=== PATIENT | male | born 1990 | race African-American/Black ===

== ENCOUNTER 2020-03-31 18:21 | Emergency (ER) | payer OTHER, SELFPAY ==
[2020-03-31 18:46] VITALS: BP 119/74; PULSE 120; RESP 16; TEMP 37.1; O2SAT 95; BMI 31.3
--- NOTE | 2020-03-31 18:59 | ED_ITS ---
HPI - Medical Clearance General Chief complaint: Medical Clearance Stated complaint: medical clearance Time Seen by Provider: 03/31/20 18:59 Source: patient Mode of arrival: ambulatory Limitations: no limitations History of Present Illness HPI Narrative: 29-year-old male with history of chronic alcoholism, patient now is in detox program, patient admitted that he had a doctor appointment today and he drank 4 nebs of heavy liquor today, patient required by his program to be evaluated and get medical clearance before going back to the program. Patient is awake, oriented, and alert, able to answer all questions a ppropriately, able to ambulate in the emergency department with steady gait. Related Information Home Medications Medication Instructions Recorded Confirmed benztropine 1 mg tablet 1 mg PO Q4H PRN 02/26/20 02/26/20 haloperidol 0.5 mg tablet 0.5 mg PO DAILY 02/26/20 haloperidol 5 mg tablet 5 mg PO BEDTIME 02/26/20 02/26/20 trazodone 300 mg tablet 300 mg PO BEDTIME 02/26/20 Allergies Allergy/AdvReac Type Severity Reaction Status Date / Time No Known Allergies Allergy Verified 02/26/20 12:17 [No Known Allergies*] Review of Systems Review of Systems: All other systems are reviewed and are negative Constitutional: Reports as per HPI and Reports no additional constitutional complaints Eyes: Reports as per HPI and Reports no additional eye complaints Reports system reviewed and no additional complaints, except as documented Cardiovascular: Reports as per HPI and Reports no additional cardiovascular complaints Respiratory: Reports as per HPI and Reports no additional respiratory complaints Gastrointestinal: Reports as per HPI and Reports no additional gastrointestinal complaints Genitourinary: Reports no additional female genitourinary complaints Musculoskeletal: Reports no additional musculoskeletal complaints Skin/Breast: Reports system reviewed and no additional complaints, except as docu Psychiatric: Reports no additional psychiatric complaints Endocrine: Reports no additional endocrine complaints Hematologic/Lymphatic: Reports no additional hematologic/lymphatic complaints Allergic/Immunologic: Reports no additional allergic/immunologic complaints Reports system reviewed and no additional complaints, except as documented and Reports Abnormal speech present [facility] Past Medical History Medical History Alcohol abuse Delusional disorder Generalized anxiety disorder Mixed dyslipidemia Surgical History History of removal of neck cyst History of root canal procedure Family History Family History Father Depression FH: mental illness Mother Depression FH: mental illness Maternal Grandfather No problems noted. Maternal Grandmother No problems noted. Brother No problems noted. Sister No problems noted. Social History Social History Alcohol intake: current Alcohol type: hard liquor Smoking Status: Current every day smoker Cigarettes Per Day: 9 Smoked in Last 30 Days: No Use of substances other than those prescribed or required for medical reasons: No Advance Directives: No Advance Directives Information Provided: Yes Physical Exam Vital Signs: Vital Signs: Last Vital Signs Temp 98.7 F 03/31/20 18:46 Pulse 120 H 03/31/20 18:46 Resp 16 03/31/20 18:46 BP 119/74 03/31/20 18:46 Pulse Ox 95 03/31/20 18:46 Body Mass Index 31.3 Vital signs have been reviewed as normal and appeared to be correct. Blood pressure normal. Tachycardia. Respiration rate normal. Temperature normal. Oxygen saturation normal. Appearance: Alert. Oriented X3. No acute distress. Head: Normal external exam. Normocephalic. Atraumatic. No Lr signs noted. No raccoon eyes noted Eyes: PERRLA. EOMI. Conjunctiva and sclera normal. Eyelids normal. ENT: EAC normal. TM's Normal. Pharynx normal. Uvula midline. Moist mucous membranes. No trismus noted. No drooling noted. No muffled voice noted. Neck: Normal inspection. Neck supple. FROM. No adenopathy. Thyroid Normal. No meningeal signs. No neck mass noted. CVS: Normal heart rate and rhythm. Heart sound normal. No murmurs noted. Pulses normal throughout. Respiratory: No respiratory distress. Painless inspiration. Breath sounds normal. No wheezes/rales/rhonchi noted. Chest nontender. No accessory muscle usage noted or decreased air movement noted. Abdomen: Soft and nontender. Bowel sounds normal in all 4 quadrants. No distention noted. No organomegaly noted. No visible injury noted. Back: No CVA tenderness. Full range of motion noted. Skin: Skin warm and dry. Normal skin color. Normal skin turgor. No rashes/lesions/lacerations noted. Extremities: No lower extremity edema. Extremities exhibit normal range of mot ion. Extremities nontender. Neuro: Oriented X 3. No motor deficit. No sensory deficit. Reflexes normal. MDM - Medical Clearance MDM Narrative Medical decision making narrative: Assessment and plan. 29-year-old history of chronic alcoholism, patient currently is in alcohol detoxication program, patient needed medical clearance before going back to the program, patient is medically cleared. Discharge Plan Discharge Clinical Impression: Alcohol intoxication, Encounter for medical screening examination Patient Disposition: Home, Self-Care Instructions: Alcohol Intoxication (ED) Prescriptions: No Action trazodone 300 mg tablet 300 mg PO BEDTIME RF: 0 haloperidol 0.5 mg tablet 0.5 mg PO DAILY RF: 0 benztropine 1 mg tablet 1 mg PO Q4H PRNRF: 0 haloperidol 5 mg tablet 5 mg PO BEDTIME RF: 0 Referrals: Tomeka Teresa MD [Primary Care Provider] - 2 days
[2020-03-31 19:46] LABS: Amphetamine Screen Urine Not Detected (Not Detect); Barbiturates, Urine Not Detected (Not Detect); Benzodiazepines Screen Urine Not Detected (Not Detect); Cannabinoid Screen Urine Not Detected (Not Detect); Cocaine Screen Urine Not Detected (Not Detect); Opiate Screen Urine Not Detected (Not Detect); Phencyclidine Screen Urine Not Detected (Not Detect)
--- NOTE | 2020-03-31 20:15 | PC.NURSE ---
SEEN LEAVING THE FACILITY
--- NOTE | 2020-03-31 20:21 | PC.NURSE ---
PT WAS NOT IN ROOM WHEN HIS RESULT WERE READY HE WAS SEEN BY STAFF LEAVING [employer]REW FRONT DOOR.
--- NOTE | 2020-03-31 20:26 | PC.NURSE ---
[facility] CALL[facility] AND THEY ARE AWARE THAT PT LEFT WITHOUT RESULTS.
== END 2020-03-31 20:38 | disposition left against medical advice (07) ==
PROVIDERS: Emergency Provider Emergency Medicine; PCP Internal Medicine
DX: Z02.2 Encounter for examination for admission to residential institution (principal); F10.120 Alcohol abuse with intoxication, uncomplicated; Y90.9 Presence of alcohol in blood, level not specified
CPT/HCPCS: 80307; 99283; 99284

== ENCOUNTER 2020-03-31 20:41 | Emergency (ER) | payer OTHER, SELFPAY ==
[2020-03-31 20:56] VITALS: BP 153/102; PULSE 114; RESP 18; TEMP 36.8; O2SAT 96; BMI 30.4
--- NOTE | 2020-03-31 21:15 | ED.PSYCH ---
HPI - Psych General Chief Complaint: ETOH/Substance Use Stated Complaint: SI/HI Time Seen by Provider: 03/31/20 21:13 Source: patient, EMS and police Mode of arrival: EMS Limitations: no limitations History of Present Illness HPI Narrative: This is a 29-year-old male who was in the emergency department earlier for medical clearance, patient is in alcohol detox program, patient drinks few drinks today and came in for evaluation, patient eloped during the 1st visit, patient came back by the police (the patient called the police himself) patient came from the park, patient is complaining of hearing voices telling him to cut his wrist. And feeling homicidal. Related Data Home Medications Medication Instructions Recorded Confirmed benztropine 1 mg tablet 1 mg PO Q4H PRN 02/26/20 02/26/20 haloperidol 0.5 mg tablet 0.5 mg PO DAILY 02/26/20 haloperidol 5 mg tablet 5 mg PO BEDTIME 02/26/20 02/26/20 trazodone 300 mg tablet 300 mg PO BEDTIME 02/26/20 Allergies Allergy/AdvReac Type Severity Reaction Status Date / Time No Known Allergies Allergy Verified 02/26/20 12:17 [No Known Allergies*] Review of Systems Review of Systems: All other systems are reviewed and are negative Constitutional: Reports as per HPI and Reports no additional constitutional complaints Eyes: Reports as per HPI and Reports no additional eye complaints Reports system reviewed and no additional complaints, except as documented Cardiovascular: Reports as per HPI and Reports no additional cardiovascular complaints Respiratory: Reports as per HPI and Reports no additional respiratory complaints Gastrointestinal: Reports as per HPI and Reports no additional gastrointestinal complaints Genitourinary: Reports no additional female genitourinary complaints Musculoskeletal: Reports no additional musculoskeletal complaints Skin/Breast: Reports system reviewed and no additional complaints, except as docu Psychiatric: Reports no additional psychiatric complaints Endocrine: Reports no additional endocrine complaints Hematologic/Lymphatic: Reports no additional hematologic/lymphatic complaints Allergic/Immunologic: Reports no additional allergic/immunologic complaints Reports system reviewed and no additional complaints, except as documented and Reports Abnormal speech present [facility] Past Medical History Medical History Alcohol abuse Delusional disorder Generalized anxiety disorder Mixed dyslipidemia Surgical History History of removal of neck cyst History of root canal procedure Family History Family History Father Depression FH: mental illness Mother Depression FH: mental illness Maternal Grandfather No problems noted. Maternal Grandmother No problems noted. Brother No problems noted. Sister No problems noted. Social History Social History Alcohol intake: current Alcohol type: hard liquor Smoking Status: Current every day smoker Cigarettes Per Day: 9 Advance Directives: No Advance Directives Information Provided: Yes Physical Exam Vital Signs: Vital Signs: Last Vital Signs Temp 98.2 F 03/31/20 20:56 Pulse 114 H 03/31/20 20:56 Resp 18 03/31/20 20:56 BP 153/102 H 03/31/20 20:56 Pulse Ox 96 03/31/20 20:56 Body Mass Index 30.4 Vital signs have been reviewed as normal and appeared to be correct. Blood pressure in the high range. Tachycardia. Respiration rate normal. Temperature normal. Oxygen saturation normal. Appearance: Alert. Oriented X3. No acute distress. Head: Normal external exam. Normocephalic. Atraumatic. No Lr signs noted. No raccoon eyes noted Eyes: PERRLA. EOMI. Conjunctiva and sclera normal. Eyelids normal. ENT: EAC normal. TM's Normal. Pharynx normal. Uvula midline. Moist mucous membranes. No trismus noted. No drooling noted. No muffled voice noted. Neck: Normal inspection. Neck supple. FROM. No adenopathy. Thyroid Normal. No meningeal signs. No neck mass noted. CVS: Normal heart rate and rhythm. Heart sound normal. No murmurs noted. Pulses normal throughout. Respiratory: No respiratory distress. Painless inspiration. Breath sounds normal. No wheezes/rales/rhonchi noted. Chest nontender. No accessory muscle usage noted or decreased air movement noted. Abdomen: Soft and nontender. Bowel sounds normal in all 4 quadrants. No distention noted. No organomegaly noted. No visible injury noted. Back: No CVA tenderness. Full range of motion noted. Skin: Skin warm and dry. Normal skin color. Normal skin turgor. No rashes/lesions/lacerations noted. Extremities: No lower extremity edema. Extremities exhibit normal range of motion. Extremities nontender. Neuro: Oriented X 3. No motor deficit. No sensory deficit. Reflexes normal. MDM - Psych Restraints Face to Face Assessment: Face to Face Assessment: Current Situation: After assessment of the patient, a review of the pertinent medical record and a discussion with nursing staff, I feel the patient requires a restrain intervention. Reaction To: [] Medical Condition: [] Behavioral State: [] Continued Need: [] Discharge Plan Discharge Prescriptions: No Action trazodone 300 mg tablet 300 mg PO BEDTIME RF: 0 haloperidol 0.5 mg tablet 0.5 mg PO DAILY RF: 0 benztropine 1 mg tablet 1 mg PO Q4H PRNRF: 0 haloperidol 5 mg tablet 5 mg PO BEDTIME RF: 0
[2020-03-31 21:57] LABS: Amphetamine Screen Urine Not Detected (Not Detect); Barbiturates, Urine Not Detected (Not Detect); Benzodiazepines Screen Urine Not Detected (Not Detect); Cannabinoid Screen Urine Not Detected (Not Detect); Cocaine Screen Urine Not Detected (Not Detect); Opiate Screen Urine Not Detected (Not Detect); Phencyclidine Screen Urine Not Detected (Not Detect)
[2020-04-01 00:27] VITALS: BP 115/70; PULSE 96; RESP 17; TEMP 36.4; O2SAT 98
[2020-04-01 01:25] LABS: Ethanol 193 mg/dL
[2020-04-01 02:10] LABS: COVID-19 Test Negative (Negative)
--- NOTE | 2020-04-01 02:15 | MHC.CARE ---
CARE Team planned on assessing pt, as N was not available overnight. CARE Team asks pt if he drank alcohol in the time between leaving from and returning to the ED, which he denies. CARE Team did not conduct a face to face evaluation, as pt's BAL came back at 193. Plan will be for [facility] to see pt in the morning. [facility]. She reports that pt has been a resident of [facility] for two months, and has a hx of psychosis and alcohol use. She reported that aside from this evening, he has been medication compliant. She reports that this morning, pt made complaints of cramps and needing to baig his check and left the program, upon return, he seemed to be under the influence and was given a urine drug test. According to Brynn, he provided a cup of water. When they attempted to screen for alcohol use, pt endorsed drinking alcohol today. per [facility] policy, pt was then brought to the ED for medical clearance. Pt was admitted to the ED, but left without correction coming to pick him up. Brynn reports that it is problematic that pt left ED and went into the community unsupervised, as he now poses a covid risk and would be required to quarantine for 14 days if he returned to the program. She also reports that she is unaware if they have the staff to enforce this quarantine, and therefore she is unsure if pt can return to [facility] and she will not know until tomorrow. CARE Team speaks with [facility] crisis in order to inform them that CARE Team could not assess pt due to high BAL and they agree to see pt tomorrow morning. CARE Team informs [facility] of collateral work, and communicates that this note will beleft in chart for [facility] clinician to review. Brynn Wilks can be reached directly at [phone].
[2020-04-01] MEDS: traZODone HCL 100 MG TABLET 200 MG PO (02:29)
[2020-04-01] MEDS: HaloperidoL 5 MG TABLET PO (02:55)
--- NOTE | 2020-04-01 02:56 | PC.NURSE ---
Patient received Haldol 5 mg tablet PO and Trazodone 200 mg tablet as requested by the patient. Patient swabbed for covid/pending result/will continue to monitor.
--- NOTE | 2020-04-01 04:41 | PC.NURSE ---
[facility] faxed/called/spoke with Radha/confirmed receipt of referral/patient will be evaluated in the morning.
--- NOTE | 2020-04-01 07:02 | PC.NURSE ---
Report received. PT currently sleeping, respirations even and unlabored, in no apparent distress. Pt waiting to be seen by N.
[2020-04-01 08:59] VITALS: BP 111/73; PULSE 99; TEMP 36.5; O2SAT 99
[2020-04-01] MEDS: HaloperidoL 0.5 MG TABLET PO (09:22)
--- NOTE | 2020-04-01 11:19 | PC.NURSE ---
[facility] at bedside for eval.
== END 2020-04-01 16:06 | disposition home or self-care (01) ==
PROVIDERS: Emergency Provider Emergency Medicine
DX: F32.9 Major depressive disorder, single episode, unspecified (principal); F10.20 Alcohol dependence, uncomplicated; Y90.6 Blood alcohol level of 120-199 mg/100 ml; Z20.828 Contact with and (suspected) exposure to other viral communicable diseases; F22 Delusional disorders; F17.200 Nicotine dependence, unspecified, uncomplicated; Z79.899 Other long term (current) drug therapy
CPT/HCPCS: 36415; 80307; 80320; 85025; 87635; 99284; 99285

== ENCOUNTER 2020-04-03 19:11 | Emergency (ER) | payer OTHER, SELFPAY ==
[2020-04-03 19:21] VITALS: BP 155/89; PULSE 75; RESP 16; TEMP 36.3; O2SAT 95; BMI 31.3
--- NOTE | 2020-04-03 19:26 | ED_ITS ---
HPI - Alcohol General Chief Complaint: ETOH/Substance Use Stated Complaint: etoh Source: EMS Mode of arrival: EMS Limitations: altered mental status History of Present Illness HPI narrative: 29-year-old male presents via EMS for ETOH intoxication. He was found on a park bench sleeping with several empty bottles of alcohol around him. He is not answering any questions or following directions, arousable to touch. MD complaint: alcohol intoxication and alcohol dependence Last drink: Just prior to admission Chronic alcohol use: Yes Previous visits for alcohol intoxication: Yes Treatments prior to arrival: none Related Data Home Medications Medication Instructions Recorded Confirmed benztropine 1 mg tablet 1 mg PO Q4H PRN 02/26/20 04/01/20 haloperidol 0.5 mg tablet 0.5 mg PO QAM 02/26/20 04/01/20 haloperidol 5 mg tablet 5 mg PO BEDTIME 02/26/20 04/01/20 trazodone 300 mg tablet 300 mg PO BEDTIME 02/26/20 04/01/20 hydroxyzine HCl 50 mg PO BEDTIME 04/01/20 04/01/20 lurasidone [Latuda] 160 mg PO QPM 04/01/20 04/01/20 Allergies Allergy/AdvReac Type Severity Reaction Status Date / Time No Known Allergies Allergy Verified 02/26/20 12:17 [No Known Allergies*] Review of Systems Review of Systems: ROS unable to be obtained due to altered mental status Yes Unobtainable due to mental status PMFSH Past Medical History Attestation statement: The following information was validated with the patient. Source: old records reviewed Medical History Alcohol abuse Delusional disorder Generalized anxiety disorder Mixed dyslipidemia Surgical History History of removal of neck cyst History of root canal procedure Family History Family History Father Depression FH: mental illness Mother Depression FH: mental illness Maternal Grandfather No problems noted. Maternal Grandmother No problems noted. Brother No problems noted. Sister No problems noted. Social History Social History Alcohol intake: current Alcohol type: hard liquor Smoking Status: Current every day smoker Cigarettes Per Day: 9 Advance Directives: No Advance Directives Information Provided: No Physical Exam Vital Signs: Vital Signs: Last Vital Signs Temp 97.4 F 04/03/20 19:21 Pulse 75 04/03/20 19:21 Resp 16 04/03/20 22:00 BP 155/89 H 04/03/20 19:21 Pulse Ox 95 04/03/20 19:21 Body Mass Index 31.3 Appearance: Arousable to physical stimulus, ETOH intoxication Eyes: Pupils equal, round and reactive to light. Neck: Normal inspection. Neck supple. CVS: Normal heart rate and rhythm. Pulses normal. Respiratory: No respiratory distress. Breath sounds normal. Abdomen: Soft and nontender. Skin: Skin warm and dry. Normal skin color. Normal skin turgor. Course Course Course Narrative: 29-year-old male with ETOH dependence, anxiety disorder, with significant psychiatric history presents via EMS for acute alcohol intoxication. He is not answering questions at this time, unable to follow commands. He is a rousable to physical stimulus and sternal rub. Patient requires multiple verbal redirections to return back to his bed. He does not have a sober ride home, and is not interested in detox at this time. Plan of care is to discharge once he has a sober ride home or when he is clinically sober. MDM - Alcohol Differential Diagnosis Differential diagnosis: Likely alcohol dependence and alcohol intoxication Medical Records Attestation: I reviewed the patient's medical records. Lab Data Attestation: I reviewed the patient's lab results. Result diagrams: 04/03/20 19:42 Labs: Lab Results 04/03/20 04/03/20 Range/Units 19:42 19:42 WBC 12.2 H (4.8-10.8) X10*3/uL RBC 5.89 H (4.60-5.80) X10*6/uL Hgb 17.2 (14.0-18.0) g/dl Hct 51.0 (42-52) % MCV 86.6 (80-98) fL MCH 29.2 (27.0-33.0) pg MCHC 33.7 (31.0-36.0) g/dl RDW 12.4 (11.0-16.0) % Plt Count 256 (160-400) X10*3/uL MPV 10.3 (9.4-12.4) fL Immature Gran % (Auto) 0.5 H (0.0-0.4) % Neut % (Auto) 54.8 (45-73) % Lymph % (Auto) 38.4 (20-40) % Woodson % (Auto) 4.7 (2-11) % Eos % (Auto) 1.2 (0-4) % Baso % (Auto) 0.4 (0-2) % Lymph # (Auto) 4.7 (1.2-4.9) X10*3/uL Woodson # (Auto) 0.6 (0.1-1.2) X10*3/uL Eos # (Auto) 0.1 (0.0-0.4) X10*3/uL Baso # (Auto) 0.1 (0.0-0.2) X10*3/uL Abs Immat Gran (auto) 0.06 H (0.00-0.03) X10*3/uL Absolute Neuts (auto) 6.7 (2.0-8.3) X10*3/uL Absolute Nucleated RBC 0.000 (0.0-0.012) X10*3/uL Nucleated RBC % (auto) 0.0 (0.0-0.2) /100WBC Ethyl Alcohol 372 H* mg/dL Discharge Plan Discharge Clinical Impression: Alcohol abuse Alcoholic intoxication Qualifiers: Complication of substance-induced condition: uncomplicated Qualified Code(s): F10.920 - Alcohol use, unspecified with intoxication, uncomplicated Patient Disposition: Home, Self-Care Instructions: Alcohol Intoxication (ED), Abuse of Alcohol (ED), Alcohol Dependence (ED) Additional Instructions: Please consider detox Thank you for choosing this emergency department for evaluation. Please follow-up with primary care physician as needed. Return to the emergency department for any new, concerning, or worsening symptoms. Prescriptions: No Action Latuda 80 mg Tablet 160 mg PO QPM RF: 0 hydroxyzine HCl 50 mg Tablet 50 mg PO BEDTIME RF: 0 trazodone 300 mg tablet 300 mg PO BEDTIME RF: 0 haloperidol 0.5 mg tablet 0.5 mg PO QAM RF: 0 benztropine 1 mg tablet 1 mg PO Q4H PRN (Reason: Extrapyramidal Effects/Symptoms) RF: 0 haloperidol 5 mg tablet 5 mg PO BEDTIME RF: 0
[2020-04-03 19:52] LABS: MANUAL DIFF FLAG NO
[2020-04-03 19:55] LABS: Basophils Absolute Auto 0.1 X10*3/uL (0.0-0.2); Basophils Percent Auto 0.4 % (0-2); Eosinophils Absolute Auto 0.1 X10*3/uL (0.0-0.4); Eosinophils Percent Auto 1.2 % (0-4); Hemoglobin 17.2 g/dl (14.0-18.0); Imm Gran Abs Auto 0.06 X10*3/uL (0.00-0.03); Imm Gran Pct Auto 0.5 % (0.0-0.4); Lymphocytes Absolute Auto 4.7 X10*3/uL (1.2-4.9); Lymphocytes Percent Auto 38.4 % (20-40); Mean Corpuscular HGB Conc 33.7 g/dl (31.0-36.0); Mean Corpuscular Hemoglobin 29.2 pg (27.0-33.0); Mean Corpuscular Volume 86.6 fL (80-98); Mean Platelet Volume 10.3 fL (9.4-12.4); Monocytes Absolute Auto 0.6 X10*3/uL (0.1-1.2); Monocytes Percent Auto 4.7 % (2-11); Neutrophils Absolute Auto 6.7 X10*3/uL (2.0-8.3); Neutrophils Percent Auto 54.8 % (45-73); Platelet Count 256 X10*3/uL (160-400); Red Blood Count 5.89 X10*6/uL (4.60-5.80); Red Cell Distribution Width 12.4 % (11.0-16.0); White Blood Count 12.2 X10*3/uL (4.8-10.8)
[2020-04-03 20:29] LABS: Ethanol 372 mg/dL
--- NOTE | 2020-04-03 21:24 | PC.NURSE ---
PT REPEATEDLY ATTEMPTING TO GET OUT OF BED, STATED TO THIS RN I GOTTA GO , PT STATED HE HAD NOWHERE TO GO, WOULD GO SLEEP ON A BENCH IN A LOCAL PARK. THIS RN REDIRECTED PT BACK TO BED, PT'S BED MOVED TO 22H FOR CLOSER OBSERVATION. COMPLIANCE REPRESENTATIVE DEALER TO BEDSIDE TO SPEAK WITH PATIENT.
[2020-04-03 22:00] VITALS: RESP 16
--- NOTE | 2020-04-03 22:15 | MHC.CARE ---
CARE team attempted to redirect patient who was trying to leave bed ED22H. Patient was reporting he had a ride and that he wanted to go. Upon further questioning, patient admits he does not have a ride or a place to go. Patient had been at [facility] ([phone]) who, per patient, will not allow him back until after a 14 day quarantine. Patient also tried to get his sister Jerri ([phone]) to pick him up but was unsuccessful. CARE team and assistant softball coach attempted to get in touch with [facility] and [facility] with multiple attempts but there was no answer. online health and fitness coach also attempted to contact [employer] regarding their covid-related housing. They have a 24-hour response time and were unable to offer any support tonight. Plan is for patient to remain in ED until sober enough to leave safely. CARE team coordinated with patient's nurse.
[2020-04-04] VITALS: PULSE 59; RESP 16; O2SAT 99
[2020-04-04 02:00] VITALS: RESP 16
== END 2020-04-04 03:32 | disposition home or self-care (01) ==
PROVIDERS: Nurse Practitioner Family; Emergency Provider Emergency Medicine
DX: F10.220 Alcohol dependence with intoxication, uncomplicated (principal); Y90.8 Blood alcohol level of 240 mg/100 ml or more; F41.1 Generalized anxiety disorder; F22 Delusional disorders; F17.210 Nicotine dependence, cigarettes, uncomplicated
CPT/HCPCS: 36415; 80320; 85025; 99284; 99285

== ENCOUNTER 2020-04-07 09:16 | Emergency (ER) | payer OTHER, SELFPAY ==
[2020-04-07 09:39] VITALS: BP 145/93; PULSE 97; RESP 22; TEMP 37.2; O2SAT 94; BMI 31.8
[2020-04-07] MEDS: LORazepam 1 MG TABLET PO (10:52)
[2020-04-07 11:14] LABS: Basophils Absolute Auto 0.1 X10*3/uL (0.0-0.2); Basophils Percent Auto 0.4 % (0-2); Eosinophils Percent Auto 0.3 % (0-4); Hematocrit 45.6 % (42-52); Hemoglobin 15.7 g/dl (14.0-18.0); Imm Gran Abs Auto 0.05 X10*3/uL (0.00-0.03); Imm Gran Pct Auto 0.3 % (0.0-0.4); Lymphocytes Absolute Auto 2.5 X10*3/uL (1.2-4.9); Mean Corpuscular HGB Conc 34.4 g/dl (31.0-36.0); Mean Corpuscular Hemoglobin 29.6 pg (27.0-33.0); Mean Corpuscular Volume 85.9 fL (80-98); Mean Platelet Volume 10.5 fL (9.4-12.4); Monocytes Percent Auto 6.2 % (2-11); Neutrophils Percent Auto 76.8 % (45-73); Platelet Count 251 X10*3/uL (160-400); Red Blood Count 5.31 X10*6/uL (4.60-5.80); Red Cell Distribution Width 12.5 % (11.0-16.0); White Blood Count 15.6 X10*3/uL (4.8-10.8)
[2020-04-07 11:15] LABS: MANUAL DIFF FLAG NO
--- NOTE | 2020-04-07 11:15 | ED_ITS ---
HPI - Psych General Chief Complaint: Psychiatric Symptoms Stated Complaint: crisis Time Seen by Provider: 04/07/20 09:33 Source: patient Mode of arrival: ambulatory Limitations: no limitations History of Present Illness HPI Narrative: 29yoM c PMHx of schizoaffective disorder, delusional disorder, anxiety disorder, alcohol dependent and hyperlipidemia who is currently homeless presenting to the ED c c/o increased anxiety, depression, hallucinations patient states he is hearing ?mother fucker my mother fucker mother fucker?. Having thoughts of cutting his arms. Otherwise denies visual hallucinations. Reports that he was at a program and due to being out in the community he was told by the program that he had to quarantine for 14 days and he had no where to go therefore has been on the street. Reports he last drank alcohol yesterday. Denies any drug usage. Denies homicidal ideations. Denies any other symptoms complaints or concerns such as fevers, chills, sore throat, cough, nausea/vomiting, abdominal pain, dysuria, diarrhea or constipation. Related Data Home Medications Medication Instructions Recorded Confirmed benztropine 1 mg tablet 1 mg PO Q4H PRN 02/26/20 04/01/20 haloperidol 0.5 mg tablet 0.5 mg PO QAM 02/26/20 04/01/20 haloperidol 5 mg tablet 5 mg PO BEDTIME 02/26/20 04/01/20 trazodone 300 mg tablet 300 mg PO BEDTIME 02/26/20 04/01/20 hydroxyzine HCl 50 mg PO BEDTIME 04/01/20 04/01/20 lurasidone [Latuda] 160 mg PO QPM 04/01/20 04/01/20 Allergies Allergy/AdvReac Type Severity Reaction Status Date / Time No Known Allergies Allergy Verified 02/26/20 12:17 [No Known Allergies*] Review of Systems Review of Systems: Constitutional : No Fever, No Chills ENT/Mouth : No Ear Pain, No Nasal Congestion, No sore throat Eyes: No Eye Pain, No Swelling, No Redness Cardiovascular : No Chest Pain, No SOB Respiratory : No Cough, No Sputum, No Dyspnea Gastrointestinal : No ingestions, No Nausea, No Vomiting, No Diarrhea, No Hematochezia, No Melena Genitourinary : No Dysuria, No Urinary Frequency, No Hematuria Musculoskeletal : No Myalgias Skin : No Skin Lesions, No rash Neuro : No Weakness, No Numbness, No Paresthesias, No Dizziness, No Headache Psych : + Anxiety, + Depression, + SI, + No thoughts of self injury, No HI, + AVH, Heme/Lymph: No Lymphadenopathy Endocrine : No Polyuria, No Polydipsia Yes all other systems are reviewed and are negative [facility] Past Medical History Attestation statement: The following information was validated with the patient. Medical History Alcohol abuse Delusional disorder Generalized anxiety disorder Mixed dyslipidemia Surgical History History of removal of neck cyst History of root canal procedure Family History Family History Father Depression FH: mental illness Mother Depression FH: mental illness Maternal Grandfather No problems noted. Maternal Grandmother No problems noted. Brother No problems noted. Sister No problems noted. Social History Social History Alcohol intake: current Alcohol intake frequency: 3 or more drinks per day Alcohol type: hard liquor Smoking Status: Current every day smoker Cigarettes Per Day: 9 Use of substances other than those prescribed or required for medical reasons: No Advance Directives: No Advance Directives Information Provided: Yes Physical Exam Vital Signs: Vital Signs: Last Vital Signs Temp 99 F 04/07/20 15:36 Pulse 97 04/07/20 15:36 Resp 15 04/07/20 15:36 BP 127/92 H 04/07/20 15:36 Pulse Ox 95 04/07/20 15:36 Body Mass Index 31.8 vital signs have been reviewed as normal and appeared to be correct. Blood pressure normal. Heart rate normal. Respiration rate normal. Temperature normal. Oxygen saturation normal. Appearance: Alert. Oriented X3. No acute distress. Head: Normal external exam. Normocephalic. Atraumatic. No Lr signs noted. No raccoon eyes noted Eyes: PERRLA. EOMI. Conjunctiva and sclera normal. Eyelids normal. ENT: EAC normal. TM's Normal. Pharynx normal. Uvula midline. Moist mucous membranes. No trismus noted. No drooling noted. No muffled voice noted. Neck: Normal inspection. Neck supple. FROM. No adenopathy. Thyroid Normal. No meningeal signs. No neck mass noted. CVS: Normal heart rate and rhythm. Heart sound normal. No murmurs noted. Pulses normal throughout. Respiratory: No respiratory distress. Painless inspiration. Breath sounds normal. No wheezes/rales/rhonchi noted. Chest nontender. No accessory muscle usage noted or decreased air movement noted. Abdomen: Soft and nontender. Bowel sounds normal in all 4 quadrants. No distention noted. No organomegaly noted. No visible injury noted. Back: No CVA tenderness. Full range of motion noted. Skin: Skin warm and dry. Normal skin color. Normal skin turgor. No rashes/lesions/lacerations noted. Old scars from self injuries no new self- injury mclean noted. Extremities: No lower extremity edema. Extremities exhibit normal range of motion. Extremities nontender. Neuro: Oriented X 3. No motor deficit. No sensory deficit. Reflexes normal. Psych: Appearance grossly normal, well-kept, mental status normal, speech and movement normal, speech clear, patient appears very sad and anxious along with the depressed. Is cooperative. Abnormal thought process. Abnormal thought content. Abnormal insight. Judgment good. Course Course Course Narrative: 11am - 29yoM c PMHx of schizoaffective disorder, delusional disorder, anxiety disorder, alcohol dependent and hyperlipidemia who is currently homeless presenting to the ED c c/o increased anxiety, depression, auditory hallucinations and thoughts of self-injury. Recent ETOH intake. Denies drug usage. - Plan: Labs, Drug urine screen. COVID/RSV/flu swab. Consult to [facility] once medically cleared. Provide 1 mg of Ativan then re-evaluate. Reevaluation(s) Reevaluation #1: - WBC at 15.6. Total bilirubin 1.2. AST 48. ALT 50. CPK 2544. Due to being tachycardic and elevated white blood cell count blood cultures and lactic acid obtained which revealed a Lactic acid 0.9. - therefore obtain a chest x-ray which is negative for any acute processes such as pneumonia. Patient negative for COVID/RSV/flu. Awaiting a UA otherwise no source of infection I do not believe this is sepsis this is most likely dehydration. Will give another L of IV fluid which would be a 2 L of IV fluids and re-evaluate the patient's CPK and medically clear at this time while patient awaits [facility] evaluation. Time: 12:37 Reevaluation #2: - Repeat CPK trended down to 2081. Patient is medically cleared awaiting [facility] evaluation. Time: 16:25 MDM - Psych Restraints Face to Face Assessment: Face to Face Assessment: Current Situation: After assessment of the patient, a review of the pertinent medical record and a discussion with nursing staff, I feel the patient requires a restrain intervention. Reaction To: [] Medical Condition: [] Behavioral State: [] Continued Need: [] Medical Records Attestation: I reviewed the patient's medical records. Lab Data Attestation: I reviewed the patient's lab results. Result diagrams: 04/07/20 11:03 04/07/20 11:03 Labs: Lab Results 04/07/20 04/07/20 04/07/20 Range/Units 11:03 11:03 11:03 WBC 15.6 H (4.8-10.8) X10*3/uL RBC 5.31 (4.60-5.80) X10*6/uL Hgb 15.7 (14.0-18.0) g/dl Hct 45.6 (42-52) % MCV 85.9 (80-98) fL MCH 29.6 (27.0-33.0) pg MCHC 34.4 (31.0-36.0) g/dl RDW 12.5 (11.0-16.0) % Plt Count 251 (160-400) X10*3/uL MPV 10.5 (9.4-12.4) fL Immature Gran % (Auto) 0.3 (0.0-0.4) % Neut % (Auto) 76.8 H (45-73) % Lymph % (Auto) 16.0 L (20-40) % [place] % (Auto) 6.2 (2-11) % Eos % (Auto) 0.3 (0-4) % Baso % (Auto) 0.4 (0-2) % Lymph # (Auto) 2.5 (1.2-4.9) X10*3/uL [place] # (Auto) 1.0 (0.1-1.2) X10*3/uL Eos # (Auto) 0.0 (0.0-0.4) X10*3/uL Baso # (Auto) 0.1 (0.0-0.2) X10*3/uL Abs Immat Gran (auto) 0.05 H (0.00-0.03) X10*3/uL Absolute Neuts (auto) 12.0 H (2.0-8.3) X10*3/uL Absolute Nucleated RBC 0.000 (0.0-0.012) X10*3/uL Nucleated RBC % (auto) 0.0 (0.0-0.2) /100WBC Hold Blue Top SEE NOTE Sodium 139 (135-145) mmol/L Potassium 3.7 (3.3-5.1) mmol/l Chloride 93 L (96-108) mmol/L Carbon Dioxide 30 H (22-29) mmol/L Anion Gap 20 (12-20) BUN 15 (9-16) mg/dL Creatinine 0.98 (0.5-1.4) mg/dL Estim Creat Clear Calc 124.4 Estimated GFR > 60 Random Glucose 110 (60-115) mg/dL Lactic Acid (0.5-2.0) mmol/L Calcium 9.3 (8.4-10.2) mg/dL Magnesium 1.7 (1.6-2.6) mg/dL Total Bilirubin 1.2 H (0.0-1.0) mg/dL Direct Bilirubin 0.5 (0.0-0.5) mg/dL AST 48 H (5-37) U/L ALT 50 H (0-40) U/L Alkaline Phosphatase 63 (39-117) U/L Total Creatine Kinase 2544 H (38-174) U/L Total Protein 8.1 H (6.5-8.0) g/dL Albumin 5.2 H (3.5-5.0) g/dL Lipase 26 (8-78) U/L Ethyl Alcohol mg/dL Coronavirus (PCR) (Negative) Influenza Type A (PCR) (Negative) Influenza Type B (PCR) (Negative) RSV RNA Qual (PCR) (Negative) 04/07/20 04/07/20 04/07/20 Range/Units 11:03 11:07 11:42 WBC (4.8-10.8) X10*3/uL RBC (4.60-5.80) X10*6/uL Hgb (14.0-18.0) g/dl Hct (42-52) % MCV (80-98) fL MCH (27.0-33.0) pg MCHC (31.0-36.0) g/dl RDW (11.0-16.0) % Plt Count (160-400) X10*3/uL MPV (9.4-12.4) fL Immature Gran % (Auto) (0.0-0.4) % Neut % (Auto) (45-73) % Lymph % (Auto) (20-40) % [place] % (Auto) (2-11) % Eos % (Auto) (0-4) % Baso % (Auto) (0-2) % Lymph # (Auto) (1.2-4.9) X10*3/uL [place] # (Auto) (0.1-1.2) X10*3/uL Eos # (Auto) (0.0-0.4) X10*3/uL Baso # (Auto) (0.0-0.2) X10*3/uL Abs Immat Gran (auto) (0.00-0.03) X10*3/uL Absolute Neuts (auto) (2.0-8.3) X10*3/uL Absolute Nucleated RBC (0.0-0.012) X10*3/uL Nucleated RBC % (auto) (0.0-0.2) /100WBC Hold Blue Top Sodium (135-145) mmol/L Potassium (3.3-5.1) mmol/l Chloride (96-108) mmol/L Carbon Dioxide (22-29) mmol/L Anion Gap (12-20) BUN (9-16) mg/dL Creatinine (0.5-1.4) mg/dL Estim Creat Clear Calc Estimated GFR Random Glucose (60-115) mg/dL Lactic Acid 0.9 (0.5-2.0) mmol/L Calcium (8.4-10.2) mg/dL Magnesium (1.6-2.6) mg/dL Total Bilirubin (0.0-1.0) mg/dL Direct Bilirubin (0.0-0.5) mg/dL AST (5-37) U/L ALT (0-40) U/L Alkaline Phosphatase (39-117) U/L Total Creatine Kinase (38-174) U/L Total Protein (6.5-8.0) g/dL Albumin (3.5-5.0) g/dL Lipase (8-78) U/L Ethyl Alcohol < 10 mg/dL Coronavirus (PCR) NEGATIVE (Negative) Influenza Type A (PCR) NEGATIVE (Negative) Influenza Type B (PCR) NEGATIVE (Negative) RSV RNA Qual (PCR) NEGATIVE (Negative) 04/07/20 Range/Units 15:33 WBC (4.8-10.8) X10*3/uL RBC (4.60-5.80) X10*6/uL Hgb (14.0-18.0) g/dl Hct (42-52) % MCV (80-98) fL MCH (27.0-33.0) pg MCHC (31.0-36.0) g/dl RDW (11.0-16.0) % Plt Count (160-400) X10*3/uL MPV (9.4-12.4) fL Immature Gran % (Auto) (0.0-0.4) % Neut % (Auto) (45-73) % Lymph % (Auto) (20-40) % [place] % (Auto) (2-11) % Eos % (Auto) (0-4) % Baso % (Auto) (0-2) % Lymph # (Auto) (1.2-4.9) X10*3/uL [place] # (Auto) (0.1-1.2) X10*3/uL Eos # (Auto) (0.0-0.4) X10*3/uL Baso # (Auto) (0.0-0.2) X10*3/uL Abs Immat Gran (auto) (0.00-0.03) X10*3/uL Absolute Neuts (auto) (2.0-8.3) X10*3/uL Absolute Nucleated RBC (0.0-0.012) X10*3/uL Nucleated RBC % (auto) (0.0-0.2) /100WBC Hold Blue Top Sodium (135-145) mmol/L Potassium (3.3-5.1) mmol/l Chloride (96-108) mmol/L Carbon Dioxide (22-29) mmol/L Anion Gap (12-20) BUN (9-16) mg/dL Creatinine (0.5-1.4) mg/dL Estim Creat Clear Calc Estimated GFR Random Glucose (60-115) mg/dL Lactic Acid (0.5-2.0) mmol/L Calcium (8.4-10.2) mg/dL Magnesium (1.6-2.6) mg/dL Total Bilirubin (0.0-1.0) mg/dL Direct Bilirubin (0.0-0.5) mg/dL AST (5-37) U/L ALT (0-40) U/L Alkaline Phosphatase (39-117) U/L Total Creatine Kinase 2082 H (38-174) U/L Total Protein (6.5-8.0) g/dL Albumin (3.5-5.0) g/dL Lipase (8-78) U/L Ethyl Alcohol mg/dL Coronavirus (PCR) (Negative) Influenza Type A (PCR) (Negative) Influenza Type B (PCR) (Negative) RSV RNA Qual (PCR) (Negative) Imaging Data Chest x-ray: Attestation: I personally reviewed and interpreted this imaging study as follows: Radiologist's impression: IMPRESSION: Unremarkable examination. Discharge Plan Discharge Clinical Impression: Depression, Acute anxiety, Rhabdomyolysis Prescriptions: No Action Latuda 80 mg Tablet 160 mg PO QPM RF: 0 hydroxyzine HCl 50 mg Tablet 50 mg PO BEDTIME RF: 0 trazodone 300 mg tablet 300 mg PO BEDTIME RF: 0 haloperidol 0.5 mg tablet 0.5 mg PO QAM RF: 0 benztropine 1 mg tablet 1 mg PO Q4H PRN (Reason: Extrapyramidal Effects/Symptoms) RF: 0 haloperidol 5 mg tablet 5 mg PO BEDTIME RF: 0
--- NOTE | 2020-04-07 11:26 | XR_ITS ---
EXAMINATION: XR CHEST CLINICAL INFORMATION: Medical clearance COMPARISON: Previous chest x-ray December 2019 TECHNIQUE: 2 views of the chest were obtained. FINDINGS: No significant abnormality is noted involving the heart, lungs, mediastinum, bony thorax or soft tissues. XR/XR chest 2V IMPRESSION: Unremarkable examination.
[2020-04-07 11:41] LABS: Ethanol < 10 mg/dL
[2020-04-07 11:43] LABS: Alanine Aminotransferase 50 U/L (0-40); Albumin Level 5.2 g/dL (3.5-5.0); Alkaline Phosphatase 63 U/L (39-117); Anion Gap 20 (12-20); Aspartate Amino Transferase 48 U/L (5-37); Bilirubin Direct 0.5 mg/dL (0.0-0.5); Bilirubin Total 1.2 mg/dL (0.0-1.0); Blood Urea Nitrogen 15 mg/dL (9-16); Calcium 9.3 mg/dL (8.4-10.2); Carbon Dioxide 30 mmol/L (22-29); Chloride 93 mmol/L (96-108); Creatinine Clr Calc Pharmacy 124.4; Estimated Glomerular Filt Rate > 60; Glucose Random 110 mg/dL (60-115); Lipase 26 U/L (8-78); Magnesium 1.7 mg/dL (1.6-2.6); Potassium 3.7 mmol/l (3.3-5.1); Sodium 139 mmol/L (135-145); Total Protein 8.1 g/dL (6.5-8.0)
[2020-04-07] MEDS: 0.9 % Sodium Chloride 1,000 ML 999 ML IVCONT ×2 (11:47→14:04)
[2020-04-07 11:49] VITALS: BP 117/85; PULSE 107; RESP 20; TEMP 37.1; O2SAT 97
--- NOTE | 2020-04-07 11:53 | PC.NURSE ---
Elevated WBC with lab work. Pt informed of plan to take more blood and give fluids. IV inserted and blood drawn. Pt at X-ray with patient observer
[2020-04-07 12:15] LABS: Influenza A PCR NEGATIVE (Negative); Influenza B PCR NEGATIVE (Negative); Resp Syncy Virus RNA Qual PCR NEGATIVE (Negative); SARS COV2 PCR INHOUSE NEGATIVE (Negative)
[2020-04-07 12:17] LABS: Lactic Acid 0.9 mmol/L (0.5-2.0)
[2020-04-07 13:16] VITALS: BP 127/92; PULSE 95; RESP 15; TEMP 37.2; O2SAT 96
--- NOTE | 2020-04-07 13:18 | PC.NURSE ---
Fax and call to [facility] complete
--- NOTE | 2020-04-07 13:26 | PC.NURSE ---
Pt reports drinking 10 nips of vodka per day but is vague on detail and only answers some questions that are answered. Unable to obtain detailed history at this time.
[2020-04-07 15:36] VITALS: BP 127/92; PULSE 97; RESP 15; TEMP 37.2; O2SAT 95
[2020-04-07] MEDS: LORazepam 1 MG TABLET 2 MG PO ×2 (16:23→22:27)
--- NOTE | 2020-04-07 16:24 | MHC.PIE ---
Pt with viable beads of sweat on head and tremulous. PO ativan given and PA aware. Pt remains calm, alert, and oriented but guarded.
[2020-04-07 18:00] VITALS: BP 134/90; PULSE 83; RESP 17; TEMP 36.9; O2SAT 97
--- NOTE | 2020-04-07 18:01 | PC.NURSE ---
[facility] at bedside for eval
--- NOTE | 2020-04-07 19:08 | PC.NURSE ---
Fax with records of medical information sent to [facility] EATS program at [phone]
[2020-04-08] MEDS: LORazepam 1 MG TABLET 2 MG PO (04:45)
--- NOTE | 2020-04-08 07:23 | PC.NURSE ---
report taken from flavia stratton pt here for detox, has been [facility]. per notes, pt to leave for [facility] today. pt has had over phone intake for placement, and n will call back with further information about transport this am. pt sitting up in bed, eating breakfast, nad. wctm.
--- NOTE | 2020-04-08 08:48 | PC.NURSE ---
per [facility], having difficulty getting in communication w [facility]. unknown when pt will be transported to facility. awaiting further update.
--- NOTE | 2020-04-08 11:38 | MHC.CARE ---
Per [facility] Pt is not able to be accepted till tomorrow. CARE Team spoke with [facility] who reported Pt is voluntary EATs placement and they will continue to work on placement. Journeyman Lineman assisting in coordination.
--- NOTE | 2020-04-08 11:41 | PC.NURSE ---
pt ambulated to pod w steady gait for shower. potential for bed available at [place] per care team. per care team pt allowed to have personal items d/t pt being voluntary. pt appears calm and cooperative. reading book in stretcher at this time. [place].
--- NOTE | 2020-04-08 14:06 | MHC.RECOVSUP ---
Recovery Support note: Patient is a 29 year old Divehi speaking male who presented to [facility] ED seeking help due to being off his medications. Patient was evaluated by [facility] with a plan for patient to await an EATS bed. Patient was declined from [facility] due to his acuity and declined from [place] due to his medical situation and lab values. Patient was informed that a bed may be available in [place] but that [facility] has not heard back and that he also may have a bed at [facility] tomorrow. Patient was not interested in remaining in the ED. Patient reports he feels safe to leave and that he can go to his sisters house. Patient reports he will follow up with [facility] on his own. This display card writer will fax additional information to [facility] in the event that he seeks admission there. Patient denies thoughts to harm himself or others, stating that he has been taking his medications and is feeling much better in that regard. Discussed case with patient's RN and informed JENNIFERN.
[2020-04-12 13:23] LABS: Haloperidol 3 ng/mL (5-15)
== END 2020-04-08 14:01 | disposition home or self-care (01) ==
PROVIDERS: Physician Assistant Medical; Emergency Provider Emergency Medicine Emergency Medical Services
DX: F32.9 Major depressive disorder, single episode, unspecified (principal); F41.9 Anxiety disorder, unspecified; M62.82 Rhabdomyolysis; Z20.828 Contact with and (suspected) exposure to other viral communicable diseases; F10.20 Alcohol dependence, uncomplicated; F17.200 Nicotine dependence, unspecified, uncomplicated
CPT/HCPCS: 0241U; 36415; 71046; 80048; 80076; 80173; 80320; 82550; 83605; 83690; 83735; 85025; 87040; 96360; 96361; 99285

== ENCOUNTER 2020-06-09 15:57 | Emergency (ER) | payer OTHER, SELFPAY ==
[2020-06-09 16:08] VITALS: BP 127/98; PULSE 118; RESP 16; TEMP 37; O2SAT 98; BMI 28.7
--- NOTE | 2020-06-09 16:19 | ED.PSYCH ---
HPI - Psych General Chief Complaint: Psychiatric Symptoms <James Parra NP - Last Filed: 06/09/20 20:50> Stated Complaint: AUDITORY HALLUCINATIONS <James Parra NP - Last Filed: 06/09/20 20:50> Time Seen by Provider: 06/09/20 16:16 <James Parra NP - Last Filed: 06/09/20 20:50> Source: EMS <James Parra NP - Last Filed: 06/09/20 20:50> Mode of arrival: EMS <James Parra NP - Last Filed: 06/09/20 20:50> Limitations: other (Intoxicated) <James Parra NP - Last Filed: 06/09/20 20:50> History of Present Illness HPI Narrative: 29-year-old male with history of schizoaffective disorder as well as alcohol abuse apparently was drinking today and stating that he is having auditory hallucinations. He denies any medical complaints. Denies any fall or injury. He is tearful. Admits to drinking just prior to arrival. He denies any SI or HI. <James Parra NP - Last Filed: 06/09/20 20:50> MD complaint: hallucinations and alcohol abuse <James Parra NP - Last Filed: 06/09/20 20:50> Onset (ago): hour(s) <James Parra NP - Last Filed: 06/09/20 20:50> Duration: constant <James Parra NP - Last Filed: 06/09/20 20:50> History of same: Yes <James Parra NP - Last Filed: 06/09/20 20:50> Relieving factors: none <James Parra NP - Last Filed: 06/09/20 20:50> Exacerbating factors: none <James Parra NP - Last Filed: 06/09/20 20:50> Context: recent alcohol abuse <James Parra NP - Last Filed: 06/09/20 20:50> Associated psychiatric symptoms: none <James Parra NP - Last Filed: 06/09/20 20:50> Treatments prior to arrival: none <James Parra NP - Last Filed: 06/09/20 20:50> Related Data Home Medications: Home Medications Medication Instructions Recorded Confirmed haloperidol 0.5 mg tablet 0.5 mg PO QAM 02/26/20 04/08/20 haloperidol 5 mg tablet 5 mg PO BEDTIME 02/26/20 04/08/20 trazodone 300 mg tablet 300 mg PO BEDTIME 02/26/20 04/08/20 hydroxyzine HCl 50 mg PO BEDTIME 04/01/20 04/08/20 lurasidone [Latuda] 160 mg PO QPM 04/01/20 04/08/20 <James Parra NP - Last Filed: 06/09/20 20:50> Allergies/Adverse Reactions: Allergies Allergy/AdvReac Type Severity Reaction Status Date / Time No Known Allergies Allergy Verified 02/26/20 12:17 [No Known Allergies*] <James Parra NP - Last Filed: 06/09/20 20:50> Review of Systems Review of Systems: Constitutional: No Weight loss, No Fever, No Chills, No Night Sweats, No Fatigue, No Malaise ENT/Mouth: No Hearing loss, No Ear Pain, No Nasal Congestion, No Sinus Pain, No Hoarseness, No sore throat, No Rhinorrhea, No Swallowing Difficulty Eyes: No Eye Pain, No Swelling, No Redness, No Foreign Body, No Discharge, No Vision Changes Cardiovascular: No Chest Pain, No SOB, No Dyspnea on Exertion, No Orthopnea, No Edema, No Palpitations Respiratory: No Cough, No Sputum, No Wheezing, No Smoke Exposure, No Dyspnea Gastrointestinal: No Nausea, No Vomiting, No Diarrhea, No Constipation, No abdominal Pain, No Hematochezia, No Melena Genitourinary: No Dysuria, No Urinary Frequency, No Hematuria, No Urinary Incontinence, No Urgency, No Flank Pain, No Urinary Flow Changes, No Hesitancy Musculoskeletal: No joint pain, No Myalgias, No Joint Swelling Skin: No Skin Lesions, No rash Neuro: No Weakness, No Numbness, No Paresthesias, No Loss of Consciousness, No Dizziness, No Headache Psych: No Social Issues Heme/Lymph: No Bruising, No Bleeding,No Lymphadenopathy Endocrine: No Polyuria, No Polydipsia, No Temperature Intolerance <SAPNA Lord Last Filed: 06/09/20 20:50> Yes all other systems are reviewed and are negative <James Parra NP - Last Filed: 06/09/20 20:50> [facility] Past Medical History Medical History: Medical History Alcohol abuse Delusional disorder Generalized anxiety disorder Mixed dyslipidemia <James Parra NP - Last Filed: 06/09/20 20:50> Surgical History: Surgical History History of removal of neck cyst History of root canal procedure <James Parra NP - Last Filed: 06/09/20 20:50> Family History Family History: Family History Father Depression FH: mental illness Mother Depression FH: mental illness Maternal Grandfather No problems noted. Maternal Grandmother No problems noted. Brother No problems noted. Sister No problems noted. <James Parra NP - Last Filed: 06/09/20 20:50> Social History Social History: Social History Alcohol intake: current Alcohol intake frequency: 3 or more drinks per day Alcohol type: hard liquor Smoking Status: Current every day smoker Cigarettes Per Day: 9 Advance Directives: No Advance Directives Information Provided: No <James Parra NP - Last Filed: 06/09/20 20:50> Physical Exam Vital Signs: Vital Signs: Last Vital Signs Temp 971 F H 06/09/20 22:35 Pulse 96 06/09/20 22:35 Resp 18 06/09/20 22:35 BP 108/66 06/09/20 22:35 Pulse Ox 96 06/09/20 22:35 Body Mass Index 28.7 Reviewed <James Parra NP - Last Filed: 06/09/20 20:50> Vital Signs: Last Vital Signs Temp 971 F H 06/09/20 22:35 Pulse 96 06/09/20 22:35 Resp 18 06/09/20 22:35 BP 108/66 06/09/20 22:35 Pulse Ox 96 06/09/20 22:35 Body Mass Index 28.7 <Pam Garcia NP - Last Filed: 06/10/20 02:59> Const: Other: His affect is labile, dressed appropriately, atraumatic, tearful during conversation. <James SAPNA Parra - Last Filed: 06/09/20 20:50> General: cooperative and intoxicated appearing (Odor of EtOH); No acute distress <[facility] SAPNA Parra Last Filed: 06/09/20 20:50> Nutritional Appearance: average body habitus <[facility] SAPNA Parra Last Filed: 06/09/20 20:50> Orientation/consciousness: patient oriented x3 <[facility] Aida [facility] Last Filed: 06/09/20 20:50> HENMT: Head: Yes normal to inspection <[facility] SAPNA Parra Last Filed: 06/09/20 20:50> Ears: hearing grossly normal bilaterally <[facility] Aida [employer] - Last Filed: 06/09/20 20:50> Eyes: General: appearance normal, both eyes and all related structures <[facility] SAPNA Parra Last Filed: 06/09/20 20:50> Visual Chavarria: normal visual chavarria by confrontation <[facility] Aida [employer] - Last Filed: 06/09/20 20:50> Neck: Neck: Yes normal visual inspection, No positive Brudzinski's sign, No positive Kernig's sign and No tender <[facility] SAPNA Parra - Last Filed: 06/09/20 20:50> Thyroid: Thyroid normal <[facility] SAPNA Parra - Last Filed: 06/09/20 20:50> Chest: Chest palpation & inspection: normal inspection of the chest and no tenderness <[facility] SAPNA Parra Last Filed: 06/09/20 20:50> Breast/axilla inspection: normal inspection of the breasts <[facility] SAPNA Parra - Last Filed: 06/09/20 20:50> Resp: Effort & Inspection: normal respiratory effort <[facility] SAPNA Parra - Last Filed: 06/09/20 20:50> Auscultation: clear to auscultation bilaterally <[facility] SAPNA Parra - Last Filed: 06/09/20 20:50> Cardio: Jugular venous distension: no JVD <[facility] SAPNA Parra - Last Filed: 06/09/20 20:50> Rhythm: regular rhythm <James Parra NP - Last Filed: 06/09/20 20:50> Heart sounds: S1 normal heart sound present and S2 normal heart sound present <James Parra NP - Last Filed: 06/09/20 20:50> GI: Inspection: Yes normal to inspection <James Parra NP - Last Filed: 06/09/20 20:50> Palpation (GI): Soft to palpation <James Parra NP - Last Filed: 06/09/20 20:50> Percussion: Yes normal to percussion <James Parra NP - Last Filed: 06/09/20 20:50> Auscultation: normal bowel sounds <James Parra NP - Last Filed: 06/09/20 20:50> : General: Yes no CVA tenderness <James Parra NP - Last Filed: 06/09/20 20:50> Back/Spine/Pelvis: Back: no CVA tenderness <James Parra NP - Last Filed: 06/09/20 20:50> Skin: General skin exam: no rashes or lesions noted <James Parra NP - Last Filed: 06/09/20 20:50> Neuro: General: patient oriented x3 <James Parra NP - Last Filed: 06/09/20 20:50> Extrem: General: Yes normal to inspection <James Parra NP - Last Filed: 06/09/20 20:50> Course Course Course Narrative: 29-year-old presenting with alcohol intoxication also having auditory hallucinations which apparently is typical for the him. Offers no medical complaints. He is in a skilled nursing will check basic labs and ETOH level and re-evaluate when sober. <James Parra NP - Last Filed: 06/09/20 20:50> 1:31 a.m. N consult complete, plan of care is to section 12 bed search. Patient is tremors, starting to withdraw from EtOH. Will start CIWA, 2 mg of p.o. Ativan given. <Pam Garcia NP - Last Filed: 06/10/20 02:59> Reevaluation(s) Reevaluation #1: 2100 Has remained calm cooperative is requesting to speak to crisis team about his auditory hallucinations. His labs are still pending. Has been eating drinking. Sign-out to 19 pending crisis team evaluation <James Parra NP - Last Filed: 06/09/20 20:50> MDM - Psych Lab Data Result diagrams: : 06/09/20 20:44 06/09/20 20:44 <James Parra NP - Last Filed: 06/09/20 20:50> Labs: Lab Results 06/09/20 06/09/20 06/09/20 Range/Units 20:44 20:44 20:44 WBC 9.9 (4.8-10.8) X10*3/uL RBC 5.86 H (4.60-5.80) X10*6/uL Hgb 17.2 (14.0-18.0) g/dl Hct 49.7 (42-52) % MCV 84.8 (80-98) fL MCH 29.4 (27.0-33.0) pg MCHC 34.6 (31.0-36.0) g/dl RDW 13.3 (11.0-16.0) % Plt Count 264 (160-400) X10*3/uL MPV 10.9 (9.4-12.4) fL Immature Gran % (Auto) 0.9 H (0.0-0.4) % Neut % (Auto) 48.6 (45-73) % Lymph % (Auto) 42.0 H (20-40) % Bryan % (Auto) 6.8 (2-11) % Eos % (Auto) 1.3 (0-4) % Baso % (Auto) 0.4 (0-2) % Lymph # (Auto) 4.2 (1.2-4.9) X10*3/uL Bryan # (Auto) 0.7 (0.1-1.2) X10*3/uL Eos # (Auto) 0.1 (0.0-0.4) X10*3/uL Baso # (Auto) 0.0 (0.0-0.2) X10*3/uL Abs Immat Gran (auto) 0.09 H (0.00-0.03) X10*3/uL Absolute Neuts (auto) 4.8 (2.0-8.3) X10*3/uL Absolute Nucleated RBC 0.000 (0.0-0.012) X10*3/uL Nucleated RBC % (auto) 0.0 (0.0-0.2) /100WBC Sodium 139 (135-145) mmol/L Potassium 4.1 (3.3-5.1) mmol/L Chloride 103 (96-108) mmol/L Carbon Dioxide 26 (22-29) mmol/L Anion Gap 14 (12-20) BUN 7 L D (9-16) mg/dL Creatinine 0.99 (0.5-1.4) mg/dL Estim Creat Clear Calc 124.7 Estimated GFR > 60 Random Glucose 98 (60-115) mg/dL Calcium 9.4 (8.4-10.2) mg/dL Total Bilirubin 0.6 (0.0-1.0) mg/dL AST 30 (5-37) U/L ALT 58 H (0-40) U/L Alkaline Phosphatase 57 (39-117) U/L Total Protein 7.8 (6.5-8.0) g/dL Albumin 4.9 (3.5-5.0) g/dL Ethyl Alcohol 206 mg/dL <James Parra NP - Last Filed: 06/09/20 20:50> Lab Results 06/09/20 06/09/20 06/09/20 Range/Units 20:44 20:44 20:44 WBC 9.9 (4.8-10.8) X10*3/uL RBC 5.86 H (4.60-5.80) X10*6/uL Hgb 17.2 (14.0-18.0) g/dl Hct 49.7 (42-52) % MCV 84.8 (80-98) fL MCH 29.4 (27.0-33.0) pg MCHC 34.6 (31.0-36.0) g/dl RDW 13.3 (11.0-16.0) % Plt Count 264 (160-400) X10*3/uL MPV 10.9 (9.4-12.4) fL Immature Gran % (Auto) 0.9 H (0.0-0.4) % Neut % (Auto) 48.6 (45-73) % Lymph % (Auto) 42.0 H (20-40) % Bryan % (Auto) 6.8 (2-11) % Eos % (Auto) 1.3 (0-4) % Baso % (Auto) 0.4 (0-2) % Lymph # (Auto) 4.2 (1.2-4.9) X10*3/uL Bryan # (Auto) 0.7 (0.1-1.2) X10*3/uL Eos # (Auto) 0.1 (0.0-0.4) X10*3/uL Baso # (Auto) 0.0 (0.0-0.2) X10*3/uL Abs Immat Gran (auto) 0.09 H (0.00-0.03) X10*3/uL Absolute Neuts (auto) 4.8 (2.0-8.3) X10*3/uL Absolute Nucleated RBC 0.000 (0.0-0.012) X10*3/uL Nucleated RBC % (auto) 0.0 (0.0-0.2) /100WBC Sodium 139 (135-145) mmol/L Potassium 4.1 (3.3-5.1) mmol/L Chloride 103 (96-108) mmol/L Carbon Dioxide 26 (22-29) mmol/L Anion Gap 14 (12-20) BUN 7 L D (9-16) mg/dL Creatinine 0.99 (0.5-1.4) mg/dL Estim Creat Clear Calc 124.7 Estimated GFR > 60 Random Glucose 98 (60-115) mg/dL Calcium 9.4 (8.4-10.2) mg/dL Total Bilirubin 0.6 (0.0-1.0) mg/dL AST 30 (5-37) U/L ALT 58 H (0-40) U/L Alkaline Phosphatase 57 (39-117) U/L Total Protein 7.8 (6.5-8.0) g/dL Albumin 4.9 (3.5-5.0) g/dL Ethyl Alcohol 206 mg/dL <Pam Garcia NP - Last Filed: 06/10/20 02:59> Discharge Plan Discharge Prescriptions: No Action Latuda 80 mg Tablet 160 mg PO QPM RF: 0 hydroxyzine HCl 50 mg Tablet 50 mg PO BEDTIME RF: 0 trazodone 300 mg tablet 300 mg PO BEDTIME RF: 0 haloperidol 0.5 mg tablet 0.5 mg PO QAM RF: 0 haloperidol 5 mg tablet 5 mg PO BEDTIME RF: 0 <James Parra NP - Last Filed: 06/09/20 20:50>
--- NOTE | 2020-06-09 19:43 | PC.NURSE ---
Pt is now awake, and tearful. Pt states I need crisis. I skipped my meds today . When asked to elaborate, patient is simply tearful but not explaining needs further. This RN spoke with James Parra NP regarding this, states that he is intoxicated, but [facility]N/Crisis consult to be ordered for further evaluation. Pt states that he uses [facility] on [address] in [facility] for prescription medications.
[2020-06-09 20:01] VITALS: BP 108/75; PULSE 104; RESP 18; TEMP 36.8; O2SAT 97
[2020-06-09 20:49] LABS: MANUAL DIFF FLAG NO
[2020-06-09 20:51] LABS: Basophils Percent Auto 0.4 % (0-2); Eosinophils Absolute Auto 0.1 X10*3/uL (0.0-0.4); Eosinophils Percent Auto 1.3 % (0-4); Hematocrit 49.7 % (42-52); Hemoglobin 17.2 g/dl (14.0-18.0); Imm Gran Abs Auto 0.09 X10*3/uL (0.00-0.03); Imm Gran Pct Auto 0.9 % (0.0-0.4); Lymphocytes Absolute Auto 4.2 X10*3/uL (1.2-4.9); Mean Corpuscular HGB Conc 34.6 g/dl (31.0-36.0); Mean Corpuscular Hemoglobin 29.4 pg (27.0-33.0); Mean Corpuscular Volume 84.8 fL (80-98); Mean Platelet Volume 10.9 fL (9.4-12.4); Monocytes Absolute Auto 0.7 X10*3/uL (0.1-1.2); Monocytes Percent Auto 6.8 % (2-11); Neutrophils Absolute Auto 4.8 X10*3/uL (2.0-8.3); Neutrophils Percent Auto 48.6 % (45-73); Platelet Count 264 X10*3/uL (160-400); Red Blood Count 5.86 X10*6/uL (4.60-5.80); Red Cell Distribution Width 13.3 % (11.0-16.0); White Blood Count 9.9 X10*3/uL (4.8-10.8)
[2020-06-09 21:11] LABS: Ethanol 206 mg/dL
[2020-06-09 21:12] LABS: Alanine Aminotransferase 58 U/L (0-40); Albumin Level 4.9 g/dL (3.5-5.0); Alkaline Phosphatase 57 U/L (39-117); Anion Gap 14 (12-20); Aspartate Amino Transferase 30 U/L (5-37); Bilirubin Total 0.6 mg/dL (0.0-1.0); Blood Urea Nitrogen 7 mg/dL (9-16); Calcium 9.4 mg/dL (8.4-10.2); Carbon Dioxide 26 mmol/L (22-29); Chloride 103 mmol/L (96-108); Creatinine Clr Calc Pharmacy 124.7; Estimated Glomerular Filt Rate > 60; Glucose Random 98 mg/dL (60-115); Potassium 4.1 mmol/L (3.3-5.1); Sodium 139 mmol/L (135-145); Total Protein 7.8 g/dL (6.5-8.0)
--- NOTE | 2020-06-09 22:12 | PC.NURSE ---
fax sent to [facility] by Dakotah Diaz RN on behalf of this RN. Pt reports auditory hallucinations telling him to cut himself. Recently left rehab facility and drank alcohol.
[2020-06-09 22:35] VITALS: BP 108/66; PULSE 96; RESP 18; TEMP 521.6; TEMP 971; O2SAT 96
[2020-06-10] VITALS (10 sets, daily range): BP systolic 100–123; BP diastolic 54–78; PULSE 93–99; RESP 16–20; TEMP 36.7–36.8; O2SAT 95–96
[2020-06-10] MEDS: LORazepam 1 MG TABLET 2 MG PO ×3 (07:33→20:29)
--- NOTE | 2020-06-10 07:40 | PC.NURSE ---
pt asking to speak to N again. Would like to go home
--- NOTE | 2020-06-10 10:01 | PC.NURSE ---
Pt is calm and cooperative resting with eyes closed.
[2020-06-10 10:07] LABS: COVID-19 Test Negative (Negative); IDNOW Serial# 9DD0AD1C
--- NOTE | 2020-06-10 10:37 | PC.NURSE ---
Pt sent to pod at this time. Plan is for inpatient at [facility] later this evening. Negative COVID swab results faxed to N
--- NOTE | 2020-06-10 10:45 | PC.NURSE ---
Pt in from main ED, affect even, pt states he is familiar w/ pod. Received call from [facility] initially stating that pt has been accepted to [facility], then now bed may not be available. [facility] will call to update.
--- NOTE | 2020-06-10 11:24 | PC.NURSE ---
[facility] called, stated that [facility] will accept pt. Pt aware, and in agreement. Denies SI or AH/VH at this time, asking re: medications.
--- NOTE | 2020-06-10 11:51 | PC.NURSE ---
Pharmacy called re: med rec/haldol- state they will review so that Haldol can be accessed.
[2020-06-10] MEDS: HaloperidoL 1 MG TABLET 2 MG PO ×3 (12:19→20:30)
[2020-06-10] MEDS: hydrOXYzine HCL 50 MG TABLET PO ×2 (12:19→20:28)
--- NOTE | 2020-06-10 14:34 | PC.NURSE ---
Pt pleasant, states he continues to be anxious, requesting Ativan. Provider aware, pt medicated as ordered.
--- NOTE | 2020-06-10 16:53 | PC.NURSE ---
Pt resting, resp unlabored
--- NOTE | 2020-06-10 17:08 | PC.NURSE ---
[facility] called, state that pt will not be accepted until overnight cashier. Pt aware. Pt resting in room, affect even, denies si at this time, denies any symptoms of withdrawal.
[2020-06-10] MEDS: traZODone HCL 100 MG TABLET 300 MG PO (20:28)
[2020-06-10] MEDS: Lurasidone HCl 80 MG TABLET 160 MG PO (20:52)
--- NOTE | 2020-06-11 00:14 | PC.NURSE ---
[facility] called/spoke with Ruddy RN, RN to RN completed, transfer paper work completed, submitted to ED press secretary, patient made aware, will continue tomonitor.
[2020-06-11 00:53] LABS: Amphetamine Screen Urine Not Detected (Not Detect); Barbiturates, Urine Not Detected (Not Detect); Benzodiazepines Screen Urine Not Detected (Not Detect); Cannabinoid Screen Urine Not Detected (Not Detect); Cocaine Screen Urine Not Detected (Not Detect); Opiate Screen Urine Not Detected (Not Detect); Phencyclidine Screen Urine Not Detected (Not Detect)
== END 2020-06-11 01:13 ==
PROVIDERS: Nurse Practitioner Primary Care; Emergency Provider Emergency Medicine Emergency Medical Services
DX: R44.0 Auditory hallucinations (principal); F10.10 Alcohol abuse, uncomplicated; Y90.7 Blood alcohol level of 200-239 mg/100 ml; F17.200 Nicotine dependence, unspecified, uncomplicated; Z71.6 Tobacco abuse counseling; Z20.822 Contact with and (suspected) exposure to COVID-19; Z79.899 Other long term (current) drug therapy; Z71.41 Alcohol abuse counseling and surveillance of alcoholic
CPT/HCPCS: 36415; 80053; 80307; 80320; 85025; 87635; 99285

== ENCOUNTER 2020-06-24 15:15 | Inpatient (IN) | payer OTHER, SELFPAY ==
[2020-06-24 16:02] VITALS: BP 103/63; PULSE 89; RESP 18; TEMP 36.8; O2SAT 97; BMI 27.2
--- NOTE | 2020-06-24 16:11 | PC.NURSE ---
[facility] ARRIVED AT BEDSIDE FOR 1:1
[2020-06-24 16:35] LABS: MANUAL DIFF FLAG NO
[2020-06-24 16:36] LABS: Basophils Percent Auto 0.5 % (0-2); Eosinophils Absolute Auto 0.1 X10*3/uL (0.0-0.4); Eosinophils Percent Auto 1.1 % (0-4); Hematocrit 48.6 % (42-52); Hemoglobin 16.3 g/dl (14.0-18.0); Imm Gran Abs Auto 0.13 X10*3/uL (0.00-0.03); Imm Gran Pct Auto 1.5 % (0.0-0.4); Lymphocytes Absolute Auto 2.4 X10*3/uL (1.2-4.9); Lymphocytes Percent Auto 28.2 % (20-40); Mean Corpuscular HGB Conc 33.5 g/dl (31.0-36.0); Mean Corpuscular Hemoglobin 29.1 pg (27.0-33.0); Mean Corpuscular Volume 86.6 fL (80-98); Mean Platelet Volume 10.4 fL (9.4-12.4); Monocytes Absolute Auto 0.4 X10*3/uL (0.1-1.2); Monocytes Percent Auto 5.2 % (2-11); Neutrophils Absolute Auto 5.4 X10*3/uL (2.0-8.3); Neutrophils Percent Auto 63.5 % (45-73); Platelet Count 272 X10*3/uL (160-400); Red Blood Count 5.61 X10*6/uL (4.60-5.80); Red Cell Distribution Width 13.2 % (11.0-16.0); White Blood Count 8.5 X10*3/uL (4.8-10.8)
--- NOTE | 2020-06-24 17:00 | PC.NURSE ---
called and faxed to n
[2020-06-24 17:01] LABS: Ethanol 260 mg/dL
[2020-06-24 17:04] LABS: Amphetamine Screen Urine Not Detected (Not Detect); Barbiturates, Urine Not Detected (Not Detect); Benzodiazepines Screen Urine Not Detected (Not Detect); Cannabinoid Screen Urine Not Detected (Not Detect); Cocaine Screen Urine Not Detected (Not Detect); Opiate Screen Urine Not Detected (Not Detect); Phencyclidine Screen Urine Not Detected (Not Detect)
[2020-06-24 17:04] LABS: Alanine Aminotransferase 49 U/L (0-40); Albumin Level 5.1 g/dL (3.5-5.0); Alkaline Phosphatase 59 U/L (39-117); Anion Gap 16 (12-20); Aspartate Amino Transferase 26 U/L (5-37); Bilirubin Direct < 0.2 mg/dL (0.0-0.5); Bilirubin Total 0.4 mg/dL (0.0-1.0); Blood Urea Nitrogen 11 mg/dL (9-16); Calcium 9.8 mg/dL (8.4-10.2); Carbon Dioxide 29 mmol/L (22-29); Chloride 105 mmol/L (96-108); Estimated Glomerular Filt Rate > 60; Glucose Random 108 mg/dL (60-115); Potassium 4.7 mmol/L (3.3-5.1); Sodium 145 mmol/L (135-145); Total Protein 8.1 g/dL (6.5-8.0)
--- NOTE | 2020-06-24 17:23 | PC.NURSE ---
Faxed to [facility] office.
--- NOTE | 2020-06-24 19:08 | PC.NURSE ---
SIGNIFICANT PSYCH HX. VOICES R/T SCHIZOAFFECTIVE DX
--- NOTE | 2020-06-24 20:28 | PC.NURSE ---
all possessions washed, dried and placed in [facility]. pt remains inebriate, offered food & drink
[2020-06-24 20:39] VITALS: BP 110/50; PULSE 103; RESP 17; TEMP 36.8; O2SAT 97
--- NOTE | 2020-06-24 21:31 | ED.PSYCH ---
HPI - Psych General Chief Complaint: ETOH/Substance Use Stated Complaint: ETOH INTOXICATION Time Seen by Provider: 06/24/20 17:27 Source: patient, EMS and RN notes reviewed Mode of arrival: ambulatory Limitations: no limitations History of Present Illness HPI Narrative: Patient brought to the ED for alcohol intoxication. Patient states having thoughts telling him to hurt himself. Patient admits to not being on any psych medications or follow-up with therapist. Related Data Home Medications Medication Instructions Recorded Confirmed trazodone 300 mg tablet 300 mg PO BEDTIME 02/26/20 06/10/20 hydroxyzine HCl 50 mg PO DAILY PRN 04/01/20 06/10/20 lurasidone [Latuda] 160 mg PO BEDTIME 04/01/20 06/10/20 haloperidol [Haldol] 2 mg PO BID 06/10/20 06/10/20 Allergies Allergy/AdvReac Type Severity Reaction Status Date / Time No Known Allergies Allergy Verified 06/24/20 16:07 [No Known Allergies*] Review of Systems Review of Systems: Yes all other systems are reviewed and are negative Constitutional: Constitutional: Reports as per HPI and Reports no additional constitutional complaints Eyes: Eyes: Reports as per HPI and Reports no additional eye complaints ENT: Reports system reviewed and no additional complaints, except as documented and Reports as per HPI Cardiovascular: Cardiovascular: Reports as per HPI and Reports no additional cardiovascular complaints Respiratory: Respiratory: Reports as per HPI and Reports no additional respiratory complaints Gastrointestinal: Gastrointestinal: Reports as per HPI and Reports no additional gastrointestinal complaints Genitourinary: Genitourinary: Reports no additional male genitourinary complaints and Reports as per HPI Musculoskeletal: Musculoskeletal: Reports no additional musculoskeletal complaints and Reports as per HPI Neurologic: Reports system reviewed and no additional complaints, except as documented and Reports as per HPI Psychiatric: Psychiatric: Reports no additional psychiatric complaints, Reports as per HPI and Reports depression Comments: Alcohol intoxication [facility] Past Medical History Medical History (Updated 06/24/20 @ 21:37 by KAVEH Riley) Alcohol abuse Delusional disorder Generalized anxiety disorder Mixed dyslipidemia Schizo-affective schizophrenia Surgical History History of removal of neck cyst History of root canal procedure Family History Family History Father Depression FH: mental illness Mother Depression FH: mental illness Maternal Grandfather No problems noted. Maternal Grandmother No problems noted. Brother No problems noted. Sister No problems noted. Social History Social History Alcohol intake: current Alcohol intake frequency: 3 or more drinks per day Alcohol type: hard liquor Smoking Status: Current every day smoker Cigarettes Per Day: 9 Advance Directives: No Advance Directives Information Provided: Yes Physical Exam Vital Signs: Vital Signs: Last Vital Signs Temp 98.3 F 06/24/20 20:39 Pulse 103 H 06/24/20 20:39 Resp 17 06/24/20 20:39 BP 110/50 L 06/24/20 20:39 Pulse Ox 97 06/24/20 20:39 Body Mass Index 27.2 Const: Other: Alcohol on breath General: cooperative, healthy appearing, comfortable, no acute distress, well developed, alert, awake and Physically active Orientation/consciousness: patient oriented x3 HENMT: Head: Yes normal to inspection, Yes No palpable skull fracture present, Yes normocephalic, Yes atraumatic, No Lr's sign, No contusion, No cranial bruits, No hematoma, No laceration, No occipital foramen tenderness, No palpable skull fracture, No raccoon eyes, No scalp lesion, No scalp tenderness, No Temporal artery tenderness present and No periorbital ecchymosis Eyes: General: appearance normal, both eyes and all related structures Neck: Neck: Yes normal visual inspection, Yes full ROM, Yes no lymphadenopathy, Yes no meningeal signs, Yes trachea midline, Yes supple and No tender Chest: Chest palpation & inspection: normal inspection of the chest and normal palpation of entire chest wall Resp: Effort & Inspection: normal respiratory effort and able to speak in complete sentences Auscultation: clear to auscultation bilaterally Cardio: Jugular venous distension: no JVD Heart sounds: S1 normal heart sound present and S2 normal heart sound present GI: Inspection: Yes normal to inspection and No abdominal wall ecchymosis Palpation (GI): Soft to palpation, not firm, nontender, no guarding and not rigid : General: No CVA tenderness and Yes no CVA tenderness Back/Spine/Pelvis: Back: no CVA tenderness, No CVA tenderness and No back tenderness Skin: General skin exam: no rashes or lesions noted and elasticity normal Neuro: General: patient oriented x3 and no meningeal signs Cranial nerves: Yes CN's II-XII intact bilaterally Extrem: General: Yes normal to inspection and Yes full ROM Psych: Other: Patient seems internally occupied. Patient constantly muttering to himself mother magdiel and stating he is hearing voices that is telling him to harm himself Appearance: disheveled Course Course Course Narrative: Patient will have labs drawn and be evaluated [facility] Reevaluation(s) Reevaluation #1: Patient labs are at baseline. Will be evaluated by [facility] Case signed out to SAPNA Orozco MDM - Psych MDM Narrative Medical decision making narrative: Alcohol and tox Lab Data Result diagrams: 06/24/20 16:31 06/24/20 16:31 Labs: Lab Results 06/24/20 06/24/20 06/24/20 Range/Units 16:20 16:31 16:31 WBC 8.5 (4.8-10.8) X10*3/uL RBC 5.61 (4.60-5.80) X10*6/uL Hgb 16.3 (14.0-18.0) g/dl Hct 48.6 (42-52) % MCV 86.6 (80-98) fL MCH 29.1 (27.0-33.0) pg MCHC 33.5 (31.0-36.0) g/dl RDW 13.2 (11.0-16.0) % Plt Count 272 (160-400) X10*3/uL MPV 10.4 (9.4-12.4) fL Immature Gran % (Auto) 1.5 H (0.0-0.4) % Neut % (Auto) 63.5 (45-73) % Lymph % (Auto) 28.2 (20-40) % Moody % (Auto) 5.2 (2-11) % Eos % (Auto) 1.1 (0-4) % Baso % (Auto) 0.5 (0-2) % Lymph # (Auto) 2.4 (1.2-4.9) X10*3/uL Moody # (Auto) 0.4 (0.1-1.2) X10*3/uL Eos # (Auto) 0.1 (0.0-0.4) X10*3/uL Baso # (Auto) 0.0 (0.0-0.2) X10*3/uL Abs Immat Gran (auto) 0.13 H (0.00-0.03) X10*3/uL Absolute Neuts (auto) 5.4 (2.0-8.3) X10*3/uL Absolute Nucleated RBC 0.000 (0.0-0.012) X10*3/uL Nucleated RBC % (auto) 0.0 (0.0-0.2) /100WBC Sodium 145 (135-145) mmol/L Potassium 4.7 (3.3-5.1) mmol/L Chloride 105 (96-108) mmol/L Carbon Dioxide 29 (22-29) mmol/L Anion Gap 16 (12-20) BUN 11 D (9-16) mg/dL Creatinine 0.97 (0.5-1.4) mg/dL Estim Creat Clear Calc 116.0 Estimated GFR > 60 Random Glucose 108 (60-115) mg/dL Calcium 9.8 (8.4-10.2) mg/dL Total Bilirubin 0.4 (0.0-1.0) mg/dL Direct Bilirubin < 0.2 (0.0-0.5) mg/dL AST 26 (5-37) U/L ALT 49 H (0-40) U/L Alkaline Phosphatase 59 (39-117) U/L Total Protein 8.1 H (6.5-8.0) g/dL Albumin 5.1 H (3.5-5.0) g/dL Urine Opiates Screen Not Detected (Not Detect) Ur Barbiturates Screen Not Detected (Not Detect) Ur Phencyclidine Scrn Not Detected (Not Detect) Ur Amphetamines Screen Not Detected (Not Detect) U Benzodiazepines Scrn Not Detected (Not Detect) Urine Cocaine Screen Not Detected (Not Detect) U Marijuana (THC) Screen Not Detected (Not Detect) Ethyl Alcohol mg/dL 06/24/20 Range/Units 16:31 WBC (4.8-10.8) X10*3/uL RBC (4.60-5.80) X10*6/uL Hgb (14.0-18.0) g/dl Hct (42-52) % MCV (80-98) fL MCH (27.0-33.0) pg MCHC (31.0-36.0) g/dl RDW (11.0-16.0) % Plt Count (160-400) X10*3/uL MPV (9.4-12.4) fL Immature Gran % (Auto) (0.0-0.4) % Neut % (Auto) (45-73) % Lymph % (Auto) (20-40) % Moody % (Auto) (2-11) % Eos % (Auto) (0-4) % Baso % (Auto) (0-2) % Lymph # (Auto) (1.2-4.9) X10*3/uL Moody # (Auto) (0.1-1.2) X10*3/uL Eos # (Auto) (0.0-0.4) X10*3/uL Baso # (Auto) (0.0-0.2) X10*3/uL Abs Immat Gran (auto) (0.00-0.03) X10*3/uL Absolute Neuts (auto) (2.0-8.3) X10*3/uL Absolute Nucleated RBC (0.0-0.012) X10*3/uL Nucleated RBC % (auto) (0.0-0.2) /100WBC Sodium (135-145) mmol/L Potassium (3.3-5.1) mmol/L Chloride (96-108) mmol/L Carbon Dioxide (22-29) mmol/L Anion Gap (12-20) BUN (9-16) mg/dL Creatinine (0.5-1.4) mg/dL Estim Creat Clear Calc Estimated GFR Random Glucose (60-115) mg/dL Calcium (8.4-10.2) mg/dL Total Bilirubin (0.0-1.0) mg/dL Direct Bilirubin (0.0-0.5) mg/dL AST (5-37) U/L ALT (0-40) U/L Alkaline Phosphatase (39-117) U/L Total Protein (6.5-8.0) g/dL Albumin (3.5-5.0) g/dL Urine Opiates Screen (Not Detect) Ur Barbiturates Screen (Not Detect) Ur Phencyclidine Scrn (Not Detect) Ur Amphetamines Screen (Not Detect) U Benzodiazepines Scrn (Not Detect) Urine Cocaine Screen (Not Detect) U Marijuana (THC) Screen (Not Detect) Ethyl Alcohol 260 mg/dL Discharge Plan Discharge Clinical Impression: Alcohol intoxication Prescriptions: No Action Latuda 80 mg Tablet 160 mg PO BEDTIME RF: 0 hydroxyzine HCl 50 mg Tablet 50 mg PO DAILY PRN (Reason: Anxiety) RF: 0 haloperidol [Haldol] 2 mg Tablet 2 mg PO BID RF: 0 trazodone 300 mg tablet 300 mg PO BEDTIME RF: 0
[2020-06-25] VITALS (9 sets, daily range): BP systolic 115–140; BP diastolic 62–84; PULSE 83–117; RESP 16–20; TEMP 36.3–36.9; O2SAT 94–98; BMI 29.2
--- NOTE | 2020-06-25 01:03 | PC.NURSE ---
BHN at bedside, patient engaged,
--- NOTE | 2020-06-25 01:08 | PC.NURSE ---
Patient just got transferred from main ED, steady gait, appears under influence, medication seeking behavior repeatedly asking for Ativan, No new orde from provider, will continue to monitor.
[2020-06-25 01:16] LABS: COVID-19 Test Negative (Negative); IDNOW Serial# 9DD0AD1C
[2020-06-25] MEDS: traZODone HCL 50 MG TABLET 300 MG PO ×2 (01:58→20:21)
--- NOTE | 2020-06-25 07:20 | PC.NURSE ---
Report received from JUAN Broderick. Pt resting, awake, no concerns reported at th8is time.
[2020-06-25] MEDS: HaloperidoL 5 MG TABLET PO ×2 (08:24→20:21)
--- NOTE | 2020-06-25 08:31 | PC.NURSE ---
Pt awake, denies any s/s withdrawal, ate breakfast. Pt affect anxious, pt reporting he did not sleep well due to AH. Pt medicated as ordered, provider aware of pt report.
--- NOTE | 2020-06-25 09:04 | PC.NURSE ---
Pt resting, resp unlabored.
--- NOTE | 2020-06-25 10:04 | PC.NURSE ---
Pt reports he is feeling 'a little better,' reduced AH per pt.
[2020-06-25] MEDS: LORazepam 1 MG TABLET 2 MG PO (12:19)
--- NOTE | 2020-06-25 12:34 | PC.NURSE ---
Pt reported increased anxiety, restlessness; CIWA increased to 5. Reported to Shai rajput. Pt medicated as ordered. Currently resting in room.
--- NOTE | 2020-06-25 14:49 | PC.NURSE ---
Report given to Amarilis MARTINEZ [facility].
--- NOTE | 2020-06-25 15:23 | PC.NURSE ---
Pt resting, resp unlabored.
--- NOTE | 2020-06-25 16:31 | PC.NURSE ---
CARE team in to transfer pt to [facility]. Pt is aware that he will be transferred, and states he is in agreement w/ plan.
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
[2020-06-25] MEDS: Lurasidone HCl 80 MG TABLET PO (20:21)
[2020-06-25] MEDS: LORazepam 1 MG TABLET PO (20:21)
[2020-06-26 06:30] VITALS: BP 105/54; PULSE 67; RESP 16; TEMP 36.4; O2SAT 95
[2020-06-26 08:00] VITALS: BP 127/82; PULSE 82; RESP 18; TEMP 36.6; O2SAT 96
[2020-06-26] MEDS: Lurasidone HCl 80 MG TABLET PO ×2 (08:31→21:04)
[2020-06-26] MEDS: HaloperidoL 5 MG TABLET PO ×2 (08:31→16:03)
[2020-06-26 08:38] LABS: Cholesterol 225 mg/dL; HDL Cholesterol 36 mg/dL; LDL Cholesterol Calculated 157 mg/dl; Magnesium 2.1 mg/dL (1.6-2.6); Triglycerides 160 mg/dL
[2020-06-26 08:59] LABS: Free T4 (Free Thyroxine) 0.83 ng/dL (0.71-1.85); Thyroid Stimulating Hormone 3.87 uIU/mL (0.32-4.0)
[2020-06-26 09:00] LABS: Estimated Average Glucose 105 mg/dL; Hemoglobin A1c % 5.3 %
[2020-06-26 12:00] VITALS: BP 137/84; PULSE 89; RESP 18; TEMP 36.6; O2SAT 99
[2020-06-26] MEDS: hydrOXYzine HCL 50 MG TABLET PO ×2 (13:27→21:08)
[2020-06-26] MEDS: LORazepam 1 MG TABLET PO (13:27)
--- NOTE | 2020-06-26 13:43 | P.HPPS_ITS ---
HPI Chief Complaint: Schizoaffective disorder Alcohol use disorder Sources of Information: patient interviewed, chart reviewed and crisis/core team assessment reviewed HPI Narrative: Mr. Anguiano is a 29 year-old male with hx of schizoaffective disorder and alcohol abuse. He was just recently discharged from [facility] inpatient unit with plan to step down to [facility] [employer]. He states that he went to the program but started hearing voices, left program and soon relapsed on alcohol. Pt then self presented to ED reporting increased AH, depressed mood. Pt reports hearing voices, poor sleep and feeling anxious during the day. He denies SI/HI. He is taking medications as prescribed and reports that usually combination of haldol and latuda is helpful. He reports sleep is poor as he is very anxious, hearing voices. Medical Evaluation Reviewed: Yes [facility] Medical History (Updated 06/25/20 @ 16:17 by KAVEH Vieira) Alcohol abuse Delusional disorder Generalized anxiety disorder Mixed dyslipidemia Schizo-affective schizophrenia Surgical History History of removal of neck cyst History of root canal procedure Diagnostics Vital Signs (24Hr): Vital Signs - 24 hr 06/25/20 14:00 06/25/20 16:35 06/25/20 17:04 Temperature 97.3 F 97.5 F Pulse Rate 83 117 H Respiratory Rate 20 20 18 Blood Pressure 115/76 140/71 H Pulse Oximetry 95 94 06/25/20 18:45 06/25/20 20:00 06/26/20 06:30 Temperature 97.6 F Pulse Rate 104 H 99 67 Respiratory Rate 18 16 16 Blood Pressure 131/84 131/79 105/54 L Pulse Oximetry 95 06/26/20 08:00 06/26/20 12:00 Temperature 97.8 F 97.9 F Pulse Rate 82 89 Respiratory Rate 18 18 Blood Pressure 127/82 137/84 Pulse Oximetry 96 99 Body Mass Index 29.2 Labs Results: 06/24/20 16:31 06/24/20 16:31 Labs: Laboratory Results - last 48 hr 06/24/20 06/24/20 06/24/20 16:20 16:31 16:31 WBC 8.5 RBC 5.61 Hgb 16.3 Hct 48.6 MCV 86.6 MCH 29.1 MCHC 33.5 RDW 13.2 Plt Count 272 MPV 10.4 Immature Gran % (Auto) 1.5 H Neut % (Auto) 63.5 Lymph % (Auto) 28.2 Grayson % (Auto) 5.2 Eos % (Auto) 1.1 Baso % (Auto) 0.5 Lymph # (Auto) 2.4 Grayson # (Auto) 0.4 Eos # (Auto) 0.1 Baso # (Auto) 0.0 Abs Immat Gran (auto) 0.13 H Absolute Neuts (auto) 5.4 Absolute Nucleated RBC 0.000 Nucleated RBC % (auto) 0.0 Sodium 145 Potassium 4.7 Chloride 105 Carbon Dioxide 29 Anion Gap 16 BUN 11 D Creatinine 0.97 Estim Creat Clear Calc 116.0 Estimated GFR > 60 Random Glucose 108 Estimat Average Glucose Hemoglobin A1c % Calcium 9.8 Magnesium Total Bilirubin 0.4 Direct Bilirubin < 0.2 AST 26 ALT 49 H Alkaline Phosphatase 59 Total Protein 8.1 H Albumin 5.1 H Triglycerides Cholesterol LDL Cholesterol, Calc HDL Cholesterol TSH Free T4 Urine Opiates Screen Not Detected Ur Barbiturates Screen Not Detected Ur Phencyclidine Scrn Not Detected Ur Amphetamines Screen Not Detected U Benzodiazepines Scrn Not Detected Urine Cocaine Screen Not Detected U Marijuana (THC) Screen Not Detected Ethyl Alcohol COVID-19 (KACIE) COVID-[employer] 06/24/20 06/25/20 06/26/20 16:31 00:45 07:55 WBC RBC Hgb Hct MCV MCH MCHC RDW Plt Count MPV Immature Gran % (Auto) Neut % (Auto) Lymph % (Auto) Grayson % (Auto) Eos % (Auto) Baso % (Auto) Lymph # (Auto) Grayson # (Auto) Eos # (Auto) Baso # (Auto) Abs Immat Gran (auto) Absolute Neuts (auto) Absolute Nucleated RBC Nucleated RBC % (auto) Sodium Potassium Chloride Carbon Dioxide Anion Gap BUN Creatinine Estim Creat Clear Calc Estimated GFR Random Glucose Estimat Average Glucose 105 Hemoglobin A1c % 5.3 Calcium Magnesium Total Bilirubin Direct Bilirubin AST ALT Alkaline Phosphatase Total Protein Albumin Triglycerides Cholesterol LDL Cholesterol, Calc HDL Cholesterol TSH Free T4 Urine Opiates Screen Ur Barbiturates Screen Ur Phencyclidine Scrn Ur Amphetamines Screen U Benzodiazepines Scrn Urine Cocaine Screen U Marijuana (THC) Screen Ethyl Alcohol 260 COVID-19 (KACIE) Negative COVID-19 Clin Com See Note 06/26/20 07:55 WBC RBC Hgb Hct MCV MCH MCHC RDW Plt Count MPV Immature Gran % (Auto) Neut % (Auto) Lymph % (Auto) Grayson % (Auto) Eos % (Auto) Baso % (Auto) Lymph # (Auto) Grayson # (Auto) Eos # (Auto) Baso # (Auto) Abs Immat Gran (auto) Absolute Neuts (auto) Absolute Nucleated RBC Nucleated RBC % (auto) Sodium Potassium Chloride Carbon Dioxide Anion Gap BUN Creatinine Estim Creat Clear Calc Estimated GFR Random Glucose Estimat Average Glucose Hemoglobin A1c % Calcium Magnesium 2.1 Total Bilirubin Direct Bilirubin AST ALT Alkaline Phosphatase Total Protein Albumin Triglycerides 160 Cholesterol 225 LDL Cholesterol, Calc 157 HDL Cholesterol 36 TSH 3.87 Free T4 0.83 Urine Opiates Screen Ur Barbiturates Screen Ur Phencyclidine Scrn Ur Amphetamines Screen U Benzodiazepines Scrn Urine Cocaine Screen U Marijuana (THC) Screen Ethyl Alcohol COVID-19 (KACIE) COVID-19 Clin Com Meds/Allergies Meds Home Medications Acetaminophen (Acetaminophen 325 Mg Tablet) 650 mg PO Q6H PRN PRN Reason: Headache/Pain Mild Scale (1-3) Al Hydroxide/Mg Hydroxide (Magnesium Hydrox/Alum Hydrox 30 Ml Oral.Susp) 30 ml PO Q6H PRN PRN Reason: Heartburn/Nausea Benztropine Mesylate (Benztropine Mesylate 1 Mg Tablet) 1 mg PO BID [facility] Last Admin: 06/28/20 08:41 Dose: 1 mg Documented by: Haloperidol (Haloperidol 5 Mg Tablet) 10 mg PO BEDTIME [facility] Last Admin: 06/27/20 21:19 Dose: 10 mg Documented by: Haloperidol (Haloperidol 5 Mg Tablet) 5 mg PO DAILY [facility] Last Admin: 06/28/20 08:41 Dose: 5 mg Documented by: Hydroxyzine HCl (Hydroxyzine Hcl 50 Mg Tablet) 50 mg PO BID PRN PRN Reason: anxiety Last Admin: 06/27/20 13:14 Dose: 50 mg Documented by: Lorazepam (Lorazepam 1 Mg Tablet) 1 mg PO Q2H PRN PRN Reason: withdrawl sx Last Admin: 06/27/20 13:14 Dose: 1 mg Documented by: Lurasidone HCl (Lurasidone Hcl 80 Mg Tablet) 80 mg PO BID [facility] Last Admin: 06/28/20 08:41 Dose: 80 mg Documented by: Magnesium Hydroxide (Milk Of Magnesia 30 Ml Oral.Susp) 30 ml PO DAILY PRN PRN Reason: Constipation Multivitamins/Minerals (Multivitamin With Minerals Tablet) 1 tab PO DAILY [facility] Last Admin: 06/28/20 08:41 Dose: 1 tab Documented by: Trazodone HCl (Trazodone Hcl 50 Mg Tablet) 300 mg PO BEDTIME [facility] Last Admin: 06/27/20 21:18 Dose: 300 mg Documented by: Allergies Allergies Allergy/AdvReac Type Severity Reaction Status Date / Time No Known Allergies Allergy Verified 06/24/20 16:07 [No Known Allergies*] Mental Status Exam Mental Status Exam Narrative: Appearance: casually groomed, fair hygiene, in NAD Behavior: calm, cooperative Psychomotor: no agitation or retardation noted Speech: clear, normal rate/rhythm/volume, spontaneous TP: linear TC: hearing voices, feeling depressed, hopeless Mood: anxious Affect:blunted AH/VH:+AH Delusions:some paranoid delusions Insight/judgment:poor x 2. Memory/cog: alert, oriented x 3. Assessment & Plan Assessment & Plan (1) Schizoaffective disorder: Status: Acute Code(s): F25.9 - Schizoaffective disorder, unspecified Assessment and Plan: 1. Increase haldol to 5mg po daily and 10mg po daily 2. Pt received Haldol Dec 100mg IM sometime last week- will obtain records from [facility]. He states he knows he had to continue oral medication but stopped. (2) Alcohol dependence: Status: Acute Code(s): F10.20 - Alcohol dependence, uncomplicated Assessment and Plan: pt reports he was on vivitrol for two months and then relapsed. Reason for continued inpatient stay Substantial Risk for: harm to self and inability to function
[2020-06-26 18:00] VITALS: BP 137/64; PULSE 91; TEMP 36.3
[2020-06-26] MEDS: HaloperidoL 5 MG TABLET 10 MG PO (21:05)
[2020-06-26] MEDS: traZODone HCL 50 MG TABLET 300 MG PO (21:05)
[2020-06-26] MEDS: Benztropine Mesylate 1 MG TABLET PO (21:06)
[2020-06-27] VITALS: RESP 16
[2020-06-27 04:00] VITALS: RESP 18
[2020-06-27 06:05] VITALS: BP 96/57; PULSE 75; RESP 16; TEMP 36.6; O2SAT 97
[2020-06-27] MEDS: Benztropine Mesylate 1 MG TABLET PO ×2 (08:50→21:20)
[2020-06-27] MEDS: HaloperidoL 5 MG TABLET PO (08:50)
[2020-06-27] MEDS: Lurasidone HCl 80 MG TABLET PO ×2 (08:50→21:19)
--- NOTE | 2020-06-27 11:04 | P.PNPSI_ITS ---
Subjective Subjective Date of Service: 06/27/20 Reason For Visit: Schizoaffective disorder Alcohol use disorder Subjective Notes: Conditional Voluntary Interim History: Pt reports AH, feeling anxious and reports that there's a lot of noise out in the chan, when in fact the unit was quite. He reports he ahd better sleep last night. He denies SI/HI. He is intermittent visible in the unit, minimally interactive with peers. He is taking medications as prescribed. No behavioral concerns. Medication Compliance: Yes Side effects from medications: No Review of Systems Review of Systems Yes all other systems are reviewed and are negative Constitutional: Reports as per HPI and Reports no additional constitutional complaints Eyes: Reports as per HPI and Reports no additional eye complaints Reports system reviewed and no additional complaints, except as documented and Reports as per HPI Cardiovascular: Reports as per HPI and Reports no additional cardiovascular com plaints Respiratory: Reports as per HPI and Reports no additional respiratory complaints Gastrointestinal: Reports as per HPI and Reports no additional gastrointestinal complaints Genitourinary: Reports no additional male genitourinary complaints and Reports as per HPI Musculoskeletal: Reports no additional musculoskeletal complaints and Reports as per HPI Reports system reviewed and no additional complaints, except as documented and Reports as per HPI Psychiatric: Reports no additional psychiatric complaints, Reports as per HPI and Reports depression Mental Status Exam Mental Status Exam Narrative: Appearance: casually groomed, fair hygiene, in NAD Behavior: calm, cooperative Psychomotor: no agitation or retardation noted Speech: clear, normal rate/rhythm/volume, spontaneous TP: linear TC: hearing voices, feeling depressed, hopeless Mood: anxious Affect:blunted AH/VH:+AH Delusions:some paranoid delusions Insight/judgment:poor x 2. Memory/cog: alert, oriented x 3. Diagnostics Vital Signs (24Hr): Vital Signs - 24 hr 06/26/20 12:00 06/26/20 18:00 06/27/20 00:00 Temperature 97.9 F 97.3 F Pulse Rate 89 91 Respiratory Rate 18 16 Blood Pressure 137/84 137/64 Pulse Oximetry 99 06/27/20 04:00 06/27/20 06:05 Temperature 97.9 F Pulse Rate 75 Respiratory Rate 18 16 Blood Pressure 96/57 L Pulse Oximetry 97 Body Mass Index 29.2 Labs Results: 06/24/20 16:31 06/24/20 16:31 Labs: Laboratory Results - last 48 hr 06/26/20 06/26/20 07:55 07:55 Estimat Average Glucose 105 Hemoglobin A1c % 5.3 Magnesium 2.1 Triglycerides 160 Cholesterol 225 LDL Cholesterol, Calc 157 HDL Cholesterol 36 TSH 3.87 Free T4 0.83 Medications Medications Current Medications Generic Name Dose Route Start Last Admin Trade Name Freq PRN Reason Stop Dose Admin Acetaminophen 650 mg 06/25/20 16:12 Acetaminophen 325 Mg Tablet PO Q6H PRN Headache/Pain Mild Scale (1-3) Al Hydroxide/Mg Hydroxide 30 ml 06/25/20 16:12 Magnesium Hydrox/Alum Hydrox 30 Ml Oral.Susp PO Q6H PRN Heartburn/Nausea Benztropine Mesylate 1 mg 06/26/20 21:00 06/27/20 08:50 Benztropine Mesylate 1 Mg Tablet PO 1 mg BID EST[facility]AN Administration Haloperidol 10 mg 06/26/20 21:00 06/26/20 21:05 Haloperidol 5 Mg Tablet PO 10 mg BEDTIME [facility] Administration Haloperidol 5 mg 06/27/20 09:00 06/27/20 08:50 Haloperidol 5 Mg Tablet PO 5 mg DAILY [facility] Administration Hydroxyzine HCl 50 mg 06/25/20 16:12 06/26/20 21:08 Hydroxyzine Hcl 50 Mg Tablet PO 50 mg BID PRN Administration anxiety Lorazepam 1 mg 06/25/20 17:34 06/26/20 13:27 Lorazepam 1 Mg Tablet PO 1 mg Q2H PRN Administration withdrawl sx Lurasidone HCl 80 mg 06/25/20 21:00 06/27/20 08:50 Lurasidone Hcl 80 Mg Tablet PO 80 mg BID ESTEVAN Administration Magnesium Hydroxide 30 ml 06/25/20 16:12 Milk Of Magnesia 30 Ml Oral.Susp PO DAILY PRN Constipation Multivitamins/Minerals 1 tab 06/25/20 09:00 06/27/20 08:50 Multivitamin With Minerals Tablet PO 1 tab DAILY [facility] Administration Trazodone HCl 300 mg 06/25/20 21:00 06/26/20 21:05 Trazodone Hcl 50 Mg Tablet PO 300 mg BEDTIME EST[facility]AN Administration Allergies Allergies Allergy/AdvReac Type Severity Reaction Status Date / Time No Known Allergies Allergy Verified 06/24/20 16:07 [No Known Allergies*] Assessment & Plan Assessment & Plan (1) Schizoaffective disorder: Status: Acute Code(s): F25.9 - Schizoaffective disorder, unspecified Assessment and Plan: continue haldol 5mg po daily and 10mg po qhs. continue cogentin 1mg po BID. Greater than 50% of the session was spent on counseling and/or coordination of care Reason for contiued inpatient stay Substantial Risk for: inability to function
[2020-06-27 12:00] VITALS: BP 125/66; PULSE 84; RESP 18; TEMP 36.6; O2SAT 99
[2020-06-27] MEDS: hydrOXYzine HCL 50 MG TABLET PO (13:14)
[2020-06-27] MEDS: LORazepam 1 MG TABLET PO (13:14)
[2020-06-27 19:00] VITALS: BP 137/70; PULSE 82; TEMP 36.3
[2020-06-27] MEDS: traZODone HCL 50 MG TABLET 300 MG PO (21:18)
[2020-06-27] MEDS: HaloperidoL 5 MG TABLET 10 MG PO (21:19)
[2020-06-27 21:35] VITALS: BP 117/69; PULSE 76
[2020-06-28 04:58] LABS: Folate > 20.0 ng/mL (> or = 4.0); Vitamin B12 411 pg/mL (200-900)
[2020-06-28 06:40] VITALS: BP 107/52; PULSE 56; RESP 16; TEMP 36.4; O2SAT 97
[2020-06-28] MEDS: Benztropine Mesylate 1 MG TABLET PO ×2 (08:41→21:40)
[2020-06-28] MEDS: HaloperidoL 5 MG TABLET PO (08:41)
[2020-06-28] MEDS: Lurasidone HCl 80 MG TABLET PO ×2 (08:41→21:40)
--- NOTE | 2020-06-28 17:20 | P.PNPSI_ITS ---
Subjective Subjective Date of Service: 06/28/20 Reason For Visit: Schizoaffective disorder Alcohol use disorder Interim History: Pt less AH. He reports slightly improved sleep. He reports fe eling less anxious. He has been more visible in the unit. He denies SI/HI. He reports he ahs been on medications for alcohol cravings- vivitrol but relapsed. He is interested in substance use treatment program. Review of Systems Review of Systems Yes all other systems are reviewed and are negative Constitutional: Reports as per HPI and Reports no additional constitutional complaints Eyes: Reports as per HPI and Reports no additional eye complaints Reports system reviewed and no additional complaints, except as documented and R eports as per HPI Cardiovascular: Reports as per HPI and Reports no additional cardiovascular complaints Respiratory: Reports as per HPI and Reports no additional respiratory complaints Gastrointestinal: Reports as per HPI and Reports no additional gastrointestinal complaints Genitourinary: Reports no additional male genitourinary complaints and Reports as per HPI Musculoskeletal: Reports no additional musculoskeletal complaints and Reports as per HPI Reports system reviewed and no additional complaints, except as documented and Reports as per HPI Psychiatric: Reports no additional psychiatric complaints, Reports as per HPI and Reports depression Mental Status Exam Mental Status Exam Narrative: Appearance: casually groomed, fair hygiene, in NAD Behavior: calm, cooperative Psychomotor: no agitation or retardation noted Speech: clear, normal rate/rhythm/volume, spontaneous TP: linear TC: hearing voices, feeling depressed, hopeless Mood: anxious Affect:blunted AH/VH:+AH Delusions:some paranoid delusions Insight/judgment:poor x 2. Memory/cog: alert, oriented x 3. Diagnostics Vital Signs (24Hr): Vital Signs - 24 hr 06/27/20 19:00 06/27/20 21:35 06/28/20 06:40 Temperature 97.4 F 97.5 F Pulse Rate 82 76 56 Respiratory Rate 16 Blood Pressure 137/70 117/69 107/52 L Pulse Oximetry 97 Body Mass Index 29.2 Labs Results: 06/24/20 16:31 06/24/20 16:31 Labs: Laboratory Results - last 48 hr 06/26/20 07:55 Vitamin B12 411 Folate > 20.0 Medications Medications Current Medications Generic Name Dose Route Start Last Admin Trade Name Freq PRN Reason Stop Dose Admin Acetaminophen 650 mg 06/25/20 16:12 Acetaminophen 325 Mg Tablet PO Q6H PRN Headache/Pain Mild Scale (1-3) Al Hydroxide/Mg Hydroxide 30 ml 06/25/20 16:12 Magnesium Hydrox/Alum Hydrox 30 Ml Oral.Susp PO Q6H PRN Heartburn/Nausea Benztropine Mesylate 1 mg 06/26/20 21:00 06/28/20 08:41 Benztropine Mesylate 1 Mg Tablet PO 1 mg BID [facility] Administration Haloperidol 10 mg 06/26/20 21:00 06/27/20 21:19 Haloperidol 5 Mg Tablet PO 10 mg BEDTIME [facility] Administration Haloperidol 5 mg 06/27/20 09:00 06/28/20 08:41 Haloperidol 5 Mg Tablet PO 5 mg DAILY [facility] Administration Hydroxyzine HCl 50 mg 06/25/20 16:12 06/27/20 13:14 Hydroxyzine Hcl 50 Mg Tablet PO 50 mg BID PRN Administration anxiety Lorazepam 1 mg 06/25/20 17:34 06/27/20 13:14 Lorazepam 1 Mg Tablet PO 1 mg Q2H PRN Administration withdrawl sx Lurasidone HCl 80 mg 06/25/20 21:00 06/28/20 08:41 Lurasidone Hcl 80 Mg Tablet PO 80 mg BID [facility] Administration Magnesium Hydroxide 30 ml 06/25/20 16:12 Milk Of Magnesia 30 Ml Oral.Susp PO DAILY PRN Constipation Multivitamins/Minerals 1 tab 06/25/20 09:00 06/28/20 08:41 Multivitamin With Minerals Tablet PO 1 tab DAILY [facility] Administration Trazodone HCl 300 mg 06/25/20 21:00 06/27/20 21:18 Trazodone Hcl 50 Mg Tablet PO 300 mg BEDTIME [facility] Administration Allergies Allergies Allergy/AdvReac Type Severity Reaction Status Date / Time No Known Allergies Allergy Verified 06/24/20 16:07 [No Known Allergies*] Assessment & Plan Assessment & Plan (1) Schizoaffective disorder: Status: Acute Code(s): F25.9 - Schizoaffective disorder, unspecified Assessment and Plan: 1. Increase haldol to 5mg po daily and 10mg po daily 2. Pt received Haldol Dec 100mg IM sometime last week- will obtain records from [facility]. He states he knows he had to continue oral medication but stopped. (2) Alcohol dependence: Status: Acute Code(s): F10.20 - Alcohol dependence, uncomplicated Assessment and Plan: pt reports he was on vivitrol for two months and then relapsed. Greater than 50% of the session was spent on counseling and/or coordination of care Reason for contiued inpatient stay Substantial Risk for: inability to function
[2020-06-28 19:35] VITALS: BP 131/61; PULSE 73; TEMP 36.3
[2020-06-28] MEDS: HaloperidoL 5 MG TABLET 10 MG PO (21:39)
[2020-06-28] MEDS: traZODone HCL 50 MG TABLET 300 MG PO (21:40)
[2020-06-29 06:35] VITALS: BP 119/57; PULSE 84; RESP 16; TEMP 37; O2SAT 97
[2020-06-29] MEDS: Lurasidone HCl 80 MG TABLET PO ×2 (08:37→20:33)
[2020-06-29] MEDS: Benztropine Mesylate 1 MG TABLET PO ×2 (08:37→20:30)
[2020-06-29] MEDS: HaloperidoL 5 MG TABLET PO (08:37)
--- NOTE | 2020-06-29 14:23 | P.PNPSI_ITS ---
Subjective Subjective Date of Service: 07/01/20 Reason For Visit: Schizoaffective disorder Alcohol use disorder Interim History: Pt continues to report hearing voices. He reports they have l essen in frequency and intensity but continue there. He reports he sometime people are taking pictures of him. He does have some insight in that he states it may not be the case but when voices are bad he states he doesn't know what to believe. He denies SI/HI. Review of Systems Review of Systems Yes all other systems are reviewed and are negative Constitutional: Reports as per HPI and Reports no additional constitutional complaints Eyes: Reports as per HPI and Reports no additional eye complaints Reports system reviewed and no additional complaints, except as documented and Reports as per HPI Cardiovascular: Reports as per HPI and Reports no additional cardiovascular complaints Respiratory: Reports as per HPI and Reports no additional respiratory complaints Gastrointestinal: Reports as per HPI and Reports no additional gastrointestinal complaints Genitourinary: Reports no additional male genitourinary complaints and Reports as per HPI Musculoskeletal: Reports no additional musculoskeletal complaints and Reports as per HPI Reports system reviewed and no additional complaints, except as documented and Reports as per HPI Psychiatric: Reports no additional psychiatric complaints, Reports as per HPI and Reports depression Mental Status Exam Mental Status Exam Narrative: Appearance: casually groomed, fair hygiene, in NAD Behavior: calm, cooperative Psychomotor: no agitation or retardation noted Speech: clear, normal rate/rhythm/volume, spontaneous TP: linear TC: hearing voices, feeling depressed, hopeless Mood: anxious Affect:blunted AH/VH:+AH Delusions:some paranoid delusions Insight/judgment:poor x 2. Memory/cog: alert, oriented x 3. Diagnostics Vital Signs (24Hr): Vital Signs - 24 hr 06/30/20 20:05 06/30/20 20:07 07/01/20 06:35 Temperature 97.6 F 97.6 F Pulse Rate 102 H 102 H 57 Respiratory Rate 16 Blood Pressure 122/59 L 122/59 L 97/54 L Pulse Oximetry 97 Body Mass Index 30.5 Labs Results: 06/24/20 16:31 06/24/20 16:31 Medications Medications Current Medications Generic Name Dose Route Start Last Admin Trade Name Freq PRN Reason Stop Dose Admin Acetaminophen 650 mg 06/25/20 16:12 Acetaminophen 325 Mg Tablet PO Q6H PRN Headache/Pain Mild Scale (1-3) Al Hydroxide/Mg Hydroxide 30 ml 03/19/21 16:12 Magnesium Hydrox/Alum Hydrox 30 Ml Oral.Susp PO Q6H PRN Heartburn/Nausea Benztropine Mesylate 1 mg 06/26/20 21:00 07/01/20 08:54 Benztropine Mesylate 1 Mg Tablet PO 1 mg BID [facility] Administration Clonidine HCl 0.1 mg 06/30/20 21:00 06/30/20 20:07 Clonidine Hcl 0.1 Mg Tablet PO 0.1 mg BEDTIME [facility] Administration Protocol Haloperidol 10 mg 06/26/20 21:00 06/30/20 20:07 Haloperidol 5 Mg Tablet PO 10 mg BEDTIME [facility] Administration Haloperidol 5 mg 06/27/20 09:00 07/01/20 08:54 Haloperidol 5 Mg Tablet PO 5 mg DAILY [facility] Administration Haloperidol Decanoate 100 mg 06/30/20 17:00 07/01/20 12:58 Haloperidol Decanoate 50 Mg/Ml Ampul IM 100 mg Q28D ESTEVAN Administration Hydroxyzine HCl 50 mg 06/25/20 16:12 06/30/20 14:34 Hydroxyzine Hcl 50 Mg Tablet PO 50 mg BID PRN Administration anxiety Lorazepam 1 mg 06/25/20 17:34 06/29/20 20:33 Lorazepam 1 Mg Tablet PO 1 mg Q2H PRN Administration withdrawl sx Lurasidone HCl 80 mg 06/30/20 17:01 Lurasidone Hcl 80 Mg Tablet PO DAILY@1700 ESTEVAN Magnesium Hydroxide 30 ml 06/25/20 16:12 Milk Of Magnesia 30 Ml Oral.Susp PO DAILY PRN Constipation Multivitamins/Minerals 1 tab 06/25/20 09:00 07/01/20 08:54 Multivitamin With Minerals Tablet PO 1 tab DAILY [facility] Administration Trazodone HCl 300 mg 06/25/20 21:00 06/30/20 20:05 Trazodone Hcl 50 Mg Tablet PO 300 mg BEDTIME [facility]AN Administration Allergies Allergies Allergy/AdvReac Type Severity Reaction Status Date / Time No Known Allergies Allergy Verified 06/24/20 16:07 [No Known Allergies*] Assessment & Plan Assessment & Plan (1) Schizoaffective disorder: Status: Acute Code(s): F25.9 - Schizoaffective disorder, unspecified Assessment and Plan: 1. Continue haldol to 5mg po daily and 10mg po daily 2. Pt received Haldol Dec 100mg IM on 06/19 for the first time- will give additional Haldol 100mg IM on 07/01 as loading dosing, then maintenance dose of 150mg IM q4 weeks on 07/19/2020. (2) Alcohol dependence: Status: Acute Code(s): F10.20 - Alcohol dependence, uncomplicated Assessment and Plan: pt reports he was on vivitrol for two months and then relapsed. Greater than 50% of the session was spent on counseling and/or coordination of care Reason for contiued inpatient stay Substantial Risk for: harm to self and inability to function
[2020-06-29 18:00] VITALS: BP 121/76; PULSE 81; TEMP 37.1
[2020-06-29] MEDS: traZODone HCL 50 MG TABLET 300 MG PO (20:32)
[2020-06-29] MEDS: LORazepam 1 MG TABLET PO (20:33)
[2020-06-29] MEDS: hydrOXYzine HCL 50 MG TABLET PO (20:33)
[2020-06-29] MEDS: HaloperidoL 5 MG TABLET 10 MG PO (20:33)
[2020-06-30 06:00] VITALS: BP 110/52; PULSE 64; TEMP 36.8
[2020-06-30] MEDS: HaloperidoL 5 MG TABLET PO (08:28)
[2020-06-30] MEDS: Benztropine Mesylate 1 MG TABLET PO ×2 (08:28→20:06)
[2020-06-30] MEDS: Lurasidone HCl 80 MG TABLET PO (08:28)
[2020-06-30] MEDS: hydrOXYzine HCL 50 MG TABLET PO (14:34)
--- NOTE | 2020-06-30 16:53 | HO.PSYCHPN ---
Subjective Subjective Date of Service: 06/30/20 Reason For Visit: Schizoaffective disorder Alcohol use disorder Interim History: Pt less AH, but reports thinking that cameras are monitoring him. He also hears voices coming out of intercomme. He does report not feeling as anxious nor hypervigilant. He reports slightly improved sleep. He reports feeling less anxious. He has been more visible in the unit. He denies SI/HI. He reports he ahs been on medications for alcohol cravings- vivitrol but relapsed. He is interested in substance use treatment program. Review of Systems Review of Systems Yes all other systems are reviewed and are negative Constitutional: Reports as per HPI and Reports no additional constitutional complaints Eyes: Reports as per HPI and Reports no additional eye complaints Reports system reviewed and no additional complaints, except as documented and Reports as per HPI Cardiovascular: Reports as per HPI and Reports no additional cardiovascular complaints Respiratory: Reports as per HPI and Reports no additional respiratory complaints Gastrointestinal: Reports as per HPI and Reports no additional gastrointestinal complaints Genitourinary: Reports no additional male genitourinary complaints and Reports as per HPI Musculoskeletal: Reports no additional musculoskeletal complaints and Reports as per HPI Reports system reviewed and no additional complaints, except as documented and Reports as per HPI Psychiatric: Reports no additional psychiatric complaints, Reports as per HPI and Reports depression Mental Status Exam Mental Status Exam Narrative: Appearance: casually groomed, fair hygiene, in NAD Behavior: calm, cooperative Psychomotor: no agitation or retardation noted Speech: clear, normal rate/rhythm/volume, spontaneous TP: linear TC: hearing voices, feeling depressed, hopeless Mood: anxious Affect:blunted AH/VH:+AH Delusions:some paranoid delusions Insight/judgment:poor x 2. Memory/cog: alert, oriented x 3. Diagnostics Vital Signs (24Hr): Vital Signs - 24 hr 06/29/20 18:00 06/30/20 06:00 Temperature 98.7 F 98.3 F Pulse Rate 81 64 Blood Pressure 121/76 110/52 L Body Mass Index 29.2 Labs Results: 06/24/20 16:31 06/24/20 16:31 Medications Medications Current Medications Generic Name Dose Route Start Last Admin Trade Name Freq PRN Reason Stop Dose Admin Acetaminophen 650 mg 06/25/20 16:12 Acetaminophen 325 Mg Tablet PO Q6H PRN Headache/Pain Mild Scale (1-3) Al Hydroxide/Mg Hydroxide 30 ml 06/25/20 16:12 Magnesium Hydrox/Alum Hydrox 30 Ml Oral.Susp PO Q6H PRN Heartburn/Nausea Benztropine Mesylate 1 mg 06/26/20 21:00 06/30/20 08:28 Benztropine Mesylate 1 Mg Tablet PO 1 mg BID ESTEVAN Administration Haloperidol 10 mg 06/26/20 21:00 06/29/20 20:33 Haloperidol 5 Mg Tablet PO 10 mg BEDTIME ESTEVAN Administration Haloperidol 5 mg 06/27/20 09:00 06/30/20 08:28 Haloperidol 5 Mg Tablet PO 5 mg DAILY ESTEVAN Administration Hydroxyzine HCl 50 mg 06/25/20 16:12 06/30/20 14:34 Hydroxyzine Hcl 50 Mg Tablet PO 50 mg BID PRN Administration anxiety Lorazepam 1 mg 06/25/20 17:34 06/29/20 20:33 Lorazepam 1 Mg Tablet PO 1 mg Q2H PRN Administration withdrawl sx Lurasidone HCl 80 mg 06/25/20 21:00 06/30/20 08:28 Lurasidone Hcl 80 Mg Tablet PO 80 mg BID ESTEVAN Administration Magnesium Hydroxide 30 ml 06/25/20 16:12 Milk Of Magnesia 30 Ml Oral.Susp PO DAILY PRN Constipation Multivitamins/Minerals 1 tab 06/25/20 09:00 06/30/20 08:28 Multivitamin With Minerals Tablet PO 1 tab DAILY ESTEVAN Administration Trazodone HCl 300 mg 06/25/20 21:00 06/29/20 20:32 Trazodone Hcl 50 Mg Tablet PO 300 mg BEDTIME ESTEVAN Administration Allergies Allergies Allergy/AdvReac Type Severity Reaction Status Date / Time No Known Allergies Allergy Verified 06/24/20 16:07 [No Known Allergies*] Assessment & Plan Assessment & Plan (1) Schizoaffective disorder: Status: Acute Code(s): F25.9 - Schizoaffective disorder, unspecified Assessment and Plan: 1. Continue haldol to 5mg po daily and 10mg po daily 2. Pt received Haldol Dec 100mg IM on 06/19 for the first time- will give additional Haldol 100mg IM on 06/30 as loading dosing, then maintenance dose of 150mg IM q4 weeks on 07/19/2020. (2) Alcohol dependence: Status: Acute Code(s): F10.20 - Alcohol dependence, uncomplicated Assessment and Plan: pt reports he was on vivitrol for two months and then relapsed. Greater than 50% of the session was spent on counseling and/or coordination of care Reason for contiued inpatient stay Substantial Risk for: harm to self
[2020-06-30 20:05] VITALS: BP 122/59; PULSE 102; TEMP 36.4
[2020-06-30] MEDS: traZODone HCL 50 MG TABLET 300 MG PO (20:05)
[2020-06-30 20:07] VITALS: BP 122/59; PULSE 102
[2020-06-30] MEDS: HaloperidoL 5 MG TABLET 10 MG PO (20:07)
[2020-06-30] MEDS: cloNIDine HCL 0.1 MG TABLET PO (20:07)
[2020-07-01 06:35] VITALS: BP 97/54; PULSE 57; RESP 16; TEMP 36.4; O2SAT 97
[2020-07-01] MEDS: Benztropine Mesylate 1 MG TABLET PO ×2 (08:54→21:58)
[2020-07-01] MEDS: HaloperidoL 5 MG TABLET PO (08:54)
[2020-07-01 14:14] VITALS: BMI 30.5
--- NOTE | 2020-07-01 14:25 | HO.PSYCHPN ---
Subjective Subjective Date of Service: 07/01/20 Reason For Visit: Schizoaffective disorder Alcohol use disorder Interim History: Pt started clonidine for anxiety last night. he reports he does not noticed any difference. He reports sleeping fairly okay in that he did not wake up several times. He denies SI/HI. He reports he continues to hear voices but less frequently. He has been visible in the unit, attends some groups, social with select peers. EPS- non on exam. Review of Systems Review of Systems Yes all other systems are reviewed and are negative Constitutional: Reports as per HPI and Reports no additional constitutional complaints Eyes: Reports as per HPI and Reports no additional eye complaints Reports system reviewed and no additional complaints, except as documented and Reports as per HPI Cardiovascular: Reports as per HPI and Reports no additional cardiovascular complaints Respiratory: Reports as per HPI and Reports no additional respiratory complaints Gastrointestinal: Reports as per HPI and Reports no additional gastrointestinal complaints Genitourinary: Reports no additional male genitourinary complaints and Reports as per HPI Musculoskeletal: Reports no additional musculoskeletal complaints and Reports as per HPI Reports system reviewed and no additional complaints, except as documented and Reports as per HPI Psychiatric: Reports no additional psychiatric complaints, Reports as per HPI and Reports depression Mental Status Exam Mental Status Exam Narrative: Appearance: casually groomed, fair hygiene, in NAD Behavior: calm, cooperative Psychomotor: no agitation or retardation noted Speech: clear, normal rate/rhythm/volume, spontaneous TP: linear TC: hearing voices, feeling depressed, hopeless Mood: anxious Affect:blunted AH/VH:+AH Delusions:some paranoid delusions Insight/judgment:poor x 2. Memory/cog: alert, oriented x 3. Diagnostics Vital Signs (24Hr): Vital Signs - 24 hr 06/30/20 20:05 06/30/20 20:07 07/01/20 06:35 Temperature 97.6 F 97.6 F Pulse Rate 102 H 102 H 57 Respiratory Rate 16 Blood Pressure 122/59 L 122/59 L 97/54 L Pulse Oximetry 97 Body Mass Index 30.5 Labs Results: 06/24/20 16:31 06/24/20 16:31 Medications Medications Current Medications Generic Name Dose Route Start Last Admin Trade Name Freq PRN Reason Stop Dose Admin Acetaminophen 650 mg 06/25/20 16:12 Acetaminophen 325 Mg Tablet PO Q6H PRN Headache/Pain Mild Scale (1-3) Al Hydroxide/Mg Hydroxide 30 ml 06/25/20 16:12 Magnesium Hydrox/Alum Hydrox 30 Ml Oral.Susp PO Q6H PRN Heartburn/Nausea Benztropine Mesylate 1 mg 06/26/20 21:00 07/01/20 08:54 Benztropine Mesylate 1 Mg Tablet PO 1 mg BID ESTEVAN Administration Clonidine HCl 0.1 mg 06/30/20 21:00 06/30/20 20:07 Clonidine Hcl 0.1 Mg Tablet PO 0.1 mg BEDTIME ESTEVAN Administration Protocol Haloperidol 10 mg 06/26/20 21:00 06/30/20 20:07 Haloperidol 5 Mg Tablet PO 10 mg BEDTIME ESTEVAN Administration Haloperidol 5 mg 06/27/20 09:00 07/01/20 08:54 Haloperidol 5 Mg Tablet PO 5 mg DAILY ESTEVAN Administration Haloperidol Decanoate 100 mg 06/30/20 17:00 07/01/20 12:58 Haloperidol Decanoate 50 Mg/Ml Ampul IM 100 mg Q28D ESTEVAN Administration Hydroxyzine HCl 50 mg 06/25/20 16:12 06/30/20 14:34 Hydroxyzine Hcl 50 Mg Tablet PO 50 mg BID PRN Administration anxiety Lorazepam 1 mg 06/25/20 17:34 06/29/20 20:33 Lorazepam 1 Mg Tablet PO 1 mg Q2H PRN Administration withdrawl sx Lurasidone HCl 80 mg 06/30/20 17:01 Lurasidone Hcl 80 Mg Tablet PO DAILY@1700 ESTEVAN Magnesium Hydroxide 30 ml 06/25/20 16:12 Milk Of Magnesia 30 Ml Oral.Susp PO DAILY PRN Constipation Multivitamins/Minerals 1 tab 06/25/20 09:00 07/01/20 08:54 Multivitamin With Minerals Tablet PO 1 tab DAILY ESTEVAN Administration Trazodone HCl 300 mg 06/25/20 21:00 06/30/20 20:05 Trazodone Hcl 50 Mg Tablet PO 300 mg BEDTIME ESTEVAN Administration Allergies Allergies Allergy/AdvReac Type Severity Reaction Status Date / Time No Known Allergies Allergy Verified 06/24/20 16:07 [No Known Allergies*] Assessment & Plan Assessment & Plan (1) Schizoaffective disorder: Status: Acute Code(s): F25.9 - Schizoaffective disorder, unspecified Assessment and Plan: 1. Continue haldol to 5mg po daily and 10mg po daily 2. Pt received Haldol Dec 100mg IM on 06/19 for the first time- will give additional Haldol 100mg IM on 07/01 as loading dosing, then maintenance dose of 150mg IM q4 weeks on 07/19/2020. (2) Alcohol dependence: Status: Acute Code(s): F10.20 - Alcohol dependence, uncomplicated Assessment and Plan: pt reports he was on vivitrol for two months and then relapsed. Greater than 50% of the session was spent on counseling and/or coordination of care Reason for contiued inpatient stay Substantial Risk for: harm to self and inability to function
[2020-07-01 16:50] VITALS: BP 92/51; PULSE 80; TEMP 36.3
[2020-07-01] MEDS: hydrOXYzine HCL 50 MG TABLET PO (17:08)
[2020-07-01] MEDS: Lurasidone HCl 80 MG TABLET PO (17:41)
[2020-07-01] MEDS: traZODone HCL 50 MG TABLET 300 MG PO (21:57)
[2020-07-01 21:58] VITALS: BP 120/65; PULSE 84
[2020-07-01] MEDS: HaloperidoL 5 MG TABLET 10 MG PO (21:58)
[2020-07-01] MEDS: cloNIDine HCL 0.1 MG TABLET PO (21:58)
[2020-07-02 06:15] VITALS: BP 100/58; PULSE 66; RESP 18; TEMP 36.2; O2SAT 96
[2020-07-02] MEDS: HaloperidoL 5 MG TABLET PO (08:52)
[2020-07-02] MEDS: Benztropine Mesylate 1 MG TABLET PO ×2 (08:52→20:05)
--- NOTE | 2020-07-02 12:25 | HO.PSYCHPN ---
Subjective Subjective Date of Service: 07/02/20 Reason For Visit: Schizoaffective disorder Alcohol use disorder Interim History: Pt reports that he continues to hear voices but much so than before. He states voices are more mumbles. He reports he continues to think that someone is hearing what he says through intercom- some insight in that he questions this. He states when not taking medications, discerning what is true and what not is much difficult. He denies SI/HI. he reports fair sleep due to nightmares. EPS- non on exam. Review of Systems Review of Systems Yes all other systems are reviewed and are negative Constitutional: Reports as per HPI and Reports no additional constitutional complaints Eyes: Reports as per HPI and Reports no additional eye complaints Reports system reviewed and no additional complaints, except as documented and Reports as per HPI Cardiovascular: Reports as per HPI and Reports no additional cardiovascular complaints Respiratory: Reports as per HPI and Reports no additional respiratory complaints Gastrointestinal: Reports as per HPI and Reports no additional gastrointestinal complaints Genitourinary: Reports no additional male genitourinary complaints and Reports as per HPI Musculoskeletal: Reports no additional musculoskeletal complaints and Reports as per HPI Reports system reviewed and no additional complaints, except as documented and Reports as per HPI Psychiatric: Reports no additional psychiatric complaints, Reports as per HPI and Reports depression Mental Status Exam Mental Status Exam Narrative: Appearance: casually groomed, fair hygiene, in NAD Behavior: calm, cooperative Psychomotor: no agitation or retardation noted Speech: clear, normal rate/rhythm/volume, spontaneous TP: linear TC: hearing voices, feeling depressed, hopeless Mood: anxious Affect:blunted AH/VH:+AH Delusions:some paranoid delusions Insight/judgment:poor x 2. Memory/cog: alert, oriented x 3. Diagnostics Vital Signs (24Hr): Vital Signs - 24 hr 07/01/20 16:50 07/01/20 21:58 07/02/20 06:15 Temperature 97.3 F 97.2 F Pulse Rate 80 84 66 Respiratory Rate 18 Blood Pressure 92/51 L 120/65 100/58 L Pulse Oximetry 96 Body Mass Index 30.5 Labs Results: 06/24/20 16:31 06/24/20 16:31 Medications Medications Current Medications Generic Name Dose Route Start Last Admin Trade Name Freq PRN Reason Stop Dose Admin Acetaminophen 650 mg 06/25/20 16:12 Acetaminophen 325 Mg Tablet PO Q6H PRN Headache/Pain Mild Scale (1-3) Al Hydroxide/Mg Hydroxide 30 ml 06/25/20 16:12 Magnesium Hydrox/Alum Hydrox 30 Ml Oral.Susp PO Q6H PRN Heartburn/Nausea Benztropine Mesylate 1 mg 06/26/20 21:00 07/02/20 08:52 Benztropine Mesylate 1 Mg Tablet PO 1 mg BID ESTEVAN Administration Clonidine HCl 0.1 mg 06/30/20 21:00 07/01/20 21:58 Clonidine Hcl 0.1 Mg Tablet PO 0.1 mg BEDTIME ESTEVAN Administration Protocol Haloperidol 10 mg 06/26/20 21:00 07/01/20 21:58 Haloperidol 5 Mg Tablet PO 10 mg BEDTIME ESTEVAN Administration Haloperidol 5 mg 06/27/20 09:00 07/02/20 08:52 Haloperidol 5 Mg Tablet PO 5 mg DAILY ESTEVAN Administration Haloperidol Decanoate 100 mg 06/30/20 17:00 07/01/20 12:58 Haloperidol Decanoate 50 Mg/Ml Ampul IM 100 mg Q28D ESTEVAN Administration Hydroxyzine HCl 50 mg 06/25/20 16:12 07/01/20 17:08 Hydroxyzine Hcl 50 Mg Tablet PO 50 mg BID PRN Administration anxiety Lorazepam 1 mg 06/25/20 17:34 06/29/20 20:33 Lorazepam 1 Mg Tablet PO 1 mg Q2H PRN Administration withdrawl sx Lurasidone HCl 80 mg 06/30/20 17:01 07/01/20 17:41 Lurasidone Hcl 80 Mg Tablet PO 80 mg DAILY@1700 ESTEVAN Administration Magnesium Hydroxide 30 ml 06/25/20 16:12 Milk Of Magnesia 30 Ml Oral.Susp PO DAILY PRN Constipation Multivitamins/Minerals 1 tab 06/25/20 09:00 07/02/20 08:52 Multivitamin With Minerals Tablet PO 1 tab DAILY ESTEVAN Administration Trazodone HCl 300 mg 06/25/20 21:00 07/01/20 21:57 Trazodone Hcl 50 Mg Tablet PO 300 mg BEDTIME ESTEVAN Administration Allergies Allergies Allergy/AdvReac Type Severity Reaction Status Date / Time No Known Allergies Allergy Verified 06/24/20 16:07 [No Known Allergies*] Assessment & Plan Assessment & Plan (1) Schizoaffective disorder: Status: Acute Code(s): F25.9 - Schizoaffective disorder, unspecified Assessment and Plan: 1. Continue haldol to 5mg po daily and 10mg po daily 2. Pt received Haldol Dec 100mg IM on 06/19 for the first time- will give additional Haldol 100mg IM on 07/01 as loading dosing, then maintenance dose of 150mg IM q4 weeks on 07/19/2020. 3. Start prazosin 1mg po qhs (2) Alcohol dependence: Status: Acute Code(s): F10.20 - Alcohol dependence, uncomplicated Assessment and Plan: pt reports he was on vivitrol for two months and then relapsed. Greater than 50% of the session was spent on counseling and/or coordination of care Reason for contiued inpatient stay Substantial Risk for: harm to self and inability to function
[2020-07-02 18:00] VITALS: BP 118/62; PULSE 101; TEMP 36.4
[2020-07-02] MEDS: Lurasidone HCl 80 MG TABLET PO (18:00)
[2020-07-02 19:55] VITALS: BP 103/55; PULSE 70
[2020-07-02] MEDS: HaloperidoL 5 MG TABLET 10 MG PO (20:04)
[2020-07-02] MEDS: traZODone HCL 50 MG TABLET 300 MG PO (20:04)
[2020-07-02 20:05] VITALS: BP 103/55; PULSE 70
[2020-07-03 06:00] VITALS: BP 130/56; PULSE 61; TEMP 37.1
[2020-07-03] MEDS: HaloperidoL 5 MG TABLET PO (08:19)
[2020-07-03] MEDS: Benztropine Mesylate 1 MG TABLET PO ×2 (08:19→21:28)
--- NOTE | 2020-07-03 15:39 | HO.PSYCHPN ---
Subjective Subjective Date of Service: 07/03/20 Reason For Visit: Schizoaffective disorder Alcohol use disorder Subjective Notes: Conditional Voluntary Interim History: Reports a decrease in perceptual alteratins, anxiety and depressive sx. He has not trialed medication for nightmares as he reports blood pressure reading was low. States he has had his injection and wants now to search for employment and housing. Medication Compliance: Yes Side effects from medications: No Review of Systems Review of Systems Yes all other systems are reviewed and are negative (denies) Reports behavioral changes Psychiatric: Reports behavioral changes Mental Status Exam Mental Status Exam Patient Appearance: Appropriate Patient Orientation: Person, Place, Time and Situation Level of Consciousness: Alert Patient Behavior: Talkative Mood Description: Calm Affect Description: Calm Patient Cognition Impaired: No Ability to Follow Directions: Good Speech Pattern: Spontaneous Speech Memory Description: Episodic Impaired Hallucinations: None (denies) Delusions: Not Present Thought Process: Linear Thought Content: positive for Linear Judgement: Fair Diagnostics Vital Signs (24Hr): Vital Signs - 24 hr 07/02/20 18:00 07/02/20 19:55 07/02/20 20:05 Temperature 97.5 F Pulse Rate 101 H 70 70 Blood Pressure 118/62 103/55 L 103/55 L 07/03/20 06:00 Temperature 98.7 F Pulse Rate 61 Blood Pressure 130/56 L Body Mass Index 30.5 Labs Results: 06/24/20 16:31 06/24/20 16:31 Medications Medications Current Medications Generic Name Dose Route Start Last Admin Trade Name Freq PRN Reason Stop Dose Admin Acetaminophen 650 mg 06/25/20 16:12 Acetaminophen 325 Mg Tablet PO Q6H PRN Headache/Pain Mild Scale (1-3) Al Hydroxide/Mg Hydroxide 30 ml 06/25/20 16:12 Magnesium Hydrox/Alum Hydrox 30 Ml Oral.Susp PO Q6H PRN Heartburn/Nausea Benztropine Mesylate 1 mg 06/26/20 21:00 07/03/20 08:19 Benztropine Mesylate 1 Mg Tablet PO 1 mg BID ESTEVAN Administration Haloperidol 10 mg 06/26/20 21:00 07/02/20 20:04 Haloperidol 5 Mg Tablet PO 10 mg BEDTIME ESTEVAN Administration Haloperidol 5 mg 06/27/20 09:00 07/03/20 08:19 Haloperidol 5 Mg Tablet PO 5 mg DAILY ESTEVAN Administration Haloperidol Decanoate 100 mg 06/30/20 17:00 07/01/20 12:58 Haloperidol Decanoate 50 Mg/Ml Ampul IM 100 mg Q28D ESTEVAN Administration Hydroxyzine HCl 50 mg 06/25/20 16:12 07/01/20 17:08 Hydroxyzine Hcl 50 Mg Tablet PO 50 mg BID PRN Administration anxiety Lorazepam 1 mg 06/25/20 17:34 06/29/20 20:33 Lorazepam 1 Mg Tablet PO 1 mg Q2H PRN Administration withdrawl sx Lurasidone HCl 80 mg 06/30/20 17:01 07/02/20 18:00 Lurasidone Hcl 80 Mg Tablet PO 80 mg DAILY@1700 ESTEVAN Administration Magnesium Hydroxide 30 ml 06/25/20 16:12 Milk Of Magnesia 30 Ml Oral.Susp PO DAILY PRN Constipation Multivitamins/Minerals 1 tab 06/25/20 09:00 07/03/20 08:19 Multivitamin With Minerals Tablet PO 1 tab DAILY ESTEVAN Administration Prazosin HCl 1 mg 07/02/20 21:00 07/02/20 20:05 Prazosin Hcl 1 Mg Capsule PO Not Given BEDTIME ESTEVAN Protocol Trazodone HCl 300 mg 06/25/20 21:00 07/02/20 20:04 Trazodone Hcl 50 Mg Tablet PO 300 mg BEDTIME ESTEVAN Administration Allergies Allergies Allergy/AdvReac Type Severity Reaction Status Date / Time No Known Allergies Allergy Verified 06/24/20 16:07 [No Known Allergies*] Assessment & Plan Assessment & Plan (1) Schizoaffective disorder: Status: Acute Code(s): F25.9 - Schizoaffective disorder, unspecified Greater than 50% of the session was spent on counseling and/or coordination of care Reason for contiued inpatient stay Substantial Risk for: rapid decompensation
[2020-07-03] MEDS: Lurasidone HCl 80 MG TABLET PO (17:06)
[2020-07-03 18:00] VITALS: BP 118/68; PULSE 74; RESP 18; TEMP 36.7; O2SAT 94
[2020-07-03] MEDS: hydrOXYzine HCL 50 MG TABLET PO (18:59)
[2020-07-03 20:02] VITALS: BP 120/60; PULSE 91
[2020-07-03] MEDS: Prazosin HCL 1 MG CAPSULE PO (20:02)
[2020-07-03] MEDS: traZODone HCL 50 MG TABLET 300 MG PO (20:07)
[2020-07-03] MEDS: HaloperidoL 5 MG TABLET 10 MG PO (20:07)
[2020-07-04 06:00] VITALS: BP 102/58; PULSE 58; RESP 14; TEMP 36.2; O2SAT 97
[2020-07-04] MEDS: HaloperidoL 5 MG TABLET PO (08:02)
[2020-07-04] MEDS: Benztropine Mesylate 1 MG TABLET PO ×2 (08:02→20:20)
--- NOTE | 2020-07-04 08:33 | P.PNPSI_ITS ---
Subjective Subjective Date of Service: 07/04/20 Reason For Visit: Schizoaffective disorder Alcohol use disorder Subjective Notes: Conditional Voluntary Interim History: Reports L Ear Pain with pressure and fullness. Requested hospitalist consult for otitis media. Pt reporting Prazosin not effective for nightmares-will increase dose slightly and re-eval. Pt reports no other sx- denies perceptual alterations, states he is feeling improved. Medication Compliance: Yes Side effects from medications: No Attending Groups: Yes Review of Systems Reports other (L ear pain) Mental Status Exam Mental Status Exam Patient Appearance: Appropriate Patient Orientation: Person, Place, Time and Situation Level of Consciousness: Alert Patient Behavior: Guarded, Talkative and Fatigued Mood Description: Anxious Affect Description: Anxious Patient Cognition Impaired: No Ability to Follow Directions: Good Speech Pattern: Clear, Appropriate and Spontaneous Speech Memory Description: Intact Hallucinations: None (denies today) Delusions: Not Present Thought Process: Intact Thought Content: positive for [place] and positive for Circumstantial Depressive Symptoms: Increased Anxiety Judgement: Good Diagnostics Vital Signs (24Hr): Vital Signs - 24 hr 07/03/20 18:00 07/03/20 20:02 07/04/20 06:00 Temperature 98.1 F 97.2 F Pulse Rate 74 91 58 Respiratory Rate 18 14 Blood Pressure 118/68 120/60 102/58 L Pulse Oximetry 94 97 Body Mass Index 30.5 Labs Results: 06/24/20 16:31 06/24/20 16:31 Medications Medications Current Medications Generic Name Dose Route Start Last Admin Trade Name Freq PRN Reason Stop Dose Admin Acetaminophen 650 mg 06/25/20 16:12 Acetaminophen 325 Mg Tablet PO Q6H PRN Headache/Pain Mild Scale (1-3) Al Hydroxide/Mg Hydroxide 30 ml 06/25/20 16:12 Magnesium Hydrox/Alum Hydrox 30 Ml Oral.Susp PO Q6H PRN Heartburn/Nausea Benztropine Mesylate 1 mg 06/26/20 21:00 07/04/20 08:02 Benztropine Mesylate 1 Mg Tablet PO 1 mg BID ESTEVAN Administration Haloperidol 10 mg 06/26/20 21:00 07/03/20 20:07 Haloperidol 5 Mg Tablet PO 10 mg BEDTIME ESTEVAN Administration Haloperidol 5 mg 06/27/20 09:00 07/04/20 08:02 Haloperidol 5 Mg Tablet PO 5 mg DAILY ESTEVAN Administration Haloperidol Decanoate 100 mg 06/30/20 17:00 07/01/20 12:58 Haloperidol Decanoate 50 Mg/Ml Ampul IM 100 mg Q28D ESTEVAN Administration Hydroxyzine HCl 50 mg 06/25/20 16:12 07/03/20 18:59 Hydroxyzine Hcl 50 Mg Tablet PO 50 mg BID PRN Administration anxiety Lorazepam 1 mg 06/25/20 17:34 06/29/20 20:33 Lorazepam 1 Mg Tablet PO 1 mg Q2H PRN Administration withdrawl sx Lurasidone HCl 80 mg 06/30/20 17:01 07/03/20 17:06 Lurasidone Hcl 80 Mg Tablet PO 80 mg DAILY@1700 ESTEVAN Administration Magnesium Hydroxide 30 ml 06/25/20 16:12 Milk Of Magnesia 30 Ml Oral.Susp PO DAILY PRN Constipation Multivitamins/Minerals 1 tab 06/25/20 09:00 07/04/20 08:02 Multivitamin With Minerals Tablet PO 1 tab DAILY ESTEVAN Administration Prazosin HCl 1 mg 07/02/20 21:00 07/03/20 20:02 Prazosin Hcl 1 Mg Capsule PO 1 mg BEDTIME ESTEVAN Administration Protocol Trazodone HCl 300 mg 06/25/20 21:00 07/03/20 20:07 Trazodone Hcl 50 Mg Tablet PO 300 mg BEDTIME ESTEVAN Administration Allergies Allergies Allergy/AdvReac Type Severity Reaction Status Date / Time No Known Allergies Allergy Verified 06/24/20 16:07 [No Known Allergies*] Assessment & Plan Assessment & Plan (1) Schizoaffective disorder: Status: Acute Code(s): F25.9 - Schizoaffective disorder, unspecified Assessment and Plan: -Increase Prazosin to 2mg HS for nightmare mgt. Greater than 50% of the session was spent on counseling and/or coordination of care Reason for contiued inpatient stay Substantial Risk for: rapid decompensation
--- NOTE | 2020-07-04 17:41 | PM.EVENT ---
Event Note Date of Service: 07/04/20 Event Note: called to see patient for left ear pain b/l ear with cerumen, unable to visualize TM denies fever, chills, URI symptoms, sore throat etc. pain likely r/t cerumen impaction -debrox BID for up to 4 days, if still having pain after completion can reassess
[2020-07-04 18:00] VITALS: BP 129/86; PULSE 84; TEMP 35.7
[2020-07-04] MEDS: Lurasidone HCl 80 MG TABLET PO (18:59)
[2020-07-04] MEDS: Carbamide Peroxide 6.5% Otic 15 ML DRPBTL 5 DROP EAR-BOTH (19:06)
[2020-07-04] MEDS: Acetaminophen 325 MG TABLET 650 MG PO (19:18)
[2020-07-04] MEDS: HaloperidoL 5 MG TABLET 10 MG PO (20:20)
[2020-07-04] MEDS: traZODone HCL 50 MG TABLET 300 MG PO (20:20)
[2020-07-04 20:21] VITALS: BP 129/86; PULSE 84
[2020-07-04] MEDS: Prazosin HCL 1 MG CAPSULE 2 MG PO (20:21)
[2020-07-05 05:45] VITALS: BP 106/52; PULSE 50; RESP 16; TEMP 36.3; O2SAT 95
[2020-07-05] MEDS: Benztropine Mesylate 1 MG TABLET PO (08:59)
[2020-07-05] MEDS: HaloperidoL 5 MG TABLET PO (09:00)
[2020-07-05] MEDS: Acetaminophen 325 MG TABLET 650 MG PO (09:30)
[2020-07-05] MEDS: Carbamide Peroxide 6.5% Otic 15 ML DRPBTL 5 DROP EAR-BOTH (09:31)
--- NOTE | 2020-07-05 23:17 | P.PNPSI_ITS ---
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 STATING HE FELT SAFE FOR DISCHARGE STATED HE WAS HOPING TO WORK TOWARD SOBRIETY Mental Status Exam Mental Status Exam Patient Appearance: Appropriate Patient Orientation: Person, Place, Time and Situation Level of Consciousness: Alert Patient Behavior: Guarded, Talkative and Fatigued Mood Description: Anxious Affect Description: Anxious Patient Cognition Impaired: No Ability to Follow Directions: Good Speech Pattern: Clear, Appropriate and Spontaneous Speech Memory Description: Intact Hallucinations: None (denies today) Delusions: Not Present Thought Process: Intact Thought Content: positive for [place] and positive for Circumstantial Depressive Symptoms: Increased Anxiety Judgement: Good Diagnostics Vital Signs (24Hr): Vital Signs - 24 hr 07/05/20 05:45 Temperature 97.4 F Pulse Rate 50 Respiratory Rate 16 Blood Pressure 106/52 L Pulse Oximetry 95 Body Mass Index 30.5 Labs Results: 06/24/20 16:31 06/24/20 16:31 Medications Allergies Allergies Allergy/AdvReac Type Severity Reaction Status Date / Time No Known Allergies Allergy Verified 06/24/20 16:07 [No Known Allergies*] Assessment & Plan Assessment & Plan (1) Schizoaffective disorder: Status: Acute Code(s): F25.9 - Schizoaffective disorder, unspecified Assessment and Plan: PATIENT ON HALDOL SEEMS STABLE FOR DISCHARGE FUTURE ORIENTED WOULD CONSIDER VIVITROL OUTPATIENT (2) Alcohol dependence: Status: Acute Code(s): F10.20 - Alcohol dependence, uncomplicated Greater than 50% of the session was spent on counseling and/or coordination of care Reason for contiued inpatient stay Substantial Risk for: stable for discharge
--- NOTE | 2020-07-06 15:04 | PM.PSYDC ---
DS: Providers Provider Date of Service: 07/07/20 Date of admission: 06/25/20 16:12 Primary care physician: LETTY Schmidt Consults: 07/04/20 08:52 Consult to Hospitalist Routine Consulting Provider: Hospitalist Reason For Exam: Left Ear Pain-?Otitis Media DS: Diagnosis Discharge Diagnosis (1) Schizoaffective disorder: Status: Acute (2) Alcohol dependence: Status: Acute DS: Medications Discharge Medications Home Medications: Previous Rx's Medication Instructions Recorded Thera-M 1 tab PO DAILY 30 Days #30 tab 07/05/20 acetaminophen 650 mg PO Q6H PRN 30 Days #30 tab 07/05/20 benztropine 1 mg PO BID 30 Days #60 tab 07/05/20 haloperidol 5 mg PO DIRECTED 30 Days #90 tab 07/05/20 haloperidol decanoate 100 mg IM Q28D 30 Days #2 ml 07/05/20 hydroxyzine HCl 50 mg PO BID PRN 30 Days #60 tab 07/05/20 lurasidone [Latuda] 80 mg PO DAILY@1700 30 Days #30 tab 07/05/20 prazosin 2 mg PO BEDTIME 30 Days #30 cap 07/05/20 trazodone 300 mg PO BEDTIME 30 Days #60 tab 07/05/20 Discharge Plan Discharge Patient Disposition: Senior Care Referrals: migdalia Morrissey, [facility] [Other] - 07/06/20 2:30 pm Madai Powell APRN, [facility] [Other] - 07/06/20 2:00 pm Tomeka Teresa MD [Physician] - ( OFFICE WILL CALL HIM WITH A FOLLOW-UP APPOINTMENT.) Discharge Medications: New prazosin 2 mg capsule 2 mg PO BEDTIME 30 Days Qty: 30 RF: 1 acetaminophen 325 mg Tablet 650 mg PO Q6H PRN (Reason: Headache/Pain Mild Scale (1-3)) 30 Days Qty: 30 RF: 1 haloperidol 5 mg Tablet 5 mg PO DIRECTED 30 Days Qty: 90 RF: 1 hydroxyzine HCl 50 mg Tablet 50 mg PO BID PRN (Reason: anxiety) 30 Days Qty: 60 RF: 1 benztropine 1 mg Tablet 1 mg PO BID 30 Days Qty: 60 RF: 1 haloperidol decanoate 50 mg/mL Solution 100 mg IM Q28D 30 Days Qty: 2 RF: 1 Latuda 80 mg Tablet 80 mg PO DAILY@1700 30 Days Qty: 30 RF: 1 trazodone 150 mg tablet 300 mg PO BEDTIME 30 Days Qty: 60 RF: 1 Continued Thera-M 9 mg iron-400 mcg tablet 1 tab PO DAILY 30 Days Qty: 30 RF: 1 Discontinued haloperidol 5 mg tablet 1 tab PO BID RF: 0 haloperidol decanoate 100 mg/mL solution 1 ml IM Q4W RF: 0 hydroxyzine HCl 50 mg tablet 1 tab PO BID PRN (Reason: anxiety) RF: 0 benztropine 1 mg tablet 1 tab PO BID PRN (Reason: Extrapyramidal Effects/Symptoms) RF: 0 trazodone 300 mg tablet 300 mg PO BEDTIME RF: 0 Discharge Orders: Discharge Order (Routine); Ordered 07/05/20 Ordered By: Yonny Ford Diet: advance to usual diet Activity on Discharge: As tolerated Care Plan Goals: SOBRIETY STABLE MOOD LIMIT HALLUCINATIONS Health Concerns: SCHIZOAFFECTIVE DX ALCOHOL USE DISORDER Plan of Treatment: HALDOL THERAPY MEETINGS MAINTAIN SOBRIETY Discharge Date/Time: 07/05/20 15:30 Mental Status Exam Mental Status Exam Narrative: Appearance: casually groomed, fair hygiene, in NAD Behavior: calm, cooperative Psychomotor: no agitation or retardation noted Speech: clear, normal rate/rhythm/volume, spontaneous TP: linear TC: hearing voices, feeling depressed, hopeless Mood: anxious Affect:blunted AH/VH:+AH Delusions:some paranoid delusions Insight/judgment:poor x 2. Memory/cog: alert, oriented x 3. DS: Summary Hospital Course Hospital Course: Mr. Anguiano is a 29 year-old male with hx of schizoaffective disorder and alcohol abuse. He was just recently discharged from [facility] inpatient unit with plan to step down to [facility] [place]. He states that he went to the program but started hearing voices, left program and soon relapsed on alcohol. Pt then self presented to ED reporting increased AH, depressed mood. Pt reports hearing voices, poor sleep and feeling anxious during the day. He denies SI/HI. He is taking medications as prescribed and reports that usually combination of haldol and latuda is helpful. He reports sleep is poor as he is very anxious, hearing voices. Medical Evaluation Reviewed: Yes HOSPITAL COURSE On the unit, Pt was placed on 15 minutes checks for safety. We discussed risks, benefits and alternative treatment options. He agreed to increase haldol given that he continues to report distressing voices telling him he was being followed. He also reported paranoid delusions thinking that he was being monitored. He also reported nightmares and increase anxiety at night for which he was started on praozosin. He received his first Haldol Decanoate 100mg IM while at [facility] on 06/14/2020. He was given a loading dose of Haldol decanoate 100mg IM here in unit on 06/30/2020. Plan is to continue Haldol dec 100mg IM next dose on 07/19/2020. He may need higher dose of Haldol dec as he is currently taking haldol po 5mg po daily and 15mg po qhs, which is roughly equivalent to Haldol Decanoate 150mg IM [id number]. Mr. Anguiano was on latuda as well a total of 160mg daily, this medication was decreased as haldol is maximized to target AH/VH that may not be adequately treated with latuda. I would suggest he is kept on only one antipsychotic, haldol, as added benefit of latuda may be minimal is any. Pt affect gradually brighten, he appears less guarded and paranoid. He reports decrease AH, less paranoid delusions but he continued to have them. He was eating and sleeping well. He denies SI/HI. He agrees to continue OP psychiatric treatment and residential substance use treatment. There were no incidences of disruptive behaviors nor use of restraints. Status at Discharge Cognitive/behavioral status at discharge: Pt appears less guarded, less fearful. He reports decrease AH. Less paranoid delusions and less anxiety. No SI/HI. Functional status at discharge: independent ambulation Overall status at discharge: patient is progressing back to baseline Time Spent with Patient Time attestation: Total time spent providing and/or coordinating discharge services: Time spent: Greater than 30 minutes
== END 2020-07-05 15:30 | disposition home or self-care (01) | DRG 750 ==
LOC: HO.ED 06-25 16:17 → HO.PM5 06-25 16:19
PROVIDERS: Clinical Nurse Specialist Psychiatric/Mental Health, Adult; Nurse Practitioner Family; Physician Assistant; Admitting Provider Psychiatry & Neurology Psychiatry; Emergency Provider Emergency Medicine Emergency Medical Services; PCP Nurse Practitioner Family; Visit Provider Social Worker
DX: F25.9 Schizoaffective disorder, unspecified (principal); F10.229 Alcohol dependence with intoxication, unspecified; F17.210 Nicotine dependence, cigarettes, uncomplicated; Z71.6 Tobacco abuse counseling; Z20.822 Contact with and (suspected) exposure to COVID-19; Z79.899 Other long term (current) drug therapy
CPT/HCPCS: 36415; 80053; 80061; 80076; 80307; 80320; 82607; 82746; 83036; 83735; 84439; 84443; 85025; 87635; 99285

== ENCOUNTER 2022-06-01 12:28 | Emergency (ER) | payer MEDICARE, OTHER, SELFPAY ==
--- NOTE | 2022-06-01 12:58 | ECG_ITS ---
Test Reason : psych meds Blood Pressure : / mmHG Vent. Rate : 089 BPM Atrial Rate : 089 BPM P-R Int : 130 ms QRS Dur : 074 ms QT Int : 364 ms P-R-T Axes : 063 044 029 degrees QTc Int : 442 ms Normal sinus rhythm Normal ECG When compared with ECG of 18-DEC-2019 23:54, No significant change was found Referred By: Generic ED Physician Electronically Signed By:LAUREN RICARDO
[2022-06-01 13:07] VITALS: BP 125/86; PULSE 108; RESP 17; TEMP 36.2; O2SAT 96; BMI 29.9
--- NOTE | 2022-06-01 13:26 | PC.NURSE ---
lunch is at bedside.
[2022-06-01 13:37] LABS: COVID-19 Test Negative (Negative); IDNOW Serial# BCCEAD1C
--- NOTE | 2022-06-01 13:40 | ED.GENADULT ---
HPI - General Adult General Chief complaint: Psychiatric Symptoms <KAVEH Lennon - Last Filed: 06/01/22 17:33> Stated complaint: hearing voices <KAVEH Lennon - Last Filed: 06/01/22 17:33> Time Seen by Provider: 06/01/22 13:35 <KAVEH Lennon - Last Filed: 06/01/22 17:33> Source: patient <KAVEH Lennon - Last Filed: 06/01/22 17:33> Mode of arrival: ambulatory <KAVEH Lennon - Last Filed: 06/01/22 17:33> Limitations: no limitations <KAVEH Lennon Last Filed: 06/01/22 17:33> History of Present Illness HPI narrative: Patient is a 31 year old assigned male at with a history of alcohol abuse, NORI, and schizoaffective disorder presenting to the emergency department today with increased auditory hallucinations. Patient states that over the last few days he has been hearing more voices and has not been taking his medications. Patient denies any dizziness, lightheadedness, abdominal pain, nausea, vomiting, fever, chills, blurry vision, double vision, loss of vision, chest pain, difficulty breathing, shortness of breath, back pain, night sweats, pain with urination, increased urinary frequency, increased urinary urgency, blood in his urine or stool, syncope or a near syncopal episode, recent trauma or falls, bowel incontinence, bladder incontinence, bowel retention, bladder retention, or any other complaints at this time. <KAVEH Lennon - Last Filed: 06/01/22 17:33> Onset (ago): day(s) <KAVEH Lennon - Last Filed: 06/01/22 17:33> Severity: mild <KAVEH Lennon Last Filed: 06/01/22 17:33> Severity scale (1-10): 2 <KAVEH Lennon Last Filed: 06/01/22 17:33> Relieving factors: none <KAVEH Lennon Last Filed: 06/01/22 17:33> Exacerbating factors: none <KAVEH Lennon Last Filed: 06/01/22 17:33> Associated symptoms: denies other symptoms <KAVEH Lennon Last Filed: 06/01/22 17:33> Treatments prior to arrival: none <KAVEH Lennon Last Filed: 06/01/22 17:33> Related Data Home medications: Home Medications Medication Instructions Recorded Confirmed haloperidol 5 mg tablet 5 mg PO BID 06/01/22 06/01/22 prazosin 1 mg capsule 1 cap PO BEDTIME 06/01/22 06/01/22 sertraline 50 mg tablet 2 tab PO DAILY 06/01/22 06/01/22 thiamine HCl (vitamin B1) 100 mg 1 tab PO DAILY 06/01/22 06/01/22 tablet Previous Rx's Medication Instructions Recorded benztropine 1 mg tablet 1 mg PO BID 30 days #60 tabs 07/05/20 hydroxyzine HCl 50 mg tablet 50 mg PO BID PRN anxiety 30 days 07/05/20 #60 tabs trazodone 150 mg tablet 300 mg PO BEDTIME 30 days #60 tabs 07/05/20 <KAVEH Lennon - Last Filed: 06/01/22 17:33> Allergies/adverse reactions: Allergies Allergy/AdvReac Type Severity Reaction Status Date / Time No Known Allergies Allergy Verified 01/27/21 08:24 [No Known Allergies*] <KAVEH Lennon Last Filed: 06/01/22 17:33> Review of Systems Constitutional: Constitutional: Reports no additional constitutional complaints, Denies chills, Denies fever(s) and Denies night sweats <KAVEH Lennon Last Filed: 06/01/22 17:33> Eyes: Eyes: Reports no additional eye complaints, Denies blurry vision, Denies change in vision, Denies diplopia, Denies eye discharge, Denies loss of vision and Denies eye pain <KAVEH Lennon Last Filed: 06/01/22 17:33> ENT: Denies dizziness <KAVEH Lennon Last Filed: 06/01/22 17:33> Cardiovascular: Cardiovascular: Reports no additional cardiovascular complaints, Denies chest pain, Denies lightheadedness, Denies Loss of Consciousness and Denies dyspnea <KAVEH Lennon Last Filed: 06/01/22 17:33> Respiratory: Respiratory: Reports no additional respiratory complaints and Denies dyspnea <KAVEH Lennon - Last Filed: 06/01/22 17:33> Gastrointestinal: Gastrointestinal: Reports no additional gastrointestinal complaints, Denies abdominal pain, Denies melena, Denies hematochezia, Denies change in bowel habits and Denies change in stool character <KAVEH Lennon - Last Filed: 06/01/22 17:33> Genitourinary: Genitourinary: Reports no additional male genitourinary complaints, Denies hematuria, Denies oliguria, Denies difficulty urinating, Denies dysuria, Denies urinary frequency, Denies urinary hesitancy, Denies urinary incontinence and Denies urinary urgency <KAVEH Lennon - Last Filed: 06/01/22 17:33> Musculoskeletal: Musculoskeletal: Reports no additional musculoskeletal complaints, Denies numbness and Denies tingling <KAVEH Lennon - Last Filed: 06/01/22 17:33> Neurologic: Denies dizziness, Denies loss of vision, Denies numbness and Denies tingling <KAVEH Lennon - Last Filed: 06/01/22 17:33> Psychiatric: Psychiatric: Reports no additional psychiatric complaints and Reports auditory hallucinations <KAVEH Lennon - Last Filed: 06/01/22 17:33> Endocrine: Endocrine: Reports no additional endocrine complaints <KAVEH Lennon - Last Filed: 06/01/22 17:33> Hematologic/Lymphatic: Hematologic/Lymphatic: Reports no additional hematologic/lymphatic complaints <KAVEH Lennon - Last Filed: 06/01/22 17:33> Allergic/Immunologic: Allergic/Immunologic: Reports no additional allergic/immunologic complaints <KAVEH Lennon - Last Filed: 06/01/22 17:33> PMF Past Medical History Attestation statement: The following information was validated with the patient. <KAVEH Lennno - Last Filed: 06/01/22 17:33> Source: old records reviewed and nursing notes reviewed <KAVEH Lennon - Last Filed: 06/01/22 17:33> Medical History: Medical History Alcohol abuse Alcohol dependence Alcohol intoxication Delusional disorder Generalized anxiety disorder History of alcohol abuse Mixed dyslipidemia Schizo-affective schizophrenia <KAVEH Lennon - Last Filed: 06/01/22 17:33> Surgical History: Surgical History History of removal of neck cyst History of root canal procedure <KAVEH Lennon - Last Filed: 06/01/22 17:33> Family History Family History: Family History Father Depression FH: mental illness Mother Depression FH: mental illness Maternal Grandfather No problems noted. Maternal Grandmother No problems noted. Brother No problems noted. Sister No problems noted. Other Mental health disorder Substance use disorder <KAVEH Lennon - Last Filed: 06/01/22 17:33> Social History Social History: Social History Household Members: None Housing: House Do you presently have visiting nurse or other home services: No Alcohol intake: current Patient Tobacco Use Status: Current everyday Tobacco user Cigarettes Per Day: 8 Smoked in Last 30 Days: No Second Hand Smoke Exposure: Yes Use of substances other than those prescribed or required for medical reasons: No Advance Directives: No Advance Directives Information Provided: No service: No Current occupational status: unemployed Sexual orientation: Straight/Heterosexual <KAVEH Lennon - Last Filed: 06/01/22 17:33> Physical Exam ED Vital Signs: Vital Signs - 24 hr 06/02/22 23:16 Temperature 97.8 F Pulse Rate 82 Respiratory Rate 16 Blood Pressure 101/58 L Pulse Oximetry 96 Oxygen Delivery Method Room Air BMI result Body Mass Index 29.9 <KAVEH Lennon - Last Filed: 06/01/22 17:33> Vital Signs - 24 hr 06/02/22 23:16 Temperature 97.8 F Pulse Rate 82 Respiratory Rate 16 Blood Pressure 101/58 L Pulse Oximetry 96 Oxygen Delivery Method Room Air BMI result Body Mass Index 29.9 <KAVEH Bradley - Last Filed: 06/02/22 01:27> Vital Signs - 24 hr 06/02/22 23:16 Temperature 97.8 F Pulse Rate 82 Respiratory Rate 16 Blood Pressure 101/58 L Pulse Oximetry 96 Oxygen Delivery Method Room Air BMI result Body Mass Index 29.9 <Gordo Wakefield DO - Last Filed: 06/02/22 15:12> Vital Signs - 24 hr 06/02/22 23:16 Temperature 97.8 F Pulse Rate 82 Respiratory Rate 16 Blood Pressure 101/58 L Pulse Oximetry 96 Oxygen Delivery Method Room Air BMI result Body Mass Index 29.9 <Anand Nesbitt MD - Last Filed: 06/03/22 08:15> Const General: cooperative, no acute distress, alert and awake <KAVEH Lennon - Last Filed: 06/01/22 17:33> Nutritional Appearance: well nourished <KAVEH Lennon - Last Filed: 06/01/22 17:33> Orientation/consciousness: patient oriented x3 <KAVEH Lennon - Last Filed: 06/01/22 17:33> Limitations: no limitations <KAVEH Lennon - Last Filed: 06/01/22 17:33> HENMT Head: Yes normal to inspection and Yes atraumatic <KAVEH Lennon - Last Filed: 06/01/22 17:33> Ears: hearing grossly normal bilaterally and external ears normal <KAVEH Lennon - Last Filed: 06/01/22 17:33> General nose exam: Normal external nose present, no nasal discharge noted and no epistaxis <KAVEH Lennon - Last Filed: 06/01/22 17:33> Face and sinus: Yes normal facial exam, No abrasion and No laceration <KAVEH Lennon - Last Filed: 06/01/22 17:33> Mouth: Normal oral and palatal mucosa present, no drooling and no muffled voice <KAVEH Lennon - Last Filed: 06/01/22 17:33> Eyes General: appearance normal, both eyes and all related structures <KAVEH Lennon - Last Filed: 06/01/22 17:33> Periorbital: periorbital findings normal <KAVEH Lennon - Last Filed: 06/01/22 17:33> Eyelids: Yes eyelids normal <KAVEH Lennon - Last Filed: 06/01/22 17:33> Conjunctivae: conjunctivae normal <KAVEH Lennon - Last Filed: 06/01/22 17:33> Pupils: Equal, round and reactive pupils present <Roxy Pacheco PA - Last Filed: 06/01/22 17:33> EOM: EOMs intact bilaterally <Roxy Pacheco PA - Last Filed: 06/01/22 17:33> Neck Neck: Yes normal visual inspection, Yes full ROM and Yes no lymphadenopathy <Roxy Pacheco PA - Last Filed: 06/01/22 17:33> Chest Chest palpation & inspection: normal inspection of the chest <Roxy Pacheco PA - Last Filed: 06/01/22 17:33> Resp Effort & Inspection: normal respiratory effort and able to speak in complete sentences <Roxy Pacheco PA - Last Filed: 06/01/22 17:33> Auscultation: clear to auscultation bilaterally <Roxy Pacheco PA - Last Filed: 06/01/22 17:33> Cardio Rate: regular rate <Roxy Pacheco PA - Last Filed: 06/01/22 17:33> Rhythm: regular rhythm <Roxy Pacheco PA - Last Filed: 06/01/22 17:33> GI Inspection: Yes normal to inspection <Roxy Pacheco PA - Last Filed: 06/01/22 17:33> Palpation (GI): Soft to palpation, not firm, nontender, no guarding and not rigid <Roxy Pacheco PA - Last Filed: 06/01/22 17:33> Neuro General: patient oriented x3 and moves all extremities <Roxy Pacheco PA - Last Filed: 06/01/22 17:33> Cranial nerves: Yes Equal, round and reactive pupils present <Roxy Pacheco PA - Last Filed: 06/01/22 17:33> Cognition (Neuro): normal cognition <Roxy Pacheco PA - Last Filed: 06/01/22 17:33> Motor exam (neuro): 5/5 motor strength present throughout <Roxy Pacheco PA - Last Filed: 06/01/22 17:33> Sensory Exam: Normal double simultaneous stimulation for sensation <Roxy Pacheco PA - Last Filed: 06/01/22 17:33> Coordination: [id number] test normal <Roxy Pacheco PA - Last Filed: 06/01/22 17:33> Extrem General: Yes normal to inspection, Yes full ROM and Yes capillary refill normal <KAVEH Lennon - Last Filed: 06/01/22 17:33> Psych Appearance: grossly normal <KAVEH Lennon - Last Filed: 06/01/22 17:33> Mental Status: mental status grossly normal <KAVEH Lennon - Last Filed: 06/01/22 17:33> Affect: normal affect <KAVEH Lennon - Last Filed: 06/01/22 17:33> Attitude: cooperative <KAVEH Lennon - Last Filed: 06/01/22 17:33> Thought process: Normal thought process present <KAVEH Lennon - Last Filed: 06/01/22 17:33> Thought content: suicidality, no homicidality and Hallucination(s) present auditory <KAVEH Lennon - Last Filed: 06/01/22 17:33> Course Reevaluation(s) Reevaluation #1: reeval tomorrow care team will reach out to psych for input <KAVEH Bradley - Last Filed: 06/02/22 01:27> Time: 01:27 <KAVEH Bradley - Last Filed: 06/02/22 01:27> Reevaluation #2: Physician observation continued patient does not meet inpatient criteria but they are searching for respite <Anand Nesbitt MD - Last Filed: 06/03/22 08:15> Time: 08:15 <Anand Nesbitt MD - Last Filed: 06/03/22 08:15> Medications Administered Generic Name Dose Route Start Last Admin Trade Name Freq PRN Reason Stop Dose Admin Benztropine Mesylate 1 mg 06/02/22 21:00 06/02/22 22:06 Benztropine Mesylate 1 Mg Tablet PO 1 mg BID ESTEVAN Administration Haloperidol 5 mg 06/02/22 21:00 06/02/22 22:06 Haloperidol 5 Mg Tablet PO 5 mg BID ESTEVAN Administration Thiamine HCl 100 mg 06/02/22 16:30 06/02/22 16:38 Thiamine Hcl 100 Mg Tablet PO 100 mg DAILY ESTEVAN Administration Discontinued Medications Generic Name Dose Route Start Last Admin Trade Name Freq PRN Reason Stop Dose Admin Lorazepam 2 mg 06/02/22 16:22 06/02/22 16:38 Lorazepam 1 Mg Tablet PO 06/02/22 16:23 2 mg ONCE ONE Administration Trazodone HCl 100 mg 06/03/22 00:52 06/03/22 01:09 Trazodone Hcl 100 Mg Tablet PO 06/03/22 00:53 100 mg ONCE ONE Administration <KAVEH Lennon - Last Filed: 06/01/22 17:33> Medications Administered Generic Name Dose Route Start Last Admin Trade Name Jillian PRN Reason Stop Dose Admin Benztropine Mesylate 1 mg 06/02/22 21:00 06/02/22 22:06 Benztropine Mesylate 1 Mg Tablet PO 1 mg BID ESTEVAN Administration Haloperidol 5 mg 06/02/22 21:00 06/02/22 22:06 Haloperidol 5 Mg Tablet PO 5 mg BID ESTEVAN Administration Thiamine HCl 100 mg 06/02/22 16:30 06/02/22 16:38 Thiamine Hcl 100 Mg Tablet PO 100 mg DAILY ESTEVAN Administration Discontinued Medications Generic Name Dose Route Start Last Admin Trade Name Jillian PRN Reason Stop Dose Admin Lorazepam 2 mg 06/02/22 16:22 06/02/22 16:38 Lorazepam 1 Mg Tablet PO 06/02/22 16:23 2 mg ONCE ONE Administration Trazodone HCl 100 mg 06/03/22 00:52 06/03/22 01:09 Trazodone Hcl 100 Mg Tablet PO 06/03/22 00:53 100 mg ONCE ONE Administration <KAVEH Bradley - Last Filed: 06/02/22 01:27> Medications Administered Generic Name Dose Route Start Last Admin Trade Name Jillian PRN Reason Stop Dose Admin Benztropine Mesylate 1 mg 06/02/22 21:00 06/02/22 22:06 Benztropine Mesylate 1 Mg Tablet PO 1 mg BID ESTEVAN Administration Haloperidol 5 mg 06/02/22 21:00 06/02/22 22:06 Haloperidol 5 Mg Tablet PO 5 mg BID ESTEVAN Administration Thiamine HCl 100 mg 06/02/22 16:30 06/02/22 16:38 Thiamine Hcl 100 Mg Tablet PO 100 mg DAILY ESTEVAN Administration Discontinued Medications Generic Name Dose Route Start Last Admin Trade Name Freq PRN Reason Stop Dose Admin Lorazepam 2 mg 06/02/22 16:22 06/02/22 16:38 Lorazepam 1 Mg Tablet PO 06/02/22 16:23 2 mg ONCE ONE Administration Trazodone HCl 100 mg 06/03/22 00:52 06/03/22 01:09 Trazodone Hcl 100 Mg Tablet PO 06/03/22 00:53 100 mg ONCE ONE Administration <Gordo Wakefield DO - Last Filed: 06/02/22 15:12> Medications Administered Generic Name Dose Route Start Last Admin Trade Name Freq PRN Reason Stop Dose Admin Benztropine Mesylate 1 mg 06/02/22 21:00 06/02/22 22:06 Benztropine Mesylate 1 Mg Tablet PO 1 mg BID ESTEVAN Administration Haloperidol 5 mg 06/02/22 21:00 06/02/22 22:06 Haloperidol 5 Mg Tablet PO 5 mg BID ESTEVAN Administration Thiamine HCl 100 mg 06/02/22 16:30 06/02/22 16:38 Thiamine Hcl 100 Mg Tablet PO 100 mg DAILY ESTEVAN Administration Discontinued Medications Generic Name Dose Route Start Last Admin Trade Name Freq PRN Reason Stop Dose Admin Lorazepam 2 mg 06/02/22 16:22 06/02/22 16:38 Lorazepam 1 Mg Tablet PO 06/02/22 16:23 2 mg ONCE ONE Administration Trazodone HCl 100 mg 06/03/22 00:52 06/03/22 01:09 Trazodone Hcl 100 Mg Tablet PO 06/03/22 00:53 100 mg ONCE ONE Administration <Anand Nesbitt MD - Last Filed: 06/03/22 08:15> Medical Decision Making Medical Decision Making MDM Narrative: Patient is a 31 year old assigned male at with a history of NORI, alcohol abuse, and schizoaffective disorder presenting to the emergency department today with increased auditory hallucinations. Patient's physical exam was unremarkable. Patient's blood work was unremarkable. I explained my physical exam findings as well as all test results to the patient. I answered all questions asked by the patient. 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 Patient's disposition pending eval. <KAVEH Lennon - Last Filed: 06/01/22 17:33> Differential Diagnosis Differential Diagnoses: The differential diagnosis associated with the presentation includes <KAVEH Lennon - Last Filed: 06/01/22 17:33> alcohol abuse, incresed auditory hallucinations <KAVEH Lennon - Last Filed: 06/01/22 17:33> Lab Data MDM Lab Attestation statement: I reviewed the patient's lab results. <KAVEH Lennon - Last Filed: 06/01/22 17:33> Result Diagrams: 06/01/22 13:51 06/01/22 13:51 <KAVEH Lennon - Last Filed: 06/01/22 17:33> Labs: Lab Results 06/01/22 06/01/22 06/01/22 Range/Units 13:14 13:51 13:51 WBC 7.9 (4.8-10.8) X10*3/uL RBC 5.47 (4.60-5.80) X10*6/uL Hgb 16.1 (14.0-18.0) g/dl Hct 47.9 (42.0-52.0) % MCV 87.6 (80.0-98.0) fL MCH 29.4 (27.0-33.0) pg MCHC 33.6 (31.0-36.0) g/dl RDW 13.2 (11.0-16.0) % Plt Count 283 (160-400) X10*3/uL MPV 10.4 (9.4-12.4) fL Absolute Nucleated RBC 0.000 (0.0-0.012) X10*3/uL Nucleated RBC % (auto) 0.0 (0.0-0.2) /100WBC Sodium 146 H (135-145) mmol/L Potassium 4.2 (3.3-5.1) mmol/L Chloride 105 (96-108) mmol/L Carbon Dioxide 31 H (22-29) mmol/L Anion Gap 14 (12-20) BUN 11 (9-16) mg/dL Creatinine 0.86 (0.5-1.4) mg/dL Estim Creat Clear Calc 122.4 Estimated GFR > 60 Random Glucose 114 (60-115) mg/dL Calcium 9.7 (8.4-10.2) mg/dL Total Bilirubin 0.3 (0.0-1.0) mg/dL AST 19 (5-37) U/L ALT 36 (0-40) U/L Alkaline Phosphatase 57 (39-117) U/L Total Protein 7.3 (6.5-8.0) g/dL Albumin 4.6 (3.5-5.0) g/dL Urine Opiates Screen (Not Detect) Urine Fentanyl Screen (Not Detect) Ur Barbiturates Screen (Not Detect) Ur Phencyclidine Scrn (Not Detect) Ur Amphetamines Screen (Not Detect) U Benzodiazepines Scrn (Not Detect) Urine Cocaine Screen (Not Detect) U Marijuana (THC) Screen (Not Detect) Ethyl Alcohol 48 mg/dL COVID-19 ([facility]) Negative (Negative) COVID-19 Clin Com See Note 06/01/22 Range/Units 18:18 WBC (4.8-10.8) X10*3/uL RBC (4.60-5.80) X10*6/uL Hgb (14.0-18.0) g/dl Hct (42.0-52.0) % MCV (80.0-98.0) fL MCH (27.0-33.0) pg MCHC (31.0-36.0) g/dl RDW (11.0-16.0) % Plt Count (160-400) X10*3/uL MPV (9.4-12.4) fL Absolute Nucleated RBC (0.0-0.012) X10*3/uL Nucleated RBC % (auto) (0.0-0.2) /100WBC Sodium (135-145) mmol/L Potassium (3.3-5.1) mmol/L Chloride (96-108) mmol/L Carbon Dioxide (22-29) mmol/L Anion Gap (12-20) BUN (9-16) mg/dL Creatinine (0.5-1.4) mg/dL Estim Creat Clear Calc Estimated GFR Random Glucose (60-115) mg/dL Calcium (8.4-10.2) mg/dL Total Bilirubin (0.0-1.0) mg/dL AST (5-37) U/L ALT (0-40) U/L Alkaline Phosphatase (39-117) U/L Total Protein (6.5-8.0) g/dL Albumin (3.5-5.0) g/dL Urine Opiates Screen Not Detected (Not Detect) Urine Fentanyl Screen Not Detected (Not Detect) Ur Barbiturates Screen Not Detected (Not Detect) Ur Phencyclidine Scrn Not Detected (Not Detect) Ur Amphetamines Screen Not Detected (Not Detect) U Benzodiazepines Scrn Not Detected (Not Detect) Urine Cocaine Screen POSITIVE H (Not Detect) U Marijuana (THC) Screen Not Detected (Not Detect) Ethyl Alcohol mg/dL COVID-19 ([facility]) (Negative) COVID-19 Clin Com <KAVEH Lennon - Last Filed: 06/01/22 17:33> Lab Results 06/01/22 06/01/22 06/01/22 Range/Units 13:14 13:51 13:51 WBC 7.9 (4.8-10.8) X10*3/uL RBC 5.47 (4.60-5.80) X10*6/uL Hgb 16.1 (14.0-18.0) g/dl Hct 47.9 (42.0-52.0) % MCV 87.6 (80.0-98.0) fL MCH 29.4 (27.0-33.0) pg MCHC 33.6 (31.0-36.0) g/dl RDW 13.2 (11.0-16.0) % Plt Count 283 (160-400) X10*3/uL MPV 10.4 (9.4-12.4) fL Absolute Nucleated RBC 0.000 (0.0-0.012) X10*3/uL Nucleated RBC % (auto) 0.0 (0.0-0.2) /100WBC Sodium 146 H (135-145) mmol/L Potassium 4.2 (3.3-5.1) mmol/L Chloride 105 (96-108) mmol/L Carbon Dioxide 31 H (22-29) mmol/L Anion Gap 14 (12-20) BUN 11 (9-16) mg/dL Creatinine 0.86 (0.5-1.4) mg/dL Estim Creat Clear Calc 122.4 Estimated GFR > 60 Random Glucose 114 (60-115) mg/dL Calcium 9.7 (8.4-10.2) mg/dL Total Bilirubin 0.3 (0.0-1.0) mg/dL AST 19 (5-37) U/L ALT 36 (0-40) U/L Alkaline Phosphatase 57 (39-117) U/L Total Protein 7.3 (6.5-8.0) g/dL Albumin 4.6 (3.5-5.0) g/dL Urine Opiates Screen (Not Detect) Urine Fentanyl Screen (Not Detect) Ur Barbiturates Screen (Not Detect) Ur Phencyclidine Scrn (Not Detect) Ur Amphetamines Screen (Not Detect) U Benzodiazepines Scrn (Not Detect) Urine Cocaine Screen (Not Detect) U Marijuana (THC) Screen (Not Detect) Ethyl Alcohol 48 mg/dL COVID-19 ([facility]) Negative (Negative) COVID-19 Clin Com See Note 06/01/22 Range/Units 18:18 WBC (4.8-10.8) X10*3/uL RBC (4.60-5.80) X10*6/uL Hgb (14.0-18.0) g/dl Hct (42.0-52.0) % MCV (80.0-98.0) fL MCH (27.0-33.0) pg MCHC (31.0-36.0) g/dl RDW (11.0-16.0) % Plt Count (160-400) X10*3/uL MPV (9.4-12.4) fL Absolute Nucleated RBC (0.0-0.012) X10*3/uL Nucleated RBC % (auto) (0.0-0.2) /100WBC Sodium (135-145) mmol/L Potassium (3.3-5.1) mmol/L Chloride (96-108) mmol/L Carbon Dioxide (22-29) mmol/L Anion Gap (12-20) BUN (9-16) mg/dL Creatinine (0.5-1.4) mg/dL Estim Creat Clear Calc Estimated GFR Random Glucose (60-115) mg/dL Calcium (8.4-10.2) mg/dL Total Bilirubin (0.0-1.0) mg/dL AST (5-37) U/L ALT (0-40) U/L Alkaline Phosphatase (39-117) U/L Total Protein (6.5-8.0) g/dL Albumin (3.5-5.0) g/dL Urine Opiates Screen Not Detected (Not Detect) Urine Fentanyl Screen Not Detected (Not Detect) Ur Barbiturates Screen Not Detected (Not Detect) Ur Phencyclidine Scrn Not Detected (Not Detect) Ur Amphetamines Screen Not Detected (Not Detect) U Benzodiazepines Scrn Not Detected (Not Detect) Urine Cocaine Screen POSITIVE H (Not Detect) U Marijuana (THC) Screen Not Detected (Not Detect) Ethyl Alcohol mg/dL COVID-19 ([facility]) (Negative) COVID-19 Clin Com <KAVEH Bradley - Last Filed: 06/02/22 01:27> Lab Results 06/01/22 06/01/22 06/01/22 Range/Units 13:14 13:51 13:51 WBC 7.9 (4.8-10.8) X10*3/uL RBC 5.47 (4.60-5.80) X10*6/uL Hgb 16.1 (14.0-18.0) g/dl Hct 47.9 (42.0-52.0) % MCV 87.6 (80.0-98.0) fL MCH 29.4 (27.0-33.0) pg MCHC 33.6 (31.0-36.0) g/dl RDW 13.2 (11.0-16.0) % Plt Count 283 (160-400) X10*3/uL MPV 10.4 (9.4-12.4) fL Absolute Nucleated RBC 0.000 (0.0-0.012) X10*3/uL Nucleated RBC % (auto) 0.0 (0.0-0.2) /100WBC Sodium 146 H (135-145) mmol/L Potassium 4.2 (3.3-5.1) mmol/L Chloride 105 (96-108) mmol/L Carbon Dioxide 31 H (22-29) mmol/L Anion Gap 14 (12-20) BUN 11 (9-16) mg/dL Creatinine 0.86 (0.5-1.4) mg/dL Estim Creat Clear Calc 122.4 Estimated GFR > 60 Random Glucose 114 (60-115) mg/dL Calcium 9.7 (8.4-10.2) mg/dL Total Bilirubin 0.3 (0.0-1.0) mg/dL AST 19 (5-37) U/L ALT 36 (0-40) U/L Alkaline Phosphatase 57 (39-117) U/L Total Protein 7.3 (6.5-8.0) g/dL Albumin 4.6 (3.5-5.0) g/dL Urine Opiates Screen (Not Detect) Urine Fentanyl Screen (Not Detect) Ur Barbiturates Screen (Not Detect) Ur Phencyclidine Scrn (Not Detect) Ur Amphetamines Screen (Not Detect) U Benzodiazepines Scrn (Not Detect) Urine Cocaine Screen (Not Detect) U Marijuana (THC) Screen (Not Detect) Ethyl Alcohol 48 mg/dL COVID-19 ([facility]) Negative (Negative) COVID-19 Clin Com See Note 06/01/22 Range/Units 18:18 WBC (4.8-10.8) X10*3/uL RBC (4.60-5.80) X10*6/uL Hgb (14.0-18.0) g/dl Hct (42.0-52.0) % MCV (80.0-98.0) fL MCH (27.0-33.0) pg MCHC (31.0-36.0) g/dl RDW (11.0-16.0) % Plt Count (160-400) X10*3/uL MPV (9.4-12.4) fL Absolute Nucleated RBC (0.0-0.012) X10*3/uL Nucleated RBC % (auto) (0.0-0.2) /100WBC Sodium (135-145) mmol/L Potassium (3.3-5.1) mmol/L Chloride (96-108) mmol/L Carbon Dioxide (22-29) mmol/L Anion Gap (12-20) BUN (9-16) mg/dL Creatinine (0.5-1.4) mg/dL Estim Creat Clear Calc Estimated GFR Random Glucose (60-115) mg/dL Calcium (8.4-10.2) mg/dL Total Bilirubin (0.0-1.0) mg/dL AST (5-37) U/L ALT (0-40) U/L Alkaline Phosphatase (39-117) U/L Total Protein (6.5-8.0) g/dL Albumin (3.5-5.0) g/dL Urine Opiates Screen Not Detected (Not Detect) Urine Fentanyl Screen Not Detected (Not Detect) Ur Barbiturates Screen Not Detected (Not Detect) Ur Phencyclidine Scrn Not Detected (Not Detect) Ur Amphetamines Screen Not Detected (Not Detect) U Benzodiazepines Scrn Not Detected (Not Detect) Urine Cocaine Screen POSITIVE H (Not Detect) U Marijuana (THC) Screen Not Detected (Not Detect) Ethyl Alcohol mg/dL COVID-19 ([facility]) (Negative) COVID-19 Clin Com <Gordo Wakefield, DO - Last Filed: 06/02/22 15:12> Lab Results 06/01/22 06/01/22 06/01/22 Range/Units 13:14 13:51 13:51 WBC 7.9 (4.8-10.8) X10*3/uL RBC 5.47 (4.60-5.80) X10*6/uL Hgb 16.1 (14.0-18.0) g/dl Hct 47.9 (42.0-52.0) % MCV 87.6 (80.0-98.0) fL MCH 29.4 (27.0-33.0) pg MCHC 33.6 (31.0-36.0) g/dl RDW 13.2 (11.0-16.0) % Plt Count 283 (160-400) X10*3/uL MPV 10.4 (9.4-12.4) fL Absolute Nucleated RBC 0.000 (0.0-0.012) X10*3/uL Nucleated RBC % (auto) 0.0 (0.0-0.2) /100WBC Sodium 146 H (135-145) mmol/L Potassium 4.2 (3.3-5.1) mmol/L Chloride 105 (96-108) mmol/L Carbon Dioxide 31 H (22-29) mmol/L Anion Gap 14 (12-20) BUN 11 (9-16) mg/dL Creatinine 0.86 (0.5-1.4) mg/dL Estim Creat Clear Calc 122.4 Estimated GFR > 60 Random Glucose 114 (60-115) mg/dL Calcium 9.7 (8.4-10.2) mg/dL Total Bilirubin 0.3 (0.0-1.0) mg/dL AST 19 (5-37) U/L ALT 36 (0-40) U/L Alkaline Phosphatase 57 (39-117) U/L Total Protein 7.3 (6.5-8.0) g/dL Albumin 4.6 (3.5-5.0) g/dL Urine Opiates Screen (Not Detect) Urine Fentanyl Screen (Not Detect) Ur Barbiturates Screen (Not Detect) Ur Phencyclidine Scrn (Not Detect) Ur Amphetamines Screen (Not Detect) U Benzodiazepines Scrn (Not Detect) Urine Cocaine Screen (Not Detect) U Marijuana (THC) Screen (Not Detect) Ethyl Alcohol 48 mg/dL COVID-19 (KACIE) Negative (Negative) COVID-19 Clin Com See Note 06/01/22 Range/Units 18:18 WBC (4.8-10.8) X10*3/uL RBC (4.60-5.80) X10*6/uL Hgb (14.0-18.0) g/dl Hct (42.0-52.0) % MCV (80.0-98.0) fL MCH (27.0-33.0) pg MCHC (31.0-36.0) g/dl RDW (11.0-16.0) % Plt Count (160-400) X10*3/uL MPV (9.4-12.4) fL Absolute Nucleated RBC (0.0-0.012) X10*3/uL Nucleated RBC % (auto) (0.0-0.2) /100WBC Sodium (135-145) mmol/L Potassium (3.3-5.1) mmol/L Chloride (96-108) mmol/L Carbon Dioxide (22-29) mmol/L Anion Gap (12-20) BUN (9-16) mg/dL Creatinine (0.5-1.4) mg/dL Estim Creat Clear Calc Estimated GFR Random Glucose (60-115) mg/dL Calcium (8.4-10.2) mg/dL Total Bilirubin (0.0-1.0) mg/dL AST (5-37) U/L ALT (0-40) U/L Alkaline Phosphatase (39-117) U/L Total Protein (6.5-8.0) g/dL Albumin (3.5-5.0) g/dL Urine Opiates Screen Not Detected (Not Detect) Urine Fentanyl Screen Not Detected (Not Detect) Ur Barbiturates Screen Not Detected (Not Detect) Ur Phencyclidine Scrn Not Detected (Not Detect) Ur Amphetamines Screen Not Detected (Not Detect) U Benzodiazepines Scrn Not Detected (Not Detect) Urine Cocaine Screen POSITIVE H (Not Detect) U Marijuana (THC) Screen Not Detected (Not Detect) Ethyl Alcohol mg/dL COVID-19 (KACIE) (Negative) COVID-19 Clin Com <Anand Nesbitt MD - Last Filed: 06/03/22 08:15> Discharge Plan Discharge Clinical Impression: Schizoaffective disorder, Auditory hallucinations <KAVEH Lennon - Last Filed: 06/01/22 17:33> Patient Disposition: Still a Patient <KAVEH Lennon - Last Filed: 06/01/22 17:33> Instructions: Schizoaffective Disorder (ED) <KAVEH Lennon - Last Filed: 06/01/22 17:33> Prescriptions: No Action hydroxyzine HCl 50 mg Tablet 50 mg PO BID PRN (Reason: anxiety) 30 Days Qty: 60 1RF benztropine 1 mg Tablet 1 mg PO BID 30 Days Qty: 60 1RF trazodone 150 mg tablet 300 mg PO BEDTIME 30 Days Qty: 60 1RF Rx Instructions: 2 BEDTIME prazosin 1 mg capsule 1 cap PO BEDTIME thiamine HCl (vitamin B1) 100 mg tablet 1 tab PO DAILY sertraline 50 mg tablet 2 tab PO DAILY haloperidol 5 mg tablet 5 mg PO BID <KAVEH Lennon - Last Filed: 06/01/22 17:33> Interventions: [place]-Suicide Risk Severity Scale Last Done: 06/03/22 06:11 <KAVEH Lennon - Last Filed: 06/01/22 17:33> ED Observation ED Observation Admit Comment: Patient held ED for over 24 hours patient has no new complaints patient is hopefully going to place for respite patient here for hallucinations alcohol abuse he denies SI or HI at this time. He is being followed by the crisis team. Vitals have remained stable. <Gordo Wakefield DO - Last Filed: 06/02/22 15:12>
[2022-06-01 13:56] LABS: Hematocrit 47.9 % (42.0-52.0); Hemoglobin 16.1 g/dl (14.0-18.0); Mean Corpuscular HGB Conc 33.6 g/dl (31.0-36.0); Mean Corpuscular Hemoglobin 29.4 pg (27.0-33.0); Mean Corpuscular Volume 87.6 fL (80.0-98.0); Mean Platelet Volume 10.4 fL (9.4-12.4); Platelet Count 283 X10*3/uL (160-400); Red Blood Count 5.47 X10*6/uL (4.60-5.80); Red Cell Distribution Width 13.2 % (11.0-16.0); White Blood Count 7.9 X10*3/uL (4.8-10.8)
[2022-06-01 14:10] LABS: Alanine Aminotransferase 36 U/L (0-40); Albumin Level 4.6 g/dL (3.5-5.0); Alkaline Phosphatase 57 U/L (39-117); Anion Gap 14 (12-20); Aspartate Amino Transferase 19 U/L (5-37); Bilirubin Total 0.3 mg/dL (0.0-1.0); Blood Urea Nitrogen 11 mg/dL (9-16); Calcium 9.7 mg/dL (8.4-10.2); Carbon Dioxide 31 mmol/L (22-29); Chloride 105 mmol/L (96-108); Creatinine Clr Calc Pharmacy 122.4; Estimated Glomerular Filt Rate > 60; Ethanol 48 mg/dL; Glucose Random 114 mg/dL (60-115); Potassium 4.2 mmol/L (3.3-5.1); Sodium 146 mmol/L (135-145); Total Protein 7.3 g/dL (6.5-8.0)
--- NOTE | 2022-06-01 15:12 | PHA.MEDREC ---
Pharmacy Consult ? Medication Reconciliation Pharmacy has completed the medication reconciliation. Patient states he has not taken any of his home medications in 1.5 to 2 weeks. Says he takes 2 sertraline daily and only 1 prazosin at bedtime.
[2022-06-01 18:52] LABS: Amphetamine Screen Urine Not Detected (Not Detect); Barbiturates, Urine Not Detected (Not Detect); Benzodiazepines Screen Urine Not Detected (Not Detect); Cannabinoid Screen Urine Not Detected (Not Detect); Cocaine Screen Urine POSITIVE (Not Detect); Fentanyl, urine Not Detected (Not Detect); Opiate Screen Urine Not Detected (Not Detect); Phencyclidine Screen Urine Not Detected (Not Detect)
[2022-06-02 02:40] VITALS: BP 132/79; PULSE 84; RESP 16; O2SAT 97
--- NOTE | 2022-06-02 11:21 | MHC.RECOVRN ---
This marketing writer met w/ patient, patient was laying in bed, alert and awake to verbal command. Patient reports is not interested in detox at this time, patient feels detox is not indicated. Patient states binge of ETOH and CRACK/BRANT use past 2 days. Patient states in total drank 4 tall beers, 10 nips, $50 worth of crack/brant. Patient reports ETOH is substance of choice, started using crack/brant in past 3 months. Patient denies cravings for crack/brant, states started using stimulant to not feel sick from ETOH use. Patient reports has been through detox treatment in the past. Patient reports in the past found AA meetings helpful. Patient agreeable to recovery resources such as list of meetings in [facility]. CM aware.
--- NOTE | 2022-06-02 12:00 | MHC.CARE ---
CARE Team Vegetable Loader called [facility] ([phone] & [phone]) for information regarding pt's outpatient providers. T/w was told there is no record with [facility] for medication prescribers or appointments and pt is not assigned to a provider at this time. It was indicated that pt has missed several appointments in January 2022, March 2022 and May 2022. Pt is assigned to a therapist, Tiff Partida ([phone]) however, he has missed his intake appointment on May 18, 2022. Consulted with JERRY Jones
--- NOTE | 2022-06-02 16:24 | P.CNPS_ITS ---
History of Present Illness Date of Service: 06/02/2022 Chief Complaint: hearing voices Discussed with referring provider: Yes Sources of Information: patient interviewed, chart reviewed and crisis/core team assessment reviewed HPI Narrative: Mr. Anguiano is 31 y/o male with hx schizophrenia and cocaine and alcohol use who self presented to [facility] ED reporting AH, paranoid but denied SI/HI. His utox was positive for cocaine. His BAL is 48. Pt agreed to be referred to respite when assessed by care team. Pt known to this process description writer through previous admission to back in 2020. Also, of note his dx of schizophrenia precedes substance use, less likely to be substance induced psychosis. Pt had services through prep program and [facility]. Pt reports he is starting to become more paranoid, hearing voices. He reports he is interested in susbtance use treatment program but worries that voices and paranoia will get worse if he is not restated on haldol. Pt denies SI/HI. He currently reporting hearing some noises not command nor he can make what they are saying. Some suspiciousness and paranoia but pt shows insight as to need for medication. No aggression towards self or others. Past Psychiatric History: Inpatient: 2020 Medical Evaluation Reviewed: Yes [facility] Medical History Alcohol abuse Alcohol dependence Alcohol intoxication Delusional disorder Generalized anxiety disorder History of alcohol abuse Mixed dyslipidemia Schizo-affective schizophrenia Surgical History History of removal of neck cyst History of root canal procedure Diagnostics Vital Signs (24Hr): Vital Signs - 24 hr 06/02/22 02:40 Pulse Rate 84 Respiratory Rate 16 Blood Pressure 132/79 Pulse Oximetry 97 Oxygen Delivery Method Room Air BMI result Body Mass Index 29.9 Labs 06/01/22 13:51 06/01/22 13:51 Labs: Laboratory Results - last 48 hr 06/01/22 06/01/22 06/01/22 13:14 13:51 13:51 WBC 7.9 RBC 5.47 Hgb 16.1 Hct 47.9 MCV 87.6 MCH 29.4 MCHC 33.6 RDW 13.2 Plt Count 283 MPV 10.4 Absolute Nucleated RBC 0.000 Nucleated RBC % (auto) 0.0 Sodium 146 H Potassium 4.2 Chloride 105 Carbon Dioxide 31 H Anion Gap 14 BUN 11 Creatinine 0.86 Estim Creat Clear Calc 122.4 Estimated GFR > 60 Random Glucose 114 Calcium 9.7 Total Bilirubin 0.3 AST 19 ALT 36 Alkaline Phosphatase 57 Total Protein 7.3 Albumin 4.6 Urine Opiates Screen Urine Fentanyl Screen Ur Barbiturates Screen Ur Phencyclidine Scrn Ur Amphetamines Screen U Benzodiazepines Scrn Urine Cocaine Screen U Marijuana (THC) Screen Ethyl Alcohol 48 COVID-19 (KACIE) Negative COVID-19 Clin Com See Note 06/01/22 18:18 WBC RBC Hgb Hct MCV MCH MCHC RDW Plt Count MPV Absolute Nucleated RBC Nucleated RBC % (auto) Sodium Potassium Chloride Carbon Dioxide Anion Gap BUN Creatinine Estim Creat Clear Calc Estimated GFR Random Glucose Calcium Total Bilirubin AST ALT Alkaline Phosphatase Total Protein Albumin Urine Opiates Screen Not Detected Urine Fentanyl Screen Not Detected Ur Barbiturates Screen Not Detected Ur Phencyclidine Scrn Not Detected Ur Amphetamines Screen Not Detected U Benzodiazepines Scrn Not Detected Urine Cocaine Screen POSITIVE H U Marijuana (THC) Screen Not Detected Ethyl Alcohol COVID-19 (KACIE) COVID-19 Clin Com Mental Status Exam Mental Status Exam Narrative: Appearance: wearing hospital gown, fair hygiene, in NAD Behavior: no agitation or retardation noted Speech: clear, normal rate/rhythm, volume, spontaneous TP: linear TC: some suspiciousness, no SI/HI Mood: anxious Affect: congruent SI: none HI: none AH:noises but not voices VH: none Delusions: some suspiciousness but no overt paranoid delusions Insight/judgment: fair x 2. memory/cog: alert, oriented x 3. grossly intact to conversational testing. Medications Medications Current Medications Benztropine Mesylate (Benztropine Mesylate 1 Mg Tablet) 1 mg PO BID [facility] Haloperidol (Haloperidol 5 Mg Tablet) 5 mg PO BID [facility] Pharmacy Consult (Consult Rx Perform Med Rec) 1 each MISCELLANE ONCE PRN PRN Reason: Consult order Thiamine HCl (Thiamine Hcl 100 Mg Tablet) 100 mg PO DAILY [facility] Allergies Allergies Allergy/AdvReac Type Severity Reaction Status Date / Time No Known Allergies Allergy Verified 01/27/21 08:24 [No Known Allergies*] Assessment & Plan Assessment & Plan (1) Schizoaffective disorder: Status: Acute Code(s): F25.9 - Schizoaffective disorder, unspecified Plan Mr. Anguiano is a 31 year-old male with hx of schizophrenia, cocaine/alcohol use. Self presented reporting increase paranoia, AH. Utox positive cocaine. BAL 48. Pt denies SI/HI. No signs of aggression or agitation. Pt with intact insight as to need for ongoing psychiatric treatment as well as substance use. We discussed risks, benefits and alternative treatment options. Restart haldol, cogentin 1mg po BID. DO NOT RESTART SERTRALINE as it may worsen psychosis. PLAN 1. No imminent safety concerns in terms suicidal or homicidal ideation. Pt is not presenting as gravely disable due to psychosis or paranoid to required inpatient level of care. He is open to restart medication and be referred to respite or lower level of care. Total time managing care of this patient today ____ minutes.
[2022-06-02] MEDS: LORazepam 1 MG TABLET 2 MG PO (16:38)
[2022-06-02] MEDS: Thiamine HCL 100 MG TABLET PO (16:38)
[2022-06-02] MEDS: HaloperidoL 5 MG TABLET PO (22:06)
[2022-06-02] MEDS: Benztropine Mesylate 1 MG TABLET PO (22:06)
[2022-06-02 23:16] VITALS: BP 101/58; PULSE 82; RESP 16; TEMP 36.6; O2SAT 96
[2022-06-03] MEDS: traZODone HCL 100 MG TABLET PO (01:09)
--- NOTE | 2022-06-03 06:41 | PC.NURSE ---
Patient slept through the night, no distress observed/reported, behavior non concerning, medication compliant, Trazodone 100 mg administered at 0109 with + effect, disposition per care team is Respite bed search, VSS, will continue to monitor.
[2022-06-03] MEDS: HaloperidoL 5 MG TABLET PO (09:31)
[2022-06-03] MEDS: Benztropine Mesylate 1 MG TABLET PO (09:31)
[2022-06-03] MEDS: Thiamine HCL 100 MG TABLET PO (09:31)
--- NOTE | 2022-06-03 10:11 | MHC.CARE ---
Pt accepted to [facility] respite, staff to pick him up from ED today @ 10:30 AM.
== END 2022-06-03 10:14 | disposition home or self-care (01) ==
PROVIDERS: Emergency Provider Emergency Medicine; PCP Internal Medicine
DX: F25.9 Schizoaffective disorder, unspecified (principal); R44.0 Auditory hallucinations; Z20.822 Contact with and (suspected) exposure to COVID-19; F41.1 Generalized anxiety disorder; E78.2 Mixed hyperlipidemia; F10.20 Alcohol dependence, uncomplicated; Y90.2 Blood alcohol level of 40-59 mg/100 ml; F17.210 Nicotine dependence, cigarettes, uncomplicated; Z79.899 Other long term (current) drug therapy
CPT/HCPCS: 36415; 80053; 80307; 82077; 85027; 87635; 93005; 99285; S9485

== ENCOUNTER 2022-06-09 16:40 | Emergency (ER) | payer MEDICARE, OTHER, SELFPAY ==
[2022-06-09 16:47] VITALS: BP 152/88; PULSE 76; O2SAT 100
[2022-06-09 16:55] VITALS: RESP 20; BMI 27.3
[2022-06-09 17:03] VITALS: BP 114/62; PULSE 83; RESP 16; TEMP 36.8; O2SAT 98
--- NOTE | 2022-06-09 17:03 | ED_ITS ---
HPI - Psych General Chief Complaint: Psychiatric Symptoms Stated Complaint: paranoia/ crisis Time Seen by Provider: 06/09/22 17:03 Source: patient and EMS Mode of arrival: EMS Limitations: no limitations History of Present Illness HPI Narrative: 31-year-old male presents via EMS for psychiatric evaluation. States he has not been taking his medications, he is hearing auditory hallucinations telling him to kill himself. Reports that he has been using cocaine. MD complaint: suicidal ideation, feels depressed, anxiety, substance abuse and hallucinations Onset (ago): year(s) Duration: constant History of same: Yes Relieving factors: none Exacerbating factors: drug use Context: recent drug abuse and not taking psychiatric medications Associated psychiatric symptoms: depression, suicidal ideation, auditory hallucinations and delusions Associated symptoms: denies other symptoms If self harm: admits thoughts of self harm and has plan Related Data Home Medications Medication Instructions Recorded Confirmed benztropine 1 mg tablet 0.5 tab PO BID 06/09/22 06/09/22 clonidine HCl 0.1 mg tablet 1 tab PO DAILY PRN anxiety 06/09/22 06/09/22 haloperidol 5 mg tablet 5 mg PO QAM 06/09/22 06/09/22 haloperidol 5 mg tablet 10 mg PO BEDTIME 06/09/22 06/09/22 hydroxyzine pamoate 25 mg capsule 2 cap PO BID PRN anxiety 06/09/22 06/09/22 prazosin 1 mg capsule 7 cap PO BEDTIME 06/09/22 06/09/22 sertraline 100 mg tablet 1 tab PO DAILY 06/09/22 06/09/22 trazodone 50 mg tablet 1 tab PO BEDTIME PRN insomnia 06/09/22 06/09/22 Previous Rx's Medication Instructions Recorded thiamine HCl (vitamin B1) 100 mg 100 mg PO DAILY #30 tabs 06/03/22 tablet Allergies Allergy/AdvReac Type Severity Reaction Status Date / Time No Known Allergies Allergy Verified 01/27/21 08:24 [No Known Allergies*] Review of Systems Review of Systems: Constitutional: No Fever, No Chills Cardiovascular: No Chest Pain, No SOB Respiratory: No Cough, No Sputum Gastrointestinal: No Nausea, No Vomiting, No Diarrhea, No abdominal Pain Musculoskeletal: No joint pain, No Myalgias, No Joint Swelling Psych: Positive substance abuse, Positive Anxiety, positive Depression, positive SI positive AH/VH Yes all other systems are reviewed and are negative [facility] Past Medical History Attestation statement: The following information was validated with the patient. Source: old records reviewed Medical History Alcohol abuse Alcohol dependence Alcohol intoxication Delusional disorder Generalized anxiety disorder History of alcohol abuse Mixed dyslipidemia Schizo-affective schizophrenia Surgical History History of removal of neck cyst History of root canal procedure Family History Family History Father Depression FH: mental illness Mother Depression FH: mental illness Maternal Grandfather No problems noted. Maternal Grandmother No problems noted. Brother No problems noted. Sister No problems noted. Other Mental health disorder Substance use disorder Social History Social History Household Members: None Housing: House Do you presently have visiting nurse or other home services: No Alcohol intake: current Patient Tobacco Use Status: Current everyday Tobacco user Cigarettes Per Day: 8 Second Hand Smoke Exposure: Yes Advance Directives: No Advance Directives Information Provided: Yes service: No Current occupational status: unemployed Sexual orientation: Straight/Heterosexual Physical Exam Vital Signs: Vital Signs: Last Vital Signs Temp 98.2 F 06/09/22 17:03 Pulse 83 06/09/22 17:03 Resp 16 06/09/22 17:03 BP 114/62 06/09/22 17:03 Pulse Ox 98 06/09/22 17:03 O2 Del Method 06/09/22 17:03 BMI result Body Mass Index 27.3 Appearance: Alert. Oriented X3. Moderate emotional distress. Eyes: Pupils equal, round and reactive to light. ENT: Pharynx normal. Neck: Normal inspection. Neck supple. CVS: Normal heart rate and rhythm. Pulses normal. Respiratory: No respiratory distress. Breath sounds normal. Skin: Skin warm and dry. Normal skin color. Extremities: Get well balanced well coordinated. Neuro: No motor deficit. No sensory deficit. Cranial nerves 2-12 intact. Course Course Course Narrative: 31-year-old male presents via EMS for psychiatric evaluation. Patient is well- known to this facility. Patient has not been taking medication, has been using alcohol and cocaine. Is experiencing command hallucinations telling him to jump into traffic. Patient is requesting assistance to get back on his medications. Patient has past medical history of schizoaffective disorder, delusional disorder, and has significant substance abuse issues. Will order crisis consult, labs, and COVID testing. Patient is afebrile, nontoxic, alert with pressured speech. Patient has no medical complaints at this time. 01:30 urinalysis is pending. Physician observation. Crisis consult and psychiatric consult pending. Section 12 for suicidal ideation and command hallucinations. Medications Administered Discontinued Medications Generic Name Dose Route Start Last Admin Trade Name Freq PRN Reason Stop Dose Admin Lorazepam 2 mg 06/09/22 17:05 06/09/22 17:35 Lorazepam 1 Mg Tablet PO 06/09/22 17:06 2 mg ONCE ONE Administration Olanzapine 10 mg 06/09/22 17:05 06/09/22 17:35 Olanzapine 10 Mg Tablet PO 06/09/22 17:06 10 mg ONCE ONE Administration Medical Decision Making Differential Diagnosis Differential Diagnoses: The differential diagnosis associated with the presen tation includes Psychosis, substance abuse, suicidal ideation Admission/Observation Consideration of admission/observation: Escalation of care including admission/observation considered May require M5 admission Consult Healthcare Provider Management of the patient was discussed with: Behavioral Health Provider Require psychiatry consult Lab Data MDM Lab Attestation statement: I reviewed the patient's lab results. 06/09/22 17:19 06/09/22 17:19 Labs: Lab Results 06/09/22 06/09/22 06/09/22 Range/Units 17:19 17:19 17:19 WBC 8.9 (4.8-10.8) X10*3/uL RBC 5.00 (4.60-5.80) X10*6/uL Hgb 14.6 (14.0-18.0) g/dl Hct 44.6 (42.0-52.0) % MCV 89.2 (80.0-98.0) fL MCH 29.2 (27.0-33.0) pg MCHC 32.7 (31.0-36.0) g/dl RDW 13.2 (11.0-16.0) % Plt Count 224 (160-400) X10*3/uL MPV 10.7 (9.4-12.4) fL Immature Gran % (Auto) 0.6 H (0.0-0.4) % Neut % (Auto) 60.3 (45-73) % Lymph % (Auto) 27.0 (20-40) % Craig % (Auto) 8.9 (2-11) % Eos % (Auto) 2.5 (0-4) % Baso % (Auto) 0.7 (0-2) % Lymph # (Auto) 2.4 (1.2-4.9) X10*3/uL Craig # (Auto) 0.8 (0.1-1.2) X10*3/uL Eos # (Auto) 0.2 (0.0-0.4) X10*3/uL Baso # (Auto) 0.1 (0.0-0.2) X10*3/uL Abs Immat Gran (auto) 0.05 H (0.00-0.03) X10*3/uL Absolute Neuts (auto) 5.4 (2.0-8.3) x10*3/uL Absolute Nucleated RBC 0.000 (0.0-0.012) X10*3/uL Nucleated RBC % (auto) 0.0 (0.0-0.2) /100WBC Sodium 139 (135-145) mmol/L Potassium 4.4 (3.3-5.1) mmol/L Chloride 105 (96-108) mmol/L Carbon Dioxide 24 (22-29) mmol/L Anion Gap 14 (12-20) BUN 15 (9-16) mg/dL Creatinine 0.86 (0.5-1.4) mg/dL Estim Creat Clear Calc 120.4 Estimated GFR > 60 Random Glucose 71 (60-115) mg/dL Calcium 9.3 (8.4-10.2) mg/dL Total Bilirubin 0.3 (0.0-1.0) mg/dL AST 17 (5-37) U/L ALT 29 (0-40) U/L Alkaline Phosphatase 58 (39-117) U/L Total Protein 6.5 (6.5-8.0) g/dL Albumin 4.2 (3.5-5.0) g/dL COVID-19 (KACIE) (Negative) COVID-19 Clin Com Influenza Type A (BRITTANY) Negative (Negative) Influenza Type B (BRITTANY) Negative (Negative) Influenza A & B Note See Note 06/09/22 Range/Units 17:19 WBC (4.8-10.8) X10*3/uL RBC (4.60-5.80) X10*6/uL Hgb (14.0-18.0) g/dl Hct (42.0-52.0) % MCV (80.0-98.0) fL MCH (27.0-33.0) pg MCHC (31.0-36.0) g/dl RDW (11.0-16.0) % Plt Count (160-400) X10*3/uL MPV (9.4-12.4) fL Immature Gran % (Auto) (0.0-0.4) % Neut % (Auto) (45-73) % Lymph % (Auto) (20-40) % Craig % (Auto) (2-11) % Eos % (Auto) (0-4) % Baso % (Auto) (0-2) % Lymph # (Auto) (1.2-4.9) X10*3/uL Craig # (Auto) (0.1-1.2) X10*3/uL Eos # (Auto) (0.0-0.4) X10*3/uL Baso # (Auto) (0.0-0.2) X10*3/uL Abs Immat Gran (auto) (0.00-0.03) X10*3/uL Absolute Neuts (auto) (2.0-8.3) x10*3/uL Absolute Nucleated RBC (0.0-0.012) X10*3/uL Nucleated RBC % (auto) (0.0-0.2) /100WBC Sodium (135-145) mmol/L Potassium (3.3-5.1) mmol/L Chloride (96-108) mmol/L Carbon Dioxide (22-29) mmol/L Anion Gap (12-20) BUN (9-16) mg/dL Creatinine (0.5-1.4) mg/dL Estim Creat Clear Calc Estimated GFR Random Glucose (60-115) mg/dL Calcium (8.4-10.2) mg/dL Total Bilirubin (0.0-1.0) mg/dL AST (5-37) U/L ALT (0-40) U/L Alkaline Phosphatase (39-117) U/L Total Protein (6.5-8.0) g/dL Albumin (3.5-5.0) g/dL COVID-19 (KACIE) Negative (Negative) COVID-19 Clin Com See Note Influenza Type A (BRITTANY) (Negative) Influenza Type B (BRITTANY) (Negative) Influenza A & B Note External Record Review External record reviewed: Inpatient record, Outpatient record and Prior outpatient labs Social Determinants Patient?s care significantly limited by Social Determinants of Health including: Other Social Determinant of Health Discharge Plan Discharge Clinical Impression: Schizoaffective disorder, Delusional disorder, Polysubstance abuse Patient Disposition: Still a Patient Instructions: Mood Disorders (ED), Polysubstance Abuse (ED), Schizoaffective Disorder (ED) Additional Instructions: Follow-up with outpatient psychiatry as scheduled. Consider detox. Thank you for choosing this emergency department for evaluation. Please follow-up with primary care physician as needed. Return to the emergency department for any new, concerning, or worsening symptoms. Prescriptions: No Action thiamine HCl (vitamin B1) 100 mg tablet 100 mg PO DAILY Qty: 30 0RF clonidine HCl 0.1 mg tablet 1 tab PO DAILY PRN (Reason: anxiety) haloperidol 5 mg tablet 5 mg PO QAM haloperidol 5 mg tablet 10 mg PO BEDTIME trazodone 50 mg tablet 1 tab PO BEDTIME PRN (Reason: insomnia) sertraline 100 mg tablet 1 tab PO DAILY benztropine 1 mg tablet 0.5 tab PO BID prazosin 1 mg capsule 7 cap PO BEDTIME hydroxyzine pamoate 25 mg capsule 2 cap PO BID PRN (Reason: anxiety) Interventions: [place]-Suicide Risk Severity Scale Last Done: 06/10/22 00:59
--- NOTE | 2022-06-09 17:04 | MHC.EDTECH ---
this pct change pt into crisis hospital attire ,pt belonging is locked up in pod .
[2022-06-09 17:25] LABS: MANUAL DIFF FLAG NO
[2022-06-09 17:26] LABS: Basophils Absolute Auto 0.1 X10*3/uL (0.0-0.2); Basophils Percent Auto 0.7 % (0-2); Eosinophils Absolute Auto 0.2 X10*3/uL (0.0-0.4); Eosinophils Percent Auto 2.5 % (0-4); Hematocrit 44.6 % (42.0-52.0); Hemoglobin 14.6 g/dl (14.0-18.0); Imm Gran Abs Auto 0.05 X10*3/uL (0.00-0.03); Imm Gran Pct Auto 0.6 % (0.0-0.4); Lymphocytes Absolute Auto 2.4 X10*3/uL (1.2-4.9); Mean Corpuscular HGB Conc 32.7 g/dl (31.0-36.0); Mean Corpuscular Hemoglobin 29.2 pg (27.0-33.0); Mean Corpuscular Volume 89.2 fL (80.0-98.0); Mean Platelet Volume 10.7 fL (9.4-12.4); Monocytes Absolute Auto 0.8 X10*3/uL (0.1-1.2); Monocytes Percent Auto 8.9 % (2-11); Neutrophils Absolute Auto 5.4 x10*3/uL (2.0-8.3); Neutrophils Percent Auto 60.3 % (45-73); Platelet Count 224 X10*3/uL (160-400); Red Cell Distribution Width 13.2 % (11.0-16.0); White Blood Count 8.9 X10*3/uL (4.8-10.8)
[2022-06-09] MEDS: LORazepam 1 MG TABLET 2 MG PO (17:35)
[2022-06-09] MEDS: OLANZapine 10 MG TABLET PO (17:35)
[2022-06-09 17:45] LABS: Alanine Aminotransferase 29 U/L (0-40); Albumin Level 4.2 g/dL (3.5-5.0); Alkaline Phosphatase 58 U/L (39-117); Anion Gap 14 (12-20); Aspartate Amino Transferase 17 U/L (5-37); Bilirubin Total 0.3 mg/dL (0.0-1.0); Blood Urea Nitrogen 15 mg/dL (9-16); Calcium 9.3 mg/dL (8.4-10.2); Carbon Dioxide 24 mmol/L (22-29); Chloride 105 mmol/L (96-108); Creatinine Clr Calc Pharmacy 120.4; Estimated Glomerular Filt Rate > 60; Glucose Random 71 mg/dL (60-115); Potassium 4.4 mmol/L (3.3-5.1); Sodium 139 mmol/L (135-145); Total Protein 6.5 g/dL (6.5-8.0)
[2022-06-09 17:50] LABS: COVID-19 Test Negative (Negative); IDNOW Serial# 9DB6401D; IDNOW Serial# BCCEAD1C; Influenza A Negative (Negative); Influenza B2 Negative (Negative)
[2022-06-10 02:30] VITALS: BP 98/53; PULSE 90; RESP 17; TEMP 36.1; O2SAT 97
[2022-06-10 02:51] LABS: Amphetamine Screen Urine Not Detected (Not Detect); Barbiturates, Urine Not Detected (Not Detect); Benzodiazepines Screen Urine Not Detected (Not Detect); Cannabinoid Screen Urine Not Detected (Not Detect); Cocaine Screen Urine POSITIVE (Not Detect); Fentanyl, urine POSITIVE (Not Detect); Opiate Screen Urine Not Detected (Not Detect); Phencyclidine Screen Urine Not Detected (Not Detect)
--- NOTE | 2022-06-10 07:24 | PC.NURSE ---
patient appears to remain asleep at present respirations are even and unlabored patient appears in no distress
[2022-06-10 09:36] VITALS: BP 103/65; PULSE 71; RESP 18; TEMP 37.3; O2SAT 95
[2022-06-10] MEDS: Sertraline HCL 100 MG TABLET PO (11:50)
[2022-06-10] MEDS: HaloperidoL 5 MG TABLET PO ×2 (11:51→14:31)
[2022-06-10] MEDS: Benztropine Mesylate 0.5 MG TABLET PO ×2 (11:51→21:52)
[2022-06-10] MEDS: Thiamine HCL 100 MG TABLET PO (11:51)
[2022-06-10] MEDS: Acetaminophen 325 MG TABLET 650 MG PO (12:26)
[2022-06-10] MEDS: hydrOXYzine HCL 50 MG TABLET PO (12:27)
--- NOTE | 2022-06-10 13:47 | PC.NURSE ---
Patient requested more haldol not ordered till 9pm. Clonidine offered he refused.
--- NOTE | 2022-06-10 15:07 | MHC.CARE ---
[facility] did not have beds. Patient to remain inpt bed search w/ possible planning for a lower LOC.
[2022-06-10 20:39] VITALS: BP 113/64; PULSE 70; RESP 18; TEMP 36.7; O2SAT 96
[2022-06-10] MEDS: Prazosin HCL 1 MG CAPSULE 7 MG PO (21:52)
[2022-06-10] MEDS: HaloperidoL 5 MG TABLET 10 MG PO (21:53)
[2022-06-11 03:46] VITALS: BP 107/72; PULSE 93; RESP 17; TEMP 36.2; O2SAT 98
[2022-06-11] MEDS: cloNIDine HCL 0.1 MG TABLET PO (03:59)
[2022-06-11] MEDS: hydrOXYzine HCL 50 MG TABLET PO (03:59)
--- NOTE | 2022-06-11 05:11 | PC.NURSE ---
Patient slept through the night, no distress observed/reported, medication compliant, behavior non concerning, disposition per care team is Respite bed search, VSS, patient reporting auditory hallucination non commanding in nature, will continue to monitor.
[2022-06-11] MEDS: HaloperidoL 5 MG TABLET PO (09:31)
[2022-06-11] MEDS: Sertraline HCL 100 MG TABLET PO (09:31)
[2022-06-11] MEDS: Benztropine Mesylate 0.5 MG TABLET PO (09:31)
[2022-06-11] MEDS: Thiamine HCL 100 MG TABLET PO (09:31)
--- NOTE | 2022-06-11 10:40 | PC.NURSE ---
pt seen by both ed provider and care team and is cleared for discharge. he denies si/hi. he reports feeling safe. belongings returned.
== END 2022-06-11 10:47 | disposition home or self-care (01) ==
PROVIDERS: Nurse Practitioner Family; Emergency Provider Emergency Medicine; PCP Internal Medicine
DX: F25.9 Schizoaffective disorder, unspecified (principal); F22 Delusional disorders; Z20.822 Contact with and (suspected) exposure to COVID-19; Z20.828 Contact with and (suspected) exposure to other viral communicable diseases; Z79.899 Other long term (current) drug therapy
CPT/HCPCS: 80053; 80307; 85025; 87502; 87635; 99284; 99285; S9485

== ENCOUNTER 2022-08-19 10:37 | Inpatient (IN) | payer MEDICARE, OTHER, SELFPAY ==
--- NOTE | 2022-08-19 | ECG_ITS ---
Test Reason : etoh Blood Pressure : / mmHG Vent. Rate : 068 BPM Atrial Rate : 068 BPM P-R Int : 158 ms QRS Dur : 080 ms QT Int : 428 ms P-R-T Axes : 067 043 035 degrees QTc Int : 455 ms Normal sinus rhythm Normal ECG When compared with ECG of 01-JUN-2022 13:13, No significant change was found Referred By: Carolyn Faustin Electronically Signed By:LAUREN RICARDO
[2022-08-19 10:44] VITALS: BP 111/69; PULSE 99; RESP 18; TEMP 37; O2SAT 98; BMI 27.4
--- NOTE | 2022-08-19 11:41 | ED_ITS ---
HPI - General Adult General Chief complaint: General Medical Stated complaint: medication Time Seen by Provider: 08/19/22 10:56 Source: patient and RN notes reviewed Mode of arrival: ambulatory Limitations: no limitations History of Present Illness HPI narrative: This is a 79-[id number]-male, with a past medical history of schizoaffective disorder, delusional disorder, generalized anxiety disorder, and alcohol abuse, who presents to the emergency department for ?withdrawal symptoms. Patient states that he is on multiple psychiatric medications including haldol, trazodone, seroquel and others and has not had them filled as his visiting nurse had stopped coming to him. He states that he has to take seroquel to sleep and admits that he has not slept in many days . He states that he is feeling very fatigued. He states that he has no SI/HI. He states that when he goes without his medications he will get visual hallucinations. He states that he has been seeing flashes of green and red . He states that he has been drinking 2 pints of hard liquor daily, last drank yesterday. Hx of alcohol withdrawal, no hx of alcohol withdrawal seizures. He also admits to illicit drug use - last used $20 worth of cocaine. He denies any fevers, chills, sore throat, rhinorrhea, nasal congestion, chest pain, shortness of breath, palpitations, abdominal pain, nausea, vomiting, diarrhea. MD complaint: Fatigue, out of psych meds Onset (ago): week(s) Radiation: non-radiation Treatments prior to arrival: none Related Data Home Medications Medication Instructions Recorded Confirmed benztropine 1 mg tablet 0.5 tab PO BID 06/09/22 06/09/22 clonidine HCl 0.1 mg tablet 1 tab PO DAILY PRN anxiety 06/09/22 06/09/22 haloperidol 5 mg tablet 5 mg PO QAM 06/09/22 06/09/22 haloperidol 5 mg tablet 10 mg PO BEDTIME 06/09/22 06/09/22 hydroxyzine pamoate 25 mg capsule 2 cap PO BID PRN anxiety 06/09/22 06/09/22 prazosin 1 mg capsule 7 cap PO BEDTIME 06/09/22 06/09/22 sertraline 100 mg tablet 1 tab PO DAILY 06/09/22 06/09/22 trazodone 50 mg tablet 1 tab PO BEDTIME PRN insomnia 06/09/22 06/09/22 Previous Rx's Medication Instructions Recorded thiamine HCl (vitamin B1) 100 mg 100 mg PO DAILY #30 tabs 06/03/22 tablet Allergies Allergy/AdvReac Type Severity Reaction Status Date / Time No Known Allergies Allergy Verified 01/27/21 08:24 [No Known Allergies*] Review of Systems Review of Systems: Constitutional: No Weight loss, No Fever, No Chills, No Night Sweats, No Fatigue, No Malaise ENT/Mouth: No Hearing loss, No Ear Pain, No Nasal Congestion, No Sinus Pain, No Hoarseness, No sore throat, No Rhinorrhea, No Swallowing Difficulty Eyes: No Eye Pain, No Swelling, No Redness, No Foreign Body, No Discharge, No Vision Changes Cardiovascular: No Chest Pain, No SOB, No Dyspnea on Exertion, No Orthopnea, No Edema, No Palpitations Respiratory: No Cough, No Sputum, No Wheezing, No Smoke Exposure, No Dyspnea Gastrointestinal: No Nausea, No Vomiting, No Diarrhea, No Constipation, No Abdominal pain, No Hematochezia, No Melena Genitourinary: No irregular bleeding, No Dysuria, No Urinary Frequency, No Hematuria, No Urinary Incontinence/retention, No Urgency, No Flank Pain, No Urin nic Flow Changes, No Hesitancy Musculoskeletal: No joint pain, No Myalgias, No Joint Swelling Skin: No Skin Lesions, No rash Neuro: No Weakness, No Numbness, No Paresthesias, No Loss of Consciousness, No Dizziness, No Headache Psych: No Anxiety/Panic, No Depression, No SI/HI/AHNo Social Issues, Heme/Lymph: No Bruising, No Bleeding,No Lymphadenopathy Endocrine: No Polyuria, No Polydipsia, No Temperature Intolerance Yes all other systems are reviewed and are negative Constitutional: Constitutional: Reports as per HPI [facility] Past Medical History Medical History Alcohol abuse Alcohol dependence Alcohol intoxication Delusional disorder Generalized anxiety disorder History of alcohol abuse Mixed dyslipidemia Schizo-affective schizophrenia Surgical History History of removal of neck cyst History of root canal procedure Family History Family History Father Depression FH: mental illness Mother Depression FH: mental illness Maternal Grandfather No problems noted. Maternal Grandmother No problems noted. Brother No problems noted. Sister No problems noted. Other Mental health disorder Substance use disorder Social History Social History Household Members: None Housing: House Do you presently have visiting nurse or other home services: No Alcohol intake: current Patient Tobacco Use Status: Current everyday Tobacco user Cigarettes Per Day: 8 Smoked in Last 30 Days: No Second Hand Smoke Exposure: Yes Use of substances other than those prescribed or required for medical reasons: No Advance Directives: No Advance Directives Information Provided: Yes service: No Current occupational status: unemployed Sexual orientation: Straight/Heterosexual Physical Exam ED Vital Signs: Vital Signs - 24 hr 08/19/22 10:44 08/19/22 13:46 08/19/22 13:47 Temperature 98.6 F 98.6 F Pulse Rate 99 90 Respiratory Rate 18 16 16 Blood Pressure 111/69 95/47 L Pulse Oximetry 98 97 Oxygen Delivery Method Room Air Room Air 08/19/22 16:05 Temperature Pulse Rate 82 Respiratory Rate 14 Blood Pressure 125/72 Pulse Oximetry 96 Oxygen Delivery Method Room Air BMI result Body Mass Index 27.4 Const General: cooperative, comfortable and no acute distress Orientation/consciousness: patient oriented x3 Limitations: no limitations HENMT Head: Yes normal to inspection, Yes normocephalic and Yes atraumatic Ears: hearing grossly normal bilaterally General nose exam: Normal external nose present Face and sinus: Yes normal facial exam Mouth: Normal oral and palatal mucosa present, oropharynx normal and moist mucous membranes Throat: Yes posterior oropharynx normal Eyes General: appearance normal, both eyes and all related structures Eyelids: Yes eyelids normal Conjunctivae: conjunctivae normal Sclerae: sclerae normal Pupils: Equal, round and reactive pupils present EOM: EOMs intact bilaterally Neck Neck: Yes normal visual inspection, Yes full ROM and Yes no lymphadenopathy Lymphatic: no lymphadenopathy noted Chest Chest palpation & inspection: normal inspection of the chest Resp Effort & Inspection: normal respiratory effort and able to speak in complete sentences Auscultation: clear to auscultation bilaterally, no crackles, no rales, no rhonchi and no wheezes Cardio Rate: regular rate Rhythm: regular rhythm Heart sounds: S1 normal heart sound present and S2 normal heart sound present GI Inspection: Yes normal to inspection Skin General skin exam: no rashes or lesions noted Trauma: no lacerations or abrasions Wounds: no wounds Neuro General: patient oriented x3 and moves all extremities Cranial nerves: Yes Equal, round and reactive pupils present Extrem General: Yes normal to inspection Right upper extremity: normal to inspection Left upper extremity: normal to inspection Right lower extremity: normal to inspection Left lower extremity: normal to inspection Psych Appearance: disheveled Mental Status: mental status grossly normal Affect: Blunted affect present Attitude: cooperative Thought process: Normal thought process present Course Reevaluation(s) Reevaluation #1: Resting comfortably. Patient reports that he is feeling very tired and would like to continue to sleep. Creatinine Mildly elevated at 1.67, increased from baseline around .8-.9. 1L IV fluids ordered. UA pending. Patient has no complaints and is just feeling tired. Care team consult still pending. Discussed case with Dr. Manuel from medicine, pt admitted for further management. Time: 16:59 Medications Administered Generic Name Dose Route Start Last Admin Trade Name Freq PRN Reason Stop Dose Admin Phenobarbital Sodium 194.4 mg 08/19/22 16:00 08/19/22 16:09 Phenobarbital Sodium 130 Mg/Ml Vial Im Q3hx2 IM 08/19/22 19:01 194.4 mg Q3H ESTEVAN Administration Protocol Discontinued Medications Generic Name Dose Route Start Last Admin Trade Name Freq PRN Reason Stop Dose Admin Phenobarbital Sodium 130 mg 08/19/22 12:17 08/19/22 12:35 Phenobarbital Sodium 130 Mg/Ml Vial IM 08/19/22 12:18 130 mg ONCE ONE Administration Phenobarbital Sodium 143 mg 08/19/22 13:00 08/19/22 13:42 Phenobarbital Sodium 130 Mg/Ml Im Once IM 08/19/22 13:01 143 mg ONCE ONE Administration Protocol Quetiapine Fumarate 100 mg 08/19/22 11:42 08/19/22 12:07 Quetiapine Fumarate 100 Mg Tablet PO 08/19/22 11:43 100 mg ONCE ONE Administration Medical Decision Making Medical Decision Making MDM Narrative: 32 y/o M, hx of etoh abuse, schizoaffective disorder, delusional disorder, NORI, presenting to the emergency department with complaints of fatigue and seeing green and red , insomnia for the last 4 weeks. Pt has no physical complaints. Vital signs stable. No HI/SI at this time. On exam, patient is calm and cooperative. Nontoxic appearing, but anxious and paranoid appearing. Plan: basic labs, seroquel 100mg PO, ciwa scale, care team consult. Differential Diagnosis Differential Diagnoses: The differential diagnosis associated with the presentation includes psychosis, substance abuse, depression, anxiety, etoh withdrawal Admission/Observation Consideration of admission/observation: Escalation of care including admission/observation considered Lab Data MDM Lab Attestation statement: I reviewed the patient's lab results. 08/19/22 12:17 08/19/22 12:17 Labs: Lab Results 08/19/22 08/19/22 Range/Units 12:17 12:17 WBC 8.2 (4.8-10.8) X10*3/uL RBC 4.86 (4.60-5.80) X10*6/uL Hgb 14.4 (14.0-18.0) g/dl Hct 42.4 (42.0-52.0) % MCV 87.2 (80.0-98.0) fL MCH 29.6 (27.0-33.0) pg MCHC 34.0 (31.0-36.0) g/dl RDW 15.2 (11.0-16.0) % Plt Count 282 D (160-400) X10*3/uL MPV 10.0 (9.4-12.4) fL Immature Gran % (Auto) 0.5 H (0.0-0.4) % Neut % (Auto) 56.5 (45-73) % Lymph % (Auto) 35.0 (20-40) % Norton % (Auto) 5.8 (2-11) % Eos % (Auto) 1.7 (0-4) % Baso % (Auto) 0.5 (0-2) % Lymph # (Auto) 2.9 (1.2-4.9) X10*3/uL Norton # (Auto) 0.5 (0.1-1.2) X10*3/uL Eos # (Auto) 0.1 (0.0-0.4) X10*3/uL Baso # (Auto) 0.0 (0.0-0.2) X10*3/uL Abs Immat Gran (auto) 0.04 H (0.00-0.03) X10*3/uL Absolute Neuts (auto) 4.6 (2.0-8.3) x10*3/uL Absolute Nucleated RBC 0.000 (0.0-0.012) X10*3/uL Nucleated RBC % (auto) 0.0 (0.0-0.2) /100WBC Sodium 140 (135-145) mmol/L Potassium 3.6 (3.3-5.1) mmol/L Chloride 108 (96-108) mmol/L Carbon Dioxide 17 L (22-29) mmol/L Anion Gap 19 (12-20) BUN 11 (9-16) mg/dL Creatinine 1.67 H (0.5-1.4) mg/dL Estim Creat Clear Calc 61.4 Estimated GFR 48 Random Glucose 115 (60-115) mg/dL Calcium 9.5 (8.4-10.2) mg/dL Magnesium 2.0 (1.6-2.6) mg/dL Total Bilirubin 0.5 (0.0-1.0) mg/dL Direct Bilirubin 0.1 (0.0-0.5) mg/dL AST 32 (5-37) U/L ALT 31 (0-40) U/L Alkaline Phosphatase 59 (39-117) U/L Total Protein 7.0 (6.5-8.0) g/dL Albumin 4.5 (3.5-5.0) g/dL Lipase 22 (8-78) U/L Ethyl Alcohol < 10 mg/dL Radiology Impression Discussion of test interpretation with radiology: I have reviewed the radiologist's reading. External Record Review External record reviewed: Inpatient record, Office record, Outpatient record, P rior outpatient labs, Prior outpatient radiology, Primary care record and Outside ED record Discharge Plan Discharge Clinical Impression: Acute kidney injury, Alcohol withdrawal Patient Disposition: Admitted As Inpatient
[2022-08-19] MEDS: QUEtiapine Fumarate 100 MG TABLET PO (12:07)
[2022-08-19 12:26] LABS: MANUAL DIFF FLAG NO
[2022-08-19 12:27] LABS: Basophils Percent Auto 0.5 % (0-2); Eosinophils Absolute Auto 0.1 X10*3/uL (0.0-0.4); Eosinophils Percent Auto 1.7 % (0-4); Hematocrit 42.4 % (42.0-52.0); Hemoglobin 14.4 g/dl (14.0-18.0); Imm Gran Abs Auto 0.04 X10*3/uL (0.00-0.03); Imm Gran Pct Auto 0.5 % (0.0-0.4); Lymphocytes Absolute Auto 2.9 X10*3/uL (1.2-4.9); Mean Corpuscular Hemoglobin 29.6 pg (27.0-33.0); Mean Corpuscular Volume 87.2 fL (80.0-98.0); Monocytes Absolute Auto 0.5 X10*3/uL (0.1-1.2); Monocytes Percent Auto 5.8 % (2-11); Neutrophils Absolute Auto 4.6 x10*3/uL (2.0-8.3); Neutrophils Percent Auto 56.5 % (45-73); Platelet Count 282 X10*3/uL (160-400); Red Blood Count 4.86 X10*6/uL (4.60-5.80); Red Cell Distribution Width 15.2 % (11.0-16.0); White Blood Count 8.2 X10*3/uL (4.8-10.8)
[2022-08-19] MEDS: PHENobarbitaL sodium 130 MG/ML VIAL IM (12:35)
[2022-08-19 13:04] LABS: Alanine Aminotransferase 31 U/L (0-40); Albumin Level 4.5 g/dL (3.5-5.0); Alkaline Phosphatase 59 U/L (39-117); Anion Gap 19 (12-20); Aspartate Amino Transferase 32 U/L (5-37); Bilirubin Direct 0.1 mg/dL (0.0-0.5); Bilirubin Total 0.5 mg/dL (0.0-1.0); Blood Urea Nitrogen 11 mg/dL (9-16); Calcium 9.5 mg/dL (8.4-10.2); Carbon Dioxide 17 mmol/L (22-29); Chloride 108 mmol/L (96-108); Creatinine Clr Calc Pharmacy 61.4; Estimated Glomerular Filt Rate 48; Ethanol < 10 mg/dL; Glucose Random 115 mg/dL (60-115); Lipase 22 U/L (8-78); Potassium 3.6 mmol/L (3.3-5.1); Sodium 140 mmol/L (135-145)
[2022-08-19] MEDS: PHENobarbitaL sodium 130 MG/ML IM ONCE 143 MG IM (13:42)
[2022-08-19 13:46] VITALS: BP 95/47; PULSE 90; RESP 16; TEMP 37; O2SAT 97
[2022-08-19 13:47] VITALS: RESP 16
--- NOTE | 2022-08-19 14:59 | MHC.CARE ---
CARE Team attempted to meet with the pt for a risk assessment. Pt was sleeping and when roused was extremely irritable. Pt requested that the CARE Team comes back later. CARE Team will wait and re-assess later this evening.
[2022-08-19 16:05] VITALS: BP 125/72; PULSE 82; RESP 14; O2SAT 96
[2022-08-19] MEDS: PHENobarbitaL sodium 130 MG/ML VIAL IM Q3Hx2 194.4 MG IM ×2 (16:09→19:19)
[2022-08-19] MEDS: 0.9 % Sodium Chloride 1,000 ML 999 ML IVCONT (18:13)
--- NOTE | 2022-08-19 18:42 | PHA.MEDREC ---
Pharmacy Consult ? Medication Reconciliation Pharmacy has completed the medication reconciliation. PATIENT NONCOMPLIANT WITH MEDICATIONS
--- NOTE | 2022-08-19 18:44 | P.HPHOSP_ITS ---
Pt seen and examined. Agree with H&P assessment and plan as below. Pt will be admitted for alcohol withdrawal. Will resume his psych meds. Continue Phenobarb protocol History of Present Illness Date of Service: 08/19/22 Attending physician on admission: Teto Nieves Chief Complaint: Alcohol withdrawal Pt is a 32-year-old male with a PMH significant for?schizoaffective disorder, delusional disorder, NORI, and alcohol use disorder who presents to the ED for alcohol withdrawal and insomina secondary to being off his psych meds for the past 2-4 weeks. Pt states he has not been able to sleep for many days after not taking his psych meds for the past few weeks. Patient notes he is on a number of psychiatric medications including clonidine, Haldol, quetiapine, sertraline, trazodone, prazosin. He is vague why he has stopped taking them, but claims he has had problems navigating the whole med system. Patient notes he takes Seroquel in particular to go to sleep. Patient also states he has been drinking four 25-ounce beers a night for the past month with last drink ye sterday. Patient says that he has been experiencing pins and needles, diaphoresis, shaking, fever and chills, and C flashes of green light. Says that he has been drinking lately because he has been off of his psych meds and has been feeling anxious and paranoid. Patient claims he has a history of alcohol withdrawal, many times in the past. No history of alcohol seizures or auditory hallucinations. Also notes a few days ago he used $20 worth of cocaine. Patient admits he has not been eating lately or drinking anything except alcohol. Denies nausea, vomiting, diarrhea, abdominal pain. No headache, changes to vision. In the ED labs were significant for creatinine of 1.67 (baseline 0.86). CBC unremarkable. Electrolytes normal. Hepatic function baseline. Ethyl alcohol level <10. EKG demonstrated normal sinus rhythm without evidence of ST elevations or depressions. Pt was treated with quetiapine, IVF, and started on phenobarb protocol. Pt will be admitted to the hospital for treatment further evaluation of alcohol withdrawal and J CARLOS. Review of Systems Review of Systems: Tremors Diaphoresis Fever, chills Insomnia Visual hallucinations of flashing green lights Pins and needles Denies nausea, vomiting, diarrhea, abdominal pain No chest pain/pressure, palpitations Denies shortness of breath No audio hallucinations Yes all other systems are reviewed and are negative [facility] Medical History Alcohol abuse Alcohol dependence Alcohol intoxication Delusional disorder Generalized anxiety disorder History of alcohol abuse Mixed dyslipidemia Schizo-affective schizophrenia Family History Father Depression FH: mental illness Mother Depression FH: mental illness Maternal Grandfather No problems noted. Maternal Grandmother No problems noted. Brother No problems noted. Sister No problems noted. Other Mental health disorder Substance use disorder Surgical History History of removal of neck cyst History of root canal procedure Social History Household Members: None Housing: House Do you presently have visiting nurse or other home services: No Alcohol intake: current Patient Tobacco Use Status: Current everyday Tobacco user Cigarettes Per Day: 8 Smoked in Last 30 Days: No Second Hand Smoke Exposure: Yes Use of substances other than those prescribed or required for medical reasons: No Advance Directives: No Advance Directives Information Provided: Yes service: No Current occupational status: unemployed Sexual orientation: Straight/Heterosexual Meds Allergies Allergy/AdvReac Type Severity Reaction Status Date / Time No Known Allergies Allergy Verified 01/27/21 08:24 [No Known Allergies*] Active Medications: Current Medications Pharmacy Consult (Consult Rx Etoh Phenob Im/Po) 1 each MISCELLANE ONCE PRN; Protocol PRN Reason: Consult order Pharmacy Consult (Consult Rx Perform Med Rec) 1 each MISCELLANE ONCE PRN PRN Reason: Consult order Phenobarbital (Phenobarbital 15 Mg Tablet) 45 mg PO BID ESTEVAN; Protocol Stop: 08/21/22 21:01 Phenobarbital (Phenobarbital 15 Mg Tablet) 15 mg PO BID ESTEVAN; Protocol Stop: 08/23/22 21:01 Phenobarbital (Phenobarbital 15 Mg Tablet) 15 mg PO DAILY ESTEVAN; Protocol Stop: 08/25/22 09:01 Phenobarbital Sodium (Phenobarbital Sodium 130 Mg/Ml Vial Im Q3hx2) 194.4 mg IM Q3H ESTEVAN; Protocol Stop: 08/19/22 19:01 Last Admin: 08/19/22 16:09 Dose: 194.4 mg Home Medications Medication Instructions Recorded Confirmed Last Taken Type benztropine 1 mg tablet 1 tab PO BID 06/09/22 08/19/22 Unknown History haloperidol 5 mg tablet 10 mg PO BID 06/09/22 08/19/22 Unknown History hydroxyzine pamoate 25 mg capsule 2 cap PO BID PRN anxiety 06/09/22 08/19/22 Unknown History sertraline 100 mg tablet 1 tab PO DAILY 06/09/22 08/19/22 Unknown History clonidine HCl 0.2 mg tablet 0.2 mg PO DAILY PRN Anxiety 08/19/22 08/19/22 Unknown History melatonin 3 mg tablet 3 mg PO BEDTIME 08/19/22 08/19/22 Unknown History prazosin 2 mg capsule 2 mg PO BEDTIME 08/19/22 08/19/22 Unknown History quetiapine 100 mg tablet 100 mg PO BID PRN anxiety 08/19/22 08/19/22 Unknown History trazodone 100 mg tablet 200 mg PO BEDTIME PRN Insomnia 08/19/22 08/19/22 Unknown History Physical Exam Vital Signs and Narrative: Vital Signs: Last Vital Signs Temp 98.6 F 08/19/22 13:46 Pulse 82 08/19/22 16:05 Resp 14 08/19/22 16:05 BP 125/72 08/19/22 16:05 Pulse Ox 96 08/19/22 16:05 O2 Del Method Room Air 08/19/22 16:05 BMI result Body Mass Index 27.4 Constitutional: Alert, somnolent but arousable, cooperative, in no acute distress. Mental Status: Oriented to person, place and time. Eyes: Pupils are equal, round, and reactive to light. Ear, Nose, and Throat: Oropharynx clear, mucous membranes dry. Ears and nose without deformities. Trachea midline. Respiratory: Clear to auscultation bilaterally. No wheezing, rales, or rhonchi. Cardiovascular: S1, S2 regular. No murmurs, rubs, or gallops. Gastrointestinal: Abdomen soft, non-tender, non-distended. Normal bowel sounds. Neurologic: Cranial nerves II-XII are grossly intact bilaterally. No focal neurological deficits. Moves all extremities spontaneously. No tremors noted. Skin: No rashes or lesions noted. Musculoskeletal: No cyanosis or clubbing. Extremities: No edema. Psychiatric: Normal mood and affect. Results Labs 08/19/22 12:17 08/19/22 12:17 Labs: Laboratory Results - last 24 hr 08/19/22 08/19/22 12:17 12:17 MCV 87.2 MCH 29.6 MCHC 34.0 RDW 15.2 Plt Count 282 D MPV 10.0 Immature Gran % (Auto) 0.5 H Neut % (Auto) 56.5 Lymph % (Auto) 35.0 Barron % (Auto) 5.8 Eos % (Auto) 1.7 Baso % (Auto) 0.5 Lymph # (Auto) 2.9 Barron # (Auto) 0.5 Eos # (Auto) 0.1 Baso # (Auto) 0.0 Abs Immat Gran (auto) 0.04 H Absolute Neuts (auto) 4.6 Absolute Nucleated RBC 0.000 Nucleated RBC % (auto) 0.0 Anion Gap 19 Estim Creat Clear Calc 61.4 Estimated GFR 48 Random Glucose 115 Calcium 9.5 Magnesium 2.0 Total Bilirubin 0.5 Direct Bilirubin 0.1 AST 32 ALT 31 Alkaline Phosphatase 59 Total Protein 7.0 Albumin 4.5 Lipase 22 Ethyl Alcohol < 10 Assessment and Plan (1) Acute kidney injury: Status: Acute (2) Alcohol withdrawal: Status: Acute Plan Pt is a 32-year-old male with a PMH significant for?schizoaffective disorder, delusional disorder, NORI, and alcohol use disorder who presents to the ED for alcohol withdrawal and insomina secondary to being off his psych meds for the past 2-4 weeks. Pt will be admitted to the hospital for treatment further evaluation of alcohol withdrawal and J CARLOS. Alcohol withdrawal Visual hallucinations, no tremors noted Received IVF, phenobarb protocol in the ED Continue Phenobarb protocol Daily multivitamin, folic acid 1mg, Thiamine 100 mg daily Omeprazole Follow lytes, Mag, BMP IVF: lactated ringers CIWA scale Addiction medicine consult J CARLOS Patient's creatinine 1.67, elevated from baseline of 0.86 Patient given IVF in ED Continue IVF Follow BMP Mood disorder Patient states that he has been off his medications for 2-4 weeks EKG shows NSR without evidence of ST elevations or depressions Continue home psych meds Full Code Attending:?Dr. Nieves DVT Prophylaxis: Lovenox Pt will require a hospitalization of at least two nights for treatment of?acute alcohol withdrawal and J CARLOS. Time Spent With Patient Time: Total time managing care of this patient today ____ minutes. Quality Stroke Does the patient have a stroke diagnosis?: No VTE Prior VTE?: No VTE Risk Level:: Medical - moderate - high VTE Device Contraindication: Treatment Not Indicated VTE Drug Contraindication: N/A - Med Ordered
[2022-08-19 19:23] LABS: Appearance Urine Clear; Color Urine Yellow; Glucose Urine UA Negative (Negative); Leukocyte Esterase Urine Negative (Negative); Nitrite Urine Negative (Negative); Specific Gravity - Urine >= 1.030 (1.005-1.025); Urine Blood Negative (Negative); Urine Ketones Trace mg/dL (Negative); Urine Protein Trace mg/dL (Neg-Trace)
[2022-08-19 19:29] VITALS: BP 114/69; PULSE 73; RESP 18; TEMP 36.6; O2SAT 97
[2022-08-19 19:33] LABS: Amphetamine Screen Urine Not Detected (Not Detect); Barbiturates, Urine POSITIVE (Not Detect); Benzodiazepines Screen Urine Not Detected (Not Detect); Cannabinoid Screen Urine Not Detected (Not Detect); Cocaine Screen Urine POSITIVE (Not Detect); Fentanyl, urine Not Detected (Not Detect); Opiate Screen Urine Not Detected (Not Detect); Phencyclidine Screen Urine Not Detected (Not Detect)
[2022-08-19] MEDS: Lactated Ringers 1,000 ML 100 ML IVCONT (19:57)
[2022-08-19] MEDS: Folic Acid 1 MG TABLET PO (19:58)
[2022-08-19] MEDS: HaloperidoL 5 MG TABLET 10 MG PO (19:58)
[2022-08-19] MEDS: Benztropine Mesylate 1 MG TABLET PO (19:58)
[2022-08-19] MEDS: Enoxaparin Sodium 40 MG/0.4 ML SYRINGE SUBCUT (20:02)
[2022-08-19] MEDS: Prazosin HCL 1 MG CAPSULE 2 MG PO (20:06)
[2022-08-19] MEDS: Thiamine HCL 100 MG TABLET PO (20:06)
[2022-08-19] MEDS: Sertraline HCL 100 MG TABLET PO (20:06)
[2022-08-19] MEDS: Multivitamin TABLET 1 TAB PO (20:07)
[2022-08-19 23:42] VITALS: BP 108/63; PULSE 71; RESP 16; TEMP 36.4; O2SAT 96
[2022-08-20 00:37] VITALS: BP 114/61; PULSE 72; RESP 18; TEMP 36.6; O2SAT 97
[2022-08-20 02:14] VITALS: BP 116/60; PULSE 71; RESP 18; TEMP 36.3; O2SAT 97
[2022-08-20 04:45] LABS: Anion Gap 12 (12-20); Blood Urea Nitrogen 12 mg/dL (9-16); Carbon Dioxide 24 mmol/L (22-29); Chloride 108 mmol/L (96-108); Creatinine Clr Calc Pharmacy 117.9; Estimated Glomerular Filt Rate > 60; Glucose Random 88 mg/dL (60-115); Magnesium 1.9 mg/dL (1.6-2.6); Potassium 3.7 mmol/L (3.3-5.1); Sodium 140 mmol/L (135-145)
[2022-08-20] MEDS: Lactated Ringers 1,000 ML 100 ML IVCONT ×2 (05:18→19:56)
[2022-08-20] MEDS: Omeprazole 20 MG CAPSULE.DR PO (06:49)
[2022-08-20] MEDS: Multivitamin TABLET 1 TAB PO (06:59)
[2022-08-20] MEDS: PHENobarbitaL 15 MG TABLET 45 MG PO ×2 (06:59→19:56)
[2022-08-20] MEDS: Thiamine HCL 100 MG TABLET PO (06:59)
[2022-08-20] MEDS: Sertraline HCL 100 MG TABLET PO (06:59)
[2022-08-20] MEDS: HaloperidoL 5 MG TABLET 10 MG PO ×2 (06:59→19:56)
[2022-08-20] MEDS: Benztropine Mesylate 1 MG TABLET PO ×2 (06:59→19:56)
[2022-08-20] MEDS: Folic Acid 1 MG TABLET PO (06:59)
[2022-08-20 07:03] VITALS: BP 118/69; PULSE 66; RESP 18
--- NOTE | 2022-08-20 07:05 | P.PNIM_ITS ---
Subjective Subjective Date of Service: 08/20/22 Interval History: f/u on alcohol withdrawal interval history: he seems comfortable, but claims he's seeing things Physical Exam Vital Signs: Vital Signs: Last Vital Signs Temp 97.3 F 08/20/22 02:14 Pulse 66 08/20/22 07:03 Resp 18 08/20/22 07:03 BP 118/69 08/20/22 07:03 Pulse Ox 97 08/20/22 02:14 O2 Del Method Room Air 08/20/22 02:14 BMI result Body Mass Index 27.4 Const: Other: General: AO X 3, no acute distress Resp: CTA bilateral CVS: S1,S2,RRR GI: +BS, NT, no distention Skin: No rash Neuro: motor grossly intact Psych: appropriate affect Objective Data Active Medications Acetaminophen (Acetaminophen 325 Mg Tablet) 650 mg PO Q6H PRN PRN Reason: Pain, Mild (Pain Scale 1-3) Benztropine Mesylate (Benztropine Mesylate 1 Mg Tablet) 1 mg PO BID [facility] Last Admin: 08/20/22 06:59 Dose: 1 mg Documented By: ATIF Clonidine HCl (Clonidine Hcl 0.2 Mg Tablet) 0.2 mg PO DAILY PRN; Protocol PRN Reason: Anxiety Docusate Sodium (Docusate Sodium 100 Mg Capsule) 100 mg PO DAILY PRN PRN Reason: Constipation Enoxaparin Sodium (Enoxaparin Sodium 40 Mg/0.4 Ml Syringe) 40 mg SUBCUT Q24H [facility] Last Admin: 08/19/22 20:02 Dose: 40 mg Documented By: NICHELLE Folic Acid (Folic Acid 1 Mg Tablet) 1 mg PO DAILY [facility] Stop: 08/22/22 19:44 Last Admin: 08/20/22 06:59 Dose: 1 mg Documented By: ATIF Haloperidol (Haloperidol 5 Mg Tablet) 10 mg PO BID [facility] Last Admin: 08/20/22 06:59 Dose: 10 mg Documented By: ATIF Hydroxyzine HCl (Hydroxyzine Hcl 50 Mg Tablet) 50 mg PO BID PRN PRN Reason: anxiety Lactated Ringer's (Lr) 1,000 mls @ 100 mls/hr IVCONT .Q10H [facility] Last Admin: 08/20/22 05:18 Dose: 100 mls/hr Documented By: SUMAYA Multivitamins/Vitamin C (Multivitamin Tablet) 1 tab PO DAILY [facility] Stop: 08/22/22 19:44 Last Admin: 08/20/22 06:59 Dose: 1 tab Documented By: ATIF Omeprazole (Omeprazole 20 Mg Capsule.Dr) 20 mg PO DAILY@0630 [facility] Last Admin: 08/20/22 06:49 Dose: 20 mg Documented By: SUMAYA Pharmacy Consult (Consult Rx Etoh Phenob Im/Po) 1 each MISCELLANE ONCE PRN; Protocol PRN Reason: Consult order Pharmacy Consult (Consult Rx Perform Med Rec) 1 each MISCELLANE ONCE PRN PRN Reason: Consult order Phenobarbital (Phenobarbital 15 Mg Tablet) 45 mg PO BID [facility]; Protocol Stop: 08/21/22 21:01 Last Admin: 08/20/22 06:59 Dose: 45 mg Documented By: ATIF Phenobarbital (Phenobarbital 15 Mg Tablet) 15 mg PO BID [facility]; Protocol Stop: 08/23/22 21:01 Phenobarbital (Phenobarbital 15 Mg Tablet) 15 mg PO DAILY [facility]; Protocol Stop: 08/25/22 09:01 Prazosin HCl (Prazosin Hcl 1 Mg Capsule) 2 mg PO BEDTIME [facility]; Protocol Last Admin: 08/19/22 20:06 Dose: 2 mg Documented By: NICHELLE Quetiapine Fumarate (Quetiapine Fumarate 100 Mg Tablet) 100 mg PO BID PRN PRN Reason: anxiety Sertraline HCl (Sertraline Hcl 100 Mg Tablet) 100 mg PO DAILY [facility] Last Admin: 08/20/22 06:59 Dose: 100 mg Documented By: ATIF Sodium Chloride (0.9 % Sodium Chloride Flush 3 Ml Syringe) 3 ml IVFLUSH QSHIFT [facility] Last Admin: 08/20/22 07:00 Dose: Not Given Documented By: ATIF Non-Admin Reason: IV Running Thiamine HCl (Thiamine Hcl 100 Mg Tablet) 100 mg PO DAILY [facility] Stop: 08/22/22 19:44 Last Admin: 08/20/22 06:59 Dose: 100 mg Documented By: ATIF Trazodone HCl (Trazodone Hcl 100 Mg Tablet) 200 mg PO BEDTIME PRN PRN Reason: Insomnia Labs 08/19/22 12:17 08/20/22 04:12 Labs: Laboratory Results - last 24 hr 08/19/22 08/19/22 08/19/22 12:17 12:17 19:14 MCV 87.2 MCH 29.6 MCHC 34.0 RDW 15.2 Plt Count 282 D MPV 10.0 Immature Gran % (Auto) 0.5 H Neut % (Auto) 56.5 Lymph % (Auto) 35.0 Swisher % (Auto) 5.8 Eos % (Auto) 1.7 Baso % (Auto) 0.5 Lymph # (Auto) 2.9 Swisher # (Auto) 0.5 Eos # (Auto) 0.1 Baso # (Auto) 0.0 Abs Immat Gran (auto) 0.04 H Absolute Neuts (auto) 4.6 Absolute Nucleated RBC 0.000 Nucleated RBC % (auto) 0.0 Anion Gap 19 Estim Creat Clear Calc 61.4 Estimated GFR 48 Random Glucose 115 Calcium 9.5 Magnesium 2.0 Total Bilirubin 0.5 Direct Bilirubin 0.1 AST 32 ALT 31 Alkaline Phosphatase 59 Total Protein 7.0 Albumin 4.5 Lipase 22 Urine Color Yellow Urine Appearance Clear Urine pH 5.0 Ur Specific Dana >= 1.030 H Urine Protein Trace Urine Glucose (UA) Negative Urine Ketones Trace Urine Blood Negative Urine Nitrite Negative Ur Leukocyte Esterase Negative Urine Opiates Screen Urine Fentanyl Screen Ur Barbiturates Screen Ur Phencyclidine Scrn Ur Amphetamines Screen U Benzodiazepines Scrn Urine Cocaine Screen U Marijuana (THC) Screen Ethyl Alcohol < 10 08/19/22 08/20/22 19:14 04:12 MCV MCH MCHC RDW Plt Count MPV Immature Gran % (Auto) Neut % (Auto) Lymph % (Auto) Swisher % (Auto) Eos % (Auto) Baso % (Auto) Lymph # (Auto) Swisher # (Auto) Eos # (Auto) Baso # (Auto) Abs Immat Gran (auto) Absolute Neuts (auto) Absolute Nucleated RBC Nucleated RBC % (auto) Anion Gap 12 Estim Creat Clear Calc 117.9 Estimated GFR > 60 Random Glucose 88 Calcium 9.0 Magnesium 1.9 Total Bilirubin Direct Bilirubin AST ALT Alkaline Phosphatase Total Protein Albumin Lipase Urine Color Urine Appearance Urine pH Ur Specific Dana Urine Protein Urine Glucose (UA) Urine Ketones Urine Blood Urine Nitrite Ur Leukocyte Esterase Urine Opiates Screen Not Detected Urine Fentanyl Screen Not Detected Ur Barbiturates Screen POSITIVE H Ur Phencyclidine Scrn Not Detected Ur Amphetamines Screen Not Detected U Benzodiazepines Scrn Not Detected Urine Cocaine Screen POSITIVE H U Marijuana (THC) Screen Not Detected Ethyl Alcohol Assessment and Plan (1) Acute kidney injury: Status: Acute (2) Alcohol withdrawal: Status: Acute Plan 2-year-old male with PMH significant for?schizoaffective disorder, delusional disorder, NORI, and alcohol use disorder who presents to the ED for alcohol withdrawal and insomina secondary to being off his psych meds for the past 2-4 weeks. Pt will be admitted to the hospital for treatment further evaluation of alcohol withdrawal and J CARLOS. Alcohol withdrawal with Visual hallucinations, no tremors noted Continue Phenobarb protocol multivitamin, folic acid 1mg, Thiamine 100 mg daily Omeprazole CIWA scale Addiction medicine consult J CARLOS--Pre renal , resolved Mood disorder--non-compliant with meds, at least for last for 2 to 4 weeks resume meds Full Code DVT Prophylaxis: Lovenox need for inpatient: alcohol withdrawal Time Spent With Patient Time: Total time managing care of this patient today ____ minutes. Quality Stroke Does the patient have a stroke diagnosis?: No VTE Prior VTE?: No VTE Risk Level:: Medical - moderate - high VTE Device Contraindication: Treatment Not Indicated VTE Drug Contraindication: N/A - Med Ordered
[2022-08-20 08:00] VITALS: BP 118/69; PULSE 59; RESP 18; TEMP 36; O2SAT 97
--- NOTE | 2022-08-20 11:13 | MHC.CM.PN ---
pt reports livivng w/roomates he is covid vax x 2 has own ride home dc plan samreen rodríguezic
--- NOTE | 2022-08-20 11:16 | MHC.RECOVRN ---
Received Addiction Medicine Consult, chart reviewed. Per provider note, pt reporting visual hallucinations. Consult deferred until pt appropriate.
--- NOTE | 2022-08-20 12:26 | MHC.CARE ---
Please re-consult CARE Team if clinically indicated when Pt is medically cleared
[2022-08-20 15:32] VITALS: BP 120/72; PULSE 58; RESP 14; TEMP 36; O2SAT 97
[2022-08-20 19:37] VITALS: BP 129/71; PULSE 74; RESP 14; TEMP 36.2; O2SAT 98
[2022-08-20] MEDS: Prazosin HCL 1 MG CAPSULE 2 MG PO (19:55)
[2022-08-20] MEDS: Enoxaparin Sodium 40 MG/0.4 ML SYRINGE SUBCUT (19:56)
[2022-08-20] MEDS: traZODone HCL 100 MG TABLET 200 MG PO (19:59)
[2022-08-21 03:59] VITALS: BP 132/63; PULSE 61; RESP 18; TEMP 36.4; O2SAT 97
[2022-08-21] MEDS: Omeprazole 20 MG CAPSULE.DR PO (05:04)
[2022-08-21] MEDS: Lactated Ringers 1,000 ML 100 ML IVCONT (05:05)
[2022-08-21 08:00] VITALS: BP 116/64; PULSE 63; RESP 18; TEMP 36.5; O2SAT 97
[2022-08-21] MEDS: Thiamine HCL 100 MG TABLET PO (08:15)
[2022-08-21] MEDS: Multivitamin TABLET 1 TAB PO (08:15)
[2022-08-21] MEDS: HaloperidoL 5 MG TABLET 10 MG PO (08:15)
[2022-08-21] MEDS: PHENobarbitaL 15 MG TABLET 45 MG PO (08:15)
[2022-08-21] MEDS: Benztropine Mesylate 1 MG TABLET PO (08:15)
[2022-08-21] MEDS: Folic Acid 1 MG TABLET PO (08:15)
[2022-08-21] MEDS: Sertraline HCL 100 MG TABLET PO (08:15)
--- NOTE | 2022-08-21 10:30 | PM.DS ---
DS: Providers Provider Date of Service: 08/21/22 Date of admission: 08/19/22 19:38 Primary care physician: Tomeka Teresa MD Consults: 08/19/22 11:49 Consult to Care Team Stat Comment: Reason for consultation: out of psych meds, nelida gonzáles si/hi 08/19/22 19:44 Addiction Medicine Routine Consulting Provider: Addiction Covering Reason for consultation: Alcohol withdrawal DS: Diagnosis Discharge Diagnosis (1) Acute kidney injury: Status: Resolved (2) Alcohol withdrawal: Status: Resolved DS: Summary Hospital Course Hospital Course: Attending physician on admission: Teto Nieves Chief Complaint: Alcohol withdrawal Pt is a 32-year-old male with a PMH significant for?schizoaffective disorder, delusional disorder, NORI, and alcohol use disorder who presents to the ED for alcohol withdrawal and insomina secondary to being off his psych meds for the past 2-4 weeks. Pt states he has not been able to sleep for many days after not taking his psych meds for the past few weeks.? Patient notes he is on a number of psychiatric medications including clonidine, Haldol, quetiapine, sertraline, trazodone, prazosin. He is vague why he has stopped taking them, but claims he has had problems navigating the whole med system. Patient notes he takes Seroquel in particular to go to sleep.? Patient also states he has been drinking four 25-ounce beers a night for the past month with last drink yesterday.? Patient says that he has been experiencing pins and needles, diaphoresis, shaking, fever and chills, and C flashes of green light.? Says that he has been drinking lately because he has been off of his psych meds and has been feeling anxious and paranoid.? Patient claims he has a history of alcohol withdrawal, many times in the past.? No history of alcohol seizures or auditory hallucinations.? Also notes a few days ago he used $20 worth of cocaine.? Patient admits he has not been eating lately or drinking anything except alcohol.? Denies nausea, vomiting, diarrhea, abdominal pain.? No headache, changes to vision. In the ED labs were significant for creatinine of 1.67 (baseline 0.86).? CBC unremarkable.? Electrolytes normal.? Hepatic function baseline. Ethyl alcohol level <10. EKG demonstrated normal sinus rhythm without evidence of ST elevations or depressions. Pt was treated with quetiapine, IVF, and started on phenobarb protocol. Pt will be admitted to the hospital for treatment further evaluation of alcohol withdrawal and J CARLOS. Hospital course: Patient was admitted for management of Alcohol withdrawal with Visual hallucinations, no tremors noted, so unclear if related to alcohol or underlying schizophrenia. He has continue not to show any overt alcohl withdrawal symptoms and presently without hallucination, cooperative, no other Psychotic symptom, no SI. He was treated with phenobarbital for presumed alcohol withdrawal. At his point, he feels fine, safe and would like to go home. We discussed the need to stop drinking and to follow through with help in the community. He was seen by Psych with the following recommendations: 1. No need for inpatient level of care. No imminent safety concern in terms of SI or HI or gravely disable due to psychosis. 2. continue haldol 5mg po BID, cogentin 1mg po BID. Trazodone 100mg po qhs.--prescription sent to pharmacy J CARLOS-- Likely from pre renal azotemia. He presented with creatine of 1.67 and now 0.87 after IV fluid. Mood disorder, history of Schizophrenia, no acute Psychotic symptoms at this time, --non-compliant with meds, at least for last for 2 to 4 weeks, we discussed taking meds and follow upwtih his therapist resume meds Time Spent with Patient Time attestation: Total time managing care of this patient today ____ minutes. Discharge coordination time: Greater than 30 minutes Quality: Safe Use of Opioids Does Pt have an Active Cancer Diagnosis on the Problem List?: No Quality: Stroke Does the patient have a stroke diagnosis?: No Physical Exam Vital Signs: Vital Signs: Last Vital Signs Temp 97.7 F 08/21/22 08:00 Pulse 63 08/21/22 08:00 Resp 18 08/21/22 08:00 BP 116/64 08/21/22 08:00 Pulse Ox 97 08/21/22 08:00 O2 Del Method Room Air 08/21/22 08:00 BMI result Body Mass Index 27.4 Discharge Plan Discharge Anticipated Discharge Date/Time: 08/21/22 10:27 Patient Disposition: Home, Self-Care Discharge Diagnosis: Alcohol withdrawal, acute kidney injury, Referrals: [facility]gent Out[facility] / Crisis [Other] - 1 Week Tomeka Teresa MD [Primary Care Provider] - 1 Week Discharge Medications: Continued sertraline 100 mg tablet 1 tab PO DAILY quetiapine 100 mg tablet 100 mg PO BID PRN (Reason: anxiety) No Action nicotine (polacrilex) 2 mg gum 2 mg PO Q2H PRN (Reason: Smoking Cessation) hydroxyzine HCl 50 mg Tablet 50 mg PO BID PRN (Reason: Anxiety) melatonin 3 mg Tablet 3 mg PO BEDTIME trazodone 100 mg tablet 200 mg PO BEDTIME PRN (Reason: Insomnia) haloperidol 10 mg tablet 10 mg PO BID benztropine 1 mg tablet 1 mg PO BID benztropine 1 mg tablet 1 mg PO BID Qty: 60 0RF haloperidol 10 mg tablet 10 mg PO BID Qty: 60 0RF hydroxyzine HCl 50 mg tablet 50 mg PO BID Qty: 60 0RF melatonin 3 mg capsule 3 mg PO BEDTIME PRN (Reason: sleep) Qty: 30 0RF nicotine (polacrilex) 2 mg gum 2 mg buccal Q2H Qty: 396 0RF quetiapine 100 mg tablet 100 mg PO BID Qty: 60 0RF sertraline 100 mg tablet 100 mg PO DAILY Qty: 30 0RF trazodone 100 mg tablet 200 mg PO BEDTIME Qty: 30 0RF Discharge Orders: Discharge Order (Routine); Ordered 08/21/22 Ordered By: Eliu Mir Diet: Advance to usual diet Activity on Discharge: As tolerated Stand Alone Forms: Patient Portal Discharge page Care Plan Goals: Abstinence from alcohol Health Concerns: Alcohol use disorder Schizophrenia Plan of Treatment: Advised to stop drinking, and foll through community resources giving to him Assessment: As above Discharge Date/Time: 08/21/22 15:33
--- NOTE | 2022-08-21 10:40 | MHC.CM.PN ---
Addendum entered by Lianne Fair 08/21/22 10:45: Careteam Notified via Phone Patient is medically cleared. Spoke with Nora. Noble Texted [facility] nurse too. Original Note: Patient is discharged home today, self care. He will arrange for transportation home.
--- NOTE | 2022-08-21 11:01 | MHC.RECOVRN ---
Met with pt in 379 after consult placed to Addiction Medicine. Pt laying in bed, awake, alert, easily engages in conversation. Pt reports alcohol use, 2 pints vodka daily x 1 month. Pt reports longest period in recovery was 9 months in 2018. During that time pt utilized AA and found it helpful. Pt has been to [facility] in the past as well as [facility]. Pt currently living with roommates who do not consume alcohol, however, pt does not identify roommates as supports. In regards to ULYSSES, pt reports he is allergic to Vivitrol. Educated regarding other medications, pt declines, states If I'm going to do it I am going to do it without MAT. Discussed other recovery supports and services, pt interested in resource recovery specialist, t/w will place referral. Pt provided with written resources as well as t/w contact information if needed. Denies other questions or concerns. Discussed with Roxanne Dick APRN.
--- NOTE | 2022-08-21 12:17 | MHC.CARE ---
Pt is a 32 year old male who presented to the emergency department? on 08/19/22 reporting withdrawal symptoms stating he was ? seeing green and red , insomnia for the last 4 weeks and has not taken his psychiatric medications. Pt is well known to [facility] ED from prior interventions and carries a dx of Schizoaffective disorder.? Pt was subsequently medically admitted for alcohol withdrawal. Today, 08/21/22? CARE Team was consulted for treatment recommendations alcohol use disorder, schizophrenia not compliant with meds .? Pt presents as alert, oriented? and engaged. Pt made appropriate eye contact. Pt speech volume and tone was WNL. Pt does not endorse current SI/HI/VH/AH. Pt stated he has not been on psychiatric medications for the past few months and reports his medications were re-started on the medical floor. Pt is not reporting any distress by psychiatric symptoms. Pt has been re-started on his medication since admission.? Pt stated that they did not follow up with aftercare [facility]. Pt? is advocating to be discharged with his home psychiatric? medications.? Plan for Pt to be discharged home with an urgent outpatient appointment at [facility]. CARE Team completed referral for urgent outpatient appt.? CARE Team reviewed case with Dr. Mir? CARE Team consulted with Tete Osborn NP regarding medication management???
--- NOTE | 2022-08-21 14:11 | P.CNPS_ITS ---
History of Present Illness Date of Service: 08/21/2022 Chief Complaint: Alcohol withdrawal, J CARLOS Reason for Consult: resume meds Requesting physician: Eliu Mir Discussed with referring provider: Yes Sources of Information: patient interviewed, chart reviewed and crisis/core team assessment reviewed HPI Narrative: Mr. Anguiano is a 32 year-old male with hx of alcohol and cocaine use disorder along with schizoaffective disorder. He is currently admitted on medical floor for J CARLOS. Pt had been off psych meds. He was restarted while admitted medically. Pt known to this com writer through arturo admission to and assessment in ED. Pt seen in room. he presents as calm. He denies SI/HI. he denies VH/AH. He reports he would like ot resume psychiatric treatment. He was seen by care team earlier and is scheduled to see psychiatrist outpatient in next 4 days. We discussed risks, benefits and alternative treatment options. Pt can resume haldol 5mg po BID. Cogentin 1mg po BID. Past Psychiatric History: Inpatient: [facility] Medical History (Updated 08/21/22 @ 14:15 by Tete Mcdonald) Alcohol abuse Alcohol dependence Alcohol intoxication Delusional disorder Generalized anxiety disorder History of alcohol abuse Mixed dyslipidemia Schizo-affective schizophrenia Surgical History History of removal of neck cyst History of root canal procedure Diagnostics Vital Signs (24Hr): Vital Signs - 24 hr 08/20/22 15:32 08/20/22 19:37 08/21/22 03:59 Temperature 96.8 F 97.2 F 97.6 F Pulse Rate 58 74 61 Respiratory Rate 14 14 18 Blood Pressure 120/72 129/71 132/63 Pulse Oximetry 97 98 97 Oxygen Delivery Method Room Air Room Air Room Air 08/21/22 08:00 Temperature 97.7 F Pulse Rate 63 Respiratory Rate 18 Blood Pressure 116/64 Pulse Oximetry 97 Oxygen Delivery Method Room Air BMI result Body Mass Index 27.4 Labs 08/19/22 12:17 08/20/22 04:12 Labs: Laboratory Results - last 48 hr 08/19/22 08/19/22 08/20/22 19:14 19:14 04:12 Sodium 140 Potassium 3.7 Chloride 108 Carbon Dioxide 24 Anion Gap 12 BUN 12 Creatinine 0.87 Estim Creat Clear Calc 117.9 Estimated GFR > 60 Random Glucose 88 Calcium 9.0 Magnesium 1.9 Urine Color Yellow Urine Appearance Clear Urine pH 5.0 Ur Specific Beulah >= 1.030 H Urine Protein Trace Urine Glucose (UA) Negative Urine Ketones Trace Urine Blood Negative Urine Nitrite Negative Ur Leukocyte Esterase Negative Urine Opiates Screen Not Detected Urine Fentanyl Screen Not Detected Ur Barbiturates Screen POSITIVE H Ur Phencyclidine Scrn Not Detected Ur Amphetamines Screen Not Detected U Benzodiazepines Scrn Not Detected Urine Cocaine Screen POSITIVE H U Marijuana (THC) Screen Not Detected Mental Status Exam Mental Status Exam Narrative: Appearance: wearing hospital gown, fair hygiene, in NAD Behavior: no agitation or retardation noted Speech: clear, normal rate/rhythm, volume, spontaneous TP: linear TC: no overt delusions, no SI/HI Mood: good Affect: congruent SI: none HI: none AH:denies VH: none Delusions: no overt delusions noted or reported. Insight/judgment: fair x 2. memory/cog: alert, oriented x 3. grossly intact to conversational testing. Medications Medications Current Medications Acetaminophen (Acetaminophen 325 Mg Tablet) 650 mg PO Q6H PRN PRN Reason: Pain, Mild (Pain Scale 1-3) Benztropine Mesylate (Benztropine Mesylate 1 Mg Tablet) 1 mg PO BID [facility] Last Admin: 08/21/22 08:15 Dose: 1 mg Clonidine HCl (Clonidine Hcl 0.2 Mg Tablet) 0.2 mg PO DAILY PRN; Protocol PRN Reason: Anxiety Docusate Sodium (Docusate Sodium 100 Mg Capsule) 100 mg PO DAILY PRN PRN Reason: Constipation Enoxaparin Sodium (Enoxaparin Sodium 40 Mg/0.4 Ml Syringe) 40 mg SUBCUT Q24H [facility] Last Admin: 08/20/22 19:56 Dose: 40 mg Folic Acid (Folic Acid 1 Mg Tablet) 1 mg PO DAILY [facility] Stop: 08/22/22 19:44 Last Admin: 08/21/22 08:15 Dose: 1 mg Haloperidol (Haloperidol 5 Mg Tablet) 10 mg PO BID [facility] Last Admin: 08/21/22 08:15 Dose: 10 mg Hydroxyzine HCl (Hydroxyzine Hcl 50 Mg Tablet) 50 mg PO BID PRN PRN Reason: anxiety Lactated Ringer's (Lr) 1,000 mls @ 100 mls/hr IVCONT .Q10H [facility] Last Admin: 08/21/22 05:05 Dose: 100 mls/hr Multivitamins/Vitamin C (Multivitamin Tablet) 1 tab PO DAILY [facility] Stop: 08/22/22 19:44 Last Admin: 08/21/22 08:15 Dose: 1 tab Omeprazole (Omeprazole 20 Mg Capsule.Dr) 20 mg PO DAILY@0630 [facility] Last Admin: 08/21/22 05:04 Dose: 20 mg Pharmacy Consult (Consult Rx Etoh Phenob Im/Po) 1 each MISCELLANE ONCE PRN; Protocol PRN Reason: Consult order Pharmacy Consult (Consult Rx Perform Med Rec) 1 each MISCELLANE ONCE PRN PRN Reason: Consult order Phenobarbital (Phenobarbital 15 Mg Tablet) 45 mg PO BID [facility]; Protocol Stop: 08/21/22 21:01 Last Admin: 08/21/22 08:15 Dose: 45 mg Phenobarbital (Phenobarbital 15 Mg Tablet) 15 mg PO BID [facility]; Protocol Stop: 08/23/22 21:01 Phenobarbital (Phenobarbital 15 Mg Tablet) 15 mg PO DAILY [facility]; Protocol Stop: 08/25/22 09:01 Prazosin HCl (Prazosin Hcl 1 Mg Capsule) 2 mg PO BEDTIME [facility]; Protocol Last Admin: 08/20/22 19:55 Dose: 2 mg Quetiapine Fumarate (Quetiapine Fumarate 100 Mg Tablet) 100 mg PO BID PRN PRN Reason: anxiety Sertraline HCl (Sertraline Hcl 100 Mg Tablet) 100 mg PO DAILY [facility] Last Admin: 08/21/22 08:15 Dose: 100 mg Sodium Chloride (0.9 % Sodium Chloride Flush 3 Ml Syringe) [facility] Last Admin: 08/21/22 08:14 Dose: Not Given Thiamine HCl (Thiamine Hcl 100 Mg Tablet) 100 mg PO DAILY [facility] Stop: 08/22/22 19:44 Last Admin: 08/21/22 08:15 Dose: 100 mg Trazodone HCl (Trazodone Hcl 100 Mg Tablet) 200 mg PO BEDTIME PRN PRN Reason: Insomnia Last Admin: 08/20/22 19:59 Dose: 200 mg Allergies Allergies Allergy/AdvReac Type Severity Reaction Status Date / Time No Known Allergies Allergy Verified 01/27/21 08:24 [No Known Allergies*] Assessment & Plan Assessment & Plan (1) Schizoaffective disorder: Status: Acute Code(s): F25.9 - Schizoaffective disorder, unspecified (2) Alcohol dependence: Status: Acute Code(s): F10.20 - Alcohol dependence, uncomplicated (3) Cocaine use disorder, moderate, dependence: Status: Acute Code(s): F14.20 - Cocaine dependence, uncomplicated Plan Mr. Anguiano is a 32 year-old male with hx of alcohol and cocaine use, schizoaffective disorder who is currently admitted for J CARLOS. Utox positive for cocaine. Pt is known by this com writer through previous admission to . Pt seen by care team. no SI/HI. No acute psychosis or delusions noted or reported. He was restarted on haldol 5mg po BID- wants to continue medications. Care team schedule psychiatric appointment in next 4 days. In the meant time, pt agrees to sheepskin pickler rx for haldol- which he has been on for a long time with no side effects. PLAN 1. No need for inpatient level of care. No imminent safety concern in terms of SI or HI or gravely disable due to psychosis. 2. continue haldol 5mg po BID, cogentin 1mg po BID. Trazodone 100mg po qhs. Total time managing care of this patient today ____ minutes.
== END 2022-08-21 15:33 | disposition home or self-care (01) | DRG 683 ==
LOC: HO.ED 17:37 → HO.EDOVER 19:49 → HO.S3 23:34
PROVIDERS: Physician Assistant Medical; Admitting Provider Student in an Organized Health Care Education/Training Program; Emergency Provider Emergency Medicine; PCP Internal Medicine; Visit Provider Internal Medicine
DX: N17.9 Acute kidney failure, unspecified (principal); F10.151 Alcohol abuse with alcohol-induced psychotic disorder with hallucinations; F14.20 Cocaine dependence, uncomplicated; F25.9 Schizoaffective disorder, unspecified; F41.1 Generalized anxiety disorder; F17.210 Nicotine dependence, cigarettes, uncomplicated; Z71.6 Tobacco abuse counseling; Z91.148 Patient's other noncompliance with medication regimen for other reason; Z79.899 Other long term (current) drug therapy
CPT/HCPCS: 36415; 80048; 80076; 80307; 81003; 83690; 83735; 85025; 93005; 99285; J1650; J2560

== ENCOUNTER 2022-09-06 00:38 | Emergency (ER) | payer MEDICARE, OTHER, SELFPAY ==
[2022-09-06 00:42] VITALS: BP 125/74; PULSE 96; RESP 18; TEMP 36.1; O2SAT 94; BMI 23.0
--- NOTE | 2022-09-06 00:56 | ED.PSYCH ---
HPI - Psych General Chief Complaint: Psychiatric Symptoms Stated Complaint: Crisis Time Seen by Provider: 09/06/22 00:56 Source: patient Mode of arrival: ambulatory Limitations: no limitations History of Present Illness HPI Narrative: Patient with history of cocaine use bipolar disorder just released from [facility] inpatient psych earlier today came to his apartment was very anxious and manic unable to control himself ran out of the apartment and reports using cocaine shortly after and now reports feeling unsafe in the community feels manic Related Data Home Medications Medication Instructions Recorded Confirmed benztropine 1 mg tablet 1 tab PO BID 06/09/22 09/06/22 haloperidol 5 mg tablet 10 mg PO BID 06/09/22 09/06/22 hydroxyzine pamoate 25 mg capsule 2 cap PO BID PRN anxiety 06/09/22 09/06/22 sertraline 100 mg tablet 1 tab PO DAILY 06/09/22 09/06/22 quetiapine 100 mg tablet 100 mg PO BID PRN anxiety 08/19/22 09/06/22 nicotine (polacrilex) 2 mg gum 2 mg PO Q2H 09/06/22 09/06/22 Previous Rx's Medication Instructions Recorded trazodone 100 mg tablet 100 mg PO BEDTIME PRN Insomnia #30 08/21/22 tabs Allergies Allergy/AdvReac Type Severity Reaction Status Date / Time No Known Allergies Allergy Verified 01/27/21 08:24 [No Known Allergies*] Review of Systems Review of Systems: Yes all other systems are reviewed and are negative PMFSH Past Medical History Medical History Alcohol abuse Alcohol dependence Alcohol intoxication Delusional disorder Generalized anxiety disorder History of alcohol abuse Mixed dyslipidemia Schizo-affective schizophrenia Schizoaffective disorder Surgical History History of removal of neck cyst History of root canal procedure Family History Family History Father Depression FH: mental illness Mother Depression FH: mental illness Maternal Grandfather No problems noted. Maternal Grandmother No problems noted. Brother No problems noted. Sister No problems noted. Other Mental health disorder Substance use disorder Social History Social History Household Members: Friend(s) Housing: Apartment Do you presently have visiting nurse or other home services: No Alcohol intake: current Alcohol intake frequency: 3 or more drinks per day Alcohol type: beer Patient Tobacco Use Status: Current everyday Tobacco user Tobacco use type: Cigarette Cigarettes Per Day: 8 Smoked in Last 30 Days: Yes e-Cigarette/Vaping Use: Never Used Second Hand Smoke Exposure: No Use of substances other than those prescribed or required for medical reasons: Yes Substance Use Type: Crack/Cocaine Substance Use Frequency: Occasionally Substance Use Frequency Other:: Sts one use only Last Used Substance: Hours (ago) Advance Directives: No Advance Directives Information Provided: No service: No Current occupational status: unemployed Sexual orientation: Straight/Heterosexual Physical Exam Vital Signs: Vital Signs: Last Vital Signs Temp 96.9 F 09/06/22 00:42 Pulse 96 09/06/22 00:42 Resp 18 09/06/22 06:10 BP 125/74 09/06/22 00:42 Pulse Ox 94 09/06/22 00:42 O2 Del Method Room Air 09/06/22 00:42 BMI result Body Mass Index 23.0 Appearance: Alert. Oriented X3. No acute distress. Anxious Eyes: PERRLA, No Nystagmus ENT: Pharynx normal. Oral Mucosa moist Neck: Normal inspection. Neck supple. CVS: Normal heart rate and rhythm. Pulses normal. Respiratory: No respiratory distress. Equal air entry bilateral, no wheezing/rales/rhonchi Abdomen: Soft and nontender. Bowel sounds are present, no mass palpable, no CVA tenderness Skin: Skin warm and dry. Normal skin color. Normal skin turgor. Extremities: No lower extremity edema. No calf tenderness psych: anxious, manic no hallucination /delusion Neuro: Oriented X 3. No motor deficit. No sensory deficit.No cerebellar signs , cranial nerves II-XII intact Medications Administered Discontinued Medications Generic Name Dose Route Start Last Admin Trade Name Freq PRN Reason Stop Dose Admin Haloperidol 10 mg 09/06/22 01:09 09/06/22 01:22 Haloperidol 5 Mg Tablet PO 09/06/22 01:10 10 mg ONCE ONE Administration Trazodone HCl 300 mg 09/06/22 01:09 09/06/22 01:21 Trazodone Hcl 100 Mg Tablet PO 09/06/22 01:10 300 mg ONCE ONE Administration Medical Decision Making Lab Data 09/06/22 01:34 09/06/22 01:34 Labs: Lab Results 09/06/22 09/06/22 09/06/22 Range/Units 01:34 01:34 01:34 WBC 15.0 H (4.8-10.8) X10*3/uL RBC 5.02 (4.60-5.80) X10*6/uL Hgb 15.0 (14.0-18.0) g/dl Hct 45.1 (42.0-52.0) % MCV 89.8 (80.0-98.0) fL MCH 29.9 (27.0-33.0) pg MCHC 33.3 (31.0-36.0) g/dl RDW 14.7 (11.0-16.0) % Plt Count 335 (160-400) X10*3/uL MPV 10.3 (9.4-12.4) fL Immature Gran % (Auto) 0.7 H (0.0-0.4) % Neut % (Auto) 72.6 (45-73) % Lymph % (Auto) 16.8 L (20-40) % [place] % (Auto) 8.9 (2-11) % Eos % (Auto) 0.5 (0-4) % Baso % (Auto) 0.5 (0-2) % Lymph # (Auto) 2.5 (1.2-4.9) X10*3/uL [place] # (Auto) 1.3 H (0.1-1.2) X10*3/uL Eos # (Auto) 0.1 (0.0-0.4) X10*3/uL Baso # (Auto) 0.1 (0.0-0.2) X10*3/uL Abs Immat Gran (auto) 0.10 H (0.00-0.03) X10*3/uL Absolute Neuts (auto) 10.9 H (2.0-8.3) x10*3/uL Absolute Nucleated RBC 0.000 (0.0-0.012) X10*3/uL Nucleated RBC % (auto) 0.0 (0.0-0.2) /100WBC Sodium 140 (135-145) mmol/L Potassium 4.7 D (3.3-5.1) mmol/L Chloride 104 (96-108) mmol/L Carbon Dioxide 23 (22-29) mmol/L Anion Gap 18 (12-20) BUN 13 (9-16) mg/dL Creatinine 0.83 (0.5-1.4) mg/dL Estim Creat Clear Calc 131.1 Estimated GFR > 60 Random Glucose 84 (60-115) mg/dL Calcium 10.1 D (8.4-10.2) mg/dL Total Bilirubin 0.5 (0.0-1.0) mg/dL AST 30 (5-37) U/L ALT 56 H (0-40) U/L Alkaline Phosphatase 63 (39-117) U/L Total Protein 7.7 (6.5-8.0) g/dL Albumin 4.8 (3.5-5.0) g/dL Urine Opiates Screen (Not Detect) Urine Fentanyl Screen (Not Detect) Ur Barbiturates Screen (Not Detect) Ur Phencyclidine Scrn (Not Detect) Ur Amphetamines Screen (Not Detect) U Benzodiazepines Scrn (Not Detect) Urine Cocaine Screen (Not Detect) U Marijuana (THC) Screen (Not Detect) Ethyl Alcohol < 10 mg/dL COVID-19 (KACIE) Negative (Negative) COVID-19 Clin Com See Note 09/06/22 Range/Units 02:19 WBC (4.8-10.8) X10*3/uL RBC (4.60-5.80) X10*6/uL Hgb (14.0-18.0) g/dl Hct (42.0-52.0) % MCV (80.0-98.0) fL MCH (27.0-33.0) pg MCHC (31.0-36.0) g/dl RDW (11.0-16.0) % Plt Count (160-400) X10*3/uL MPV (9.4-12.4) fL Immature Gran % (Auto) (0.0-0.4) % Neut % (Auto) (45-73) % Lymph % (Auto) (20-40) % [place] % (Auto) (2-11) % Eos % (Auto) (0-4) % Baso % (Auto) (0-2) % Lymph # (Auto) (1.2-4.9) X10*3/uL [place] # (Auto) (0.1-1.2) X10*3/uL Eos # (Auto) (0.0-0.4) X10*3/uL Baso # (Auto) (0.0-0.2) X10*3/uL Abs Immat Gran (auto) (0.00-0.03) X10*3/uL Absolute Neuts (auto) (2.0-8.3) x10*3/uL Absolute Nucleated RBC (0.0-0.012) X10*3/uL Nucleated RBC % (auto) (0.0-0.2) /100WBC Sodium (135-145) mmol/L Potassium (3.3-5.1) mmol/L Chloride (96-108) mmol/L Carbon Dioxide (22-29) mmol/L Anion Gap (12-20) BUN (9-16) mg/dL Creatinine (0.5-1.4) mg/dL Estim Creat Clear Calc Estimated GFR Random Glucose (60-115) mg/dL Calcium (8.4-10.2) mg/dL Total Bilirubin (0.0-1.0) mg/dL AST (5-37) U/L ALT (0-40) U/L Alkaline Phosphatase (39-117) U/L Total Protein (6.5-8.0) g/dL Albumin (3.5-5.0) g/dL Urine Opiates Screen Not Detected (Not Detect) Urine Fentanyl Screen POSITIVE H (Not Detect) Ur Barbiturates Screen POSITIVE H (Not Detect) Ur Phencyclidine Scrn Not Detected (Not Detect) Ur Amphetamines Screen Not Detected (Not Detect) U Benzodiazepines Scrn Not Detected (Not Detect) Urine Cocaine Screen POSITIVE H (Not Detect) U Marijuana (THC) Screen Not Detected (Not Detect) Ethyl Alcohol mg/dL COVID-19 (KACIE) (Negative) COVID-19 Clin Com Discharge Plan Discharge Clinical Impression: Cocaine use disorder, moderate, dependence, Acute psychosis, Bipolar disorder Patient Disposition: Still a Patient Prescriptions: No Action haloperidol 5 mg tablet 10 mg PO BID sertraline 100 mg tablet 1 tab PO DAILY benztropine 1 mg tablet 1 tab PO BID hydroxyzine pamoate 25 mg capsule 2 cap PO BID PRN (Reason: anxiety) nicotine (polacrilex) 2 mg gum 2 mg PO Q2H quetiapine 100 mg tablet 100 mg PO BID PRN (Reason: anxiety) trazodone 100 mg Tablet 100 mg PO BEDTIME PRN (Reason: Insomnia) Qty: 30 0RF Interventions: [place]-Suicide Risk Severity Scale Last Done: 09/06/22 01:14
[2022-09-06] MEDS: traZODone HCL 100 MG TABLET 300 MG PO (01:21)
[2022-09-06] MEDS: HaloperidoL 5 MG TABLET 10 MG PO ×2 (01:22→09:44)
[2022-09-06 01:38] LABS: MANUAL DIFF FLAG NO
[2022-09-06 01:39] LABS: Basophils Absolute Auto 0.1 X10*3/uL (0.0-0.2); Basophils Percent Auto 0.5 % (0-2); Eosinophils Absolute Auto 0.1 X10*3/uL (0.0-0.4); Eosinophils Percent Auto 0.5 % (0-4); Hematocrit 45.1 % (42.0-52.0); Imm Gran Pct Auto 0.7 % (0.0-0.4); Lymphocytes Absolute Auto 2.5 X10*3/uL (1.2-4.9); Lymphocytes Percent Auto 16.8 % (20-40); Mean Corpuscular HGB Conc 33.3 g/dl (31.0-36.0); Mean Corpuscular Hemoglobin 29.9 pg (27.0-33.0); Mean Corpuscular Volume 89.8 fL (80.0-98.0); Mean Platelet Volume 10.3 fL (9.4-12.4); Monocytes Absolute Auto 1.3 X10*3/uL (0.1-1.2); Monocytes Percent Auto 8.9 % (2-11); Neutrophils Absolute Auto 10.9 x10*3/uL (2.0-8.3); Neutrophils Percent Auto 72.6 % (45-73); Platelet Count 335 X10*3/uL (160-400); Red Blood Count 5.02 X10*6/uL (4.60-5.80); Red Cell Distribution Width 14.7 % (11.0-16.0)
[2022-09-06 02:07] LABS: COVID-19 Test Negative (Negative); IDNOW Serial# 08D9AD1C
[2022-09-06 02:08] LABS: Alanine Aminotransferase 56 U/L (0-40); Albumin Level 4.8 g/dL (3.5-5.0); Alkaline Phosphatase 63 U/L (39-117); Anion Gap 18 (12-20); Aspartate Amino Transferase 30 U/L (5-37); Bilirubin Total 0.5 mg/dL (0.0-1.0); Blood Urea Nitrogen 13 mg/dL (9-16); Calcium 10.1 mg/dL (8.4-10.2); Carbon Dioxide 23 mmol/L (22-29); Chloride 104 mmol/L (96-108); Creatinine Clr Calc Pharmacy 131.1; Estimated Glomerular Filt Rate > 60; Ethanol < 10 mg/dL; Glucose Random 84 mg/dL (60-115); Potassium 4.7 mmol/L (3.3-5.1); Sodium 140 mmol/L (135-145); Total Protein 7.7 g/dL (6.5-8.0)
--- NOTE | 2022-09-06 05:27 | PC.NURSE ---
Patient slept through the night, no distress observed/reported, alert and oriented x 4, coherent, no manic behavior observed, med rec completed/pending provider's approval, VSS, awaiting care team assessment, behavior non concerning, appetite good, elimination intact, labs completed/resulted, will continue to monitor.
[2022-09-06 05:36] LABS: Amphetamine Screen Urine Not Detected (Not Detect); Barbiturates, Urine POSITIVE (Not Detect); Benzodiazepines Screen Urine Not Detected (Not Detect); Cannabinoid Screen Urine Not Detected (Not Detect); Cocaine Screen Urine POSITIVE (Not Detect); Fentanyl, urine POSITIVE (Not Detect); Opiate Screen Urine Not Detected (Not Detect); Phencyclidine Screen Urine Not Detected (Not Detect)
[2022-09-06 06:10] VITALS: RESP 18
--- NOTE | 2022-09-06 07:06 | PC.NURSE ---
patient appears to remain asleep at present respirations are even and unlabored patient appears in no distress
[2022-09-06] MEDS: Sertraline HCL 100 MG TABLET PO (09:44)
[2022-09-06] MEDS: Benztropine Mesylate 1 MG TABLET PO (09:45)
== END 2022-09-06 10:56 | disposition home or self-care (01) ==
PROVIDERS: Emergency Provider Internal Medicine; PCP Internal Medicine
DX: F14.259 Cocaine dependence with cocaine-induced psychotic disorder, unspecified (principal); F31.9 Bipolar disorder, unspecified; Z79.899 Other long term (current) drug therapy; Z20.822 Contact with and (suspected) exposure to COVID-19
CPT/HCPCS: 36415; 80053; 80307; 85025; 87635; 99285; S9485

== ENCOUNTER 2022-09-09 06:18 | Inpatient (IN) | payer MEDICARE, OTHER, SELFPAY ==
[2022-09-09 06:24] VITALS: BP 122/80; PULSE 88; O2SAT 100; BMI 22.6
[2022-09-09 06:29] VITALS: BP 119/82; PULSE 106; RESP 18; TEMP 36.4; O2SAT 100
--- NOTE | 2022-09-09 06:34 | PC.NURSE ---
Pt arrives via EMS reporting SI with plan of overdosing on pills . Reports auditory hallucinations. Security at bedside assisting with [employer] exchange architect. Pt changed into hospital attire. Req and provide with sandwich and milk. 1:1 sitter at beside.
[2022-09-09] MEDS: Haloperidol Lactate 5 MG/ML VIAL IM (06:42)
--- NOTE | 2022-09-09 07:07 | ED.PSYCH ---
HPI - Psych General Chief Complaint: Psychiatric Symptoms Stated Complaint: crisis Time Seen by Provider: 09/09/22 06:30 Source: patient and RN notes reviewed Mode of arrival: ambulatory Limitations: no limitations History of Present Illness HPI Narrative: This is a [id number], with a history of schizoaffective disorder, delusional disorder, generalized anxiety disorder, and alcohol abuse, presenting to the emergency department via EMS [facility] stating is [facility] . Upon arrival to emergency department, patient reports that he has been off his psychiatric meds for the last week. He also believes that he is in alcohol withdrawal. He endorses suicidal ideations and auditory hallucinations. He typically drinks 2 pt hard liquor daily. Last drink was yesterday. No fevers, chills, chest pain, shortness of breath, abdominal pain, nausea, vomiting or diarrhea. No other complaints or concerns at this time. MD complaint: suicidal ideation History of same: Yes Context: recent alcohol abuse and not taking psychiatric medications Associated psychiatric symptoms: suicidal ideation, racing thoughts and auditory hallucinations Treatments prior to arrival: none Related Data Home Medications Medication Instructions Recorded Confirmed benztropine 1 mg tablet 1 tab PO BID 06/09/22 09/09/22 haloperidol 5 mg tablet 10 mg PO BID 06/09/22 09/09/22 sertraline 100 mg tablet 1 tab PO DAILY 06/09/22 09/09/22 quetiapine 100 mg tablet 100 mg PO BID PRN anxiety 08/19/22 09/09/22 nicotine (polacrilex) 2 mg gum 2 mg PO Q2H PRN Smoking Cessation 09/06/22 09/09/22 hydroxyzine HCl 50 mg tablet 50 mg PO BID PRN Anxiety 09/09/22 09/09/22 melatonin 3 mg tablet 3 mg PO BEDTIME 09/09/22 09/09/22 Previous Rx's Medication Instructions Recorded trazodone 100 mg tablet 100 mg PO BEDTIME PRN Insomnia #30 08/21/22 tabs Allergies Allergy/AdvReac Type Severity Reaction Status Date / Time No Known Allergies Allergy Verified 01/27/21 08:24 [No Known Allergies*] Review of Systems Review of Systems: Constitutional: No Weight loss, No Fever, No Chills, No Night Sweats, No Fatigue, No Malaise ENT/Mouth: No Hearing loss, No Ear Pain, No Nasal Congestion, No Sinus Pain, No Hoarseness, No sore throat, No Rhinorrhea, No Swallowing Difficulty Eyes: No Eye Pain, No Swelling, No Redness, No Foreign Body, No Discharge, No Vision Changes Cardiovascular: No Chest Pain, No SOB, No Dyspnea on Exertion, No Orthopnea, No Edema, No Palpitations Respiratory: No Cough, No Sputum, No Wheezing, No Smoke Exposure, No Dyspnea Gastrointestinal: No Nausea, No Vomiting, No Diarrhea, No Constipation, No Abdominal pain, No Hematochezia, No Melena Genitourinary: No irregular bleeding, No Dysuria, No Urinary Frequency, No Hematuria, No Urinary Incontinence/retention, No Urgency, No Flank Pain, No Urinary Flow Changes, No Hesitancy Musculoskeletal: No joint pain, No Myalgias, No Joint Swelling Skin: No Skin Lesions, No rash Neuro: No Weakness, No Numbness, No Paresthesias, No Loss of Consciousness, No Dizziness, No Headache Psych: +Anxiety/Panic, +SI, +AH, No Depression, No HI/VH, No Social Issues, Heme/Lymph: No Bruising, No Bleeding,No Lymphadenopathy Endocrine: No Polyuria, No Polydipsia, No Temperature Intolerance Yes all other systems are reviewed and are negative Constitutional: Constitutional: Reports as per [facility] Past Medical History Attestation statement: The following information was validated with the patient. Medical History Alcohol abuse Alcohol dependence Alcohol intoxication Delusional disorder Generalized anxiety disorder History of alcohol abuse Mixed dyslipidemia Schizo-affective schizophrenia Schizoaffective disorder Surgical History History of removal of neck cyst History of root canal procedure Family History Family History Father Depression FH: mental illness Mother Depression FH: mental illness Maternal Grandfather No problems noted. Maternal Grandmother No problems noted. Brother No problems noted. Sister No problems noted. Other Mental health disorder Substance use disorder Social History Social History Household Members: Friend(s) Housing: Apartment Do you presently have visiting nurse or other home services: No Alcohol intake: current Alcohol intake frequency: does not drink Alcohol type: beer Patient Tobacco Use Status: Current everyday Tobacco user Tobacco use type: Cigarette Cigarettes Per Day: 8 Smoked in Last 30 Days: Yes e-Cigarette/Vaping Use: Never Used Second Hand Smoke Exposure: No Use of substances other than those prescribed or required for medical reasons: No Substance Use Type: Crack/Cocaine Advance Directives: No Advance Directives Information Provided: Yes Healthcare Proxy: No Guardian: No service: No Current occupational status: unemployed Sexual orientation: Straight/Heterosexual Physical Exam Vital Signs: Vital Signs: Last Vital Signs Temp 97.6 F 09/10/22 07:36 Pulse 60 09/10/22 07:36 Resp 15 09/10/22 07:36 BP 104/65 09/10/22 07:36 Pulse Ox 97 09/10/22 07:36 O2 Del Method Room Air 09/10/22 07:36 BMI result Body Mass Index 22.6 Const: General: cooperative, comfortable and no acute distress Orientation/consciousness: patient oriented x3 Limitations: no limitations HEENT: Head: Yes normal to inspection, Yes normocephalic and Yes atraumatic Ears: hearing grossly normal bilaterally General nose exam: Normal external nose present Face and sinus: Yes normal facial exam Mouth: Normal oral and palatal mucosa present, oropharynx normal and moist mucous membranes Throat: Yes posterior oropharynx normal Eyes: General: appearance normal, both eyes and all related structures Eyelids: Yes eyelids normal Conjunctivae: conjunctivae normal Sclerae: sclerae normal Pupils: Equal, round and reactive pupils present EOM: EOMs intact bilaterally Neck: Neck: Yes normal visual inspection, Yes full ROM and Yes no lymphadenopathy Lymphatic: no lymphadenopathy noted Chest: Chest palpation & inspection: normal inspection of the chest Resp: Effort & Inspection: normal respiratory effort and able to speak in complete sentences Auscultation: clear to auscultation bilaterally, no crackles, no rales, no rhonchi and no wheezes Cardio: Rate: regular rate Rhythm: regular rhythm Heart sounds: S1 normal heart sound present and S2 normal heart sound present GI: Inspection: Yes normal to inspection Skin: General skin exam: no rashes or lesions noted Trauma: no lacerations or abrasions Wounds: no wounds Neuro: General: patient oriented x3 and moves all extremities Cranial nerves: Yes Equal, round and reactive pupils present Extrem: General: Yes normal to inspection Right upper extremity: normal to inspection Left upper extremity: normal to inspection Right lower extremity: normal to inspection Left lower extremity: normal to inspection Psych: Appearance: disheveled Speech and movement: Pressured speech present and Psychomotor agitation in speech present Affect: Anxious affect present Attitude: Guarded attititude/behavior present Thought process: Perseverating thought process present Thought content: Paranoid delusions present Insight: Limited insight present (Psych) Judgement: Limited judgement present (Psych) Course Reevaluation(s) Reevaluation #1: Patient medicated with Haldol 5 mg IM, Ativan 2 mg IV now resting comfortably in emergency stretcher. Will continue to monitor. Time: 07:21 Reevaluation #2: Labs was no leukocytosis, creatinine 0.85, glucose mildly elevated at 131 alcohol level 65. Patient's CIWA scale decreasing from 17 to 13 after receiving Haldol and Ativan. Re-evaluated patient who appears much more comfortable, resting comfortably in stretcher. Will continue CIWA scale monitoring as well as Ativan alcohol withdrawal protocol. Patient moved to psych pod to be further evaluated by the care team and recovery team. Physician observation initiated. Time: 10:00 Reevaluation #3: Care team came and evaluated patient and will be made an inpatient psych patient. Current CIWA scale is 0. Time: 14:14 Medications Administered Generic Name Dose Route Start Last Admin Trade Name Freq PRN Reason Stop Dose Admin Lorazepam 1 mg 09/09/22 12:15 09/10/22 08:03 Lorazepam 1 Mg Tablet PO 09/13/22 12:14 1 mg Q4H ESTEVAN Administration Taper Discontinued Medications Generic Name Dose Route Start Last Admin Trade Name Freq PRN Reason Stop Dose Admin Haloperidol Lactate 5 mg 09/09/22 06:35 09/09/22 06:42 Haloperidol Lactate 5 Mg/Ml Vial IM 09/09/22 06:36 5 mg ONCE ONE Administration Sodium Chloride 1,000 mls @ 999 mls/hr 09/09/22 06:57 09/09/22 08:30 Ns IVCONT 09/09/22 07:57 Infused .Q1H1M ONE Infusion Lorazepam 2 mg 09/09/22 06:56 09/09/22 07:17 Lorazepam 2 Mg/Ml Vial IVPUSH 09/09/22 06:57 2 mg ONCE ONE Administration Lorazepam 2 mg 09/09/22 10:02 09/09/22 11:34 Lorazepam 1 Mg Tablet PO 09/09/22 10:03 2 mg ONCE ONE Administration Medical Decision Making Medical Decision Making [facility] Narrative: 32-year-old male, with a past medical history of schizoaffective disorder, delusional disorder, generalized anxiety disorder, and alcohol abuse, who presents to the emergency department via [place] Patient reports that he has been without his psychiatric medications for the last week and believes he is in alcohol withdrawal. Upon examination, patient mildly tachycardic at 106 beats per minute, normotensive, afebrile, normal oxygen saturation. Patient is anxious appearing, often avoiding eye contact and rapidly moving throughout stretcher. Patient endorses suicidal ideation and auditory hallucinations. Plan: CIWA scale, Haldol 5 mg IM, Ativan 2 mg IV, labs, EKG, urine toxicology, ethanol level. 09/10/2022 09:00 patient with stable vitals awaiting for placement no active complaints at this time Differential Diagnosis Differential Diagnoses: The differential diagnosis associated with the presentation includes Alcohol withdrawal, schizoaffective disorder, suicidal ideation, depression, polysubstance abuse Admission/Observation Consideration of admission/observation: Escalation of care including admission/observation considered Lab Data [facility] Lab Attestation statement: I reviewed the patient's lab results. 09/09/22 07:12 09/09/22 07:12 Labs: Lab Results 09/09/22 09/09/22 09/09/22 Range/Units 07:12 07:12 16:46 WBC 7.0 (4.8-10.8) X10*3/uL RBC 5.11 (4.60-5.80) X10*6/uL Hgb 15.2 (14.0-18.0) g/dl Hct 46.0 (42.0-52.0) % MCV 90.0 (80.0-98.0) fL MCH 29.7 (27.0-33.0) pg MCHC 33.0 (31.0-36.0) g/dl RDW 14.8 (11.0-16.0) % Plt Count 274 (160-400) X10*3/uL MPV 10.0 (9.4-12.4) fL Immature Gran % (Auto) 0.9 H (0.0-0.4) % Neut % (Auto) 47.1 (45-73) % Lymph % (Auto) 40.6 H (20-40) % [place] % (Auto) 8.1 (2-11) % Eos % (Auto) 2.4 (0-4) % Baso % (Auto) 0.9 (0-2) % Lymph # (Auto) 2.9 (1.2-4.9) X10*3/uL [place] # (Auto) 0.6 (0.1-1.2) X10*3/uL Eos # (Auto) 0.2 (0.0-0.4) X10*3/uL Baso # (Auto) 0.1 (0.0-0.2) X10*3/uL Abs Immat Gran (auto) 0.06 H (0.00-0.03) X10*3/uL Absolute Neuts (auto) 3.3 (2.0-8.3) x10*3/uL Absolute Nucleated RBC 0.000 (0.0-0.012) X10*3/uL Nucleated RBC % (auto) 0.0 (0.0-0.2) /100WBC Sodium 145 (135-145) mmol/L Potassium 3.6 D (3.3-5.1) mmol/L Chloride 110 H (96-108) mmol/L Carbon Dioxide 22 (22-29) mmol/L Anion Gap 17 (12-20) BUN 9 (9-16) mg/dL Creatinine 0.85 (0.5-1.4) mg/dL Estim Creat Clear Calc 112.0 Estimated GFR > 60 Random Glucose 131 H (60-115) mg/dL Calcium 9.3 D (8.4-10.2) mg/dL Magnesium 2.0 (1.6-2.6) mg/dL Total Bilirubin 0.3 (0.0-1.0) mg/dL Direct Bilirubin 0.1 (0.0-0.5) mg/dL AST 18 (5-37) U/L ALT 28 (0-40) U/L Alkaline Phosphatase 60 (39-117) U/L Total Protein 7.2 (6.5-8.0) g/dL Albumin 4.5 (3.5-5.0) g/dL Urine Opiates Screen (Not Detect) Urine Fentanyl Screen (Not Detect) Ur Barbiturates Screen (Not Detect) Ur Phencyclidine Scrn (Not Detect) Ur Amphetamines Screen (Not Detect) U Benzodiazepines Scrn (Not Detect) Urine Cocaine Screen (Not Detect) U Marijuana (THC) Screen (Not Detect) Ethyl Alcohol 65 mg/dL COVID-19 (KACIE) Negative (Negative) COVID-19 Clin Com See Note 09/09/22 Range/Units 18:23 WBC (4.8-10.8) X10*3/uL RBC (4.60-5.80) X10*6/uL Hgb (14.0-18.0) g/dl Hct (42.0-52.0) % MCV (80.0-98.0) fL MCH (27.0-33.0) pg MCHC (31.0-36.0) g/dl RDW (11.0-16.0) % Plt Count (160-400) X10*3/uL MPV (9.4-12.4) fL Immature Gran % (Auto) (0.0-0.4) % Neut % (Auto) (45-73) % Lymph % (Auto) (20-40) % [place] % (Auto) (2-11) % Eos % (Auto) (0-4) % Baso % (Auto) (0-2) % Lymph # (Auto) (1.2-4.9) X10*3/uL [place] # (Auto) (0.1-1.2) X10*3/uL Eos # (Auto) (0.0-0.4) X10*3/uL Baso # (Auto) (0.0-0.2) X10*3/uL Abs Immat Gran (auto) (0.00-0.03) X10*3/uL Absolute Neuts (auto) (2.0-8.3) x10*3/uL Absolute Nucleated RBC (0.0-0.012) X10*3/uL Nucleated RBC % (auto) (0.0-0.2) /100WBC Sodium (135-145) mmol/L Potassium (3.3-5.1) mmol/L Chloride (96-108) mmol/L Carbon Dioxide (22-29) mmol/L Anion Gap (12-20) BUN (9-16) mg/dL Creatinine (0.5-1.4) mg/dL Estim Creat Clear Calc Estimated GFR Random Glucose (60-115) mg/dL Calcium (8.4-10.2) mg/dL Magnesium (1.6-2.6) mg/dL Total Bilirubin (0.0-1.0) mg/dL Direct Bilirubin (0.0-0.5) mg/dL AST (5-37) U/L ALT (0-40) U/L Alkaline Phosphatase (39-117) U/L Total Protein (6.5-8.0) g/dL Albumin (3.5-5.0) g/dL Urine Opiates Screen Not Detected (Not Detect) Urine Fentanyl Screen POSITIVE H (Not Detect) Ur Barbiturates Screen POSITIVE H (Not Detect) Ur Phencyclidine Scrn Not Detected (Not Detect) Ur Amphetamines Screen Not Detected (Not Detect) U Benzodiazepines Scrn Not Detected (Not Detect) Urine Cocaine Screen POSITIVE H (Not Detect) U Marijuana (THC) Screen Not Detected (Not Detect) Ethyl Alcohol mg/dL COVID-19 (KACIE) (Negative) COVID-19 Clin Com Independent Interpretation I performed an independent interpretation of an: EKG Discharge Plan Discharge Clinical Impression: Cocaine use disorder, moderate, dependence, Acute psychosis, Alcohol abuse Patient Disposition: Still a Patient Prescriptions: No Action haloperidol 5 mg tablet 10 mg PO BID sertraline 100 mg tablet 1 tab PO DAILY benztropine 1 mg tablet 1 tab PO BID nicotine (polacrilex) 2 mg gum 2 mg PO Q2H PRN (Reason: Smoking Cessation) hydroxyzine HCl 50 mg Tablet 50 mg PO BID PRN (Reason: Anxiety) melatonin 3 mg Tablet 3 mg PO BEDTIME quetiapine 100 mg tablet 100 mg PO BID PRN (Reason: anxiety) trazodone 100 mg Tablet 100 mg PO BEDTIME PRN (Reason: Insomnia) Qty: 30 0RF Interventions: [place]-Suicide Risk Severity Scale Last Done: 09/10/22 03:58
[2022-09-09 07:15] LABS: MANUAL DIFF FLAG NO
[2022-09-09] MEDS: 0.9 % Sodium Chloride 1,000 ML 999 ML IVCONT (07:15)
[2022-09-09 07:17] LABS: Basophils Absolute Auto 0.1 X10*3/uL (0.0-0.2); Basophils Percent Auto 0.9 % (0-2); Eosinophils Absolute Auto 0.2 X10*3/uL (0.0-0.4); Eosinophils Percent Auto 2.4 % (0-4); Hemoglobin 15.2 g/dl (14.0-18.0); Imm Gran Abs Auto 0.06 X10*3/uL (0.00-0.03); Imm Gran Pct Auto 0.9 % (0.0-0.4); Lymphocytes Absolute Auto 2.9 X10*3/uL (1.2-4.9); Lymphocytes Percent Auto 40.6 % (20-40); Mean Corpuscular Hemoglobin 29.7 pg (27.0-33.0); Monocytes Absolute Auto 0.6 X10*3/uL (0.1-1.2); Monocytes Percent Auto 8.1 % (2-11); Neutrophils Absolute Auto 3.3 x10*3/uL (2.0-8.3); Neutrophils Percent Auto 47.1 % (45-73); Platelet Count 274 X10*3/uL (160-400); Red Blood Count 5.11 X10*6/uL (4.60-5.80); Red Cell Distribution Width 14.8 % (11.0-16.0)
[2022-09-09] MEDS: LORazepam 2 MG/ML VIAL IVPUSH (07:17)
--- NOTE | 2022-09-09 07:24 | PC.NURSE ---
assumed care of this pt at 0700. pt a&o x4, calm, and cooperative. pt is visably fidgety and reports withdrawing from alcohol, saying he normally drinks 2 pints a day and last drink was yesterday. KAVEH Granados aware. IV line places, labs drawn and CIWA recorded. pt medicated per jun. currently resting quietly on stretcher in no apparent distress. vss. wctm
[2022-09-09 07:31] LABS: Alanine Aminotransferase 28 U/L (0-40); Albumin Level 4.5 g/dL (3.5-5.0); Alkaline Phosphatase 60 U/L (39-117); Anion Gap 17 (12-20); Aspartate Amino Transferase 18 U/L (5-37); Bilirubin Direct 0.1 mg/dL (0.0-0.5); Bilirubin Total 0.3 mg/dL (0.0-1.0); Blood Urea Nitrogen 9 mg/dL (9-16); Calcium 9.3 mg/dL (8.4-10.2); Carbon Dioxide 22 mmol/L (22-29); Chloride 110 mmol/L (96-108); Estimated Glomerular Filt Rate > 60; Ethanol 65 mg/dL; Glucose Random 131 mg/dL (60-115); Potassium 3.6 mmol/L (3.3-5.1); Sodium 145 mmol/L (135-145); Total Protein 7.2 g/dL (6.5-8.0)
[2022-09-09 09:34] VITALS: BP 102/58; PULSE 85; RESP 18; TEMP 36.8; O2SAT 95
--- NOTE | 2022-09-09 10:56 | PHA.MEDREC ---
MED REC COMPLETED OFF OF PHARMACY CLAIM HISTORY Pharmacy Consult ? Medication Reconciliation Pharmacy has completed the medication reconciliation.
[2022-09-09] MEDS: LORazepam 1 MG TABLET 2 MG PO (11:34)
[2022-09-09] MEDS: LORazepam 1 MG TABLET PO ×2 (13:09→16:41)
--- NOTE | 2022-09-09 16:51 | PC.NURSE ---
Pt continue on Ativan taper. Sleeping this shift. No signs of distress. C/O hearing AH whispers.
[2022-09-09 17:16] LABS: COVID-19 Test Negative (Negative); IDNOW Serial# 08D9AD1C
--- NOTE | 2022-09-09 18:08 | PC.NURSE ---
Pt woke for BR. Got some juice. Back to bed.
[2022-09-09 18:15] VITALS: BP 112/53; PULSE 59; RESP 16; TEMP 36.9; O2SAT 98
[2022-09-09 18:39] LABS: Amphetamine Screen Urine Not Detected (Not Detect); Barbiturates, Urine POSITIVE (Not Detect); Benzodiazepines Screen Urine Not Detected (Not Detect); Cannabinoid Screen Urine Not Detected (Not Detect); Cocaine Screen Urine POSITIVE (Not Detect); Fentanyl, urine POSITIVE (Not Detect); Opiate Screen Urine Not Detected (Not Detect); Phencyclidine Screen Urine Not Detected (Not Detect)
--- NOTE | 2022-09-10 04:01 | PC.NURSE ---
Patient slept through the night, no distress observed/reported, no behavior concerns, med rec completed/pending provider's approval, asymptomatic of withdrawal, disposition per care team is voluntary inpatient bed search, VSS, will continue to monitor.
[2022-09-10 07:36] VITALS: BP 104/65; PULSE 60; RESP 15; TEMP 36.4; O2SAT 97
[2022-09-10] MEDS: LORazepam 1 MG TABLET PO ×3 (08:03→18:53)
--- NOTE | 2022-09-10 08:09 | ECG_ITS ---
Test Reason : cocaine use Blood Pressure : / mmHG Vent. Rate : 071 BPM Atrial Rate : 071 BPM P-R Int : 134 ms QRS Dur : 088 ms QT Int : 388 ms P-R-T Axes : 069 046 030 degrees QTc Int : 421 ms Normal sinus rhythm Normal ECG When compared with ECG of 19-AUG-2022 19:23, No significant change was found Referred By: Generic ED Physician Electronically Signed By:Rei Campos
--- NOTE | 2022-09-10 10:53 | MHC.EDTECH ---
T/w approached pt while awake to obtain EKG that was ordered for admission to inpatient unit. Pt declined at this time stated, I don't think I need it.
--- NOTE | 2022-09-10 11:09 | MHC.EDTECH ---
Care team t/w told pt that EKG is needed for admission and pt allow this tech to complete EKG order.
[2022-09-10 16:06] VITALS: BP 123/69; PULSE 73; RESP 20; TEMP 36.1; O2SAT 98
[2022-09-10 17:51] VITALS: BP 121/85; PULSE 85; RESP 18; TEMP 36.4; O2SAT 98
--- NOTE | 2022-09-10 18:01 | PC.NURSE ---
Nursing admission note: 32 year old male DX: Schizoaffective disorder, unspecified. Alcohol dependence, uncomplicated. Cocaine dependence, uncomplicated. Referred for admission by CARE team. Patient signed conditional voluntary for admission, followed by three day note. Patient presented to [facility] ED via EMS [place] , upon arrival to ED patient endorsed +SI, and AH. Patient cooperative with admission process. A+O x4. Reports he does not feel like he needs to be here, at the time of his arrival to ED, he reported he was having withdrawal sx that mimicked psychiatric symptoms. Denies depression or sadness at this time. Denies SI/HI plan or intent. Denies perceptual disturbances, denies A/V hallucinations, no overt psychosis or expressed delusions. States he feels like I am taking a bed away from someone who really needs it . Thoughts clear, linear and organized. Patient restless during admission assessment, difficulty standing still. Observed to frequently scratch self stating it may be the hospital attire or the soap. Denies current withdrawal symptoms. Reports daily use of alcohol, 4 beers . Denies use of hard liquor (incongruent with crisis report). Reports recent use of cocaine, denies opiate use. TOX screen positive for Fentanyl, Barbituate and Cocaine. COVID negative. No acute medical problems. NKA. Skin check completed by RN SOSA and ancillary staff SH. Patient oriented to unit. Placed on CIWA q 4 hour. Placed on unit safety checks. See nursing assessment, crisis evaluation for further details.
[2022-09-10 20:10] VITALS: BP 130/79; PULSE 79; RESP 18; TEMP 36.2; O2SAT 97
[2022-09-10] MEDS: traZODone HCL 100 MG TABLET PO (20:57)
[2022-09-10] MEDS: Melatonin 3 MG TABLET PO (20:58)
[2022-09-11] MEDS: LORazepam 1 MG TABLET PO ×2 (00:01→05:57)
--- NOTE | 2022-09-11 09:29 | P.HPPS_ITS ---
HPI Date of Service: 09/11/22 Chief Complaint: Psychosis Sources of Information: patient interviewed, chart reviewed and crisis/core team assessment reviewed HPI Subjective Notes: [place] Warning (given and shows understanding) and Conditional Voluntary Narrative: Mr. Anguiano is a 32 year-old male with hx of cocaine, alcohol use disorder and psychotic disorder independent of substance use. He was brought via EMS after he called 911 reporting was near. Pt presented as paranoid, reported hearing voices and having suicidal ideation. In the ED, his utox was positive for cocaine, barbiturates, fentanyl. BAL 65. On the unit, pt presents as calm and cooperative. He reports he was hearing voices and did not know what was real or not. He does not present as internally preoccupied and denies visual and auditory hallucinations. He denies suicidal or homicidal ideation. He reports he has his own apartment for the past 3 months. He reports using cocaine and alcohol almost daily. He reports using about 4 tall beers daily. He minimizes extend of substance use Past Psychiatric History: Inpatient: 2020 OP: [facility] Medical Evaluation Reviewed: Yes [facility] Medical History (Updated 09/11/22 @ 14:33 by Tete Mcdonald) Alcohol abuse Alcohol dependence Alcohol intoxication Delusional disorder Generalized anxiety disorder History of alcohol abuse Mixed dyslipidemia Schizo-affective schizophrenia Schizoaffective disorder Surgical History History of removal of neck cyst History of root canal procedure Diagnostics Vital Signs (24Hr): Vital Signs - 24 hr 09/10/22 16:06 09/10/22 17:51 09/10/22 20:10 Temperature 97 F 97.6 F 97.2 F Pulse Rate 73 85 79 Respiratory Rate 20 18 18 Blood Pressure 123/69 121/85 130/79 Pulse Oximetry 98 98 97 Oxygen Delivery Method Room Air Room Air Room Air BMI result Body Mass Index 22.6 Labs 09/09/22 07:12 09/09/22 07:12 Labs: Laboratory Results - last 48 hr 09/09/22 09/09/22 16:46 18:23 Urine Opiates Screen Not Detected Urine Fentanyl Screen POSITIVE H Ur Barbiturates Screen POSITIVE H Ur Phencyclidine Scrn Not Detected Ur Amphetamines Screen Not Detected U Benzodiazepines Scrn Not Detected Urine Cocaine Screen POSITIVE H U Marijuana (THC) Screen Not Detected COVID-19 (KACIE) Negative COVID-19 Clin Com See Note Meds/Allergies Meds Home Medications Medication Instructions Recorded Confirmed Type benztropine 1 mg tablet 1 tab PO BID 06/09/22 09/09/22 History haloperidol 5 mg tablet 10 mg PO BID 06/09/22 09/09/22 History sertraline 100 mg tablet 1 tab PO DAILY 06/09/22 09/09/22 History quetiapine 100 mg tablet 100 mg PO BID PRN anxiety 08/19/22 09/09/22 History nicotine (polacrilex) 2 mg gum 2 mg PO Q2H PRN Smoking Cessation 09/06/22 09/09/22 History hydroxyzine HCl 50 mg tablet 50 mg PO BID PRN Anxiety 09/09/22 09/09/22 History melatonin 3 mg tablet 3 mg PO BEDTIME 09/09/22 09/09/22 History Allergies Allergies Allergy/AdvReac Type Severity Reaction Status Date / Time No Known Allergies Allergy Verified 01/27/21 08:24 [No Known Allergies*] Mental Status Exam Mental Status Exam Narrative: Appearance: wearing hospital gown, fair hygiene, in NAD Behavior: no agitation or retardation noted Speech: clear, normal rate/rhythm, volume, spontaneous TP: linear TC: no overt delusions, no SI/HI Mood: good Affect: congruent SI: none HI: none AH:denies VH: none Delusions: no overt delusions noted or reported. Insight/judgment: fair x 2. memory/cog: alert, oriented x 3. grossly intact to conversational testing. Assessment & Plan Assessment & Plan (1) Schizoaffective disorder: Status: Acute Code(s): F25.9 - Schizoaffective disorder, unspecified (2) Cocaine use disorder, moderate, dependence: Status: Acute Code(s): F14.20 - Cocaine dependence, uncomplicated (3) Alcohol use disorder, moderate, dependence: Status: Acute Code(s): F10.20 - Alcohol dependence, uncomplicated Plan Mr. Anguiano is a 32 year-old male with hx of alcohol and cocaine use disorder. Pt has hx of psychosis independent of substance use, although combination of both has probably blurry his overall presentation and diagnosis. He called 911 reporting was near, reporting AH/VH and suicidal ideation. Utox positive for cocaine, fentanyl, barbiturates. Pt currently does not present as internally preoccupied and no overt delusional content noted or reported. We discussed risks, benefits and alternative treatment options. PLAN 1. Admit to M3, CV 15 minutes checks for safety 2. restart haldol 10mg po BID, which he has been on for several years. 3. aftercare planning. Patient educated on: diagnosis, medication risk/benefits and substance abuse Reason for continued inpatient stay Substantial Risk for: inability to function Statement Statement: I have reviewed the history and physical and performed a pertinent examination on my patient. No changes have occurred unless specified. If the History and Physical was not performed prior to admission, the Hospitalist's service will be consulted for completing the admission physical. Time Spent With Patient Time: Total time managing care of this patient today ____ minutes.
[2022-09-11 09:33] VITALS: BP 124/75; PULSE 88; RESP 18; TEMP 36.2; O2SAT 98
[2022-09-11] MEDS: Sertraline HCL 100 MG TABLET PO (09:42)
[2022-09-11] MEDS: HaloperidoL 5 MG TABLET 10 MG PO ×2 (10:50→20:16)
[2022-09-11] MEDS: hydrOXYzine HCL 50 MG TABLET PO (13:42)
[2022-09-11 18:00] VITALS: BP 114/68; PULSE 92; RESP 18; TEMP 36.3; O2SAT 98
[2022-09-11] MEDS: Melatonin 3 MG TABLET PO (20:15)
[2022-09-11] MEDS: traZODone HCL 100 MG TABLET 300 MG PO (20:16)
[2022-09-12 08:29] VITALS: BP 103/56; PULSE 60; RESP 18; TEMP 36.7; O2SAT 97
[2022-09-12] MEDS: Sertraline HCL 100 MG TABLET PO (08:31)
[2022-09-12] MEDS: HaloperidoL 5 MG TABLET 10 MG PO ×2 (08:31→20:12)
--- NOTE | 2022-09-12 11:17 | PM.PSYDC ---
DS: Providers Provider Date of Service: 09/12/22 Date of admission: 09/10/22 16:19 Primary care physician: Hakan Rainey MD DS: Diagnosis Discharge Diagnosis (1) Schizoaffective disorder: Status: Acute (2) Cocaine use disorder, moderate, dependence: Status: Acute (3) Alcohol use disorder, moderate, dependence: Status: Acute DS: Medications Discharge Medications Home Medications: Home Medications Medication Instructions Recorded Confirmed benztropine 1 mg tablet 1 tab PO BID 06/09/22 09/09/22 haloperidol 5 mg tablet 10 mg PO BID 06/09/22 09/09/22 sertraline 100 mg tablet 1 tab PO DAILY 06/09/22 09/09/22 quetiapine 100 mg tablet 100 mg PO BID PRN anxiety 08/19/22 09/09/22 nicotine (polacrilex) 2 mg gum 2 mg PO Q2H PRN Smoking Cessation 09/06/22 09/09/22 hydroxyzine HCl 50 mg tablet 50 mg PO BID PRN Anxiety 09/09/22 09/09/22 melatonin 3 mg tablet 3 mg PO BEDTIME 09/09/22 09/09/22 Previous Rx's Medication Instructions Recorded trazodone 100 mg tablet 300 mg PO BEDTIME PRN Insomnia #30 09/12/22 tabs Mental Status Exam Mental Status Exam Narrative: Appearance: wearing hospital gown, fair hygiene, in NAD Behavior: no agitation or retardation noted Speech: clear, normal rate/rhythm, volume, spontaneous TP: linear TC: no overt delusions, no SI/HI Mood: a little sleepy Affect: full range, normo-intense, non-labile SI: none HI: none AH:denies VH: none Delusions: no overt delusions noted or reported. Insight/judgment: fair x 2. memory/cog: alert, oriented x 3. grossly intact to conversational testing. Data Data Completed and Pending Completed studies during hospitalization [Text1]: 09/09/22 09/09/22 09/09/22 07:12 07:12 16:46 WBC 7.0 RBC 5.11 Hgb 15.2 Hct 46.0 MCV 90.0 MCH 29.7 MCHC 33.0 RDW 14.8 Plt Count 274 MPV 10.0 Immature Gran % (Auto) 0.9 H Neut % (Auto) 47.1 Lymph % (Auto) 40.6 H Amador % (Auto) 8.1 Eos % (Auto) 2.4 Baso % (Auto) 0.9 Lymph # (Auto) 2.9 Amador # (Auto) 0.6 Eos # (Auto) 0.2 Baso # (Auto) 0.1 Abs Immat Gran (auto) 0.06 H Absolute Neuts (auto) 3.3 Absolute Nucleated RBC 0.000 Nucleated RBC % (auto) 0.0 Sodium 145 Potassium 3.6 D Chloride 110 H Carbon Dioxide 22 Anion Gap 17 BUN 9 Creatinine 0.85 Estim Creat Clear Calc 112.0 Estimated GFR > 60 Random Glucose 131 H Calcium 9.3 D Magnesium 2.0 Total Bilirubin 0.3 Direct Bilirubin 0.1 AST 18 ALT 28 Alkaline Phosphatase 60 Total Protein 7.2 Albumin 4.5 Urine Opiates Screen Urine Fentanyl Screen Ur Barbiturates Screen Ur Phencyclidine Scrn Ur Amphetamines Screen U Benzodiazepines Scrn Urine Cocaine Screen U Marijuana (THC) Screen Ethyl Alcohol 65 COVID-19 ([facility]) Negative COVID-19 Clin Com See Note 09/09/22 18:23 WBC RBC Hgb Hct MCV MCH MCHC RDW Plt Count MPV Immature Gran % (Auto) Neut % (Auto) Lymph % (Auto) Amador % (Auto) Eos % (Auto) Baso % (Auto) Lymph # (Auto) Amador # (Auto) Eos # (Auto) Baso # (Auto) Abs Immat Gran (auto) Absolute Neuts (auto) Absolute Nucleated RBC Nucleated RBC % (auto) Sodium Potassium Chloride Carbon Dioxide Anion Gap BUN Creatinine Estim Creat Clear Calc Estimated GFR Random Glucose Calcium Magnesium Total Bilirubin Direct Bilirubin AST ALT Alkaline Phosphatase Total Protein Albumin Urine Opiates Screen Not Detected Urine Fentanyl Screen POSITIVE H Ur Barbiturates Screen POSITIVE H Ur Phencyclidine Scrn Not Detected Ur Amphetamines Screen Not Detected U Benzodiazepines Scrn Not Detected Urine Cocaine Screen POSITIVE H U Marijuana (THC) Screen Not Detected Ethyl Alcohol COVID-19 ([facility]) COVID-19 Clin Com DS: Summary Hospital Course Hospital Course: per 09/11 admission note: Mr. Anguiano is a 32 year-old male with hx of cocaine, alcohol use disorder and psychotic disorder independent of substance use. He was brought via EMS after he called 911 reporting was near. Pt presented as paranoid, reported hearing voices and having suicidal ideation. In the ED, his utox was positive for cocaine, barbiturates, fentanyl. BAL 65. On the unit, pt presents as calm and cooperative. He reports he was hearing voices and did not know what was real or not. He does not present as internally preoccupied and denies visual and auditory hallucinations. He denies suicidal or homicidal ideation. He reports he has his own apartment for the past 3 months. He reports using cocaine and alcohol almost daily. He reports using about 4 tall beers daily. He minimizes extend of substance use Past Psychiatric History: Inpatient: M5 2020 ? OP: [facility] Medical Evaluation Reviewed: Yes [facility] Medical History?(Updated 09/11/22 @ 14:33 by Tete Mcdonald) Alcohol abuse Alcohol dependence Alcohol intoxication Delusional disorder Generalized anxiety disorder History of alcohol abuse Mixed dyslipidemia Schizo-affective schizophrenia Schizoaffective disorder Surgical History? History of removal of neck cyst History of root canal procedure On September 12, his second day on the inpatient unit, pt presented as much improved from admission with consistent medications administration. he was discharged the following day, September 13, per his 3-day notice maturation and not presenting as committable. Time Spent with Patient Time attestation: Total time managing care of this patient today ____ minutes. Time spent: Less than 30 minutes Discharge Plan Discharge Anticipated Discharge Date/Time: 09/13/22 10:00 Patient Disposition: Home, Self-Care Discharge Diagnosis: Schizoaffective Disorder Alcohol Use Disorder Cocaine Use Disorder Referrals: Hakan Rainey MD [Primary Care Provider] - 1 Week (Primary care office to call with follow up appointment. No current availability. ) Discharge Medications: Discontinued trazodone 100 mg Tablet 100 mg PO BEDTIME PRN (Reason: Insomnia) Qty: 30 0RF No Action melatonin 3 tab PO BEDTIME Rx Instructions: last filled 09/16/22 quetiapine 100 mg tablet 100 mg PO BID Qty: 60 0RF Rx Instructions: last filled last filled 09/16/22 waiting to be picked up 11/03/22 trazodone 100 mg tablet 200 mg PO BEDTIME Qty: 30 0RF Rx Instructions: last filled 11/04/22 haloperidol 10 mg tablet 10 mg PO BID benztropine 1 mg tablet 1 mg PO BID Rx Instructions: last filled 10/29/22 per [facility] Jalil ROSAS sertraline 50 mg tablet 50 mg PO QD-TID Rx Instructions: last filled 11/04/22 prazosin 2 mg capsule 2 mg PO BEDTIME Rx Instructions: this script was not filled at [facility] Discharge Orders: Discharge Order (Routine); Ordered 09/13/22 Ordered By: Mike Moreno Diet: Advance to usual diet Activity on Discharge: As tolerated Stand Alone Forms: Patient Portal Discharge page, Community Support Care Plan Goals: remain safe and sober in the outpatient treatment setting Health Concerns: none Plan of Treatment: take medications as prescribed, attend appointments as scheduled Assessment: not at imminent risk of harm to self or others Discharge Date/Time: 09/13/22 11:20
[2022-09-12 20:10] VITALS: BP 127/73; PULSE 88; RESP 16; TEMP 36.2; O2SAT 97
[2022-09-12] MEDS: Melatonin 3 MG TABLET PO (20:12)
[2022-09-12] MEDS: traZODone HCL 100 MG TABLET 300 MG PO (20:13)
[2022-09-13 09:01] VITALS: BP 106/61; PULSE 61; RESP 18; TEMP 36.4; O2SAT 57
[2022-09-13] MEDS: HaloperidoL 5 MG TABLET 10 MG PO (09:03)
[2022-09-13] MEDS: Sertraline HCL 100 MG TABLET PO (09:03)
--- NOTE | 2022-09-13 12:09 | PC.NURSE ---
Patient easily engaged. Reports mood is stable. Denies depression or sadness, denies feeling anxious, denies SI/HI plan or intent. Denies perceptual disturbances, no overt psychosis or expressed delusions. Denies A/V hallucinations. Planning to return home. 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 Denies cravings or urges to use at this time. Discharge paperwork reviewed with patient, reports understanding. Medications reviewed, reports understanding. States he has medications at home. [facility] to assist patient with follow up appointments. PCP to call patient with follow up appointment, no current openings. Crisis numbers provided to patient.
== END 2022-09-13 11:20 | disposition home or self-care (01) | DRG 885 ==
LOC: HO.ED 09-10 09:09 → HO.PADLT16 09-10 16:28
PROVIDERS: Physician Assistant Medical; Admitting Provider Clinical Nurse Specialist Psychiatric/Mental Health; Emergency Provider Emergency Medicine; PCP Internal Medicine; Visit Provider Psychiatry & Neurology Psychiatry
DX: F25.9 Schizoaffective disorder, unspecified (principal); R45.851 Suicidal ideations; F14.20 Cocaine dependence, uncomplicated; E78.2 Mixed hyperlipidemia; F10.20 Alcohol dependence, uncomplicated; F41.1 Generalized anxiety disorder; F17.210 Nicotine dependence, cigarettes, uncomplicated; Z71.6 Tobacco abuse counseling; Z20.822 Contact with and (suspected) exposure to COVID-19; Y90.3 Blood alcohol level of 60-79 mg/100 ml; Z79.899 Other long term (current) drug therapy
CPT/HCPCS: 36415; 80048; 80076; 80307; 83735; 85025; 87635; 93005; 99285; J2060; S9485

== ENCOUNTER → 2022-09-10 16:19 | Outpatient (BNV) | payer OTHER, SELFPAY | PROVIDERS: Admitting Provider Clinical Nurse Specialist Psychiatric/Mental Health; Emergency Provider Emergency Medicine; PCP Internal Medicine; Visit Provider Social Worker | DX: F25.8 Other schizoaffective disorders (principal); F14.20 Cocaine dependence, uncomplicated; F10.20 Alcohol dependence, uncomplicated | CPT/HCPCS: 90792; 99231; 99238 ==

== ENCOUNTER 2022-09-15 02:28 | Emergency (ER) | payer MEDICARE, OTHER, SELFPAY ==
[2022-09-15 02:34] VITALS: BP 124/77; PULSE 97; RESP 18; TEMP 36.7; O2SAT 100; BMI 27.4
--- NOTE | 2022-09-15 02:50 | MHC.EDTECH ---
vitals done upon arrival, change management consultant complete and labs obtained. belongings placed in locker #2. awaiting urine sample.
--- NOTE | 2022-09-15 02:59 | ED_ITS ---
HPI - Psych General Chief Complaint: Psychiatric Symptoms Stated Complaint: si Time Seen by Provider: 09/15/22 02:46 Source: patient Mode of arrival: EMS Limitations: no limitations History of Present Illness HPI Narrative: Patient comes to the emergency room complaining of suicidal ideation. Patient is homeless. Patient states that he ?can not leave like this anymore? denies HI. Related Data Home Medications Medication Instructions Recorded Confirmed sertraline 100 mg tablet 1 tab PO DAILY 06/09/22 09/15/22 quetiapine 100 mg tablet 100 mg PO BID PRN anxiety 08/19/22 09/15/22 nicotine (polacrilex) 2 mg gum 2 mg PO Q2H PRN Smoking Cessation 09/06/22 09/15/22 hydroxyzine HCl 50 mg tablet 50 mg PO BID PRN Anxiety 09/09/22 09/15/22 melatonin 3 mg tablet 3 mg PO BEDTIME 09/09/22 09/15/22 benztropine 1 mg tablet 1 mg PO BID 09/15/22 09/15/22 haloperidol 10 mg tablet 10 mg PO BID 09/15/22 09/15/22 trazodone 100 mg tablet 200 mg PO BEDTIME PRN Insomnia 09/15/22 09/15/22 Allergies Allergy/AdvReac Type Severity Reaction Status Date / Time No Known Allergies Allergy Verified 01/27/21 08:24 [No Known Allergies*] Review of Systems Review of Systems: Constitutional : No Weight loss, No Fever, No Chills, No Night Sweats, No Fatigue, No Malaise ENT/Mouth : No Hearing loss, No Ear Pain, No Nasal Congestion, No Sinus Pain, No Hoarseness, No sore throat, No Rhinorrhea, No Swallowing Difficulty Eyes: No Eye Pain, No Swelling, No Redness, No Foreign Body, No Discharge, No Vision Changes Cardiovascular : No Chest Pain, No SOB, No Dyspnea on Exertion, No Orthopnea, No Edema, No Palpitations Respiratory : No Cough, No Sputum, No Wheezing, No Smoke Exposure, No Dyspnea Gastrointestinal : No Nausea, No Vomiting, No Diarrhea, No Constipation, No abdominal Pain, No Hematochezia, No Melena Genitourinary : no irregular bleeding, No Dysuria, No Urinary Frequency, No Hematuria, No Urinary Incontinence, No Urgency, No Flank Pain, No Urinary Flow Changes, No Hesitancy Musculoskeletal : No joint pain, No Myalgias, No Joint Swelling Skin : No Skin Lesions, No rash Neuro : No Weakness, No Numbness, No Paresthesias, No Loss of Consciousness, No Dizziness, No Headache Psych : No Anxiety/Panic, complaining of depression, vague SI, no HI Heme/Lymph: No Bruising, No Bleeding,No Lymphadenopathy Endocrine : No Polyuria, No Polydipsia, No Temperature Intolerance [facility] Past Medical History Medical History Alcohol abuse Alcohol dependence Alcohol intoxication Delusional disorder Generalized anxiety disorder History of alcohol abuse Mixed dyslipidemia Schizo-affective schizophrenia Schizoaffective disorder Surgical History History of removal of neck cyst History of root canal procedure Family History Family History Father Depression FH: mental illness Mother Depression FH: mental illness Maternal Grandfather No problems noted. Maternal Grandmother No problems noted. Brother No problems noted. Sister No problems noted. 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 Housing: House Do you presently have visiting nurse or other home services: No Alcohol intake: current Alcohol intake frequency: does not drink Alcohol type: beer Patient Tobacco Use Status: Current someday Tobacco user Tobacco use type: Cigarette Cigarettes Per Day: 5 Years Smoked: 3 e-Cigarette/Vaping Use: Former Use Second Hand Smoke Exposure: No Substance Use Type: Crack/Cocaine and Caffiene service: No Current occupational status: unemployed Sexual orientation: Straight/Heterosexual Physical Exam Vital Signs: Vital Signs: Last Vital Signs Temp 98.1 F 09/15/22 02:34 Pulse 97 09/15/22 02:34 Resp 18 09/15/22 02:34 BP 124/77 09/15/22 02:34 Pulse Ox 100 09/15/22 02:34 O2 Del Method Room Air 09/15/22 02:34 BMI result Body Mass Index 27.4 Const: Other: Appearance: Alert. Oriented X3. No acute distress. Eyes: Pupils equal, round and reactive to light. ENT: Pharynx normal. Neck: Normal inspection. Neck supple. No lymph nodes noted. No crepitus CVS: Normal heart rate and rhythm. Pulses normal. Normal S1 and S2 Respiratory: No respiratory distress. Breath sounds normal. No Wheezing. No rales Abdomen: Soft and nontender. No rigidity. No distention. Skin: Skin warm and dry. Normal skin color. Normal skin turgor. Extremities: No lower extremity edema. No Lacerations. No Rash Neuro: Oriented X 3. No motor deficit. No sensory deficit. Moving all extremities. No slurred speech. CN 2 through 12 grossly intact Psych: calm, cooperative, normal affect Course Course Course Narrative: -patient's labs pending -care team consult pending -physician observation started at 03:00 Discharge Plan Discharge Clinical Impression: Suicidal ideation Patient Disposition: Still a Patient Prescriptions: No Action sertraline 100 mg tablet 1 tab PO DAILY nicotine (polacrilex) 2 mg gum 2 mg PO Q2H PRN (Reason: Smoking Cessation) hydroxyzine HCl 50 mg Tablet 50 mg PO BID PRN (Reason: Anxiety) melatonin 3 mg Tablet 3 mg PO BEDTIME quetiapine 100 mg tablet 100 mg PO BID PRN (Reason: anxiety) trazodone 100 mg tablet 200 mg PO BEDTIME PRN (Reason: Insomnia) haloperidol 10 mg tablet 10 mg PO BID benztropine 1 mg tablet 1 mg PO BID
[2022-09-15 03:09] LABS: COVID-19 Test Negative (Negative); IDNOW Serial# 6674DD1D
[2022-09-15 03:14] LABS: Ethanol < 10 mg/dL
--- NOTE | 2022-09-15 06:08 | PC.NURSE ---
Patient slept through the night, no distress observed/reported, med rec completed/pending provider's approval, behavior non concerning, pending VALENZUELA, no safety concerns at this time, care team consult ordered for SI, pending evaluation in the morning, VSS, will continue to monitor.
[2022-09-15 10:24] LABS: MANUAL DIFF FLAG NO
[2022-09-15 10:31] LABS: Basophils Absolute Auto 0.1 X10*3/uL (0.0-0.2); Basophils Percent Auto 0.6 % (0-2); Eosinophils Absolute Auto 0.2 X10*3/uL (0.0-0.4); Eosinophils Percent Auto 1.9 % (0-4); Hematocrit 44.4 % (42.0-52.0); Hemoglobin 14.8 g/dl (14.0-18.0); Imm Gran Abs Auto 0.06 X10*3/uL (0.00-0.03); Imm Gran Pct Auto 0.5 % (0.0-0.4); Lymphocytes Absolute Auto 2.3 X10*3/uL (1.2-4.9); Mean Corpuscular HGB Conc 33.3 g/dl (31.0-36.0); Mean Corpuscular Hemoglobin 30.5 pg (27.0-33.0); Mean Corpuscular Volume 91.5 fL (80.0-98.0); Mean Platelet Volume 10.9 fL (9.4-12.4); Monocytes Absolute Auto 1.1 X10*3/uL (0.1-1.2); Monocytes Percent Auto 9.4 % (2-11); Neutrophils Absolute Auto 7.7 x10*3/uL (2.0-8.3); Neutrophils Percent Auto 67.6 % (45-73); Platelet Count 286 X10*3/uL (160-400); Red Blood Count 4.85 X10*6/uL (4.60-5.80); Red Cell Distribution Width 14.4 % (11.0-16.0); White Blood Count 11.4 X10*3/uL (4.8-10.8)
[2022-09-15 10:44] LABS: Alanine Aminotransferase 26 U/L (0-40); Albumin Level 4.5 g/dL (3.5-5.0); Alkaline Phosphatase 58 U/L (39-117); Anion Gap 13 (12-20); Aspartate Amino Transferase 23 U/L (5-37); Bilirubin Total 0.6 mg/dL (0.0-1.0); Blood Urea Nitrogen 14 mg/dL (9-16); Calcium 9.9 mg/dL (8.4-10.2); Carbon Dioxide 25 mmol/L (22-29); Chloride 105 mmol/L (96-108); Creatinine Clr Calc Pharmacy 131.5; Estimated Glomerular Filt Rate > 60; Glucose Random 92 mg/dL (60-115); Potassium 4.6 mmol/L (3.3-5.1); Sodium 138 mmol/L (135-145); Total Protein 6.9 g/dL (6.5-8.0)
[2022-09-15 10:52] LABS: Amphetamine Screen Urine Not Detected (Not Detect); Barbiturates, Urine POSITIVE (Not Detect); Benzodiazepines Screen Urine Not Detected (Not Detect); Cannabinoid Screen Urine Not Detected (Not Detect); Cocaine Screen Urine POSITIVE (Not Detect); Fentanyl, urine POSITIVE (Not Detect); Opiate Screen Urine Not Detected (Not Detect); Phencyclidine Screen Urine Not Detected (Not Detect)
[2022-09-15 20:22] VITALS: BP 114/73; PULSE 83; RESP 18; TEMP 36.3; O2SAT 98
[2022-09-15] MEDS: Sertraline HCL 100 MG TABLET PO (20:40)
[2022-09-15] MEDS: traZODone HCL 100 MG TABLET 200 MG PO (20:40)
[2022-09-15] MEDS: hydrOXYzine HCL 50 MG TABLET PO (20:41)
[2022-09-15] MEDS: Melatonin 3 MG TABLET PO (20:41)
[2022-09-15] MEDS: HaloperidoL 5 MG TABLET 10 MG PO (20:41)
[2022-09-15] MEDS: QUEtiapine Fumarate 100 MG TABLET PO (20:41)
[2022-09-15] MEDS: Benztropine Mesylate 1 MG TABLET PO (20:41)
--- NOTE | 2022-09-16 05:55 | PC.NURSE ---
Patient slept through the night, no distress observed/reported, non concerning behavior, medication complaint, disposition per care team is respite bed search, patient has been accepted to [facility] respite in [place] per care team, VSS, will continue to monitor.
[2022-09-16 06:14] VITALS: RESP 20
--- NOTE | 2022-09-16 06:15 | MHC.EDTECH ---
pt refused all VS. RN MADE AWARE.
[2022-09-16] MEDS: HaloperidoL 5 MG TABLET 10 MG PO (08:19)
[2022-09-16] MEDS: Benztropine Mesylate 1 MG TABLET PO (08:19)
[2022-09-16] MEDS: Sertraline HCL 100 MG TABLET PO (08:19)
--- NOTE | 2022-09-16 09:01 | MHC.CARE ---
CARE Team conducted [facility]S Bed Search and found placement at [facility] for today 09/16/22. ETA is [facility]. Pt is voluntary and willing to go. [address] [place] [address]. CARE Team is setting up transport via [employer]. Pod RN made aware.
[2022-09-16 09:20] VITALS: BP 102/64; PULSE 80; RESP 16; O2SAT 98
== END 2022-09-16 09:23 ==
PROVIDERS: Internal Medicine; Emergency Provider Emergency Medicine
DX: F33.1 Major depressive disorder, recurrent, moderate (principal); R45.851 Suicidal ideations; F17.210 Nicotine dependence, cigarettes, uncomplicated; Z20.822 Contact with and (suspected) exposure to COVID-19; Z20.828 Contact with and (suspected) exposure to other viral communicable diseases; Z59.00 Homelessness unspecified; Z79.899 Other long term (current) drug therapy; Z71.6 Tobacco abuse counseling
CPT/HCPCS: 36415; 80053; 80307; 85025; 87635; 99284; 99285; S9485

== ENCOUNTER 2022-10-14 09:30 | Emergency (ER) | payer MEDICARE, OTHER, SELFPAY ==
[2022-10-14 09:34] VITALS: BP 121/76; PULSE 84; RESP 16; TEMP 35.6; O2SAT 97; BMI 27.0
--- NOTE | 2022-10-14 13:17 | ED_ITS ---
HPI - Psych General Chief Complaint: Psychiatric Symptoms Stated Complaint: medication Time Seen by Provider: 10/14/22 09:58 Source: patient and RN notes reviewed Mode of arrival: ambulatory Limitations: no limitations History of Present Illness HPI Narrative: This is a 32-year-old male, with a past medical history of schizoaffective disorder, alcohol use, cocaine use, presenting to the emergency department with complaints of auditory hallucinations. Patient states that he has not been taking his medications for 2-3 weeks. He endorses suicidal ideations, without any plan. Patient complaining of generalized body aches. Last drink alcohol 1 week ago, typically drinks 1.5 pints of hard liquor a day. No fevers, chills, sore throat, chest pain, shortness breath, cough, abdominal pain, nausea, vomiting, or diarrhea. No other complaints or concerns at this time. MD complaint: suicidal ideation and feels depressed Onset (ago): day(s) Duration: constant History of same: Yes Relieving factors: medication Exacerbating factors: none Context: recent alcohol abuse Associated psychiatric symptoms: none Associated symptoms: denies other symptoms Treatments prior to arrival: none If self harm: admits thoughts of self harm Related Data Home Medications Medication Instructions Recorded Confirmed melatonin 3 mg tablet 3 mg PO BEDTIME 09/09/22 10/14/22 fluticasone propionate 50 1 spray intranasal DAILY 10/14/22 10/14/22 mcg/actuation nasal spray,suspension prazosin 2 mg capsule 2 mg PO BEDTIME 10/14/22 10/14/22 sertraline 50 mg tablet 150 mg PO DAILY 10/14/22 10/14/22 Previous Rx's Medication Instructions Recorded benztropine 1 mg tablet 1 mg PO BID #60 tabs 09/16/22 haloperidol 10 mg tablet 10 mg PO BID #60 tabs 09/16/22 hydroxyzine HCl 50 mg tablet 50 mg PO BID #60 tabs 09/16/22 quetiapine 100 mg tablet 100 mg PO BID #60 tabs 09/16/22 trazodone 100 mg tablet 200 mg PO BEDTIME #30 tabs 09/16/22 Allergies Allergy/AdvReac Type Severity Reaction Status Date / Time No Known Allergies Allergy Verified 01/27/21 08:24 [No Known Allergies*] Review of Systems Review of Systems: Constitutional: No Weight loss, No Fever, No Chills ENT/Mouth: No Ear Pain, No Nasal Congestion, No Sinus Pain, No Hoarseness, No sore throat, No Rhinorrhea, No Swallowing Difficulty Cardiovascular: No Chest Pain, No SOB Respiratory: No Cough, No Sputum, No Wheezing Gastrointestinal: No Nausea, No Vomiting, No Diarrhea, No Constipation, No Abdominal pain Genitourinary: No Dysuria, No Urinary Frequency, No Hematuria, No Urinary Incontinence/retention, No Urgency, No Flank Pain Musculoskeletal: No joint pain, No Myalgias, No Joint Swelling Skin: No Skin Lesions, No rash Neuro: No Weakness, No Numbness, No Paresthesias PMF Past Medical History Medical History Alcohol abuse Alcohol dependence Alcohol intoxication Delusional disorder Generalized anxiety disorder History of alcohol abuse Mixed dyslipidemia Schizo-affective schizophrenia Schizoaffective disorder Surgical History History of removal of neck cyst History of root canal procedure Family History Family History Father Depression FH: mental illness Mother Depression FH: mental illness Maternal Grandfather No problems noted. Maternal Grandmother No problems noted. Brother No problems noted. Sister No problems noted. 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 Housing: House Do you presently have visiting nurse or other home services: No Alcohol intake: never Patient Tobacco Use Status: Current someday Tobacco user Tobacco use type: Cigarette Cigarettes Per Day: 5 Years Smoked: 3 Smoked in Last 30 Days: Yes e-Cigarette/Vaping Use: Former Use Second Hand Smoke Exposure: No Use of substances other than those prescribed or required for medical reasons: Yes Substance Use Type: Crack/Cocaine Substance Use Frequency: Daily Last Used Substance: Days (ago) Advance Directives: No Advance Directives Information Provided: Yes Healthcare Proxy: No Guardian: No service: No Current occupational status: unemployed Sexual orientation: Straight/Heterosexual Physical Exam Vital Signs: Vital Signs: Last Vital Signs Temp 97.6 F 10/15/22 04:08 Pulse 83 10/15/22 04:08 Resp 17 10/15/22 04:08 BP 118/56 L 10/15/22 04:08 Pulse Ox 97 10/15/22 04:08 O2 Del Method Room Air 10/15/22 04:08 BMI result Body Mass Index 27.0 Const: Other: General: Awake, alert, and oriented X3. No acute distress. HEENT: Normal inspection CVS: Normal heart rate and rhythm. Pulses normal. S1-S2 regular Respiratory: No respiratory distress, lungs clear to auscultation bilaterally Abdomen: Soft, nontender, nondistended Skin: Warm, dry, no rashes noted to exposed skin. Normal skin color. Normal skin turgor. Extremities: Normal to inspection, no edema noted to bilateral lower extremities. Neuro: Oriented X 3. No motor deficit. No sensory deficit. Course Reevaluation(s) Reevaluation #1: Patient has refused blood work and urine, however every time I see patient he agrees to blood work. Advised mining technician to draw blood. Time: 15:08 Reevaluation #2: Patient's workup unremarkable, pending care team consult. Patient placed in physician observation. Time: 16:41 Reevaluation #3: Physician observation continue, VSS, no acute events overnight reported by the nurse, has been evaluated by N in patient is scheduled to go to respite voluntary. Time: 07:53 Additional Reevaluation(s): 17:16. Physician observation discontinued. Patient is going to respite now. Care team has arrange this. He is in agreement. Stable for discharge home. Medications Administered Generic Name Dose Route Start Last Admin Trade Name Kareemq PRN Reason Stop Dose Admin Benztropine Mesylate 1 mg 10/15/22 09:00 10/15/22 08:16 Benztropine Mesylate 1 Mg Tablet PO 1 mg BID ESTEVAN Administration Fluticasone Propionate 1 spray 10/15/22 09:00 10/15/22 08:17 Fluticasone Propionate Nasal 16 Gm [place] NOSTRIL-B Not Given DAILY ESTEVAN Haloperidol 10 mg 10/15/22 09:00 10/15/22 08:16 Haloperidol 5 Mg Tablet PO 10 mg BID ESTEVAN Administration Quetiapine Fumarate 100 mg 10/15/22 09:00 10/15/22 08:16 Quetiapine Fumarate 100 Mg Tablet PO 100 mg BID ESTEVAN Administration Sertraline HCl 150 mg 10/15/22 09:00 10/15/22 08:17 Sertraline Hcl 50 Mg Tablet PO 150 mg DAILY ESTEVAN Administration Trazodone HCl 200 mg 10/15/22 05:15 10/15/22 05:30 Trazodone Hcl 100 Mg Tablet PO 200 mg BEDTIME ESTEVAN Administration Medical Decision Making Medical Decision Making [facility] Narrative: 32-year-old male presenting to the emergency department for evaluation of auditory hallucinations. He has a history of schizoaffective disorder and has been admitted psychiatrically multiple times for these symptoms. He has not been taking his medications for the last 2-3 weeks. Patient endorses suicidal ideations, no plan. Patient reporting generalized body aches, otherwise is feeling well. Vital signs stable, patient is afebrile, and alert and oriented x3. Plan: Labs, viral swab, UA, and urine drug screen, alcohol level, consult the care team Differential Diagnosis Differential Diagnoses: The differential diagnosis associated with the presentation includes Schizoaffective disorder, suicidal ideation, homicidal ideation, depression, substance abuse, ETOH abuse, alcohol withdrawal Admission/Observation Consideration of admission/observation: Escalation of care including admission/observation considered Lab Data 10/14/22 15:21 10/14/22 15:21 Labs: Lab Results 10/14/22 10/14/22 10/14/22 Range/Units 15:21 15:21 17:59 WBC 8.8 (4.8-10.8) X10*3/uL RBC 4.98 (4.60-5.80) X10*6/uL Hgb 14.9 (14.0-18.0) g/dl Hct 44.6 (42.0-52.0) % MCV 89.6 (80.0-98.0) fL MCH 29.9 (27.0-33.0) pg MCHC 33.4 (31.0-36.0) g/dl RDW 13.2 (11.0-16.0) % Plt Count 265 (160-400) X10*3/uL MPV 10.7 (9.4-12.4) fL Immature Gran % (Auto) 0.5 H (0.0-0.4) % Neut % (Auto) 54.1 (45-73) % Lymph % (Auto) 30.7 (20-40) % [place] % (Auto) 9.6 (2-11) % Eos % (Auto) 4.6 H (0-4) % Baso % (Auto) 0.5 (0-2) % Lymph # (Auto) 2.7 (1.2-4.9) X10*3/uL [place] # (Auto) 0.8 (0.1-1.2) X10*3/uL Eos # (Auto) 0.4 (0.0-0.4) X10*3/uL Baso # (Auto) 0.0 (0.0-0.2) X10*3/uL Abs Immat Gran (auto) 0.04 H (0.00-0.03) X10*3/uL Absolute Neuts (auto) 4.7 (2.0-8.3) x10*3/uL Absolute Nucleated RBC 0.000 (0.0-0.012) X10*3/uL Nucleated RBC % (auto) 0.0 (0.0-0.2) /100WBC Sodium 139 (135-145) mmol/L Potassium 3.7 (3.3-5.1) mmol/L Chloride 103 (96-108) mmol/L Carbon Dioxide 26 (22-29) mmol/L Anion Gap 14 (12-20) BUN 16 (9-16) mg/dL Creatinine 1.02 (0.5-1.4) mg/dL Estim Creat Clear Calc 100.5 Estimated GFR > 60 Random Glucose 92 (60-115) mg/dL Calcium 9.9 (8.4-10.2) mg/dL Total Bilirubin 0.7 (0.0-1.0) mg/dL AST 23 (5-37) U/L ALT 20 (0-40) U/L Alkaline Phosphatase 56 (39-117) U/L Total Protein 7.1 (6.5-8.0) g/dL Albumin 4.4 (3.5-5.0) g/dL Urine Color Urine Appearance Urine pH (5.0-9.0) Ur Specific [place] (1.005-1.025) Urine Protein (Neg-Trace) mg/dL Urine Glucose (UA) (Negative) mg/dL Urine Ketones (Negative) mg/dL Urine Blood (Negative) Urine Nitrite (Negative) Ur Leukocyte Esterase (Negative) Urine RBC (0-2) /HPF Urine WBC (0-5) /HPF Ur Squamous Epith Cells (0-2) /HPF Urine Bacteria (None Seen) Hyaline Casts (0-2) /LPF Urine Opiates Screen (Not Detect) Urine Fentanyl Screen (Not Detect) Ur Barbiturates Screen (Not Detect) Ur Phencyclidine Scrn (Not Detect) Ur Amphetamines Screen (Not Detect) U Benzodiazepines Scrn (Not Detect) Urine Cocaine Screen (Not Detect) U Marijuana (THC) Screen (Not Detect) Ethyl Alcohol < 10 mg/dL COVID-19 ([facility]) Negative (Negative) COVID-19 Clin Com See Note 10/14/22 10/14/22 Range/Units 18:30 18:30 WBC (4.8-10.8) X10*3/uL RBC (4.60-5.80) X10*6/uL Hgb (14.0-18.0) g/dl Hct (42.0-52.0) % MCV (80.0-98.0) fL MCH (27.0-33.0) pg MCHC (31.0-36.0) g/dl RDW (11.0-16.0) % Plt Count (160-400) X10*3/uL MPV (9.4-12.4) fL Immature Gran % (Auto) (0.0-0.4) % Neut % (Auto) (45-73) % Lymph % (Auto) (20-40) % [place] % (Auto) (2-11) % Eos % (Auto) (0-4) % Baso % (Auto) (0-2) % Lymph # (Auto) (1.2-4.9) X10*3/uL [place] # (Auto) (0.1-1.2) X10*3/uL Eos # (Auto) (0.0-0.4) X10*3/uL Baso # (Auto) (0.0-0.2) X10*3/uL Abs Immat Gran (auto) (0.00-0.03) X10*3/uL Absolute Neuts (auto) (2.0-8.3) x10*3/uL Absolute Nucleated RBC (0.0-0.012) X10*3/uL Nucleated RBC % (auto) (0.0-0.2) /100WBC Sodium (135-145) mmol/L Potassium (3.3-5.1) mmol/L Chloride (96-108) mmol/L Carbon Dioxide (22-29) mmol/L Anion Gap (12-20) BUN (9-16) mg/dL Creatinine (0.5-1.4) mg/dL Estim Creat Clear Calc Estimated GFR Random Glucose (60-115) mg/dL Calcium (8.4-10.2) mg/dL Total Bilirubin (0.0-1.0) mg/dL AST (5-37) U/L ALT (0-40) U/L Alkaline Phosphatase (39-117) U/L Total Protein (6.5-8.0) g/dL Albumin (3.5-5.0) g/dL Urine Color Dark Yellow Urine Appearance Clear Urine pH 6.0 (5.0-9.0) Ur Specific [place] >= 1.030 H (1.005-1.025) Urine Protein Trace (Neg-Trace) mg/dL Urine Glucose (UA) Negative (Negative) mg/dL Urine Ketones Negative (Negative) mg/dL Urine Blood Negative (Negative) Urine Nitrite Negative (Negative) Ur Leukocyte Esterase Negative (Negative) Urine RBC 0-2 (0-2) /HPF Urine WBC 0-5 (0-5) /HPF Ur Squamous Epith Cells 0-2 (0-2) /HPF Urine Bacteria None Seen (None Seen) Hyaline Casts 0-2 (0-2) /LPF Urine Opiates Screen Not Detected (Not Detect) Urine Fentanyl Screen Not Detected (Not Detect) Ur Barbiturates Screen Not Detected (Not Detect) Ur Phencyclidine Scrn Not Detected (Not Detect) Ur Amphetamines Screen Not Detected (Not Detect) U Benzodiazepines Scrn Not Detected (Not Detect) Urine Cocaine Screen POSITIVE H (Not Detect) U Marijuana (THC) Screen Not Detected (Not Detect) Ethyl Alcohol mg/dL COVID-19 ([facility]) (Negative) COVID-19 Clin Com Discharge Plan Discharge Clinical Impression: Schizoaffective disorder Patient Disposition: Xfer to Respite Facility Instructions: Schizoaffective Disorder (ED) Additional Instructions: present to respite now take all of your medications as directed If you develop new or worsening symptoms call 911 or come back to the ER for further evaluation. Prescriptions: No Action melatonin 3 mg Tablet 3 mg PO BEDTIME fluticasone propionate 50 mcg/actuation spray,suspension 1 spray intranasal DAILY sertraline 50 mg tablet 150 mg PO DAILY prazosin 2 mg capsule 2 mg PO BEDTIME benztropine 1 mg tablet 1 mg PO BID Qty: 60 0RF haloperidol 10 mg tablet 10 mg PO BID Qty: 60 0RF hydroxyzine HCl 50 mg tablet 50 mg PO BID Qty: 60 0RF quetiapine 100 mg tablet 100 mg PO BID Qty: 60 0RF trazodone 100 mg tablet 200 mg PO BEDTIME Qty: 30 0RF Interventions: [place]-Suicide Risk Severity Scale Last Done: 10/15/22 16:33
[2022-10-14 17:52] VITALS: BP 112/55; PULSE 65; RESP 19; TEMP 36.6; O2SAT 97
--- NOTE | 2022-10-14 18:13 | PHA.MEDREC ---
Pharmacy Consult ? Medication Reconciliation Pharmacy has completed the medication reconciliation. spoke with patient.
--- NOTE | 2022-10-15 04:00 | PC.NURSE ---
Pt woke up asking for a drink and snacks, pt is now sitting in common area eating and watching tv.
[2022-10-15 04:08] VITALS: BP 118/56; PULSE 83; RESP 17; TEMP 36.4; O2SAT 97
--- NOTE | 2022-10-15 13:16 | MHC.CARE ---
Pt was referred to [facility]
--- NOTE | 2022-10-15 15:55 | MHC.CARE ---
Patient accepted to [facility], waiting for call back to coordinate intake time, transportation.
--- NOTE | 2022-10-15 17:25 | PC.NURSE ---
PT transferring to respite. Paperwork signed, instructions repeated back. Discharged to waiting room for Lyft ride.
== END 2022-10-15 17:26 ==
PROVIDERS: Emergency Provider Emergency Medicine; PCP Internal Medicine
DX: F25.9 Schizoaffective disorder, unspecified (principal); R45.851 Suicidal ideations; Z20.822 Contact with and (suspected) exposure to COVID-19; E78.2 Mixed hyperlipidemia; F41.1 Generalized anxiety disorder; F22 Delusional disorders; F14.20 Cocaine dependence, uncomplicated; Z91.148 Patient's other noncompliance with medication regimen for other reason; F17.210 Nicotine dependence, cigarettes, uncomplicated; Z79.899 Other long term (current) drug therapy
CPT/HCPCS: 36415; 80053; 80307; 81001; 85025; 87635; 99284; 99285; S9485

== ENCOUNTER 2022-10-18 04:23 | Emergency (ER) | payer MEDICARE, OTHER, SELFPAY ==
[2022-10-18 04:56] VITALS: BP 125/77; PULSE 79; RESP 18; TEMP 36.8; O2SAT 97; BMI 26.6
[2022-10-18 07:10] LABS: MANUAL DIFF FLAG NO
[2022-10-18 07:11] LABS: Basophils Percent Auto 0.4 % (0-2); Eosinophils Absolute Auto 0.4 X10*3/uL (0.0-0.4); Eosinophils Percent Auto 4.5 % (0-4); Hematocrit 42.5 % (42.0-52.0); Hemoglobin 14.1 g/dl (14.0-18.0); Imm Gran Abs Auto 0.05 X10*3/uL (0.00-0.03); Imm Gran Pct Auto 0.6 % (0.0-0.4); Lymphocytes Absolute Auto 2.6 X10*3/uL (1.2-4.9); Lymphocytes Percent Auto 31.1 % (20-40); Mean Corpuscular HGB Conc 33.2 g/dl (31.0-36.0); Mean Corpuscular Hemoglobin 29.6 pg (27.0-33.0); Mean Corpuscular Volume 89.3 fL (80.0-98.0); Mean Platelet Volume 10.3 fL (9.4-12.4); Monocytes Absolute Auto 0.8 X10*3/uL (0.1-1.2); Neutrophils Absolute Auto 4.5 x10*3/uL (2.0-8.3); Neutrophils Percent Auto 53.4 % (45-73); Platelet Count 254 X10*3/uL (160-400); Red Blood Count 4.76 X10*6/uL (4.60-5.80); Red Cell Distribution Width 13.2 % (11.0-16.0); White Blood Count 8.4 X10*3/uL (4.8-10.8)
[2022-10-18 07:33] VITALS: BP 109/69; PULSE 84; RESP 16; O2SAT 94
[2022-10-18 07:33] LABS: Alanine Aminotransferase 20 U/L (0-40); Albumin Level 4.2 g/dL (3.5-5.0); Alkaline Phosphatase 65 U/L (39-117); Anion Gap 15 (12-20); Aspartate Amino Transferase 24 U/L (5-37); Bilirubin Total 0.4 mg/dL (0.0-1.0); Blood Urea Nitrogen 14 mg/dL (9-16); Calcium 10.2 mg/dL (8.4-10.2); Carbon Dioxide 23 mmol/L (22-29); Chloride 107 mmol/L (96-108); Creatinine Clr Calc Pharmacy 120.7; Estimated Glomerular Filt Rate > 60; Glucose Random 120 mg/dL (60-115); Potassium 3.8 mmol/L (3.3-5.1); Sodium 141 mmol/L (135-145); Total Protein 6.9 g/dL (6.5-8.0)
--- NOTE | 2022-10-18 08:00 | ED.GENADULT ---
HPI - General Adult General Chief complaint: Extremity Problem Stated complaint: Medical Clearance, alcohol withdrawal Time Seen by Provider: 10/18/22 08:00 Source: patient Mode of arrival: ambulatory Limitations: no limitations History of Present Illness HPI narrative: 32-year-old male with a history of schizoaffective disorder, alcohol use and dependence, cocaine use, HLD, anxiety who presents to the ER for evaluation of back pain, feet pain, leg pain after walking for [address] streets. He states he has been in a manic state, not consistently taking his medications. He states he has also been on an alcohol binge and drinking 1/2 gallon of vodka per day. He is worried about withdrawal and wants rehab. He said he last drank vodka just before coming to the ER. He states he has been hospitalized for withdrawal but has never had a seizure. MD complaint: etoh withdrawal, desires detox, muscle aches Onset (ago): day(s) Location: back, left, right and lower extremity Radiation: proximal Severity: moderate Quality: aching Pain Consistency: constant Relieving factors: rest Exacerbating factors: movement Associated symptoms: other (anxiety, restless) Treatments prior to arrival: none Related Data Home Medications Medication Instructions Recorded Confirmed melatonin 3 mg tablet 3 mg PO BEDTIME 09/09/22 10/14/22 fluticasone propionate 50 1 spray intranasal DAILY 10/14/22 10/14/22 mcg/actuation nasal spray,suspension prazosin 2 mg capsule 2 mg PO BEDTIME 10/14/22 10/14/22 sertraline 50 mg tablet 150 mg PO DAILY 10/14/22 10/14/22 Previous Rx's Medication Instructions Recorded benztropine 1 mg tablet 1 mg PO BID #60 tabs 09/16/22 haloperidol 10 mg tablet 10 mg PO BID #60 tabs 09/16/22 hydroxyzine HCl 50 mg tablet 50 mg PO BID #60 tabs 09/16/22 quetiapine 100 mg tablet 100 mg PO BID #60 tabs 09/16/22 trazodone 100 mg tablet 200 mg PO BEDTIME #30 tabs 09/16/22 Allergies Allergy/AdvReac Type Severity Reaction Status Date / Time No Known Allergies Allergy Verified 01/27/21 08:24 [No Known Allergies*] Review of Systems Review of Systems: Yes all other systems are reviewed and are negative PMFSH Past Medical History Medical History Alcohol abuse Alcohol dependence Alcohol intoxication Delusional disorder Generalized anxiety disorder History of alcohol abuse Mixed dyslipidemia Schizo-affective schizophrenia Schizoaffective disorder Surgical History History of removal of neck cyst History of root canal procedure Family History Family History Father Depression FH: mental illness Mother Depression FH: mental illness Maternal Grandfather No problems noted. Maternal Grandmother No problems noted. Brother No problems noted. Sister No problems noted. 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 Housing: House Do you presently have visiting nurse or other home services: No Alcohol intake: current Alcohol intake frequency: 3 or more drinks per day Alcohol type: hard liquor Patient Tobacco Use Status: Current someday Tobacco user Tobacco use type: Cigarette Cigarettes Per Day: 5 Years Smoked: 3 Smoked in Last 30 Days: Yes e-Cigarette/Vaping Use: Former Use Second Hand Smoke Exposure: No Use of substances other than those prescribed or required for medical reasons: Yes Substance Use Type: Crack/Cocaine Advance Directives: No Advance Directives Information Provided: No service: No Current occupational status: unemployed Sexual orientation: Straight/Heterosexual Physical Exam ED Vital Signs: Vital Signs - 24 hr 10/18/22 04:56 10/18/22 07:33 10/18/22 12:10 Temperature 98.2 F 97.5 F Pulse Rate 79 84 73 Respiratory Rate 18 16 16 Blood Pressure 125/77 109/69 100/64 Pulse Oximetry 97 94 96 Oxygen Delivery Method Room Air Room Air Room Air 10/18/22 15:52 Temperature 97.8 F Pulse Rate 70 Respiratory Rate 15 Blood Pressure 95/50 L Pulse Oximetry 97 Oxygen Delivery Method Room Air BMI result Body Mass Index 26.6 Appearance: Alert. Oriented X3. No acute distress. Head: normocephalic, atraumatic. Eyes: Pupils equal, round and reactive to light. ENT: Pharynx normal. No tonsillar swelling or exudate. Neck: Normal inspection. Neck supple. CVS: Normal heart rate and rhythm. Pulses normal. Respiratory: No respiratory distress. Breath sounds normal. Abdomen: Soft and nontender. +BS x4 Skin: Skin warm and dry. Normal skin color. Normal skin turgor. No rashes. Extremities: No lower extremity edema. No joint swelling. Mild soft tissue tenderness of the lower extremities, compartments soft and compressible. NV Intact distally. Neuro/psych: Oriented X 3. No motor deficit. No sensory deficit. CN II-XII intact. Normal speech and cognition. Course Reevaluation(s) Reevaluation #1: Physician observation started at 10:10. Patient placed in physician observation because patient is awaiting repeat labs to ensure improvement in rhabdomyolysis and for Addiction medicine team evaluation for possible detox placement. At the time observation was started patient's vital signs were stable. Patient is alert and oriented. Neuro exam is non-focal. CV: RRR and lungs are clear. Will continue to monitor. Time: 10:10 Reevaluation #2: CPK trended down. given 3rd liter of IVF and PO fluids. no need to repeat seen by addiction medicine and referrals made to detox centers out to [place] with no beds available at this time. patient provided with list of facilities to make ongoing calls. stable for discharge. physician observation discontinued at this time. VSS. no evidence of active ETOH withdrawal at this time. Time: 15:41 Medications Administered Discontinued Medications Generic Name Dose Route Start Last Admin Trade Name Freq PRN Reason Stop Dose Admin Chlordiazepoxide HCl 50 mg 10/18/22 08:37 10/18/22 08:58 Chlordiazepoxide Hcl 25 Mg Capsule PO 10/18/22 08:38 50 mg ONCE ONE Administration Sodium Chloride 1,000 mls @ 999 mls/hr 10/18/22 08:15 10/18/22 10:14 Ns IVCONT 10/18/22 09:15 Infused .Q1H1M ESTEVAN Infusion Sodium Chloride 1,000 mls @ 999 mls/hr 10/18/22 12:15 10/18/22 14:44 Ns IVCONT 10/18/22 13:15 Infused .Q1H1M ESTEVAN Infusion Sodium Chloride 1,000 mls @ 999 mls/hr 10/18/22 14:45 10/18/22 15:22 Ns IVCONT 10/18/22 15:45 999 mls/hr .Q1H1M ESTEVAN Administration Ondansetron HCl 4 mg 10/18/22 12:18 10/18/22 12:29 Ondansetron Hcl 4 Mg/2 Ml Vial IVPUSH 10/18/22 12:19 4 mg ONCE ONE Administration Medical Decision Making Medical Decision Making [facility] Narrative: 32-year-old male with history of schizoaffective disorder, alcohol use disorder, cocaine use disorder, HLD who presents to the ER for evaluation of lower extremity pain and possible alcohol withdrawal. Patient with walking for over 24 hours, not sleeping. He states he is in a manic state and has been noncompliant with his medications. He is awake, alert, neurologically intact, acting appropriately. His CIWA is 8. He is hemodynamically stable. Lab work done this morning shows a CPK of 1263. Normal renal function. He was given 2 pressure is a fluids to drink and IV was established for IV fluids. Will plan to repeat his CPK to ensure trending down. Once medically cleared will have the recovery team see him for evaluation of detox. Differential Diagnosis Differential Diagnoses: The differential diagnosis associated with the presentation includes Alcohol intoxication, alcohol withdrawal, alcohol use disorder, polysubstance abuse, alcoholic neuropathy, rhabdomyolysis, unstable schizoaffective disorder Admission/Observation Consideration of admission/observation: Escalation of care including admission/observation considered CPK requiring IV fluids and trending of lab work Lab Data [facility] Lab Attestation statement: I reviewed the patient's lab results. Rhabdomyolysis, normal renal function 10/18/22 07:07 10/18/22 07:07 Labs: Lab Results 10/18/22 10/18/22 10/18/22 Range/Units 07:07 07:07 14:13 WBC 8.4 (4.8-10.8) X10*3/uL RBC 4.76 (4.60-5.80) X10*6/uL Hgb 14.1 (14.0-18.0) g/dl Hct 42.5 (42.0-52.0) % MCV 89.3 (80.0-98.0) fL MCH 29.6 (27.0-33.0) pg MCHC 33.2 (31.0-36.0) g/dl RDW 13.2 (11.0-16.0) % Plt Count 254 (160-400) X10*3/uL MPV 10.3 (9.4-12.4) fL Immature Gran % (Auto) 0.6 H (0.0-0.4) % Neut % (Auto) 53.4 (45-73) % Lymph % (Auto) 31.1 (20-40) % [place] % (Auto) 10.0 (2-11) % Eos % (Auto) 4.5 H (0-4) % Baso % (Auto) 0.4 (0-2) % Lymph # (Auto) 2.6 (1.2-4.9) X10*3/uL [place] # (Auto) 0.8 (0.1-1.2) X10*3/uL Eos # (Auto) 0.4 (0.0-0.4) X10*3/uL Baso # (Auto) 0.0 (0.0-0.2) X10*3/uL Abs Immat Gran (auto) 0.05 H (0.00-0.03) X10*3/uL Absolute Neuts (auto) 4.5 (2.0-8.3) x10*3/uL Absolute Nucleated RBC 0.000 (0.0-0.012) X10*3/uL Nucleated RBC % (auto) 0.0 (0.0-0.2) /100WBC Sodium 141 (135-145) mmol/L Potassium 3.8 (3.3-5.1) mmol/L Chloride 107 (96-108) mmol/L Carbon Dioxide 23 (22-29) mmol/L Anion Gap 15 (12-20) BUN 14 (9-16) mg/dL Creatinine 0.85 (0.5-1.4) mg/dL Estim Creat Clear Calc 120.7 Estimated GFR > 60 Random Glucose 120 H (60-115) mg/dL Calcium 10.2 (8.4-10.2) mg/dL Total Bilirubin 0.4 (0.0-1.0) mg/dL AST 24 (5-37) U/L ALT 20 (0-40) U/L Alkaline Phosphatase 65 (39-117) U/L Total Creatine Kinase 1263 H 870 H (38-174) U/L Total Protein 6.9 (6.5-8.0) g/dL Albumin 4.2 (3.5-5.0) g/dL External Record Review External record reviewed: Office record, Outpatient record, Prior outpatient labs and Prior outpatient radiology Prescription Management I considered prescription management with: Pain Medication and Other (Benzodiazepines) Chronic Conditions Patient?s care impacted by: Other (Schizoaffective disorder) Social Determinants Patient?s care significantly limited by Social Determinants of Health including: Inadequate housing, Alcoholism and drug addiction in family and Other Social Determinant of Health Critical Care Time Critical Care Time Critical Care Time: No Discharge Plan Discharge Clinical Impression: Schizoaffective disorder, Rhabdomyolysis Patient Disposition: Home, Self-Care Instructions: Rhabdomyolysis (ED), Schizoaffective Disorder (ED) Additional Instructions: Drink plenty of water to stay hydrated. Do not drink alcohol. Recommend detox. Call the facilities provided to get a bed. If you develop new or worsening symptoms call 911 or come back to the ER for further evaluation. Prescriptions: No Action melatonin 3 mg Tablet 3 mg PO BEDTIME fluticasone propionate 50 mcg/actuation spray,suspension 1 spray intranasal DAILY sertraline 50 mg tablet 150 mg PO DAILY prazosin 2 mg capsule 2 mg PO BEDTIME benztropine 1 mg tablet 1 mg PO BID Qty: 60 0RF haloperidol 10 mg tablet 10 mg PO BID Qty: 60 0RF hydroxyzine HCl 50 mg tablet 50 mg PO BID Qty: 60 0RF quetiapine 100 mg tablet 100 mg PO BID Qty: 60 0RF trazodone 100 mg tablet 200 mg PO BEDTIME Qty: 30 0RF Referrals: Tomeka Teresa MD [Primary Care Provider] - Interventions: ED Discharge Assessment Last Done: 10/18/22 16:06 Discharge Date/Time: 10/18/22 16:07
[2022-10-18] MEDS: 0.9 % Sodium Chloride 1,000 ML 999 ML IVCONT ×3 (08:33→15:22)
[2022-10-18] MEDS: chlordiazePOXIDE HCl 25 MG CAPSULE 50 MG PO (08:58)
--- NOTE | 2022-10-18 09:12 | PC.NURSE ---
Patient resting on stretcher, covering head with blanket. Patient not complaining of pain at this time, is experiencing some s/s of withdrawal.
[2022-10-18 12:10] VITALS: BP 100/64; PULSE 73; RESP 16; TEMP 36.4; O2SAT 96
[2022-10-18] MEDS: ondansetron HCL 4 MG/2 ML VIAL IVPUSH (12:29)
--- NOTE | 2022-10-18 13:56 | MHC.RECOVSUP ---
Addendum entered by Shashi Woodard 10/18/22 14:59: Pt informed there are no beds available at this time and was provided recovery resources and encouraged to follow up from the community. Pt had no other questions or concerns at this time, provider aware. Original Note: Met with pt in ED20 who is here for BRADEN. Pt reports drinking about 1/2 gallon of alcohol a day and smokes about $100 worth of crack. Pt has no history or interest in MAT and was last in ATS a few years ago but is not sure where. Pt informs he would like ATS at this time but does not want to go past [facility]. Bed search is in process, Pt has no other questions or concerns at this time.
[2022-10-18 15:52] VITALS: BP 95/50; PULSE 70; RESP 15; TEMP 36.6; O2SAT 97
== END 2022-10-18 16:07 | disposition home or self-care (01) ==
PROVIDERS: Physician Assistant; Emergency Provider Emergency Medicine; PCP Internal Medicine
DX: F25.9 Schizoaffective disorder, unspecified (principal); M62.82 Rhabdomyolysis; E78.2 Mixed hyperlipidemia; Z87.891 Personal history of nicotine dependence; Z79.899 Other long term (current) drug therapy
CPT/HCPCS: 36415; 80053; 82550; 85025; 96361; 96374; 99284; J2405

== ENCOUNTER 2022-10-20 03:05 | Inpatient (IN) | payer MEDICARE, SELFPAY ==
[2022-10-20 03:09] VITALS: BP 124/81; PULSE 75; RESP 19; TEMP 36.1; O2SAT 97; BMI 26.6
[2022-10-20] MEDS: LORazepam 1 MG TABLET 2 MG PO (03:35)
[2022-10-20 03:52] LABS: MANUAL DIFF FLAG NO
[2022-10-20 03:53] LABS: Basophils Absolute Auto 0.1 X10*3/uL (0.0-0.2); Basophils Percent Auto 0.4 % (0-2); Eosinophils Absolute Auto 0.3 X10*3/uL (0.0-0.4); Eosinophils Percent Auto 2.8 % (0-4); Hematocrit 44.4 % (42.0-52.0); Imm Gran Abs Auto 0.05 X10*3/uL (0.00-0.03); Imm Gran Pct Auto 0.4 % (0.0-0.4); Lymphocytes Absolute Auto 3.2 X10*3/uL (1.2-4.9); Lymphocytes Percent Auto 28.7 % (20-40); Mean Corpuscular HGB Conc 33.8 g/dl (31.0-36.0); Mean Corpuscular Hemoglobin 29.8 pg (27.0-33.0); Mean Corpuscular Volume 88.3 fL (80.0-98.0); Mean Platelet Volume 10.7 fL (9.4-12.4); Monocytes Absolute Auto 0.7 X10*3/uL (0.1-1.2); Neutrophils Absolute Auto 6.9 x10*3/uL (2.0-8.3); Neutrophils Percent Auto 61.7 % (45-73); Platelet Count 278 X10*3/uL (160-400); Red Blood Count 5.03 X10*6/uL (4.60-5.80); Red Cell Distribution Width 13.2 % (11.0-16.0); White Blood Count 11.2 X10*3/uL (4.8-10.8)
[2022-10-20 04:20] LABS: Alanine Aminotransferase 18 U/L (0-40); Albumin Level 4.5 g/dL (3.5-5.0); Alkaline Phosphatase 67 U/L (39-117); Aspartate Amino Transferase 22 U/L (5-37); Blood Urea Nitrogen 6 mg/dL (9-16); Calcium 9.5 mg/dL (8.4-10.2); Chloride 109 mmol/L (96-108); Creatinine Clr Calc Pharmacy 131.5; Estimated Glomerular Filt Rate > 60; Ethanol 74 mg/dL; Glucose Random 87 mg/dL (60-115); Sodium 143 mmol/L (135-145); Total Protein 7.3 g/dL (6.5-8.0)
[2022-10-20 05:03] LABS: Bilirubin Total 0.3 mg/dL (0.0-1.0)
--- NOTE | 2022-10-20 05:38 | PC.NURSE ---
Patient currently in bed appears sleeping, Ativan 2 mg PO administered at 0335 with + effect, VSS, care consult ordered/pending evaluation in the morning, med rec completed/pending provider's approval, blood draw completed/resulted, pending urine sample, will continue to monitor.
--- NOTE | 2022-10-20 05:42 | MHC.EDTECH ---
t/w attempted to to obtain urine sample when pt woke up, pt stated no i'm not doing that. and turned back over in bed. RN MADE AWARE.
--- NOTE | 2022-10-20 06:33 | ED.PSYCH ---
HPI - Psych General Chief Complaint: Psychiatric Symptoms Stated Complaint: SI/Crisis Time Seen by Provider: 10/20/22 06:27 Source: patient and EMS Mode of arrival: EMS Limitations: no limitations History of Present Illness HPI Narrative: 32-year-old male with a history of schizoaffective disorder, alcohol use and dependence, cocaine use, HLD, anxiety who presents to the ER for evaluation?of homicidal ideation and agitation. Patient states he is here for ?help. ? He states he needs psychiatric and substance abuse help. He is frustrated helpless. He admits that after he was discharged from here the other day he went back to walking the streets. He admits to using cocaine and alcohol to cope with his stress. He denies any suicidal thoughts but feels very depressed. complaint: feels depressed, substance abuse and alcohol abuse Duration: getting worse History of same: Yes Relieving factors: none Exacerbating factors: alcohol and drug use Context: recent alcohol abuse and recent drug abuse Associated psychiatric symptoms: depression and homicidal ideation Associated symptoms: insomnia Related Data Home Medications Medication Instructions Recorded Confirmed fluticasone propionate 50 1 spray intranasal DAILY 10/14/22 10/20/22 mcg/actuation nasal spray,suspension prazosin 2 mg capsule 2 mg PO BEDTIME 10/14/22 10/20/22 sertraline 50 mg tablet 150 mg PO DAILY 10/14/22 10/20/22 Previous Rx's Medication Instructions Recorded benztropine 1 mg tablet 1 mg PO BID #60 tabs 09/16/22 haloperidol 10 mg tablet 10 mg PO BID #60 tabs 09/16/22 hydroxyzine HCl 50 mg tablet 50 mg PO BID #60 tabs 09/16/22 quetiapine 100 mg tablet 100 mg PO BID #60 tabs 09/16/22 trazodone 100 mg tablet 200 mg PO BEDTIME #30 tabs 09/16/22 Allergies Allergy/AdvReac Type Severity Reaction Status Date / Time No Known Allergies Allergy Verified 01/27/21 08:24 [No Known Allergies*] Review of Systems Review of Systems: Yes all other systems are reviewed and are negative [facility] Past Medical History Medical History Alcohol abuse Alcohol dependence Alcohol intoxication Delusional disorder Generalized anxiety disorder History of alcohol abuse Mixed dyslipidemia Schizo-affective schizophrenia Schizoaffective disorder Surgical History History of removal of neck cyst History of root canal procedure Family History Family History Father Depression FH: mental illness Mother Depression FH: mental illness Maternal Grandfather No problems noted. Maternal Grandmother No problems noted. Brother No problems noted. Sister No problems noted. 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 Housing: House Do you presently have visiting nurse or other home services: No Alcohol intake: current Alcohol intake frequency: 3 or more drinks per day Alcohol type: hard liquor Patient Tobacco Use Status: Current someday Tobacco user Tobacco use type: Cigarette Cigarettes Per Day: 5 Years Smoked: 3 e-Cigarette/Vaping Use: Former Use Second Hand Smoke Exposure: No Substance Use Type: Crack/Cocaine Advance Directives: No Advance Directives Information Provided: No Healthcare Proxy: No Guardian: No service: No Current occupational status: unemployed Sexual orientation: Straight/Heterosexual Physical Exam Vital Signs: Vital Signs: Last Vital Signs Temp 97.6 F 10/20/22 16:13 Pulse 69 10/20/22 16:13 Resp 20 10/20/22 16:13 BP 102/60 10/20/22 16:13 Pulse Ox 97 10/20/22 16:13 O2 Del Method Room Air 10/20/22 16:13 BMI result Body Mass Index 26.6 Appearance: Alert. Oriented X3. No acute distress. Head: normocephalic, atraumatic. Eyes: Pupils equal, round and reactive to light. ENT: Pharynx normal. No tonsillar swelling or exudate. Neck: Normal inspection. Neck supple. CVS: Normal heart rate and rhythm. Pulses normal. Respiratory: No respiratory distress. Breath sounds normal. Abdomen: Soft and nontender. +BS x4 Skin: Skin warm and dry. Normal skin color. Normal skin turgor. No rashes. Extremities: No lower extremity edema. No joint swelling. Neuro/psych: Oriented X 3. No motor deficit. No sensory deficit. CN II-XII intact. Normal speech and cognition. Mood is depressed, not good. flat affect Medications Administered Discontinued Medications Generic Name Dose Route Start Last Admin Trade Name Jillian PRN Reason Stop Dose Admin Lorazepam 2 mg 10/20/22 03:27 10/20/22 03:35 Lorazepam 1 Mg Tablet PO 10/20/22 03:28 2 mg ONCE ONE Administration Potassium Chloride 40 meq 10/20/22 06:33 10/20/22 06:52 Potassium Chloride Er 20 Meq Tab.Er.Prt PO 10/20/22 06:34 40 meq ONCE ONE Administration Medical Decision Making Medical Decision Making [facility] Narrative: 32 yo male with history of schizoaffective disorder and polysubstance abuse presents to the ER for evaluation of HI, agitation and hopelessness. recurrent visits seen by CARE team - getting admitted to the psych unit Differential Diagnosis Differential Diagnoses: The differential diagnosis associated with the presentation includes substance induced mood disorder, acute psychosis, schizophrenia, schizoaffective disorder, PTSD, bipolar disorder, major depression with psychotic features Admission/Observation Consideration of admission/observation: Escalation of care including admission/observation considered recurrent visits for drug and psych complaints, considered both psychiatric and medical admission (rhabdo) Lab Data [facility] Lab Attestation statement: I reviewed the patient's lab results. Mild leukocytosis, hypokalemia, rhabdomyolysis with CPK 1000 10/20/22 03:43 10/20/22 03:43 Labs: Lab Results 10/20/22 10/20/22 10/20/22 Range/Units 03:43 03:43 09:26 WBC 11.2 H (4.8-10.8) X10*3/uL RBC 5.03 (4.60-5.80) X10*6/uL Hgb 15.0 (14.0-18.0) g/dl Hct 44.4 (42.0-52.0) % MCV 88.3 (80.0-98.0) fL MCH 29.8 (27.0-33.0) pg MCHC 33.8 (31.0-36.0) g/dl RDW 13.2 (11.0-16.0) % Plt Count 278 (160-400) X10*3/uL MPV 10.7 (9.4-12.4) fL Immature Gran % (Auto) 0.4 (0.0-0.4) % Neut % (Auto) 61.7 (45-73) % Lymph % (Auto) 28.7 (20-40) % [place] % (Auto) 6.0 (2-11) % Eos % (Auto) 2.8 (0-4) % Baso % (Auto) 0.4 (0-2) % Lymph # (Auto) 3.2 (1.2-4.9) X10*3/uL [place] # (Auto) 0.7 (0.1-1.2) X10*3/uL Eos # (Auto) 0.3 (0.0-0.4) X10*3/uL Baso # (Auto) 0.1 (0.0-0.2) X10*3/uL Abs Immat Gran (auto) 0.05 H (0.00-0.03) X10*3/uL Absolute Neuts (auto) 6.9 (2.0-8.3) x10*3/uL Absolute Nucleated RBC 0.000 (0.0-0.012) X10*3/uL Nucleated RBC % (auto) 0.0 (0.0-0.2) /100WBC Sodium 143 (135-145) mmol/L Potassium 3.0 L D (3.3-5.1) mmol/L Chloride 109 H (96-108) mmol/L Carbon Dioxide 19 L (22-29) mmol/L Anion Gap 17 (12-20) BUN 6 L (9-16) mg/dL Creatinine 0.78 (0.5-1.4) mg/dL Estim Creat Clear Calc 131.5 Estimated GFR > 60 Random Glucose 87 (60-115) mg/dL Calcium 9.5 D (8.4-10.2) mg/dL Total Bilirubin 0.3 (0.0-1.0) mg/dL AST 22 (5-37) U/L ALT 18 (0-40) U/L Alkaline Phosphatase 67 (39-117) U/L Total Creatine Kinase 1081 H (38-174) U/L Total Protein 7.3 (6.5-8.0) g/dL Albumin 4.5 (3.5-5.0) g/dL Urine Color Urine Appearance Urine pH (5.0-9.0) Ur Specific [place] (1.005-1.025) Urine Protein (Neg-Trace) mg/dL Urine Glucose (UA) (Negative) mg/dL Urine Ketones (Negative) mg/dL Urine Blood (Negative) Urine Nitrite (Negative) Ur Leukocyte Esterase (Negative) Urine RBC (0-2) /HPF Urine WBC (0-5) /HPF Ur Squamous Epith Cells (0-2) /HPF Urine Bacteria (None Seen) Hyaline Casts (0-2) /LPF Urine Opiates Screen Not Detected (Not Detect) Urine Fentanyl Screen Not Detected (Not Detect) Ur Barbiturates Screen Not Detected (Not Detect) Ur Phencyclidine Scrn Not Detected (Not Detect) Ur Amphetamines Screen Not Detected (Not Detect) U Benzodiazepines Scrn POSITIVE H (Not Detect) Urine Cocaine Screen POSITIVE H (Not Detect) U Marijuana (THC) Screen Not Detected (Not Detect) Ethyl Alcohol 74 mg/dL COVID-19 (KACIE) (Negative) COVID-19 Clin Com 10/20/22 10/20/22 Range/Units 09:26 13:30 WBC (4.8-10.8) X10*3/uL RBC (4.60-5.80) X10*6/uL Hgb (14.0-18.0) g/dl Hct (42.0-52.0) % MCV (80.0-98.0) fL MCH (27.0-33.0) pg MCHC (31.0-36.0) g/dl RDW (11.0-16.0) % Plt Count (160-400) X10*3/uL MPV (9.4-12.4) fL Immature Gran % (Auto) (0.0-0.4) % Neut % (Auto) (45-73) % Lymph % (Auto) (20-40) % [place] % (Auto) (2-11) % Eos % (Auto) (0-4) % Baso % (Auto) (0-2) % Lymph # (Auto) (1.2-4.9) X10*3/uL [place] # (Auto) (0.1-1.2) X10*3/uL Eos # (Auto) (0.0-0.4) X10*3/uL Baso # (Auto) (0.0-0.2) X10*3/uL Abs Immat Gran (auto) (0.00-0.03) X10*3/uL Absolute Neuts (auto) (2.0-8.3) x10*3/uL Absolute Nucleated RBC (0.0-0.012) X10*3/uL Nucleated RBC % (auto) (0.0-0.2) /100WBC Sodium (135-145) mmol/L Potassium (3.3-5.1) mmol/L Chloride (96-108) mmol/L Carbon Dioxide (22-29) mmol/L Anion Gap (12-20) BUN (9-16) mg/dL Creatinine (0.5-1.4) mg/dL Estim Creat Clear Calc Estimated GFR Random Glucose (60-115) mg/dL Calcium (8.4-10.2) mg/dL Total Bilirubin (0.0-1.0) mg/dL AST (5-37) U/L ALT (0-40) U/L Alkaline Phosphatase (39-117) U/L Total Creatine Kinase (38-174) U/L Total Protein (6.5-8.0) g/dL Albumin (3.5-5.0) g/dL Urine Color Dark Yellow Urine Appearance Clear Urine pH 5.5 (5.0-9.0) Ur Specific [place] >= 1.030 H (1.005-1.025) Urine Protein Negative (Neg-Trace) mg/dL Urine Glucose (UA) Negative (Negative) mg/dL Urine Ketones Trace (Negative) mg/dL Urine Blood Negative (Negative) Urine Nitrite Negative (Negative) Ur Leukocyte Esterase Trace H (Negative) Urine RBC 0-2 (0-2) /HPF Urine WBC 11-20 H (0-5) /HPF Ur Squamous Epith Cells 0-2 (0-2) /HPF Urine Bacteria None Seen (None Seen) Hyaline Casts 0-2 (0-2) /LPF Urine Opiates Screen (Not Detect) Urine Fentanyl Screen (Not Detect) Ur Barbiturates Screen (Not Detect) Ur Phencyclidine Scrn (Not Detect) Ur Amphetamines Screen (Not Detect) U Benzodiazepines Scrn (Not Detect) Urine Cocaine Screen (Not Detect) U Marijuana (THC) Screen (Not Detect) Ethyl Alcohol mg/dL COVID-19 (KACIE) Negative (Negative) COVID-19 Clin Com See Note Independent Interpretation I performed an independent interpretation of an: EKG Interpretation: CT EKG with normal sinus rhythm, ventricular rate 62 beats per minute, normal CT interval, normal QTC, ST-elevation consistent with early repolarization, reviewed by Dr. Del Real Independent Historian Clinical information obtained from an independent historian. History obtained from or confirmed by: EMS External Record Review External record reviewed: Office record, Outpatient record, Prior outpatient labs and Prior outpatient radiology Prescription Management I considered prescription management with: Other (Antipsychotic) Chronic Conditions Patient?s care impacted by: Other (Schizoaffective disorder, polysubstance abuse) Social Determinants Patient?s care significantly limited by Social Determinants of Health including: Inadequate housing, Alcoholism and drug addiction in family, Problems related to primary support group, Unemployment and Other Social Determinant of Health Critical Care Time Critical Care Time Critical Care Time: No Discharge Plan Discharge Clinical Impression: Schizoaffective disorder, Cocaine use disorder, moderate, dependence, Rhabdomyolysis Patient Disposition: Admitted As Inpatient Interventions: [place]-Suicide Risk Severity Scale Last Done: 10/20/22 03:14
[2022-10-20] MEDS: Potassium Chloride ER 20 MEQ TAB.ER.PRT 40 MEQ PO (06:52)
--- NOTE | 2022-10-20 06:54 | PC.NURSE ---
report taken from josafat pt here for hi r/t inability to get help with substance and mental health issues . denies si. sleeping on first contact in no apparent distress, easily awoken to voice and tactile stimuli. taking po medications w good swallow. denies physical complaints at this time. wctm for dc needs.
[2022-10-20 07:43] LABS: Anion Gap 17 (12-20); Carbon Dioxide 19 mmol/L (22-29)
[2022-10-20 09:57] LABS: Amphetamine Screen Urine Not Detected (Not Detect); Barbiturates, Urine Not Detected (Not Detect); Benzodiazepines Screen Urine POSITIVE (Not Detect); Cannabinoid Screen Urine Not Detected (Not Detect); Cocaine Screen Urine POSITIVE (Not Detect); Fentanyl, urine Not Detected (Not Detect); Opiate Screen Urine Not Detected (Not Detect); Phencyclidine Screen Urine Not Detected (Not Detect)
--- NOTE | 2022-10-20 12:54 | ECG_ITS ---
Test Reason : cocaine use Blood Pressure : / mmHG Vent. Rate : 062 BPM Atrial Rate : 062 BPM P-R Int : 140 ms QRS Dur : 082 ms QT Int : 416 ms P-R-T Axes : 027 046 035 degrees QTc Int : 422 ms Normal sinus rhythm ST elevation, consider early repolarization Borderline ECG When compared with ECG of 10-SEP-2022 11:00, No significant change was found Referred By: Richard Del Real Electronically Signed By:ZEINA ASHTON MD
[2022-10-20 13:52] LABS: COVID-19 Test Negative (Negative); IDNOW Serial# BCCEAD1C
[2022-10-20 14:26] LABS: Appearance Urine Clear; Color Urine Dark Yellow; Glucose Urine UA Negative (Negative); Leukocyte Esterase Urine Trace (Negative); Nitrite Urine Negative (Negative); PH 5.5 (5.0-9.0); Specific Gravity - Urine >= 1.030 (1.005-1.025); UMIC TRIGGER UACC YES; Urine Blood Negative (Negative); Urine Ketones Trace mg/dL (Negative); Urine Protein Negative (Neg-Trace)
[2022-10-20 14:29] LABS: Bacteria Urine None Seen (None Seen); Hyaline Casts Urine 0-2 /LPF (0-2); RBC Urine 0-2 /HPF (0-2); Squamous Epithelial Cell Urine 0-2 /HPF (0-2); UACC Culture Trigger YES
[2022-10-20 16:13] VITALS: BP 102/60; PULSE 69; RESP 20; TEMP 36.4; O2SAT 97
[2022-10-20 17:24] VITALS: BP 130/60; PULSE 61; RESP 18; TEMP 36.7; O2SAT 99
[2022-10-20] MEDS: Acetaminophen 325 MG TABLET 650 MG PO (17:26)
--- NOTE | 2022-10-20 18:04 | PC.NURSE ---
Addendum entered by Dexter Jolly 10/20/22 18:22: Patient positive for cocaine and benzo's. Reports drinking 1.5 liters of vodka per day, with last drink 16 hours prior to admission. Patient did not participate in admission process. Original Note: Tito has been admitted to on a CV with 15 min checks. Tito has no known allergies. He was admitted with MDD disorder, with a recent exacerbation due to stressful living conditions (homeless) and being off of his medication. He denies hallucinations but has vague SI with no plan, and vague HI that he states has resolved since he arrived on the floor. Tito is alert and oriented x3, linear thinking, pleasant on approach. Wants to get back on medications and find stable housing.
[2022-10-20 21:04] VITALS: BP 113/56; PULSE 70; TEMP 36.6; O2SAT 95
[2022-10-20] MEDS: traZODone HCL 100 MG TABLET 200 MG PO (21:17)
[2022-10-20] MEDS: hydrOXYzine HCL 50 MG TABLET PO (21:18)
[2022-10-20] MEDS: Prazosin HCL 1 MG CAPSULE 2 MG PO (21:18)
[2022-10-20] MEDS: HaloperidoL 5 MG TABLET 10 MG PO (21:18)
[2022-10-20] MEDS: QUEtiapine Fumarate 100 MG TABLET PO (21:18)
[2022-10-20] MEDS: Benztropine Mesylate 1 MG TABLET PO (21:18)
--- NOTE | 2022-10-21 02:09 | PC.NURSE ---
CIWA-refusing CIWA assessment on the 11-7 shift. patient was informed that the psychiatrist would like him to be assessed 2 x during the night. patient refused. ''I will let you know if I need anything, why would you wake me up, I need to sleep'' CIWA assessment at 1999 was 1. VS wnl. offeres to c/o detox process. has been asleep since HS medications administered. when observed sleeping is in no distress, respirations even no restlessness or diaphoresis.
--- NOTE | 2022-10-21 03:31 | PC.NURSE ---
refused labs-CK when asked earlier in day
--- NOTE | 2022-10-21 07:03 | PC.NURSE ---
refused AM labs
[2022-10-21 08:30] VITALS: BP 87/54; PULSE 67; RESP 18; TEMP 36.4; O2SAT 97
[2022-10-21] MEDS: Sertraline HCL 50 MG TABLET 150 MG PO (08:54)
[2022-10-21] MEDS: HaloperidoL 5 MG TABLET 10 MG PO ×2 (08:54→20:45)
[2022-10-21] MEDS: hydrOXYzine HCL 50 MG TABLET PO ×2 (08:54→20:48)
[2022-10-21] MEDS: QUEtiapine Fumarate 100 MG TABLET PO ×2 (08:54→20:46)
[2022-10-21] MEDS: Benztropine Mesylate 1 MG TABLET PO ×2 (08:54→20:47)
[2022-10-21] MEDS: Acetaminophen 325 MG TABLET 650 MG PO (09:10)
--- NOTE | 2022-10-21 12:24 | HO.PSYADMNOT ---
HPI Date of Service: 10/21/22 Chief Complaint: SI Sources of Information: patient interviewed, chart reviewed and crisis/core team assessment reviewed HPI Subjective Notes: Conditional Voluntary Medical Problems Affecting Mental Status: No Narrative: Admitted with SI in context of daily alcohol use as well as recent cocaine use. Patient has chronic psychosis and is experiencing homelessness. He has had multiple recent hospital stays. His sleep is disturbed and his appetite is decreased. Past Psychiatric History: Inpatient: M5 2020 OP: [facility] Medical Evaluation Reviewed: Hospitalist Eval Pending CPK elevated on admission, [facility] Medical History Alcohol abuse Alcohol dependence Alcohol intoxication Delusional disorder Generalized anxiety disorder History of alcohol abuse Mixed dyslipidemia Schizo-affective schizophrenia Schizoaffective disorder Surgical History History of removal of neck cyst History of root canal procedure Diagnostics Vital Signs (24Hr): Vital Signs - 24 hr 10/20/22 16:13 10/20/22 17:24 10/20/22 21:04 Temperature 97.6 F 98.1 F 97.8 F Pulse Rate 69 61 70 Respiratory Rate 20 18 Blood Pressure 102/60 130/60 113/56 L Pulse Oximetry 97 99 95 Oxygen Delivery Method Room Air Room Air Room Air 10/21/22 08:30 Temperature 97.6 F Pulse Rate 67 Respiratory Rate 18 Blood Pressure 87/54 L Pulse Oximetry 97 Oxygen Delivery Method Room Air BMI result Body Mass Index 26.6 Labs 10/20/22 03:43 10/20/22 03:43 Labs: Laboratory Results - last 48 hr 10/20/22 10/20/22 10/20/22 03:43 03:43 09:26 WBC 11.2 H RBC 5.03 Hgb 15.0 Hct 44.4 MCV 88.3 MCH 29.8 MCHC 33.8 RDW 13.2 Plt Count 278 MPV 10.7 Immature Gran % (Auto) 0.4 Neut % (Auto) 61.7 Lymph % (Auto) 28.7 [place] % (Auto) 6.0 Eos % (Auto) 2.8 Baso % (Auto) 0.4 Lymph # (Auto) 3.2 [place] # (Auto) 0.7 Eos # (Auto) 0.3 Baso # (Auto) 0.1 Abs Immat Gran (auto) 0.05 H Absolute Neuts (auto) 6.9 Absolute Nucleated RBC 0.000 Nucleated RBC % (auto) 0.0 Sodium 143 Potassium 3.0 L D Chloride 109 H Carbon Dioxide 19 L Anion Gap 17 BUN 6 L Creatinine 0.78 Estim Creat Clear Calc 131.5 Estimated GFR > 60 Random Glucose 87 Calcium 9.5 D Total Bilirubin 0.3 AST 22 ALT 18 Alkaline Phosphatase 67 Total Creatine Kinase 1081 H Total Protein 7.3 Albumin 4.5 Urine Color Urine Appearance Urine pH Ur Specific [place] Urine Protein Urine Glucose (UA) Urine Ketones Urine Blood Urine Nitrite Ur Leukocyte Esterase Urine RBC Urine WBC Ur Squamous Epith Cells Urine Bacteria Hyaline Casts Urine Opiates Screen Not Detected Urine Fentanyl Screen Not Detected Ur Barbiturates Screen Not Detected Ur Phencyclidine Scrn Not Detected Ur Amphetamines Screen Not Detected U Benzodiazepines Scrn POSITIVE H Urine Cocaine Screen POSITIVE H U Marijuana (THC) Screen Not Detected Ethyl Alcohol 74 COVID-19 (KACIE) COVID-19 [employer] 10/20/22 10/20/22 09:26 13:30 WBC RBC Hgb Hct MCV MCH MCHC RDW Plt Count MPV Immature Gran % (Auto) Neut % (Auto) Lymph % (Auto) [place] % (Auto) Eos % (Auto) Baso % (Auto) Lymph # (Auto) [place] # (Auto) Eos # (Auto) Baso # (Auto) Abs Immat Gran (auto) Absolute Neuts (auto) Absolute Nucleated RBC Nucleated RBC % (auto) Sodium Potassium Chloride Carbon Dioxide Anion Gap BUN Creatinine Estim Creat Clear Calc Estimated GFR Random Glucose Calcium Total Bilirubin AST ALT Alkaline Phosphatase Total Creatine Kinase Total Protein Albumin Urine Color Dark Yellow Urine Appearance Clear Urine pH 5.5 Ur Specific [place] >= 1.030 H Urine Protein Negative Urine Glucose (UA) Negative Urine Ketones Trace Urine Blood Negative Urine Nitrite Negative Ur Leukocyte Esterase Trace H Urine RBC 0-2 Urine WBC 11-20 H Ur Squamous Epith Cells 0-2 Urine Bacteria None Seen Hyaline Casts 0-2 Urine Opiates Screen Urine Fentanyl Screen Ur Barbiturates Screen Ur Phencyclidine Scrn Ur Amphetamines Screen U Benzodiazepines Scrn Urine Cocaine Screen U Marijuana (THC) Screen Ethyl Alcohol COVID-19 (KACIE) Negative COVID-19 [employer] See Note Meds/Allergies Meds Home Medications Medication Instructions Recorded Confirmed Type fluticasone propionate 50 1 spray intranasal DAILY 10/14/22 10/20/22 History mcg/actuation nasal spray,suspension prazosin 2 mg capsule 2 mg PO BEDTIME 10/14/22 10/20/22 History sertraline 50 mg tablet 150 mg PO DAILY 10/14/22 10/20/22 History Allergies Allergies Allergy/AdvReac Type Severity Reaction Status Date / Time No Known Allergies Allergy Verified 01/27/21 08:24 [No Known Allergies*] Mental Status Exam Mental Status Exam Patient Appearance: Fatigued Patient Orientation: Person, Place, Time and Situation Level of Consciousness: Awake and Alert Patient Behavior: Appropriate and Isolative Mood Description: Withdrawn Affect Description: Depressed Patient Cognition Impaired: No Ability to Follow Directions: Excellent Speech Pattern: Clear Memory Description: Intact Hallucinations: Auditory (whispering) Delusions: Not Present Thought Process: Linear Thought Content: positive for Suicidal Ideation (passive, no plan or intent) Depressive Symptoms: Difficulty Sleeping, Changes in Appetite, Increased Fatigue and Thoughts of /Suicide Judgement: Fair Assessment & Plan Assessment & Plan (1) Schizoaffective disorder: Status: Acute Code(s): F25.9 - Schizoaffective disorder, unspecified (2) Alcohol use disorder, moderate, dependence: Status: Acute Code(s): F10.20 - Alcohol dependence, uncomplicated (3) Cocaine use disorder, moderate, dependence: Status: Acute Code(s): F14.20 - Cocaine dependence, uncomplicated Plan depression related to substances and life circumstances. Underlying schizoaffective disorder. Patient on CIWA Continue current doses of seroquel, zoloft and prazosin. repeat CPK ordered. Patient educated on: diagnosis, medication risk/benefits, substance abuse and medical condition Reason for continued inpatient stay Substantial Risk for: harm to self Statement Statement: I have reviewed the history and physical and performed a pertinent examination on my patient. No changes have occurred unless specified. If the History and Physical was not performed prior to admission, the Hospitalist's service will be consulted for completing the admission physical. Time Spent With Patient Time: Total time managing care of this patient today _60 ___ minutes.
--- NOTE | 2022-10-21 15:41 | PC.NURSE ---
Patient declined lab work, agreed to maybe later. Galina Colby notified.
[2022-10-21 18:48] LABS: Estimated Average Glucose 97 mg/dL
[2022-10-21 19:00] LABS: Alanine Aminotransferase 17 U/L (0-40); Albumin Level 3.7 g/dL (3.5-5.0); Alkaline Phosphatase 69 U/L (39-117); Anion Gap 11 (12-20); Aspartate Amino Transferase 12 U/L (5-37); Bilirubin Total 0.2 mg/dL (0.0-1.0); Blood Urea Nitrogen 11 mg/dL (9-16); Calcium 9.5 mg/dL (8.4-10.2); Carbon Dioxide 22 mmol/L (22-29); Chloride 110 mmol/L (96-108); Cholesterol 140 mg/dL; Creatinine Clr Calc Pharmacy 128.2; Estimated Glomerular Filt Rate > 60; Glucose Fasting 121 mg/dL (60-99); HDL Cholesterol 40 mg/dL; LDL Cholesterol Calculated 60 mg/dl; Potassium 4.1 mmol/L (3.3-5.1); Sodium 139 mmol/L (135-145); Total Protein 6.1 g/dL (6.5-8.0); Triglycerides 204 mg/dL
[2022-10-21 19:11] LABS: Free T4 (Free Thyroxine) 0.79 ng/dL (0.71-1.85); Thyroid Stimulating Hormone 2.45 uIU/mL (0.32-4.0)
[2022-10-21 19:25] LABS: Vitamin B12 370 pg/mL (200-900)
[2022-10-21 20:05] VITALS: BP 98/60; PULSE 59; RESP 16; TEMP 36.4; O2SAT 100
[2022-10-21] MEDS: Prazosin HCL 1 MG CAPSULE 2 MG PO (20:45)
[2022-10-21] MEDS: traZODone HCL 100 MG TABLET 200 MG PO (20:47)
[2022-10-22] MEDS: Acetaminophen 325 MG TABLET 650 MG PO (05:48)
[2022-10-22 09:22] VITALS: BP 100/55; PULSE 62; RESP 18; TEMP 36.4; O2SAT 98
[2022-10-22] MEDS: hydrOXYzine HCL 50 MG TABLET PO ×2 (09:23→21:04)
[2022-10-22] MEDS: Benztropine Mesylate 1 MG TABLET PO ×2 (09:23→21:04)
[2022-10-22] MEDS: HaloperidoL 5 MG TABLET 10 MG PO ×2 (09:23→21:03)
[2022-10-22] MEDS: Sertraline HCL 50 MG TABLET 150 MG PO (09:23)
[2022-10-22] MEDS: QUEtiapine Fumarate 100 MG TABLET PO ×2 (09:23→21:03)
--- NOTE | 2022-10-22 09:41 | HO.PSYCHPN ---
Subjective Subjective Date of Service: 10/22/22 Reason For Visit: SI Subjective Notes: Conditional Voluntary Medical Problems Affecting Mental Status: Yes (muscle pain) Interim History: Slept better. Appetite fair. Continues to complain of generalized msucle pain which he attributes to walking 20 miles per day prior to admission. Did allow repeat CPK to be drawn and it is significantly lower at 378. Is scoring zero on CIWA. Medication Compliance: Yes Side effects from medications: No Attending Groups: No Review of Systems Acute medical concerns: Yes CPK improving Medical Review of Systems: unchanged Mental Status Exam Mental Status Exam Patient Appearance: Well Grooomed Patient Orientation: Place, Time and Situation Level of Consciousness: Alert Patient Behavior: Passive Mood Description: Depressed Affect Description: Withdrawn Patient Cognition Impaired: No Ability to Follow Directions: Good Speech Pattern: Clear Memory Description: Intact Hallucinations: None Delusions: Not Present Thought Process: Goal Oriented Thought Content: positive for Intact Depressive Symptoms: Muscle Pain, Increased Fatigue and Thoughts of /Suicide (passive, no intent or plan) Judgement: Fair Diagnostics Vital Signs (24Hr): Vital Signs - 24 hr 10/21/22 20:05 10/22/22 09:22 Temperature 97.6 F 97.6 F Pulse Rate 59 62 Respiratory Rate 16 18 Blood Pressure 98/60 100/55 L Pulse Oximetry 100 98 Oxygen Delivery Method Room Air Room Air BMI result Body Mass Index 26.6 Labs 10/20/22 03:43 10/21/22 18:19 Labs: Laboratory Results - last 48 hr 10/20/22 10/20/22 10/20/22 09:26 09:26 13:30 Sodium Potassium Chloride Carbon Dioxide Anion Gap BUN Creatinine Estim Creat Clear Calc Estimated GFR Fasting Glucose Estimat Average Glucose Hemoglobin A1c % Calcium Total Bilirubin AST ALT Alkaline Phosphatase Total Creatine Kinase Total Protein Albumin Triglycerides Cholesterol LDL Cholesterol, Calc HDL Cholesterol Vitamin B12 Folate TSH Free T4 Urine Color Dark Yellow Urine Appearance Clear Urine pH 5.5 Ur Specific [place] >= 1.030 H Urine Protein Negative Urine Glucose (UA) Negative Urine Ketones Trace Urine Blood Negative Urine Nitrite Negative Ur Leukocyte Esterase Trace H Urine RBC 0-2 Urine WBC 11-20 H Ur Squamous Epith Cells 0-2 Urine Bacteria None Seen Hyaline Casts 0-2 Urine Opiates Screen Not Detected Urine Fentanyl Screen Not Detected Ur Barbiturates Screen Not Detected Ur Phencyclidine Scrn Not Detected Ur Amphetamines Screen Not Detected U Benzodiazepines Scrn POSITIVE H Urine Cocaine Screen POSITIVE H U Marijuana (THC) Screen Not Detected COVID-19 (KACIE) Negative COVID-19 [employer] See Note 10/21/22 10/21/22 10/21/22 18:19 18:19 18:19 Sodium 139 Potassium 4.1 D Chloride 110 H Carbon Dioxide 22 Anion Gap 11 L BUN 11 Creatinine 0.80 Estim Creat Clear Calc 128.2 Estimated GFR > 60 Fasting Glucose 121 H Estimat Average Glucose 97 Hemoglobin A1c % 5.0 Calcium 9.5 Total Bilirubin 0.2 AST 12 ALT 17 Alkaline Phosphatase 69 Total Creatine Kinase Total Protein 6.1 L Albumin 3.7 Triglycerides 204 Cholesterol 140 LDL Cholesterol, Calc 60 HDL Cholesterol 40 Vitamin B12 370 Folate 8.0 TSH 2.45 Free T4 0.79 Urine Color Urine Appearance Urine pH Ur Specific [place] Urine Protein Urine Glucose (UA) Urine Ketones Urine Blood Urine Nitrite Ur Leukocyte Esterase Urine RBC Urine WBC Ur Squamous Epith Cells Urine Bacteria Hyaline Casts Urine Opiates Screen Urine Fentanyl Screen Ur Barbiturates Screen Ur Phencyclidine Scrn Ur Amphetamines Screen U Benzodiazepines Scrn Urine Cocaine Screen U Marijuana (THC) Screen COVID-19 (KACIE) [employer] 10/21/22 18:19 Sodium Potassium Chloride Carbon Dioxide Anion Gap BUN Creatinine Estim Creat Clear Calc Estimated GFR Fasting Glucose Estimat Average Glucose Hemoglobin A1c % Calcium Total Bilirubin AST ALT Alkaline Phosphatase Total Creatine Kinase 378 H Total Protein Albumin Triglycerides Cholesterol LDL Cholesterol, Calc HDL Cholesterol Vitamin B12 Folate TSH Free T4 Urine Color Urine Appearance Urine pH Ur Specific [place] Urine Protein Urine Glucose (UA) Urine Ketones Urine Blood Urine Nitrite Ur Leukocyte Esterase Urine RBC Urine WBC Ur Squamous Epith Cells Urine Bacteria Hyaline Casts Urine Opiates Screen Urine Fentanyl Screen Ur Barbiturates Screen Ur Phencyclidine Scrn Ur Amphetamines Screen U Benzodiazepines Scrn Urine Cocaine Screen U Marijuana (THC) Screen COVID-19 (KACIE) COVID-19 [employer] Medications Medications Current Medications Acetaminophen (Acetaminophen 325 Mg Tablet) 650 mg PO Q6H PRN PRN Reason: Headache/Pain Mild Scale (1-3) Last Admin: 10/22/22 05:48 Dose: 650 mg Al Hydroxide/Mg Hydroxide (Magnesium Hydrox/Alum Hydrox 30 Ml Oral.Susp) 30 ml PO Q6H PRN PRN Reason: Heartburn/Nausea Benztropine Mesylate (Benztropine Mesylate 1 Mg Tablet) 1 mg PO BID ESTEVAN Last Admin: 10/22/22 09:23 Dose: 1 mg Fluticasone Propionate (Fluticasone Propionate Nasal 16 Gm [place]) 1 spray NOSTRIL-B DAILY [facility] Last Admin: 10/22/22 09:32 Dose: Not Given Haloperidol (Haloperidol 5 Mg Tablet) 10 mg PO BID [facility] Last Admin: 10/22/22 09:23 Dose: 10 mg Hydroxyzine HCl (Hydroxyzine Hcl 50 Mg Tablet) 50 mg PO BID [facility] Last Admin: 10/22/22 09:23 Dose: 50 mg Hydroxyzine HCl (Hydroxyzine Hcl 25 Mg Tablet) 25 mg PO Q6H PRN PRN Reason: Anxiety Lorazepam (Lorazepam 1 Mg Tablet) 1 mg PO Q2H PRN PRN Reason: CIWA 8-11 Lorazepam (Lorazepam 1 Mg Tablet) 2 mg PO Q2H PRN PRN Reason: CIWA 12-15 Lorazepam (Lorazepam 1 Mg Tablet) 3 mg PO Q2H PRN PRN Reason: CIWA > 15; and call MD Magnesium Hydroxide (Milk Of Magnesia 30 Ml Oral.Susp) 30 ml PO DAILY PRN PRN Reason: Constipation Nicotine Polacrilex (Nicotine Polacrilex 2 Mg Gum) 4 mg BUCCAL Q2H PRN PRN Reason: Nicotine Cravings Prazosin HCl (Prazosin Hcl 1 Mg Capsule) 2 mg PO BEDTIME [facility]; Protocol Last Admin: 10/21/22 20:45 Dose: 2 mg Quetiapine Fumarate (Quetiapine Fumarate 100 Mg Tablet) 100 mg PO BID [facility] Last Admin: 10/22/22 09:23 Dose: 100 mg Sertraline HCl (Sertraline Hcl 50 Mg Tablet) 150 mg PO DAILY [facility] Last Admin: 10/22/22 09:23 Dose: 150 mg Trazodone HCl (Trazodone Hcl 100 Mg Tablet) 200 mg PO BEDTIME [facility] Last Admin: 10/21/22 20:47 Dose: 200 mg Trazodone HCl (Trazodone Hcl 50 Mg Tablet) 50 mg PO BEDTIME MRX1 PRN PRN Reason: Insomnia Allergies Allergies Allergy/AdvReac Type Severity Reaction Status Date / Time No Known Allergies Allergy Verified 01/27/21 08:24 [No Known Allergies*] Assessment & Plan Assessment & Plan (1) Schizoaffective disorder: Status: Acute Code(s): F25.9 - Schizoaffective disorder, unspecified (2) Alcohol use disorder, moderate, dependence: Status: Acute Code(s): F10.20 - Alcohol dependence, uncomplicated (3) Cocaine use disorder, moderate, dependence: Status: Acute Code(s): F14.20 - Cocaine dependence, uncomplicated Plan depression related to substances and life circumstances. Underlying schizoaffective disorder. Discontinue CIWA Continue current doses of haldol,seroquel, zoloft and prazosin. Reason for continued inpatient stay Substantial Risk for: harm to self Time Spent With Patient Time: Total time managing care of this patient today ___20_ minutes.
--- NOTE | 2022-10-22 14:15 | PC.NURSE ---
Patient with ancillary staff washing clothing. Turned variety saw operator in to staff stating it was in his pant pocket. This staff asked patient if he had any additional contraband, he stated no, it was security's fault for not checking clothing. Informed room search would be completed, declined to observe. No further contraband found.
[2022-10-22] MEDS: Prazosin HCL 1 MG CAPSULE 2 MG PO (21:03)
[2022-10-22] MEDS: traZODone HCL 100 MG TABLET 200 MG PO (21:04)
[2022-10-22 21:07] VITALS: BP 112/74; PULSE 65; TEMP 36.5; O2SAT 96
[2022-10-23 08:15] VITALS: BP 105/67; PULSE 84; RESP 18; TEMP 36.2; O2SAT 98
[2022-10-23] MEDS: hydrOXYzine HCL 50 MG TABLET PO ×2 (08:16→20:16)
[2022-10-23] MEDS: HaloperidoL 5 MG TABLET 10 MG PO ×2 (08:16→20:16)
[2022-10-23] MEDS: Benztropine Mesylate 1 MG TABLET PO ×2 (08:16→20:16)
[2022-10-23] MEDS: QUEtiapine Fumarate 100 MG TABLET PO ×2 (08:16→20:16)
[2022-10-23] MEDS: Sertraline HCL 50 MG TABLET 150 MG PO (08:16)
--- NOTE | 2022-10-23 12:48 | PC.NURSE ---
Patient submitted 3 day notice.
[2022-10-23] MEDS: hydrOXYzine HCL 25 MG TABLET PO (14:11)
[2022-10-23] MEDS: Nicotine Polacrilex 2 MG GUM 4 MG BUCCAL (14:11)
[2022-10-23] MEDS: Nicotine 21 MG PATCH.TD24 TRANSDERMA (14:56)
--- NOTE | 2022-10-23 17:23 | P.PNPSI_ITS ---
Subjective Subjective Date of Service: 10/23/22 Reason For Visit: SI Subjective Notes: Conditional Voluntary and 3 Day Interim History: Pt reports sleeping and eating well. He denies s/s of alcohol withdrawal. ciwa continues to be zero. Pt denies SI/HI. he denies VH/AH. Pt signed 3 day notice, he declined referrals for alcohol use disorder. Pt taking medications. No behavioral concerns. Medication Compliance: Yes Review of Systems Review of Systems Yes all other systems are reviewed and are negative Mental Status Exam Mental Status Exam Patient Appearance: Well Grooomed Patient Orientation: Place, Time and Situation Level of Consciousness: Alert Patient Behavior: Passive Mood Description: Depressed Affect Description: Withdrawn Patient Cognition Impaired: No Ability to Follow Directions: Good Speech Pattern: Clear Memory Description: Intact Diagnostics Vital Signs (24Hr): Vital Signs - 24 hr 10/22/22 21:07 10/23/22 08:15 Temperature 97.7 F 97.2 F Pulse Rate 65 84 Respiratory Rate 18 Blood Pressure 112/74 105/67 Pulse Oximetry 96 98 Oxygen Delivery Method Room Air Room Air BMI result Body Mass Index 26.6 Labs 10/20/22 03:43 10/21/22 18:19 Labs: Laboratory Results - last 48 hr 10/21/22 10/21/22 10/21/22 18:19 18:19 18:19 Sodium 139 Potassium 4.1 D Chloride 110 H Carbon Dioxide 22 Anion Gap 11 L BUN 11 Creatinine 0.80 Estim Creat Clear Calc 128.2 Estimated GFR > 60 Fasting Glucose 121 H Estimat Average Glucose 97 Hemoglobin A1c % 5.0 Calcium 9.5 Total Bilirubin 0.2 AST 12 ALT 17 Alkaline Phosphatase 69 Total Creatine Kinase Total Protein 6.1 L Albumin 3.7 Triglycerides 204 Cholesterol 140 LDL Cholesterol, Calc 60 HDL Cholesterol 40 Vitamin B12 370 Folate 8.0 TSH 2.45 Free T4 0.79 10/21/22 18:19 Sodium Potassium Chloride Carbon Dioxide Anion Gap BUN Creatinine Estim Creat Clear Calc Estimated GFR Fasting Glucose Estimat Average Glucose Hemoglobin A1c % Calcium Total Bilirubin AST ALT Alkaline Phosphatase Total Creatine Kinase 378 H Total Protein Albumin Triglycerides Cholesterol LDL Cholesterol, Calc HDL Cholesterol Vitamin B12 Folate TSH Free T4 Medications Medications Current Medications Acetaminophen (Acetaminophen 325 Mg Tablet) 650 mg PO Q6H PRN PRN Reason: Headache/Pain Mild Scale (1-3) Last Admin: 10/22/22 05:48 Dose: 650 mg Al Hydroxide/Mg Hydroxide (Magnesium Hydrox/Alum Hydrox 30 Ml Oral.Susp) 30 ml PO Q6H PRN PRN Reason: Heartburn/Nausea Benztropine Mesylate (Benztropine Mesylate 1 Mg Tablet) 1 mg PO BID REPLACED BY [facility] Last Admin: 10/23/22 08:16 Dose: 1 mg Fluticasone Propionate (Fluticasone Propionate Nasal 16 Gm [place]) 1 spray NOSTRIL-B DAILY REPLACED BY [facility] Last Admin: 10/23/22 08:16 Dose: Not Given Haloperidol (Haloperidol 5 Mg Tablet) 10 mg PO BID REPLACED BY [facility] Last Admin: 10/23/22 08:16 Dose: 10 mg Hydroxyzine HCl (Hydroxyzine Hcl 50 Mg Tablet) 50 mg PO BID REPLACED BY [facility] Last Admin: 10/23/22 08:16 Dose: 50 mg Hydroxyzine HCl (Hydroxyzine Hcl 25 Mg Tablet) 25 mg PO Q6H PRN PRN Reason: Anxiety Last Admin: 10/23/22 14:11 Dose: 25 mg Lorazepam (Lorazepam 1 Mg Tablet) 1 mg PO Q2H PRN PRN Reason: CIWA 8-11 Lorazepam (Lorazepam 1 Mg Tablet) 2 mg PO Q2H PRN PRN Reason: CIWA 12-15 Lorazepam (Lorazepam 1 Mg Tablet) 3 mg PO Q2H PRN PRN Reason: CIWA > 15; and call Magnesium Hydroxide (Milk Of Magnesia 30 Ml Oral.Susp) 30 ml PO DAILY PRN PRN Reason: Constipation Nicotine (Nicotine 21 Mg Patch.Td24) 21 mg TRANSDERMA DAILY REPLACED BY [facility] Last Admin: 10/23/22 14:56 Dose: 21 mg Nicotine Polacrilex (Nicotine Polacrilex 2 Mg Gum) 4 mg BUCCAL Q2H PRN PRN Reason: Nicotine Cravings Last Admin: 10/23/22 14:11 Dose: 4 mg Prazosin HCl (Prazosin Hcl 1 Mg Capsule) 2 mg PO BEDTIME REPLACED BY [facility]; Protocol Last Admin: 10/22/22 21:03 Dose: 2 mg Quetiapine Fumarate (Quetiapine Fumarate 100 Mg Tablet) 100 mg PO BID REPLACED BY [facility] Last Admin: 10/23/22 08:16 Dose: 100 mg Sertraline HCl (Sertraline Hcl 50 Mg Tablet) 150 mg PO DAILY REPLACED BY [facility] Last Admin: 10/23/22 08:16 Dose: 150 mg Trazodone HCl (Trazodone Hcl 100 Mg Tablet) 200 mg PO BEDTIME [facility] Last Admin: 10/22/22 21:04 Dose: 200 mg Trazodone HCl (Trazodone Hcl 50 Mg Tablet) 50 mg PO BEDTIME MRX1 PRN PRN Reason: Insomnia Allergies Allergies Allergy/AdvReac Type Severity Reaction Status Date / Time No Known Allergies Allergy Verified 01/27/21 08:24 [No Known Allergies*] Assessment & Plan Assessment & Plan (1) Schizoaffective disorder: Status: Acute Code(s): F25.9 - Schizoaffective disorder, unspecified (2) Alcohol use disorder, moderate, dependence: Status: Acute Code(s): F10.20 - Alcohol dependence, uncomplicated (3) Cocaine use disorder, moderate, dependence: Status: Acute Code(s): F14.20 - Cocaine dependence, uncomplicated Plan depression related to substances and life circumstances. Underlying schizoaffective disorder. Discontinue CIWA Continue current doses of haldol,seroquel, zoloft and prazosin. 10/23 continue tx. Reason for continued inpatient stay Substantial Risk for: stable for discharge Time Spent With Patient Time: Total time managing care of this patient today ____ minutes.
[2022-10-23 20:10] VITALS: BP 119/68; PULSE 83; RESP 18; O2SAT 96
[2022-10-23] MEDS: traZODone HCL 100 MG TABLET 200 MG PO (20:17)
[2022-10-23] MEDS: Prazosin HCL 1 MG CAPSULE 2 MG PO (20:17)
[2022-10-24 08:40] VITALS: BP 108/56; PULSE 88; RESP 18; TEMP 36.4; O2SAT 98
[2022-10-24] MEDS: Nicotine 21 MG PATCH.TD24 TRANSDERMA (09:17)
[2022-10-24] MEDS: Benztropine Mesylate 1 MG TABLET PO ×2 (09:18→21:07)
[2022-10-24] MEDS: HaloperidoL 5 MG TABLET 10 MG PO ×2 (09:18→21:07)
[2022-10-24] MEDS: Sertraline HCL 50 MG TABLET 150 MG PO (09:18)
[2022-10-24] MEDS: QUEtiapine Fumarate 100 MG TABLET PO ×2 (09:18→21:07)
[2022-10-24] MEDS: hydrOXYzine HCL 50 MG TABLET PO ×2 (09:18→21:07)
--- NOTE | 2022-10-24 14:30 | PM.PSYDC ---
DS: Providers Provider Date of Service: 10/24/22 Date of admission: 10/20/22 16:19 Primary care physician: Unknown Physician DS: Diagnosis Discharge Diagnosis (1) Schizoaffective disorder: Status: Acute (2) Alcohol use disorder, moderate, dependence: Status: Acute (3) Cocaine use disorder, moderate, dependence: Status: Acute DS: Medications Discharge Medications Home Medications: Home Medications Medication Instructions Recorded Confirmed fluticasone propionate 50 1 spray intranasal DAILY 10/14/22 10/20/22 mcg/actuation nasal spray,suspension prazosin 2 mg capsule 2 mg PO BEDTIME 10/14/22 10/20/22 sertraline 50 mg tablet 150 mg PO DAILY 10/14/22 10/20/22 Previous Rx's Medication Instructions Recorded benztropine 1 mg tablet 1 mg PO BID #60 tabs 09/16/22 haloperidol 10 mg tablet 10 mg PO BID #60 tabs 09/16/22 hydroxyzine HCl 50 mg tablet 50 mg PO BID #60 tabs 09/16/22 quetiapine 100 mg tablet 100 mg PO BID #60 tabs 09/16/22 trazodone 100 mg tablet 200 mg PO BEDTIME #30 tabs 09/16/22 Mental Status Exam Mental Status Exam Narrative: Appearance: street clothes, fair hygiene, in NAD Behavior: no agitation or retardation noted Speech: clear, normal rate/rhythm, volume, spontaneous TP: linear TC: no overt delusions, no SI/HI Mood: good. optimistic. Affect: full range, normo-intense, non-labile SI: none HI: none AH:denies VH: none Delusions: no overt delusions noted or reported. Insight/judgment: fair x 2. memory/cog: alert, oriented x 3. grossly intact to conversational testing. Data Data Completed and Pending Completed studies during hospitalization [Text1]: 10/20/22 10/20/22 10/20/22 03:43 03:43 09:26 WBC 11.2 H RBC 5.03 Hgb 15.0 Hct 44.4 MCV 88.3 MCH 29.8 MCHC 33.8 RDW 13.2 Plt Count 278 MPV 10.7 Immature Gran % (Auto) 0.4 Neut % (Auto) 61.7 Lymph % (Auto) 28.7 Mcpherson % (Auto) 6.0 Eos % (Auto) 2.8 Baso % (Auto) 0.4 Lymph # (Auto) 3.2 Mcpherson # (Auto) 0.7 Eos # (Auto) 0.3 Baso # (Auto) 0.1 Abs Immat Gran (auto) 0.05 H Absolute Neuts (auto) 6.9 Absolute Nucleated RBC 0.000 Nucleated RBC % (auto) 0.0 Sodium 143 Potassium 3.0 L D Chloride 109 H Carbon Dioxide 19 L Anion Gap 17 BUN 6 L Creatinine 0.78 Estim Creat Clear Calc 131.5 Estimated GFR > 60 Random Glucose 87 Fasting Glucose Estimat Average Glucose Hemoglobin A1c % Calcium 9.5 D Total Bilirubin 0.3 AST 22 ALT 18 Alkaline Phosphatase 67 Total Creatine Kinase 1081 H Total Protein 7.3 Albumin 4.5 Triglycerides Cholesterol LDL Cholesterol, Calc HDL Cholesterol Vitamin B12 Folate TSH Free T4 Urine Color Urine Appearance Urine pH Ur Specific Beaver Urine Protein Urine Glucose (UA) Urine Ketones Urine Blood Urine Nitrite Ur Leukocyte Esterase Urine RBC Urine WBC Ur Squamous Epith Cells Urine Bacteria Hyaline Casts Urine Opiates Screen Not Detected Urine Fentanyl Screen Not Detected Ur Barbiturates Screen Not Detected Ur Phencyclidine Scrn Not Detected Ur Amphetamines Screen Not Detected U Benzodiazepines Scrn POSITIVE H Urine Cocaine Screen POSITIVE H U Marijuana (THC) Screen Not Detected Ethyl Alcohol 74 COVID-19 (KACIE) COVID-19 Clin Com 10/20/22 10/20/22 10/21/22 09:26 13:30 18:19 WBC RBC Hgb Hct MCV MCH MCHC RDW Plt Count MPV Immature Gran % (Auto) Neut % (Auto) Lymph % (Auto) Mcpherson % (Auto) Eos % (Auto) Baso % (Auto) Lymph # (Auto) Mcpherson # (Auto) Eos # (Auto) Baso # (Auto) Abs Immat Gran (auto) Absolute Neuts (auto) Absolute Nucleated RBC Nucleated RBC % (auto) Sodium 139 Potassium 4.1 D Chloride 110 H Carbon Dioxide 22 Anion Gap 11 L BUN 11 Creatinine 0.80 Estim Creat Clear Calc 128.2 Estimated GFR > 60 Random Glucose Fasting Glucose 121 H Estimat Average Glucose Hemoglobin A1c % Calcium 9.5 Total Bilirubin 0.2 AST 12 ALT 17 Alkaline Phosphatase 69 Total Creatine Kinase Total Protein 6.1 L Albumin 3.7 Triglycerides 204 Cholesterol 140 LDL Cholesterol, Calc 60 HDL Cholesterol 40 Vitamin B12 Folate TSH 2.45 Free T4 0.79 Urine Color Dark Yellow Urine Appearance Clear Urine pH 5.5 Ur Specific Beaver >= 1.030 H Urine Protein Negative Urine Glucose (UA) Negative Urine Ketones Trace Urine Blood Negative Urine Nitrite Negative Ur Leukocyte Esterase Trace H Urine RBC 0-2 Urine WBC 11-20 H Ur Squamous Epith Cells 0-2 Urine Bacteria None Seen Hyaline Casts 0-2 Urine Opiates Screen Urine Fentanyl Screen Ur Barbiturates Screen Ur Phencyclidine Scrn Ur Amphetamines Screen U Benzodiazepines Scrn Urine Cocaine Screen U Marijuana (THC) Screen Ethyl Alcohol COVID-19 (KACIE) Negative COVID-19 Clin Com See Note 10/21/22 10/21/22 10/21/22 18:19 18:19 18:19 WBC RBC Hgb Hct MCV MCH MCHC RDW Plt Count MPV Immature Gran % (Auto) Neut % (Auto) Lymph % (Auto) Mcpherson % (Auto) Eos % (Auto) Baso % (Auto) Lymph # (Auto) Mcpherson # (Auto) Eos # (Auto) Baso # (Auto) Abs Immat Gran (auto) Absolute Neuts (auto) Absolute Nucleated RBC Nucleated RBC % (auto) Sodium Potassium Chloride Carbon Dioxide Anion Gap BUN Creatinine Estim Creat Clear Calc Estimated GFR Random Glucose Fasting Glucose Estimat Average Glucose 97 Hemoglobin A1c % 5.0 Calcium Total Bilirubin AST ALT Alkaline Phosphatase Total Creatine Kinase 378 H Total Protein Albumin Triglycerides Cholesterol LDL Cholesterol, Calc HDL Cholesterol Vitamin B12 370 Folate 8.0 TSH Free T4 Urine Color Urine Appearance Urine pH Ur Specific Beaver Urine Protein Urine Glucose (UA) Urine Ketones Urine Blood Urine Nitrite Ur Leukocyte Esterase Urine RBC Urine WBC Ur Squamous Epith Cells Urine Bacteria Hyaline Casts Urine Opiates Screen Urine Fentanyl Screen Ur Barbiturates Screen Ur Phencyclidine Scrn Ur Amphetamines Screen U Benzodiazepines Scrn Urine Cocaine Screen U Marijuana (THC) Screen Ethyl Alcohol COVID-19 (KACIE) COVID-19 Clin Com 10/20/22 Unknown Urine clean catch - Urine gomez top Urine Culture - Final DS: Summary Hospital Course Hospital Course: per 10/21 admission note: Admitted with SI in context of daily alcohol use as well as recent cocaine use.? Patient has chronic psychosis and is experiencing homelessness.? He has had multiple recent hospital stays.? His sleep is disturbed and his appetite is decreased.? Past Psychiatric History: Inpatient: M5 2020 ? OP: [facility] Medical Evaluation Reviewed: Hospitalist Eval Pending CPK elevated on admission,? repeat pending PMFSH Medical History? Alcohol abuse Alcohol dependence Alcohol intoxication Delusional disorder Generalized anxiety disorder History of alcohol abuse Mixed dyslipidemia Schizo-affective schizophrenia Schizoaffective disorder Surgical History? History of removal of neck cyst History of root canal procedure 10/22: Slept better.? Appetite fair.? Continues to complain of generalized msucle pain which he attributes to walking 20 miles per day prior to admission.? Did allow repeat CPK to be drawn and it is significantly lower at 378.? Is scoring zero on CIWA. 10/23: Pt reports sleeping and eating well. He denies s/s of alcohol withdrawal. ciwa continues to be zero. Pt denies SI/HI. he denies VH/AH. Pt signed 3 day notice, he declined referrals for alcohol use disorder. Pt taking medications. No behavioral concerns. Precis: 10/21: depression related to substances and life circumstances.? Underlying schizoaffective disorder. Patient on CIWA. Continue current doses of seroquel, zoloft and prazosin. repeat CPK ordered. 10/22: Discontinue CIWA. Continue current doses of haldol,seroquel, zoloft and prazosin. 10/23: continue tx. 10/24: calm, cooperative, feling well, requesting discharge. discharge planned for tomorrow. meds reviewed, reconciled. none needed to be prescribed. 10/25: stable. discharged as per plan. Time Spent with Patient Time attestation: Total time managing care of this patient today ____ minutes. Time spent: Greater than 30 minutes Discharge Plan Discharge Anticipated Discharge Date/Time: 10/25/22 10:00 Patient Disposition: Home, Self-Care Discharge Diagnosis: Schizoaffective Disorder Referrals: Therapy & Psychiatry [Other] - 1 Week (Please follow up with your appointments scheduled at [facility]) Tomeka Teresa MD [Physician] - (PCP will contact patient with follow up appt.) Discharge Medications: Continued fluticasone propionate 50 mcg/actuation spray,suspension 1 spray intranasal DAILY sertraline 50 mg tablet 150 mg PO DAILY prazosin 2 mg capsule 2 mg PO BEDTIME benztropine 1 mg tablet 1 mg PO BID Qty: 60 0RF haloperidol 10 mg tablet 10 mg PO BID Qty: 60 0RF hydroxyzine HCl 50 mg tablet 50 mg PO BID Qty: 60 0RF quetiapine 100 mg tablet 100 mg PO BID Qty: 60 0RF trazodone 100 mg tablet 200 mg PO BEDTIME Qty: 30 0RF Discharge Orders: Discharge Order (Routine); Ordered 10/25/22 Ordered By: Mike Moreno Diet: Advance to usual diet Activity on Discharge: As tolerated Stand Alone Forms: Patient Portal Discharge page, Community Support Care Plan Goals: remain safe, sober, and stable in the outpatient treatment setting Health Concerns: none Plan of Treatment: take medications as prescribed, attend appointments as scheduled Assessment: not at imminent risk of harm to self or others Discharge Date/Time: 10/25/22 10:00
[2022-10-24] MEDS: hydrOXYzine HCL 25 MG TABLET PO (16:22)
[2022-10-24 19:45] VITALS: BP 123/67; PULSE 70; RESP 18; TEMP 36.6; O2SAT 97
[2022-10-24] MEDS: Prazosin HCL 1 MG CAPSULE 2 MG PO (21:06)
[2022-10-24] MEDS: traZODone HCL 100 MG TABLET 200 MG PO (21:07)
[2022-10-25] MEDS: QUEtiapine Fumarate 100 MG TABLET PO (08:48)
[2022-10-25] MEDS: hydrOXYzine HCL 50 MG TABLET PO (08:48)
[2022-10-25] MEDS: HaloperidoL 5 MG TABLET 10 MG PO (08:48)
[2022-10-25] MEDS: Sertraline HCL 50 MG TABLET 150 MG PO (08:48)
[2022-10-25] MEDS: Benztropine Mesylate 1 MG TABLET PO (08:48)
== END 2022-10-25 10:00 | disposition home or self-care (01) | DRG 750 ==
LOC: HO.ED 10:30 → HO.PADLT16 16:26
PROVIDERS: Physician Assistant; Psychiatry & Neurology Psychiatry; Admitting Provider Psychiatry & Neurology Psychiatry; Emergency Provider Emergency Medicine; Visit Provider Psychiatry & Neurology Psychiatry
DX: F25.9 Schizoaffective disorder, unspecified (principal); R45.850 Homicidal ideations; F14.20 Cocaine dependence, uncomplicated; E78.2 Mixed hyperlipidemia; Y90.3 Blood alcohol level of 60-79 mg/100 ml; Z20.822 Contact with and (suspected) exposure to COVID-19; Z79.51 Long term (current) use of inhaled steroids; Z87.891 Personal history of nicotine dependence; Z79.899 Other long term (current) drug therapy
CPT/HCPCS: 36415; 80053; 80061; 80307; 81001; 82550; 82607; 82746; 83036; 84439; 84443; 85025; 87086; 87635; 93005; 99285; S9485

== ENCOUNTER → 2022-10-20 12:54 | Outpatient (BNV) | payer OTHER, SELFPAY | PROVIDERS: Admitting Provider Psychiatry & Neurology Psychiatry; Emergency Provider Emergency Medicine; Visit Provider Internal Medicine Cardiovascular Disease | DX: F25.9 Schizoaffective disorder, unspecified (principal); F14.20 Cocaine dependence, uncomplicated; F10.20 Alcohol dependence, uncomplicated | CPT/HCPCS: 93010 ==

== ENCOUNTER → 2022-10-20 16:19 | Outpatient (BNV) | payer OTHER, SELFPAY | PROVIDERS: Admitting Provider Psychiatry & Neurology Psychiatry; Emergency Provider Emergency Medicine; Visit Provider Psychiatry & Neurology Psychiatry | DX: F25.9 Schizoaffective disorder, unspecified (principal); F10.20 Alcohol dependence, uncomplicated; F14.20 Cocaine dependence, uncomplicated | CPT/HCPCS: 90792; 99232; 99239 ==

== ENCOUNTER 2022-10-27 04:16 | Emergency (ER) | payer OTHER, SELFPAY ==
[2022-10-27 04:27] VITALS: BP 126/86; PULSE 80; RESP 16; TEMP 36.8; O2SAT 96; BMI 26.6
[2022-10-27 06:00] VITALS: RESP 17
--- NOTE | 2022-10-27 06:09 | PC.NURSE ---
Patient is in bed appears sleeping, behavior non concerning, labs pending awaiting provider to see the patient, med rec completed/pending provider's approval, care consult ordered for AH, VSS, will continue to monitor.
[2022-10-27 08:42] LABS: Basophils Absolute Auto 0.1 X10*3/uL (0.0-0.2); Basophils Percent Auto 0.5 % (0-2); Eosinophils Absolute Auto 0.3 X10*3/uL (0.0-0.4); Eosinophils Percent Auto 3.1 % (0-4); Hematocrit 45.7 % (42.0-52.0); Hemoglobin 15.3 g/dl (14.0-18.0); Imm Gran Abs Auto 0.06 X10*3/uL (0.00-0.03); Imm Gran Pct Auto 0.6 % (0.0-0.4); Lymphocytes Absolute Auto 2.8 X10*3/uL (1.2-4.9); Lymphocytes Percent Auto 26.5 % (20-40); MANUAL DIFF FLAG NO; Mean Corpuscular HGB Conc 33.5 g/dl (31.0-36.0); Mean Corpuscular Hemoglobin 29.4 pg (27.0-33.0); Mean Corpuscular Volume 87.7 fL (80.0-98.0); Mean Platelet Volume 10.5 fL (9.4-12.4); Monocytes Absolute Auto 1.1 X10*3/uL (0.1-1.2); Monocytes Percent Auto 10.8 % (2-11); Neutrophils Absolute Auto 6.2 x10*3/uL (2.0-8.3); Neutrophils Percent Auto 58.5 % (45-73); Platelet Count 320 X10*3/uL (160-400); Red Blood Count 5.21 X10*6/uL (4.60-5.80); Red Cell Distribution Width 13.2 % (11.0-16.0); White Blood Count 10.5 X10*3/uL (4.8-10.8)
[2022-10-27 08:55] LABS: Alanine Aminotransferase 23 U/L (0-40); Albumin Level 4.5 g/dL (3.5-5.0); Alkaline Phosphatase 73 U/L (39-117); Anion Gap 11 (12-20); Aspartate Amino Transferase 22 U/L (5-37); Bilirubin Total 0.4 mg/dL (0.0-1.0); Blood Urea Nitrogen 13 mg/dL (9-16); Calcium 9.7 mg/dL (8.4-10.2); Carbon Dioxide 29 mmol/L (22-29); Chloride 102 mmol/L (96-108); Creatinine Clr Calc Pharmacy 117.9; Estimated Glomerular Filt Rate > 60; Ethanol < 10 mg/dL; Glucose Random 85 mg/dL (60-115); Potassium 3.8 mmol/L (3.3-5.1); Sodium 138 mmol/L (135-145); Total Protein 7.4 g/dL (6.5-8.0)
--- NOTE | 2022-10-27 10:24 | PC.NURSE ---
Woke Pt to obtain a urine. Obtained and back to room. Requesting to be discharged. Care Team notified.
--- NOTE | 2022-10-27 10:25 | ED.PSYCH ---
HPI - Psych General Chief Complaint: Psychiatric Symptoms Stated Complaint: Hearing voices Time Seen by Provider: 10/27/22 06:39 Source: patient Mode of arrival: ambulatory Limitations: no limitations History of Present Illness HPI Narrative: 32 male with pmh of schizoaffective disorder, NORI, alcohol use diosrder presents to the ED for auditory hallucinatonis. patient denies auditory voices stating thougths. patient denies any suicdial/homicidal ideation. patient is non-compliant with [employer] meds. Related Data Home Medications Medication Instructions Recorded Confirmed fluticasone propionate 50 1 spray intranasal DAILY 10/14/22 10/27/22 mcg/actuation nasal spray,suspension benztropine 1 mg tablet 1 mg PO BID 10/27/22 10/27/22 haloperidol 10 mg tablet 10 mg PO BID 10/27/22 10/27/22 prazosin 2 mg capsule 2 mg PO BEDTIME 10/27/22 10/27/22 sertraline 50 mg tablet 150 mg PO DAILY 10/27/22 10/27/22 Previous Rx's Medication Instructions Recorded hydroxyzine HCl 50 mg tablet 50 mg PO BID #60 tabs 09/16/22 quetiapine 100 mg tablet 100 mg PO BID #60 tabs 09/16/22 trazodone 100 mg tablet 200 mg PO BEDTIME #30 tabs 09/16/22 Allergies Allergy/AdvReac Type Severity Reaction Status Date / Time No Known Allergies Allergy Verified 01/27/21 08:24 [No Known Allergies*] Review of Systems Review of Systems: auditory voices Yes all other systems are reviewed and are negative [facility] Past Medical History Medical History Alcohol abuse Alcohol dependence Alcohol intoxication Delusional disorder Generalized anxiety disorder History of alcohol abuse Mixed dyslipidemia Schizo-affective schizophrenia Schizoaffective disorder Surgical History History of removal of neck cyst History of root canal procedure Family History Family History Father Depression FH: mental illness Mother Depression FH: mental illness Maternal Grandfather No problems noted. Maternal Grandmother No problems noted. Brother No problems noted. Sister No problems noted. 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 Housing: House Do you presently have visiting nurse or other home services: No Alcohol intake: current Alcohol intake frequency: 3 or more drinks per day Alcohol type: hard liquor Patient Tobacco Use Status: Former Tobacco user Tobacco use type: Cigarette Cigarettes Per Day: 5 Years Smoked: 3 e-Cigarette/Vaping Use: Former Use Second Hand Smoke Exposure: No Substance Use Type: Marijuana and Other Advance Directives: No Advance Directives Information Provided: Yes Healthcare Proxy: No Guardian: No service: No Current occupational status: unemployed Sexual orientation: Straight/Heterosexual Physical Exam Vital Signs: Vital Signs: Last Vital Signs Temp 98.3 F 10/27/22 04:27 Pulse 80 10/27/22 04:27 Resp 17 10/27/22 06:00 BP 126/86 10/27/22 04:27 Pulse Ox 96 10/27/22 04:27 O2 Del Method Room Air 10/27/22 04:27 BMI result Body Mass Index 26.6 Const: General: cooperative, healthy appearing, comfortable, no acute distress, well developed, alert, awake and Physically active Orientation/consciousness: oriented to person, oriented to place, oriented to time and patient oriented x3 HEENT: Head: Yes normal to inspection, Yes No palpable skull fracture present, Yes normocephalic, Yes atraumatic and No abrasion Eyes: General: appearance normal, both eyes and all related structures Neck: Neck: Yes normal visual inspection, Yes full ROM, Yes no lymphadenopathy, Yes no meningeal signs, Yes trachea midline, Yes supple, No anterior neck swelling and No tender Chest: Chest palpation & inspection: normal inspection of the chest and normal palpation of entire chest wall Resp: Effort & Inspection: normal respiratory effort and able to speak in complete sentences Auscultation: clear to auscultation bilaterally Cardio: Jugular venous distension: no JVD Heart sounds: S1 normal heart sound present and S2 normal heart sound present GI: Inspection: Yes normal to inspection and No visible pulsation Palpation (GI): Soft to palpation, not firm, nontender, no guarding and not rigid : General: No CVA tenderness and Yes no CVA tenderness Back/Spine/Pelvis: Back: no CVA tenderness, No CVA tenderness and No back tenderness Skin: General skin exam: no rashes or lesions noted and elasticity normal Neuro: General: oriented to person, oriented to place, oriented to time, patient oriented x3, gait normal, tone normal, moves all extremities, Normal light touch and pain sensation, no meningeal signs, no focal motor deficits, CN's II-XI intact bilaterally and normal sensation to monofilament Extrem: General: Yes normal to inspection and Yes full ROM Psych: Appearance: grossly normal, well kempt and not disheveled Medical Decision Making Medical Decision Making [facility] Narrative: 32-year-old male presents to the ED for auditory voices. Patient denies any suicidal thoughts or homicidal ideation. Patient has no plan to kill himself. Patient states auditory voices not making suicidal homicidal voices. Patient not compliant with psych meds. Patient was evaluated by care team consulted who states patient is safe for discharge. Patient informed her he wants to be discharged and will follow up with department of mental health counselor were ready informed him that they will try to get him a long-term placement. Patient refused detox. Patient to be discharged Differential Diagnosis Differential Diagnoses: The differential diagnosis associated with the presentation includes (Schizoaffective disorder, alcohol use disorder, cocaine use disorder, suicidal, homicidal,) Admission/Observation Consideration of admission/observation: Escalation of care including admission/observation considered Consult Healthcare Provider Management of the patient was discussed with: Ict Support Engineer (Care Team Ict Support Engineer) Lab Data [facility] Lab Attestation statement: I reviewed the patient's lab results. 10/27/22 08:35 10/27/22 08:35 Labs: Lab Results 10/27/22 10/27/22 10/27/22 Range/Units 08:35 08:35 08:35 WBC 10.5 (4.8-10.8) X10*3/uL RBC 5.21 (4.60-5.80) X10*6/uL Hgb 15.3 (14.0-18.0) g/dl Hct 45.7 (42.0-52.0) % MCV 87.7 (80.0-98.0) fL MCH 29.4 (27.0-33.0) pg MCHC 33.5 (31.0-36.0) g/dl RDW 13.2 (11.0-16.0) % Plt Count 320 (160-400) X10*3/uL MPV 10.5 (9.4-12.4) fL Immature Gran % (Auto) 0.6 H (0.0-0.4) % Neut % (Auto) 58.5 (45-73) % Lymph % (Auto) 26.5 (20-40) % Grady % (Auto) 10.8 (2-11) % Eos % (Auto) 3.1 (0-4) % Baso % (Auto) 0.5 (0-2) % Lymph # (Auto) 2.8 (1.2-4.9) X10*3/uL Grady # (Auto) 1.1 (0.1-1.2) X10*3/uL Eos # (Auto) 0.3 (0.0-0.4) X10*3/uL Baso # (Auto) 0.1 (0.0-0.2) X10*3/uL Abs Immat Gran (auto) 0.06 H (0.00-0.03) X10*3/uL Absolute Neuts (auto) 6.2 (2.0-8.3) x10*3/uL Absolute Nucleated RBC 0.000 (0.0-0.012) X10*3/uL Nucleated RBC % (auto) 0.0 (0.0-0.2) /100WBC Sodium 138 (135-145) mmol/L Potassium 3.8 (3.3-5.1) mmol/L Chloride 102 (96-108) mmol/L Carbon Dioxide 29 (22-29) mmol/L Anion Gap 11 L (12-20) BUN 13 (9-16) mg/dL Creatinine 0.87 (0.5-1.4) mg/dL Estim Creat Clear Calc 117.9 Estimated GFR > 60 Random Glucose 85 (60-115) mg/dL Calcium 9.7 (8.4-10.2) mg/dL Total Bilirubin 0.4 (0.0-1.0) mg/dL AST 22 (5-37) U/L ALT 23 (0-40) U/L Alkaline Phosphatase 73 (39-117) U/L Total Protein 7.4 (6.5-8.0) g/dL Albumin 4.5 (3.5-5.0) g/dL Urine Color Urine Appearance Urine pH (5.0-9.0) Ur Specific Milton (1.005-1.025) Urine Protein (Neg-Trace) mg/dL Urine Glucose (UA) (Negative) mg/dL Urine Ketones (Negative) mg/dL Urine Blood (Negative) Urine Nitrite (Negative) Ur Leukocyte Esterase (Negative) Urine RBC (0-2) /HPF Urine WBC (0-5) /HPF Ur Squamous Epith Cells (0-2) /HPF Urine Bacteria (None Seen) Hyaline Casts (0-2) /LPF Urine Opiates Screen (Not Detect) Urine Fentanyl Screen (Not Detect) Ur Barbiturates Screen (Not Detect) Ur Phencyclidine Scrn (Not Detect) Ur Amphetamines Screen (Not Detect) U Benzodiazepines Scrn (Not Detect) Urine Cocaine Screen (Not Detect) U Marijuana (THC) Screen (Not Detect) Ethyl Alcohol < 10 mg/dL 10/27/22 10/27/22 Range/Units 10:25 10:25 WBC (4.8-10.8) X10*3/uL RBC (4.60-5.80) X10*6/uL Hgb (14.0-18.0) g/dl Hct (42.0-52.0) % MCV (80.0-98.0) fL MCH (27.0-33.0) pg MCHC (31.0-36.0) g/dl RDW (11.0-16.0) % Plt Count (160-400) X10*3/uL MPV (9.4-12.4) fL Immature Gran % (Auto) (0.0-0.4) % Neut % (Auto) (45-73) % Lymph % (Auto) (20-40) % Grady % (Auto) (2-11) % Eos % (Auto) (0-4) % Baso % (Auto) (0-2) % Lymph # (Auto) (1.2-4.9) X10*3/uL Grady # (Auto) (0.1-1.2) X10*3/uL Eos # (Auto) (0.0-0.4) X10*3/uL Baso # (Auto) (0.0-0.2) X10*3/uL Abs Immat Gran (auto) (0.00-0.03) X10*3/uL Absolute Neuts (auto) (2.0-8.3) x10*3/uL Absolute Nucleated RBC (0.0-0.012) X10*3/uL Nucleated RBC % (auto) (0.0-0.2) /100WBC Sodium (135-145) mmol/L Potassium (3.3-5.1) mmol/L Chloride (96-108) mmol/L Carbon Dioxide (22-29) mmol/L Anion Gap (12-20) BUN (9-16) mg/dL Creatinine (0.5-1.4) mg/dL Estim Creat Clear Calc Estimated GFR Random Glucose (60-115) mg/dL Calcium (8.4-10.2) mg/dL Total Bilirubin (0.0-1.0) mg/dL AST (5-37) U/L ALT (0-40) U/L Alkaline Phosphatase (39-117) U/L Total Protein (6.5-8.0) g/dL Albumin (3.5-5.0) g/dL Urine Color Dark Yellow Urine Appearance Cloudy Urine pH 5.5 (5.0-9.0) Ur Specific Milton >= 1.030 H (1.005-1.025) Urine Protein Trace (Neg-Trace) mg/dL Urine Glucose (UA) Negative (Negative) mg/dL Urine Ketones Negative (Negative) mg/dL Urine Blood Negative (Negative) Urine Nitrite Negative (Negative) Ur Leukocyte Esterase Small (1+) H (Negative) Urine RBC 0-2 (0-2) /HPF Urine WBC >50 H (0-5) /HPF Ur Squamous Epith Cells 0-2 (0-2) /HPF Urine Bacteria None Seen (None Seen) Hyaline Casts 0-2 (0-2) /LPF Urine Opiates Screen Not Detected (Not Detect) Urine Fentanyl Screen POSITIVE H (Not Detect) Ur Barbiturates Screen Not Detected (Not Detect) Ur Phencyclidine Scrn Not Detected (Not Detect) Ur Amphetamines Screen Not Detected (Not Detect) U Benzodiazepines Scrn Not Detected (Not Detect) Urine Cocaine Screen POSITIVE H (Not Detect) U Marijuana (THC) Screen Not Detected (Not Detect) Ethyl Alcohol mg/dL External Record Review External record reviewed: Other (Prior ED visit) Discharge Plan Discharge Clinical Impression: Schizoaffective disorder, Alcohol use disorder, moderate, dependence Patient Disposition: Home, Self-Care Instructions: Schizoaffective Disorder (ED), Alcohol Dependence (ED) Additional Instructions: Please follow up with Department mental health counselor and your primary care provider. Return to the ED immediately for any suicidal/homicidal ideation, worsening auditory hallucinations, visual hallucinations, any physical complaints, or any other concerning symptoms. Prescriptions: No Action fluticasone propionate 50 mcg/actuation spray,suspension 1 spray intranasal DAILY hydroxyzine HCl 50 mg tablet 50 mg PO BID Qty: 60 0RF quetiapine 100 mg tablet 100 mg PO BID Qty: 60 0RF trazodone 100 mg tablet 200 mg PO BEDTIME Qty: 30 0RF haloperidol 10 mg tablet 10 mg PO BID benztropine 1 mg tablet 1 mg PO BID sertraline 50 mg tablet 150 mg PO DAILY prazosin 2 mg capsule 2 mg PO BEDTIME Interventions: [place]-Suicide Risk Severity Scale Last Done: 10/27/22 10:50 ED Discharge Assessment Last Done: 10/27/22 10:50 Discharge Date/Time: 10/27/22 12:12 Print Language: Vietnamese
[2022-10-27 10:35] LABS: Appearance Urine Cloudy; Color Urine Dark Yellow; Glucose Urine UA Negative (Negative); Leukocyte Esterase Urine Small (1+) (Negative); Nitrite Urine Negative (Negative); PH 5.5 (5.0-9.0); Specific Gravity - Urine >= 1.030 (1.005-1.025); UMIC TRIGGER UA YES; Urine Blood Negative (Negative); Urine Ketones Negative (Negative); Urine Protein Trace mg/dL (Neg-Trace)
[2022-10-27 10:39] LABS: Bacteria Urine None Seen (None Seen); Hyaline Casts Urine 0-2 /LPF (0-2); RBC Urine 0-2 /HPF (0-2); Squamous Epithelial Cell Urine 0-2 /HPF (0-2); WBC Urine >50 /HPF (0-5)
[2022-10-27 10:45] LABS: Amphetamine Screen Urine Not Detected (Not Detect); Barbiturates, Urine Not Detected (Not Detect); Benzodiazepines Screen Urine Not Detected (Not Detect); Cannabinoid Screen Urine Not Detected (Not Detect); Cocaine Screen Urine POSITIVE (Not Detect); Fentanyl, urine POSITIVE (Not Detect); Opiate Screen Urine Not Detected (Not Detect); Phencyclidine Screen Urine Not Detected (Not Detect)
== END 2022-10-27 12:12 | disposition home or self-care (01) ==
PROVIDERS: Physician Assistant; Emergency Provider Emergency Medicine; PCP Internal Medicine
DX: F25.9 Schizoaffective disorder, unspecified (principal); F10.20 Alcohol dependence, uncomplicated; Y90.0 Blood alcohol level of less than 20 mg/100 ml; F41.1 Generalized anxiety disorder; F14.20 Cocaine dependence, uncomplicated; E78.2 Mixed hyperlipidemia; Z87.891 Personal history of nicotine dependence
CPT/HCPCS: 36415; 80053; 80307; 81001; 85025; 99284; S9485

== ENCOUNTER 2022-11-05 04:21 | Emergency (ER) | payer MEDICARE, OTHER, SELFPAY ==
[2022-11-05 04:30] VITALS: BP 114/77; PULSE 73; RESP 16; TEMP 37.2; O2SAT 98; BMI 26.6
[2022-11-05 04:36] VITALS: BP 109/71; PULSE 75; RESP 17; TEMP 36.4; O2SAT 99
[2022-11-05 04:54] LABS: Hematocrit 42.9 % (42.0-52.0); Hemoglobin 14.4 g/dl (14.0-18.0); Mean Corpuscular HGB Conc 33.6 g/dl (31.0-36.0); Mean Corpuscular Hemoglobin 29.5 pg (27.0-33.0); Mean Corpuscular Volume 87.9 fL (80.0-98.0); Mean Platelet Volume 10.3 fL (9.4-12.4); Platelet Count 290 X10*3/uL (160-400); Red Blood Count 4.88 X10*6/uL (4.60-5.80); Red Cell Distribution Width 13.2 % (11.0-16.0); White Blood Count 11.6 X10*3/uL (4.8-10.8)
[2022-11-05 05:09] LABS: Ethanol < 10 mg/dL
--- NOTE | 2022-11-05 05:14 | ED_ITS ---
HPI - General Adult General Chief complaint: General Medical Stated complaint: manic episode Time Seen by Provider: 11/05/22 04:46 Source: patient and EMS Mode of arrival: EMS Limitations: no limitations History of Present Illness HPI narrative: 32-year-old male with history of bipolar disorder/schizoaffective disorder presents with what he believes is a manic episode. Patient denies suicidal homicidal ideation. Been 3 days since he is taking his medications. He reports not being able to sleep. He has been drinking alcohol. He denies additional drug use. Patient describes symptoms as moderate to severe. There is no clear relieving or exacerbating features. Patient does not believe he in the knees ho spitalization. Related Data Home Medications Medication Instructions Recorded Confirmed fluticasone propionate 50 1 spray intranasal DAILY 10/14/22 10/27/22 mcg/actuation nasal spray,suspension benztropine 1 mg tablet 1 mg PO BID 10/27/22 10/27/22 haloperidol 10 mg tablet 10 mg PO BID 10/27/22 10/27/22 prazosin 2 mg capsule 2 mg PO BEDTIME 10/27/22 10/27/22 sertraline 50 mg tablet 150 mg PO DAILY 10/27/22 10/27/22 Previous Rx's Medication Instructions Recorded hydroxyzine HCl 50 mg tablet 50 mg PO BID #60 tabs 09/16/22 quetiapine 100 mg tablet 100 mg PO BID #60 tabs 09/16/22 trazodone 100 mg tablet 200 mg PO BEDTIME #30 tabs 09/16/22 Allergies Allergy/AdvReac Type Severity Reaction Status Date / Time No Known Allergies Allergy Verified 01/27/21 08:24 [No Known Allergies*] Review of Systems Review of Systems: CONSTITUTIONAL: Denies weight loss, fever and chills. HEENT: Denies changes in vision and hearing. RESPIRATORY: Denies SOB and cough. CV: Denies palpitations no CP. GI: Denies abdominal pain, nausea, vomiting and diarrhea. : Denies dysuria and urinary frequency. MSK: Denies myalgia and joint pain. SKIN: Denies rash and pruritus. NEUROLOGICAL: Denies headache and syncope. PSYCHIATRIC: + recent changes in mood. Denies anxiety and depression. All other ROS are negative unless in HPI PMFSH Past Medical History Medical History Alcohol abuse Alcohol dependence Alcohol intoxication Delusional disorder Generalized anxiety disorder History of alcohol abuse Mixed dyslipidemia Schizo-affective schizophrenia Schizoaffective disorder Surgical History History of removal of neck cyst History of root canal procedure Family History Family History Father Depression FH: mental illness Mother Depression FH: mental illness Maternal Grandfather No problems noted. Maternal Grandmother No problems noted. Brother No problems noted. Sister No problems noted. 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 Housing: House Do you presently have visiting nurse or other home services: No Alcohol intake: current Alcohol intake frequency: 3 or more drinks per day Alcohol type: hard liquor Patient Tobacco Use Status: Former Tobacco user Tobacco use type: Cigarette Cigarettes Per Day: 5 Years Smoked: 3 e-Cigarette/Vaping Use: Former Use Second Hand Smoke Exposure: No Substance Use Type: Marijuana and Other Advance Directives: No Advance Directives Information Provided: No service: No Current occupational status: unemployed Sexual orientation: Straight/Heterosexual Physical Exam ED Vital Signs: Vital Signs - 24 hr 11/05/22 04:30 11/05/22 04:36 Temperature 98.9 F 97.6 F Pulse Rate 73 75 Respiratory Rate 16 17 Blood Pressure 114/77 109/71 Pulse Oximetry 98 99 Oxygen Delivery Method Room Air Room Air BMI result Body Mass Index 26.6 GEN: Well developed, no acute distress, alert, oriented HEENT: Normocephalic, atraumatic, normal external ears, nose appears normal, no oropharyngeal edema or exudates Eyes: Normal to appearance Neck: Supple, no lymphadenopathy Respiratory: Talks in complete sentences, no respiratory distress, clear to auscultation bilaterally Cardiovascular: Regular rate and rhythm, no murmurs rubs or gallops Abdomen: Soft, nontender, nondistended, no guarding, no rebound Back: No CVA tenderness Extremities: No clubbing cyanosis or edema Neurologic: No focal neurologic deficits, cranial nerves 2-12 intact, strength is 5/5 bilaterally Skin: No rash Course Reevaluation(s) Reevaluation #1: Patient is medically care team evaluation. Placed on the patient's physician obvious Reevaluation #2: Patient will be signed out to the oncoming provider at 7:00 a.m. this morning. Time: 07:00 Medical Decision Making Medical Decision Making [facility] Narrative: 32-year-old male with history of schizoaffective disorder, drug use presents what he believes to be a manic episode. Patient has not taken his medications for 3 days. Examination does not reveal and patient appears to be manic. He does not have any pressured speech. He is somewhat somnolent. Patient denies suicidal homicidal ideation. Appears to be medication noncompliant for the past few days. Will medically clear patient for care team evaluation. Differential diagnosis includes schizoaffective disorder, bipolar disorder, depression, anxiety, PTSD, mood disorder, substance abuse. Differential Diagnosis Differential Diagnoses: The differential diagnosis associated with the presentation includes (See above) Admission/Observation Consideration of admission/observation: Escalation of care including admission/observation considered Lab Data [facility] Lab Attestation statement: I reviewed the patient's lab results. 11/05/22 04:50 11/05/22 04:50 Labs: Lab Results 11/05/22 11/05/22 11/05/22 Range/Units 04:50 04:50 04:50 WBC 11.6 H (4.8-10.8) X10*3/uL RBC 4.88 (4.60-5.80) X10*6/uL Hgb 14.4 (14.0-18.0) g/dl Hct 42.9 (42.0-52.0) % MCV 87.9 (80.0-98.0) fL MCH 29.5 (27.0-33.0) pg MCHC 33.6 (31.0-36.0) g/dl RDW 13.2 (11.0-16.0) % Plt Count 290 (160-400) X10*3/uL MPV 10.3 (9.4-12.4) fL Absolute Nucleated RBC 0.000 (0.0-0.012) X10*3/uL Nucleated RBC % (auto) 0.0 (0.0-0.2) /100WBC Sodium 139 (135-145) mmol/L Potassium 4.2 (3.3-5.1) mmol/L Chloride 104 (96-108) mmol/L Carbon Dioxide 23 (22-29) mmol/L Anion Gap 16 (12-20) BUN 12 (9-16) mg/dL Creatinine 0.84 (0.5-1.4) mg/dL Estim Creat Clear Calc 122.1 Estimated GFR > 60 Random Glucose 100 (60-115) mg/dL Calcium 9.5 (8.4-10.2) mg/dL Total Bilirubin 0.4 (0.0-1.0) mg/dL AST 17 (5-37) U/L ALT 19 (0-40) U/L Alkaline Phosphatase 58 (39-117) U/L Total Protein 7.2 (6.5-8.0) g/dL Albumin 4.4 (3.5-5.0) g/dL Ethyl Alcohol < 10 mg/dL Independent Historian Clinical information obtained from an independent historian. History obtained from or confirmed by: EMS Prescription Management I considered prescription management with: Other (Psychiatric medications) Discharge Plan Discharge Clinical Impression: Schizoaffective disorder Patient Disposition: Still a Patient Prescriptions: No Action fluticasone propionate 50 mcg/actuation spray,suspension 1 spray intranasal DAILY hydroxyzine HCl 50 mg tablet 50 mg PO BID Qty: 60 0RF quetiapine 100 mg tablet 100 mg PO BID Qty: 60 0RF trazodone 100 mg tablet 200 mg PO BEDTIME Qty: 30 0RF haloperidol 10 mg tablet 10 mg PO BID benztropine 1 mg tablet 1 mg PO BID sertraline 50 mg tablet 150 mg PO DAILY prazosin 2 mg capsule 2 mg PO BEDTIME
[2022-11-05 05:19] LABS: Alanine Aminotransferase 19 U/L (0-40); Albumin Level 4.4 g/dL (3.5-5.0); Alkaline Phosphatase 58 U/L (39-117); Anion Gap 16 (12-20); Aspartate Amino Transferase 17 U/L (5-37); Bilirubin Total 0.4 mg/dL (0.0-1.0); Blood Urea Nitrogen 12 mg/dL (9-16); Calcium 9.5 mg/dL (8.4-10.2); Carbon Dioxide 23 mmol/L (22-29); Chloride 104 mmol/L (96-108); Creatinine Clr Calc Pharmacy 122.1; Estimated Glomerular Filt Rate > 60; Glucose Random 100 mg/dL (60-115); Potassium 4.2 mmol/L (3.3-5.1); Sodium 139 mmol/L (135-145); Total Protein 7.2 g/dL (6.5-8.0)
[2022-11-05 07:20] VITALS: BP 98/58; PULSE 79; RESP 16; O2SAT 95
--- NOTE | 2022-11-05 07:52 | PC.NURSE ---
Addendum entered by Juana Stapleton 11/05/22 07:56: States I'm really tired . Original Note: This bid writer assumed care of this Pt at 0700. Pt appears to be sleeping at this time, awakens with verbal stimuli, denies any pain. Denies SI/HI, AH/VH. Pt states i don't have to go when asked to provide urine sample.
--- NOTE | 2022-11-05 11:03 | PC.NURSE ---
Pt to the Pod claiming to be Manic and walking around for 15 hours. Pt is calm and cooperative, oriented, isolating, and sleepy. He provided a Urine sample and ate 2 cereals. His Medications were confirmed with [facility] [address] in [place]. Pharmacy notified for further evaluation of medication.
[2022-11-05 11:16] VITALS: BP 110/60; PULSE 72; RESP 12; TEMP 36.2; O2SAT 98
== END 2022-11-05 16:12 | disposition home or self-care (01) ==
PROVIDERS: Emergency Provider Emergency Medicine
DX: F25.0 Schizoaffective disorder, bipolar type (principal); Z87.891 Personal history of nicotine dependence; Z79.899 Other long term (current) drug therapy
CPT/HCPCS: 36415; 80053; 80307; 85027; 99284; S9485

== ENCOUNTER 2022-11-10 06:48 | Emergency (ER) | payer OTHER, SELFPAY ==
--- NOTE | 2022-11-10 06:54 | ED.PSYCH ---
HPI - Psych General Chief Complaint: Psychiatric Symptoms Stated Complaint: psych crisis per ems Time Seen by Provider: 11/10/22 06:50 Source: patient and EMS Mode of arrival: EMS Limitations: no limitations History of Present Illness HPI Narrative: 32-year-old male presents with auditory hallucinations. Patient admits cocaine use yesterday. He said that did not help anything. Symptoms started with spurs and in turn into voices. He is not hearing voices at this time but he knows that they are pending. He denies any suicidal or homicidal ideation. He describes symptoms as severe. There is no clear relieving features. Was exacerbated by his cocaine use. He has had difficulty with sleeping. He has previous diagnoses of depression, substance abuse and schizoaffective disorder. Related Data Home Medications Medication Instructions Recorded Confirmed benztropine 1 mg tablet 1 mg PO BID 10/27/22 11/10/22 haloperidol 10 mg tablet 10 mg PO BID 10/27/22 11/10/22 sertraline 50 mg tablet 50 mg PO DAILY 10/27/22 11/10/22 melatonin 3 tab PO BEDTIME 11/05/22 11/10/22 quetiapine 100 mg tablet 100 mg PO BEDTIME 11/10/22 11/10/22 trazodone 100 mg tablet 100 mg PO BEDTIME 11/10/22 11/10/22 Allergies Allergy/AdvReac Type Severity Reaction Status Date / Time No Known Allergies Allergy Verified 01/27/21 08:24 [No Known Allergies*] Review of Systems Review of Systems: CONSTITUTIONAL: Denies weight loss, fever and chills. HEENT: Denies changes in vision and hearing. RESPIRATORY: Denies SOB and cough. CV: Denies palpitations no CP. GI: Denies abdominal pain, nausea, vomiting and diarrhea. : Denies dysuria and urinary frequency. MSK: Denies myalgia and joint pain. SKIN: Denies rash and pruritus. NEUROLOGICAL: Denies headache and syncope. PSYCHIATRIC: See HPI All other ROS are negative unless in HPI PMFSH Past Medical History Medical History Alcohol abuse Alcohol dependence Alcohol intoxication Delusional disorder Generalized anxiety disorder History of alcohol abuse Mixed dyslipidemia Schizo-affective schizophrenia Schizoaffective disorder Surgical History History of removal of neck cyst History of root canal procedure Family History Family History Father Depression FH: mental illness Mother Depression FH: mental illness Maternal Grandfather No problems noted. Maternal Grandmother No problems noted. Brother No problems noted. Sister No problems noted. 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 Housing: House Do you presently have visiting nurse or other home services: No Alcohol intake: current Alcohol intake frequency: 3 or more drinks per day Alcohol type: hard liquor Patient Tobacco Use Status: Former Tobacco user Tobacco use type: Cigarette Cigarettes Per Day: 5 Years Smoked: 3 e-Cigarette/Vaping Use: Former Use Second Hand Smoke Exposure: No Substance Use Type: Marijuana and Other Advance Directives: No Guardian: No service: No Current occupational status: unemployed Sexual orientation: Straight/Heterosexual Physical Exam Vital Signs: Vital Signs: Last Vital Signs Temp 98.6 F 11/10/22 07:00 Pulse 103 H 11/10/22 07:00 Resp 18 11/10/22 07:00 BP 119/79 11/10/22 07:00 Pulse Ox 98 11/10/22 07:00 O2 Del Method Room Air 11/10/22 07:00 BMI result Body Mass Index 26.6 GEN: Well developed, + acute distress, alert, oriented HEENT: Normocephalic, atraumatic, normal external ears, nose appears normal, no oropharyngeal edema or exudates Eyes: Normal to appearance Neck: Supple, no lymphadenopathy Respiratory: Talks in complete sentences, no respiratory distress, clear to auscultation bilaterally Cardiovascular: Regular rate and rhythm, no murmurs rubs or gallops Abdomen: Soft, nontender, nondistended, no guarding, no rebound Back: No CVA tenderness Extremities: No clubbing cyanosis or edema Neurologic: No focal neurologic deficits, cranial nerves 2-12 intact, strength is 5/5 bilaterally Skin: No rash psych: Psychomotor agitation Course Course Course Narrative: Patient is medically cleared for psychiatric evaluation. Will place patient and physician observation at this time. Is 9:45 a.m. Reevaluation(s) Reevaluation #1: Patient sexually active, treating for STI. Time: 11:09 Reevaluation #2: Patient has been evaluated by our care team. Patient denies any SI or HI still. He reports no longer hearing auditory hallucinations would like to be discharged at this time. Patient wishes to be discharged. He appears pose a threat to self or others. He has decision-making capacity and may be discharged at this time. Patient has been counseled regarding substance abuse. Medications Administered Discontinued Medications Generic Name Dose Route Start Last Admin Trade Name Jillian PRN Reason Stop Dose Admin Azithromycin 1,000 mg 11/10/22 10:40 11/10/22 11:46 Azithromycin 500 Mg Tablet PO 11/10/22 10:41 1,000 mg ONCE ONE Administration Ceftriaxone Sodium 500 mg/ 0 mg 11/10/22 10:40 11/10/22 11:38 Lidocaine HCl 1 ml IM 11/10/22 10:41 500 kit ONCE ONE Administration Medical Decision Making Medical Decision Making [facility] Narrative: 32-year-old male presents with agitation, auditory hallucinations. Patient admits to cocaine use. On my evaluation, patient was and acute distress. He appeared to be agitated, restless. At poor eye contact. Otherwise his exam is unremarkable. Patient will need medical clearance for psychiatric evaluation. Differential diagnosis includes schizoaffective disorder, depression, anxiety, substance induced mood disorder, delusional disorder, anxiety, PTSD. Plan will be to rule out medical etiology of his symptoms. He will be evaluated by our care team. Disposition pending results. Suspect patient may require hospitalization most recent hospitalization was 10/24/2022 Differential Diagnosis Differential Diagnoses: The differential diagnosis associated with the presentation includes ( see above) Admission/Observation Consideration of admission/observation: Escalation of care including admission/observation considered Consult Healthcare Provider Management of the patient was discussed with: Behavioral Health Provider Lab Data [facility] Lab Attestation statement: I reviewed the patient's lab results. 11/10/22 07:33 11/10/22 07:33 Labs: Lab Results 11/10/22 11/10/22 11/10/22 Range/Units 07:33 07:33 10:16 WBC 13.1 H (4.8-10.8) X10*3/uL RBC 4.78 (4.60-5.80) X10*6/uL Hgb 14.2 (14.0-18.0) g/dl Hct 42.5 (42.0-52.0) % MCV 88.9 (80.0-98.0) fL MCH 29.7 (27.0-33.0) pg MCHC 33.4 (31.0-36.0) g/dl RDW 13.0 (11.0-16.0) % Plt Count 279 (160-400) X10*3/uL MPV 10.8 (9.4-12.4) fL Immature Gran % (Auto) 0.5 H (0.0-0.4) % Neut % (Auto) 73.4 H (45-73) % Lymph % (Auto) 20.9 (20-40) % [place] % (Auto) 4.1 (2-11) % Eos % (Auto) 0.8 (0-4) % Baso % (Auto) 0.3 (0-2) % Lymph # (Auto) 2.7 (1.2-4.9) X10*3/uL [place] # (Auto) 0.5 (0.1-1.2) X10*3/uL Eos # (Auto) 0.1 (0.0-0.4) X10*3/uL Baso # (Auto) 0.0 (0.0-0.2) X10*3/uL Abs Immat Gran (auto) 0.06 H (0.00-0.03) X10*3/uL Absolute Neuts (auto) 9.6 H (2.0-8.3) x10*3/uL Absolute Nucleated RBC 0.000 (0.0-0.012) X10*3/uL Nucleated RBC % (auto) 0.0 (0.0-0.2) /100WBC Sodium 141 (135-145) mmol/L Potassium 3.7 (3.3-5.1) mmol/L Chloride 108 (96-108) mmol/L Carbon Dioxide 20 L (22-29) mmol/L Anion Gap 17 (12-20) BUN 11 (9-16) mg/dL Creatinine 0.75 (0.5-1.4) mg/dL Estim Creat Clear Calc 136.8 Estimated GFR > 60 Random Glucose 102 (60-115) mg/dL Calcium 9.3 (8.4-10.2) mg/dL Total Bilirubin 0.2 (0.0-1.0) mg/dL AST 14 (5-37) U/L ALT 15 (0-40) U/L Alkaline Phosphatase 57 (39-117) U/L Total Protein 7.2 (6.5-8.0) g/dL Albumin 4.5 (3.5-5.0) g/dL Urine Color Yellow Urine Appearance Clear Urine pH 6.5 (5.0-9.0) Ur Specific [place] >= 1.030 H (1.005-1.025) Urine Protein Negative (Neg-Trace) mg/dL Urine Glucose (UA) Negative (Negative) mg/dL Urine Ketones Negative (Negative) mg/dL Urine Blood Negative (Negative) Urine Nitrite Negative (Negative) Ur Leukocyte Esterase Trace H (Negative) Urine RBC 0-2 (0-2) /HPF Urine WBC 21-50 H (0-5) /HPF Ur Squamous Epith Cells 0-2 (0-2) /HPF Urine Bacteria None Seen (None Seen) Hyaline Casts 0-2 (0-2) /LPF Urine Opiates Screen (Not Detect) Urine Fentanyl Screen (Not Detect) Ur Barbiturates Screen (Not Detect) Ur Phencyclidine Scrn (Not Detect) Ur Amphetamines Screen (Not Detect) U Benzodiazepines Scrn (Not Detect) Urine Cocaine Screen (Not Detect) U Marijuana (THC) Screen (Not Detect) Ethyl Alcohol 22 mg/dL 11/10/22 Range/Units 10:16 WBC (4.8-10.8) X10*3/uL RBC (4.60-5.80) X10*6/uL Hgb (14.0-18.0) g/dl Hct (42.0-52.0) % MCV (80.0-98.0) fL MCH (27.0-33.0) pg MCHC (31.0-36.0) g/dl RDW (11.0-16.0) % Plt Count (160-400) X10*3/uL MPV (9.4-12.4) fL Immature Gran % (Auto) (0.0-0.4) % Neut % (Auto) (45-73) % Lymph % (Auto) (20-40) % [place] % (Auto) (2-11) % Eos % (Auto) (0-4) % Baso % (Auto) (0-2) % Lymph # (Auto) (1.2-4.9) X10*3/uL [place] # (Auto) (0.1-1.2) X10*3/uL Eos # (Auto) (0.0-0.4) X10*3/uL Baso # (Auto) (0.0-0.2) X10*3/uL Abs Immat Gran (auto) (0.00-0.03) X10*3/uL Absolute Neuts (auto) (2.0-8.3) x10*3/uL Absolute Nucleated RBC (0.0-0.012) X10*3/uL Nucleated RBC % (auto) (0.0-0.2) /100WBC Sodium (135-145) mmol/L Potassium (3.3-5.1) mmol/L Chloride (96-108) mmol/L Carbon Dioxide (22-29) mmol/L Anion Gap (12-20) BUN (9-16) mg/dL Creatinine (0.5-1.4) mg/dL Estim Creat Clear Calc Estimated GFR Random Glucose (60-115) mg/dL Calcium (8.4-10.2) mg/dL Total Bilirubin (0.0-1.0) mg/dL AST (5-37) U/L ALT (0-40) U/L Alkaline Phosphatase (39-117) U/L Total Protein (6.5-8.0) g/dL Albumin (3.5-5.0) g/dL Urine Color Urine Appearance Urine pH (5.0-9.0) Ur Specific [place] (1.005-1.025) Urine Protein (Neg-Trace) mg/dL Urine Glucose (UA) (Negative) mg/dL Urine Ketones (Negative) mg/dL Urine Blood (Negative) Urine Nitrite (Negative) Ur Leukocyte Esterase (Negative) Urine RBC (0-2) /HPF Urine WBC (0-5) /HPF Ur Squamous Epith Cells (0-2) /HPF Urine Bacteria (None Seen) Hyaline Casts (0-2) /LPF Urine Opiates Screen Not Detected (Not Detect) Urine Fentanyl Screen POSITIVE H (Not Detect) Ur Barbiturates Screen Not Detected (Not Detect) Ur Phencyclidine Scrn Not Detected (Not Detect) Ur Amphetamines Screen Not Detected (Not Detect) U Benzodiazepines Scrn Not Detected (Not Detect) Urine Cocaine Screen POSITIVE H (Not Detect) U Marijuana (THC) Screen Not Detected (Not Detect) Ethyl Alcohol mg/dL Independent Historian Clinical information obtained from an independent historian. History obtained from or confirmed by: EMS External Record Review External record reviewed: Inpatient record Prescription Management I considered prescription management with: Other ( anxiety medications) Discharge Plan Discharge Clinical Impression: Schizoaffective disorder, Cocaine use disorder, moderate, dependence Patient Disposition: Home, Self-Care Instructions: Schizoaffective Disorder (ED) Prescriptions: No Action melatonin 3 tab PO BEDTIME Rx Instructions: last filled 09/16/22 haloperidol 10 mg tablet 10 mg PO BID benztropine 1 mg tablet 1 mg PO BID Rx Instructions: last filled 10/29/[address] [facility] [address] sertraline 50 mg tablet 50 mg PO DAILY Rx Instructions: last filled 11/04/22 quetiapine 100 mg tablet 100 mg PO BEDTIME Rx Instructions: last filled last filled 09/16/22 waiting to be picked up 11/03/22 trazodone 100 mg tablet 100 mg PO BEDTIME Rx Instructions: last filled 11/04/22 Referrals: [facility] [Provider Group] Interventions: [place]-Suicide Risk Severity Scale Last Done: 11/10/22 07:10
[2022-11-10 07:00] VITALS: BP 119/79; BP 134/74; PULSE 102; PULSE 103; RESP 18; TEMP 37; O2SAT 97; O2SAT 98; BMI 26.6
--- NOTE | 2022-11-10 07:17 | PC.NURSE ---
Pt picked up in front of [facility] by EMS. Recent ETOH and Crack Cocaine use. C/O AH. Pt confused as to why he is having AH. Pt is in bed with eyes closed. No distress or dangerous behaviors noted at this time.
[2022-11-10 07:50] LABS: MANUAL DIFF FLAG NO
[2022-11-10 07:54] LABS: Basophils Percent Auto 0.3 % (0-2); Eosinophils Absolute Auto 0.1 X10*3/uL (0.0-0.4); Eosinophils Percent Auto 0.8 % (0-4); Hematocrit 42.5 % (42.0-52.0); Hemoglobin 14.2 g/dl (14.0-18.0); Imm Gran Abs Auto 0.06 X10*3/uL (0.00-0.03); Imm Gran Pct Auto 0.5 % (0.0-0.4); Lymphocytes Absolute Auto 2.7 X10*3/uL (1.2-4.9); Lymphocytes Percent Auto 20.9 % (20-40); Mean Corpuscular HGB Conc 33.4 g/dl (31.0-36.0); Mean Corpuscular Hemoglobin 29.7 pg (27.0-33.0); Mean Corpuscular Volume 88.9 fL (80.0-98.0); Mean Platelet Volume 10.8 fL (9.4-12.4); Monocytes Absolute Auto 0.5 X10*3/uL (0.1-1.2); Monocytes Percent Auto 4.1 % (2-11); Neutrophils Absolute Auto 9.6 x10*3/uL (2.0-8.3); Neutrophils Percent Auto 73.4 % (45-73); Platelet Count 279 X10*3/uL (160-400); Red Blood Count 4.78 X10*6/uL (4.60-5.80); White Blood Count 13.1 X10*3/uL (4.8-10.8)
[2022-11-10 08:14] LABS: Alanine Aminotransferase 15 U/L (0-40); Albumin Level 4.5 g/dL (3.5-5.0); Alkaline Phosphatase 57 U/L (39-117); Anion Gap 17 (12-20); Aspartate Amino Transferase 14 U/L (5-37); Bilirubin Total 0.2 mg/dL (0.0-1.0); Blood Urea Nitrogen 11 mg/dL (9-16); Calcium 9.3 mg/dL (8.4-10.2); Carbon Dioxide 20 mmol/L (22-29); Chloride 108 mmol/L (96-108); Creatinine Clr Calc Pharmacy 136.8; Estimated Glomerular Filt Rate > 60; Ethanol 22 mg/dL; Glucose Random 102 mg/dL (60-115); Potassium 3.7 mmol/L (3.3-5.1); Sodium 141 mmol/L (135-145); Total Protein 7.2 g/dL (6.5-8.0)
--- NOTE | 2022-11-10 10:05 | PC.NURSE ---
Pt woke. Asking for phone. No distress noted.
[2022-11-10 10:24] LABS: Appearance Urine Clear; Color Urine Yellow; Glucose Urine UA Negative (Negative); Leukocyte Esterase Urine Trace (Negative); Nitrite Urine Negative (Negative); PH 6.5 (5.0-9.0); Specific Gravity - Urine >= 1.030 (1.005-1.025); UMIC TRIGGER UACC YES; Urine Blood Negative (Negative); Urine Ketones Negative (Negative); Urine Protein Negative (Neg-Trace)
[2022-11-10 10:26] LABS: Bacteria Urine None Seen (None Seen); Hyaline Casts Urine 0-2 /LPF (0-2); RBC Urine 0-2 /HPF (0-2); Squamous Epithelial Cell Urine 0-2 /HPF (0-2); UACC Culture Trigger YES; WBC Urine 21-50 /HPF (0-5)
[2022-11-10 10:41] LABS: Amphetamine Screen Urine Not Detected (Not Detect); Barbiturates, Urine Not Detected (Not Detect); Benzodiazepines Screen Urine Not Detected (Not Detect); Cannabinoid Screen Urine Not Detected (Not Detect); Cocaine Screen Urine POSITIVE (Not Detect); Fentanyl, urine POSITIVE (Not Detect); Opiate Screen Urine Not Detected (Not Detect); Phencyclidine Screen Urine Not Detected (Not Detect)
[2022-11-10] MEDS: cefTRIAXone sodium 500 MG, Lidocaine HCl 1 % MPF 1 ML IM (11:38)
[2022-11-10] MEDS: Azithromycin 500 MG TABLET 1000 MG PO (11:46)
--- NOTE | 2022-11-10 12:22 | PC.NURSE ---
Pt is to be discharged home per notification by Care Team. He slept, and is no longer having AH. He reports, sleep is making a big difference his Sx. Pt denies SI and SH.
[2022-11-10 13:46] LABS: CT PCR DETECTED (Not Detect.); NG PCR NOT DETECTED (Not Detect.)
== END 2022-11-10 12:40 | disposition home or self-care (01) ==
PROVIDERS: Emergency Provider Emergency Medicine
DX: F25.9 Schizoaffective disorder, unspecified (principal); F14.20 Cocaine dependence, uncomplicated; F41.1 Generalized anxiety disorder; F22 Delusional disorders; F10.20 Alcohol dependence, uncomplicated; Y90.1 Blood alcohol level of 20-39 mg/100 ml; R45.851 Suicidal ideations; E78.2 Mixed hyperlipidemia; Z87.891 Personal history of nicotine dependence; Z79.899 Other long term (current) drug therapy
CPT/HCPCS: 0353U; 36415; 80053; 80307; 81001; 85025; 87086; 96372; 99284; J0696; S9485

== ENCOUNTER 2022-11-15 00:31 | Emergency (ER) | payer OTHER, SELFPAY ==
[2022-11-15 00:48] VITALS: BP 130/87; PULSE 88; RESP 16; TEMP 36.1; O2SAT 95; BMI 26.6
--- NOTE | 2022-11-15 01:04 | ED.PSYCH ---
HPI - Psych General Chief Complaint: ETOH/Substance Use Stated Complaint: requesting rehab, alcohol withdrawal Time Seen by Provider: 11/15/22 00:55 Source: patient and old records reviewed Mode of arrival: ambulatory Limitations: other (poor historian) History of Present Illness HPI Narrative: 32 yo male hx of schizoaffective disorder chronic ETOH abuse and drug use brought himself in for detox for ETOH use / crack cocaine and states he needs ativan for anxiety - he is not answering questions no SI. KENNEDY complaint: substance abuse and alcohol abuse Onset (ago): week(s) Duration: intermittent History of same: Yes Relieving factors: none Exacerbating factors: alcohol and drug use Context: recent alcohol abuse and recent drug abuse Associated psychiatric symptoms: depression and suicidal ideation Associated symptoms: other (demanding ativan) Treatments prior to arrival: none Related Data Home Medications Medication Instructions Recorded Confirmed benztropine 1 mg tablet 1 mg PO BID 10/27/22 11/15/22 haloperidol 10 mg tablet 10 mg PO BID 10/27/22 11/15/22 sertraline 50 mg tablet 50 mg PO DAILY 10/27/22 11/15/22 quetiapine 100 mg tablet 100 mg PO BEDTIME 11/10/22 11/15/22 trazodone 100 mg tablet 200 mg PO BEDTIME 11/10/22 11/15/22 hydroxyzine HCl 50 mg tablet 50 mg PO DAILY PRN Anxiety 11/15/22 11/15/22 melatonin 3 mg tablet 3 mg PO BEDTIME 11/15/22 11/15/22 prazosin 2 mg capsule 2 mg PO BEDTIME 11/15/22 11/15/22 Allergies Allergy/AdvReac Type Severity Reaction Status Date / Time No Known Allergies Allergy Verified 11/15/22 13:46 [No Known Allergies*] Review of Systems Review of Systems: ROS unable to be obtained due to poor cooperation PENDING SALE TO [facility] Past Medical History Source: old records reviewed Medical History Alcohol abuse Alcohol dependence Alcohol intoxication Delusional disorder Generalized anxiety disorder History of alcohol abuse Mixed dyslipidemia Schizo-affective schizophrenia Schizoaffective disorder Surgical History History of removal of neck cyst History of root canal procedure Family History Family History Father Depression FH: mental illness Mother Depression FH: mental illness Maternal Grandfather No problems noted. Maternal Grandmother No problems noted. Brother No problems noted. Sister No problems noted. 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 Housing: House Do you presently have visiting nurse or other home services: No Alcohol intake: current Alcohol intake frequency: 3 or more drinks per day Alcohol type: hard liquor Patient Tobacco Use Status: Former Tobacco user Tobacco use type: Cigarette Cigarettes Per Day: 5 Years Smoked: 3 Smoked in Last 30 Days: No e-Cigarette/Vaping Use: Former Use Second Hand Smoke Exposure: No Use of substances other than those prescribed or required for medical reasons: Yes Substance Use Type: Crack/Cocaine Substance Use Frequency: Chronic Longstanding Advance Directives: No Advance Directives Information Provided: No service: No Current occupational status: unemployed Sexual orientation: Straight/Heterosexual Physical Exam Vital Signs: Vital Signs: Last Vital Signs Temp 98.2 F 11/15/22 08:19 Pulse 64 11/15/22 12:43 Resp 18 11/15/22 12:43 BP 98/57 L 11/15/22 12:43 Pulse Ox 97 11/15/22 12:43 O2 Del Method Room Air 11/15/22 12:43 BMI result Body Mass Index 26.6 Appearance: Alert. Oriented X3. No acute distress. not very cooperative, unkempt Eyes: Pupils equal, round and reactive to light. ENT: Pharynx normal. atraumatic Neck: Normal inspection. Neck supple. CVS: Normal heart rate and rhythm. Pulses normal. Respiratory: No respiratory distress. Breath sounds normal. Abdomen: Soft and nontender. Skin: Skin warm and dry. Normal skin color. Normal skin turgor. Extremities: No lower extremity edema. No calf ttp Neuro: Oriented X 3. No motor deficit. No sensory deficit. Course Course Course Narrative: Physician observation started at 133am. Patient placed in physician observation because the patient needed more time for CARE team and recovery team to help with detox. At the time observation was started the patient's vitals were stable, patient is alert and oriented but slightly agitated, Neuro: nonfocal, CV RRR, Lungs clear. PRN ativan ordered -703--physician observation continued, VSS, pending recovery eval. Ethanol 146. CIWA = 0 this AM. -1400--detox bed search exhausted. Patient provided resources by recovery team, plan for discharge Results discussed with patient including worrisome signs and symptoms and strict return precautions, and when to return to the emergency department. They verbalized understanding and feel safe for discharge at this time. Medications Administered Generic Name Dose Route Start Last Admin Trade Name Freq PRN Reason Stop Dose Admin Lorazepam 2 mg 11/15/22 01:32 11/15/22 08:18 Lorazepam 1 Mg Tablet PO 2 mg Q3H PRN Administration Alcohol Withdrawal Discontinued Medications Generic Name Dose Route Start Last Admin Trade Name Freq PRN Reason Stop Dose Admin Lorazepam 2 mg 11/15/22 01:02 11/15/22 01:18 Lorazepam 1 Mg Tablet PO 11/15/22 01:03 2 mg ONCE ONE Administration Medical Decision Making Medical Decision Making MDM Narrative: 32 yo male with PMH of drug use, alcohol abuse, schizoaffective disorder here with c/o ETOH abuse and crack cocaine abuse at this time he is requesting detox but not exhibiting signs of withdrawal - will obtain labs and give PO ativan and monitor he denies SI. He is not forthcoming and agitated at times and rude. Differential Diagnosis Differential Diagnoses: The differential diagnosis associated with the presentation includes substance abuse, mental health issue, homelessness Admission/Observation Consideration of admission/observation: Escalation of care including admission/observation considered observation for recovery coaches and CARE team Lab Data [facility] Lab Attestation statement: I reviewed the patient's lab results. 11/15/22 01:06 11/15/22 01:06 Labs: Lab Results 11/15/22 11/15/22 Range/Units 01:06 01:06 WBC 6.3 (4.8-10.8) X10*3/uL RBC 4.77 (4.60-5.80) X10*6/uL Hgb 14.1 (14.0-18.0) g/dl Hct 41.4 L (42.0-52.0) % MCV 86.8 (80.0-98.0) fL MCH 29.6 (27.0-33.0) pg MCHC 34.1 (31.0-36.0) g/dl RDW 12.9 (11.0-16.0) % Plt Count 236 (160-400) X10*3/uL MPV 10.5 (9.4-12.4) fL Immature Gran % (Auto) 0.3 (0.0-0.4) % Neut % (Auto) 68.7 (45-73) % Lymph % (Auto) 25.3 (20-40) % [place] % (Auto) 4.6 (2-11) % Eos % (Auto) 0.6 (0-4) % Baso % (Auto) 0.5 (0-2) % Lymph # (Auto) 1.6 (1.2-4.9) X10*3/uL [place] # (Auto) 0.3 (0.1-1.2) X10*3/uL Eos # (Auto) 0.0 (0.0-0.4) X10*3/uL Baso # (Auto) 0.0 (0.0-0.2) X10*3/uL Abs Immat Gran (auto) 0.02 (0.00-0.03) X10*3/uL Absolute Neuts (auto) 4.4 (2.0-8.3) x10*3/uL Absolute Nucleated RBC 0.000 (0.0-0.012) X10*3/uL Nucleated RBC % (auto) 0.0 (0.0-0.2) /100WBC Sodium 146 H (135-145) mmol/L Potassium 4.1 (3.3-5.1) mmol/L Chloride 109 H (96-108) mmol/L Carbon Dioxide 25 (22-29) mmol/L Anion Gap 16 (12-20) BUN 9 (9-16) mg/dL Creatinine 0.82 (0.5-1.4) mg/dL Estim Creat Clear Calc 125.1 Estimated GFR > 60 Random Glucose 99 (60-115) mg/dL Calcium 9.2 (8.4-10.2) mg/dL Magnesium 2.0 (1.6-2.6) mg/dL Total Bilirubin 0.3 (0.0-1.0) mg/dL Direct Bilirubin 0.1 (0.0-0.5) mg/dL AST 22 (5-37) U/L ALT 23 (0-40) U/L Alkaline Phosphatase 52 (39-117) U/L Total Protein 7.1 (6.5-8.0) g/dL Albumin 4.5 (3.5-5.0) g/dL Ethyl Alcohol 146 mg/dL External Record Review External record reviewed: Inpatient record Social Determinants Patient?s care significantly limited by Social Determinants of Health including: Inadequate housing and Problems related to primary support group Discharge Plan Discharge Clinical Impression: Cocaine use disorder, moderate, dependence, Alcohol use disorder, moderate, dependence Schizoaffective disorder Qualifiers: Schizoaffective disorder type: unspecified Qualified Code(s): F25.9 - Schizoaffective disorder, unspecified Patient Disposition: Still a Patient Prescriptions: No Action hydroxyzine HCl 50 mg tablet 50 mg PO DAILY PRN (Reason: Anxiety) melatonin 3 mg tablet 3 mg PO BEDTIME prazosin 2 mg capsule 2 mg PO BEDTIME haloperidol 10 mg tablet 10 mg PO BID benztropine 1 mg tablet 1 mg PO BID Rx Instructions: last filled 10/29/22 per [facility] [address] sertraline 50 mg tablet 50 mg PO DAILY Rx Instructions: last filled 11/04/22 quetiapine 100 mg tablet 100 mg PO BEDTIME Rx Instructions: last filled last filled 09/16/22 waiting to be picked up 11/03/22 trazodone 100 mg tablet 200 mg PO BEDTIME Rx Instructions: last filled 11/04/22
[2022-11-15 01:10] LABS: MANUAL DIFF FLAG NO
[2022-11-15 01:11] LABS: Basophils Percent Auto 0.5 % (0-2); Eosinophils Percent Auto 0.6 % (0-4); Hematocrit 41.4 % (42.0-52.0); Hemoglobin 14.1 g/dl (14.0-18.0); Imm Gran Abs Auto 0.02 X10*3/uL (0.00-0.03); Imm Gran Pct Auto 0.3 % (0.0-0.4); Lymphocytes Absolute Auto 1.6 X10*3/uL (1.2-4.9); Lymphocytes Percent Auto 25.3 % (20-40); Mean Corpuscular HGB Conc 34.1 g/dl (31.0-36.0); Mean Corpuscular Hemoglobin 29.6 pg (27.0-33.0); Mean Corpuscular Volume 86.8 fL (80.0-98.0); Mean Platelet Volume 10.5 fL (9.4-12.4); Monocytes Absolute Auto 0.3 X10*3/uL (0.1-1.2); Monocytes Percent Auto 4.6 % (2-11); Neutrophils Absolute Auto 4.4 x10*3/uL (2.0-8.3); Neutrophils Percent Auto 68.7 % (45-73); Platelet Count 236 X10*3/uL (160-400); Red Blood Count 4.77 X10*6/uL (4.60-5.80); Red Cell Distribution Width 12.9 % (11.0-16.0); White Blood Count 6.3 X10*3/uL (4.8-10.8)
[2022-11-15] MEDS: LORazepam 1 MG TABLET 2 MG PO ×2 (01:18→08:18)
[2022-11-15 01:27] LABS: Alanine Aminotransferase 23 U/L (0-40); Albumin Level 4.5 g/dL (3.5-5.0); Alkaline Phosphatase 52 U/L (39-117); Anion Gap 16 (12-20); Aspartate Amino Transferase 22 U/L (5-37); Bilirubin Direct 0.1 mg/dL (0.0-0.5); Bilirubin Total 0.3 mg/dL (0.0-1.0); Blood Urea Nitrogen 9 mg/dL (9-16); Calcium 9.2 mg/dL (8.4-10.2); Carbon Dioxide 25 mmol/L (22-29); Chloride 109 mmol/L (96-108); Creatinine Clr Calc Pharmacy 125.1; Estimated Glomerular Filt Rate > 60; Ethanol 146 mg/dL; Glucose Random 99 mg/dL (60-115); Potassium 4.1 mmol/L (3.3-5.1); Sodium 146 mmol/L (135-145); Total Protein 7.1 g/dL (6.5-8.0)
[2022-11-15 03:16] VITALS: BP 107/65; PULSE 86; RESP 16; O2SAT 98
--- NOTE | 2022-11-15 04:19 | PC.NURSE ---
pt ciwa 0 no medications given
[2022-11-15 05:36] VITALS: BP 120/67; PULSE 94; RESP 16; O2SAT 97
[2022-11-15 07:44] VITALS: BP 122/69; PULSE 71; RESP 18; O2SAT 98
--- NOTE | 2022-11-15 07:48 | PC.NURSE ---
pt sleeping in room, respirations even and unlabored. call solo within reach
[2022-11-15 08:19] VITALS: BP 120/79; PULSE 75; RESP 16; TEMP 36.8; O2SAT 97
--- NOTE | 2022-11-15 08:20 | PC.NURSE ---
alert and oriented, ambulated to doorway of room with steady gait and requesting breakfast. toast and kemi tomas provided. reporting headache, denies any other pain. ciwa scale completed. pt resting comfortably in bed, vss. call solo within reach.
--- NOTE | 2022-11-15 08:46 | PHA.MEDREC ---
Pharmacy Consult ? Medication Reconciliation Pharmacy has completed the medication reconciliation. spoke with patient to confirm medications.
--- NOTE | 2022-11-15 09:40 | PC.NURSE ---
breakfast tray provided for patient, sleeping in room respirations even and unlabored. call solo within reach
--- NOTE | 2022-11-15 10:47 | MHC.RECOVRN ---
This principal technical writer met with patient, patient presented to ED seeking detox for ETOH, CRACK/EVON use. Pt resting in bed, awake to verbal command. Pt reports for past month ETOH daily couple pints , smoking crack/EVON daily $60 worth. Pt reports prior to one month ago, one week recovery time decreased use. Pt currently reporting ANN, nausea. Reviewed results with ED Provider, reviewed detox bedsearch process with patient. This principal technical writer to begin ATS referral process.
[2022-11-15 12:43] VITALS: BP 98/57; PULSE 64; RESP 18; O2SAT 97
--- NOTE | 2022-11-15 13:01 | PC.NURSE ---
continues to sleep in room, no signs/symptoms of distress. call solo within reach
--- NOTE | 2022-11-15 13:48 | PC.NURSE ---
Assumed care of patient at 1300, pt calm and cooperative at this time, respirations even and unlabored, skin pwd, no apparent distress. Changed over into gown, belongings secured. Pt awaiting recovery at this time
--- NOTE | 2022-11-15 14:22 | MHC.RECOVSUP ---
ATS bed search has been exhausted at this time. Referral has been sent to [facility] to wait list pt, pt was informed to follow up from the community. Resources were provided and pt has no other questions or concerns at this time. Provider aware.
== END 2022-11-15 14:13 | disposition home or self-care (01) ==
PROVIDERS: Emergency Provider Emergency Medicine
DX: F14.29 Cocaine dependence with unspecified cocaine-induced disorder (principal); F25.9 Schizoaffective disorder, unspecified; F10.10 Alcohol abuse, uncomplicated; Y90.6 Blood alcohol level of 120-199 mg/100 ml; Z79.899 Other long term (current) drug therapy; Z87.891 Personal history of nicotine dependence
CPT/HCPCS: 36415; 80048; 80076; 80307; 83735; 85025; 99284; 99285

== ENCOUNTER 2022-11-16 04:31 | Emergency (ER) | payer OTHER, SELFPAY ==
[2022-11-16 04:36] VITALS: BMI 27.4
--- NOTE | 2022-11-16 04:46 | PC.NURSE ---
Pt able to ambulate with steady gait back to bed- Pt crying and upset that we don't do anything for him and he gets discharged from here with no help. So he just goes out and drink and do drugs
[2022-11-16 04:50] VITALS: BP 139/67; PULSE 90; RESP 19; TEMP 36.4; O2SAT 98
--- NOTE | 2022-11-16 05:11 | ED_ITS ---
HPI - General Adult General Chief complaint: General Medical Stated complaint: requesting additional help Time Seen by Provider: 11/16/22 05:11 Source: patient Mode of arrival: ambulatory Limitations: no limitations History of Present Illness HPI narrative: 32-year-old male with history of schizoaffective disorder, bipolar disorder, anxiety, hyperlipidemia, crack cocaine use disorder and alcohol use disorder who presents emergency department for evaluation of noncompliance with his medications, continued alcohol and crack cocaine use. Patient states that he was seen here yesterday and was evaluated by the it disaster recovery manager . There were no detox beds available and he was discharged home. He states he is extremely frustrated and he is continuing to use alcohol and crack cocaine because he cannot get the help that he needs and this is making his mental health worse as well. He states he does have a place to live but cannot get his medications therefore he has not been taking his medications. He states that he drinks a pt of vodka per day. He states that he uses crack cocaine daily. He denied being suicidal or homicidal The patient is seen here frequently, this is 14th visit this year. He was last seen on 11/10/2022 for noncompliance with his medications, alcohol use disorder and cocaine use disorder. Related Data Home Medications Medication Instructions Recorded Confirmed benztropine 1 mg tablet 1 mg PO BID 10/27/22 11/15/22 haloperidol 10 mg tablet 10 mg PO BID 10/27/22 11/15/22 sertraline 50 mg tablet 50 mg PO DAILY 10/27/22 11/15/22 quetiapine 100 mg tablet 100 mg PO BEDTIME 11/10/22 11/15/22 trazodone 100 mg tablet 200 mg PO BEDTIME 11/10/22 11/15/22 hydroxyzine HCl 50 mg tablet 50 mg PO DAILY PRN Anxiety 11/15/22 11/15/22 melatonin 3 mg tablet 3 mg PO BEDTIME 11/15/22 11/15/22 prazosin 2 mg capsule 2 mg PO BEDTIME 11/15/22 11/15/22 Allergies Allergy/AdvReac Type Severity Reaction Status Date / Time No Known Allergies Allergy Verified 11/15/22 13:46 [No Known Allergies*] Review of Systems Review of Systems: Yes all other systems are reviewed and are negative PMFSH Past Medical History [facility] Narrative: Social history: Patient does smoke cigarettes. He drinks 1 pt of vodka per day. He uses crack cocaine daily. Medical History Alcohol abuse Alcohol dependence Alcohol intoxication Delusional disorder Generalized anxiety disorder History of alcohol abuse Mixed dyslipidemia Schizo-affective schizophrenia Schizoaffective disorder Surgical History History of removal of neck cyst History of root canal procedure Family History Family History Father Depression FH: mental illness Mother Depression FH: mental illness Maternal Grandfather No problems noted. Maternal Grandmother No problems noted. Brother No problems noted. Sister No problems noted. 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 Housing: House Do you presently have visiting nurse or other home services: No Alcohol intake: current Alcohol intake frequency: 3 or more drinks per day [place] type: hard liquor Patient Tobacco Use Status: Former Tobacco user Tobacco use type: Cigarette Cigarettes Per Day: 5 Years Smoked: 3 e-Cigarette/Vaping Use: Former Use Second Hand Smoke Exposure: No Substance Use Type: Crack/Cocaine Advance Directives: No Advance Directives Information Provided: Yes service: No Current occupational status: unemployed Sexual orientation: Straight/Heterosexual Physical Exam ED Vital Signs: Vital Signs - 24 hr 11/16/22 04:50 Temperature 97.6 F Pulse Rate 90 Respiratory Rate 19 Blood Pressure 139/67 Pulse Oximetry 98 Oxygen Delivery Method Room Air BMI result Body Mass Index 27.4 Vital signs were normal Exam: General: Awake, alert in no distress, the patient is agitated and upset Head: Normocephalic, atraumatic EENT: PERRL, Lids normal, sclera normal, conjunctiva normal, nose normal , ears normal, throat without erythema or exudates Neck: Supple, no adenopathy, trachea midline and nontender Lung: breath sounds symmetric, no wheezing, rales or rhonchi Chest: symmetric movement, nontender Heart: regular rate and rhythm, normal S1, S2 no murmurs or rubs Abdomen: soft, non-tender, nondistended, normal bowel sounds Back: no vertebral tenderness, no CVAT Extremities: no deformities, moves all extremities symmetrically Skin: no rashes, no lesion, normal color and warmth Neuro: Awake, alert, oriented, normal speech, cranial nerves intact, moves all extremities symmetrically Psych: Patient is awake, alert, agitated, upset about his situation, does answer questions appropriately. Medications Administered Discontinued Medications Generic Name Dose Route Start Last Admin Trade Name Jillian PRN Reason Stop Dose Admin Lorazepam 2 mg 11/16/22 05:22 11/16/22 05:44 Lorazepam 1 Mg Tablet PO 11/16/22 05:23 2 mg ONCE STA Administration Medical Decision Making Medical Decision Making [facility] Narrative: 32-year-old male with a history of hyperlipidemia, anxiety, bipolar disorder, schizo affective disorder, crack cocaine use, alcohol use disorder who presents emergency department requesting detox and requesting help with his mental [facility]. Patient was seen here yesterday and he states that there was no detox bed any was discharged home without any help. He denies being suicidal or homicidal. I ordered the following evaluation on the patient: CBC, CMP, lipase, COVID 19, glenys 0843: Start physician observation Patient's laboratory evaluation was unremarkable except for that urine tox screen which is positive for cocaine, barbiturates and fentanyl. At the end of my shift, the patient's care was turned over to my colleague, Dr. Susan Dunne. Differential Diagnosis Differential Diagnoses: The differential diagnosis associated with the presentation includes Differential diagnosis includes but is not limited to acute alcohol intoxication, cocaine intoxication, bipolar/schizoaffective disorder decompensation, medication noncompliance, electrolyte abnormality, anemia Admission/Observation Consideration of admission/observation: Escalation of care including admission/observation considered Consult Healthcare Provider Management of the patient was discussed with: Benefit Authorizer (Recovery team) My independent interpretation of the patient's laboratory evaluation is as follows: Urine was positive for fentanyl, barbiturates, cocaine. CBC was normal. Potassium was slightly low at 3.1 otherwise CMP was normal. Lipase was normal. COVID-19 was negative. Lab Data [facility] Lab Attestation statement: I reviewed the patient's lab results. 11/16/22 05:41 11/16/22 05:42 Labs: Lab Results 11/16/22 11/16/22 11/16/22 Range/Units 05:41 05:41 05:42 WBC 9.8 (4.8-10.8) X10*3/uL RBC 5.06 (4.60-5.80) X10*6/uL Hgb 14.8 (14.0-18.0) g/dl Hct 43.6 (42.0-52.0) % MCV 86.2 (80.0-98.0) fL MCH 29.2 (27.0-33.0) pg MCHC 33.9 (31.0-36.0) g/dl RDW 12.8 (11.0-16.0) % Plt Count 248 (160-400) X10*3/uL MPV 10.7 (9.4-12.4) fL Immature Gran % (Auto) 0.4 (0.0-0.4) % Neut % (Auto) 65.0 (45-73) % Lymph % (Auto) 26.2 (20-40) % [place] % (Auto) 6.5 (2-11) % Eos % (Auto) 1.6 (0-4) % Baso % (Auto) 0.3 (0-2) % Lymph # (Auto) 2.6 (1.2-4.9) X10*3/uL [place] # (Auto) 0.6 (0.1-1.2) X10*3/uL Eos # (Auto) 0.2 (0.0-0.4) X10*3/uL Baso # (Auto) 0.0 (0.0-0.2) X10*3/uL Abs Immat Gran (auto) 0.04 H (0.00-0.03) X10*3/uL Absolute Neuts (auto) 6.4 (2.0-8.3) x10*3/uL Absolute Nucleated RBC 0.000 (0.0-0.012) X10*3/uL Nucleated RBC % (auto) 0.0 (0.0-0.2) /100WBC Sodium 138 (135-145) mmol/L Potassium 3.1 L D (3.3-5.1) mmol/L Chloride 105 (96-108) mmol/L Carbon Dioxide 21 L (22-29) mmol/L Anion Gap 15 (12-20) BUN 11 (9-16) mg/dL Creatinine 0.83 (0.5-1.4) mg/dL Estim Creat Clear Calc 123.6 Estimated GFR > 60 Random Glucose 108 (60-115) mg/dL Calcium 9.7 (8.4-10.2) mg/dL Total Bilirubin 0.5 (0.0-1.0) mg/dL AST 26 (5-37) U/L ALT 34 (0-40) U/L Alkaline Phosphatase 61 (39-117) U/L Total Protein 7.2 (6.5-8.0) g/dL Albumin 4.4 (3.5-5.0) g/dL Lipase 17 (8-78) U/L Urine Opiates Screen (Not Detect) Urine Fentanyl Screen (Not Detect) Ur Barbiturates Screen (Not Detect) Ur Phencyclidine Scrn (Not Detect) Ur Amphetamines Screen (Not Detect) U Benzodiazepines Scrn (Not Detect) Urine Cocaine Screen (Not Detect) U Marijuana (THC) Screen (Not Detect) Ethyl Alcohol < 10 mg/dL COVID-19 (KACIE) (Negative) COVID-19 Clin Com 11/16/22 11/16/22 Range/Units 05:42 05:49 WBC (4.8-10.8) X10*3/uL RBC (4.60-5.80) X10*6/uL Hgb (14.0-18.0) g/dl Hct (42.0-52.0) % MCV (80.0-98.0) fL MCH (27.0-33.0) pg MCHC (31.0-36.0) g/dl RDW (11.0-16.0) % Plt Count (160-400) X10*3/uL MPV (9.4-12.4) fL Immature Gran % (Auto) (0.0-0.4) % Neut % (Auto) (45-73) % Lymph % (Auto) (20-40) % [place] % (Auto) (2-11) % Eos % (Auto) (0-4) % Baso % (Auto) (0-2) % Lymph # (Auto) (1.2-4.9) X10*3/uL [place] # (Auto) (0.1-1.2) X10*3/uL Eos # (Auto) (0.0-0.4) X10*3/uL Baso # (Auto) (0.0-0.2) X10*3/uL Abs Immat Gran (auto) (0.00-0.03) X10*3/uL Absolute Neuts (auto) (2.0-8.3) x10*3/uL Absolute Nucleated RBC (0.0-0.012) X10*3/uL Nucleated RBC % (auto) (0.0-0.2) /100WBC Sodium (135-145) mmol/L Potassium (3.3-5.1) mmol/L Chloride (96-108) mmol/L Carbon Dioxide (22-29) mmol/L Anion Gap (12-20) BUN (9-16) mg/dL Creatinine (0.5-1.4) mg/dL Estim Creat Clear Calc Estimated GFR Random Glucose (60-115) mg/dL Calcium (8.4-10.2) mg/dL Total Bilirubin (0.0-1.0) mg/dL AST (5-37) U/L ALT (0-40) U/L Alkaline Phosphatase (39-117) U/L Total Protein (6.5-8.0) g/dL Albumin (3.5-5.0) g/dL Lipase (8-78) U/L Urine Opiates Screen Not Detected (Not Detect) Urine Fentanyl Screen POSITIVE H (Not Detect) Ur Barbiturates Screen POSITIVE H (Not Detect) Ur Phencyclidine Scrn Not Detected (Not Detect) Ur Amphetamines Screen Not Detected (Not Detect) U Benzodiazepines Scrn Not Detected (Not Detect) Urine Cocaine Screen POSITIVE H (Not Detect) U Marijuana (THC) Screen Not Detected (Not Detect) Ethyl Alcohol mg/dL COVID-19 (KACIE) Negative (Negative) COVID-19 Clin Com See Note Discharge Plan Discharge Clinical Impression: Cocaine use, Schizoaffective disorder, Alcohol use, Medical non-compliance, Bipolar disorder Patient Disposition: Still a Patient Prescriptions: No Action hydroxyzine HCl 50 mg tablet 50 mg PO DAILY PRN (Reason: Anxiety) melatonin 3 mg tablet 3 mg PO BEDTIME prazosin 2 mg capsule 2 mg PO BEDTIME haloperidol 10 mg tablet 10 mg PO BID benztropine 1 mg tablet 1 mg PO BID Rx Instructions: last filled 10/29/22 per [facility] sertraline 50 mg tablet 50 mg PO DAILY Rx Instructions: last filled 11/04/22 quetiapine 100 mg tablet 100 mg PO BEDTIME Rx Instructions: last filled last filled 09/16/22 waiting to be picked up 11/03/22 trazodone 100 mg tablet 200 mg PO BEDTIME Rx Instructions: last filled 11/04/22
[2022-11-16] MEDS: LORazepam 1 MG TABLET 2 MG PO (05:44)
[2022-11-16 05:50] LABS: Basophils Percent Auto 0.3 % (0-2); Eosinophils Absolute Auto 0.2 X10*3/uL (0.0-0.4); Eosinophils Percent Auto 1.6 % (0-4); Hematocrit 43.6 % (42.0-52.0); Hemoglobin 14.8 g/dl (14.0-18.0); Imm Gran Abs Auto 0.04 X10*3/uL (0.00-0.03); Imm Gran Pct Auto 0.4 % (0.0-0.4); Lymphocytes Absolute Auto 2.6 X10*3/uL (1.2-4.9); Lymphocytes Percent Auto 26.2 % (20-40); MANUAL DIFF FLAG NO; Mean Corpuscular HGB Conc 33.9 g/dl (31.0-36.0); Mean Corpuscular Hemoglobin 29.2 pg (27.0-33.0); Mean Corpuscular Volume 86.2 fL (80.0-98.0); Mean Platelet Volume 10.7 fL (9.4-12.4); Monocytes Absolute Auto 0.6 X10*3/uL (0.1-1.2); Monocytes Percent Auto 6.5 % (2-11); Neutrophils Absolute Auto 6.4 x10*3/uL (2.0-8.3); Platelet Count 248 X10*3/uL (160-400); Red Blood Count 5.06 X10*6/uL (4.60-5.80); Red Cell Distribution Width 12.8 % (11.0-16.0); White Blood Count 9.8 X10*3/uL (4.8-10.8)
[2022-11-16 06:00] LABS: COVID-19 Test Negative (Negative); IDNOW Serial# 6674DD1D
[2022-11-16 06:10] LABS: Alanine Aminotransferase 34 U/L (0-40); Albumin Level 4.4 g/dL (3.5-5.0); Alkaline Phosphatase 61 U/L (39-117); Anion Gap 15 (12-20); Aspartate Amino Transferase 26 U/L (5-37); Bilirubin Total 0.5 mg/dL (0.0-1.0); Blood Urea Nitrogen 11 mg/dL (9-16); Calcium 9.7 mg/dL (8.4-10.2); Carbon Dioxide 21 mmol/L (22-29); Chloride 105 mmol/L (96-108); Creatinine Clr Calc Pharmacy 123.6; Estimated Glomerular Filt Rate > 60; Glucose Random 108 mg/dL (60-115); Lipase 17 U/L (8-78); Potassium 3.1 mmol/L (3.3-5.1); Sodium 138 mmol/L (135-145); Total Protein 7.2 g/dL (6.5-8.0)
[2022-11-16 06:11] LABS: Amphetamine Screen Urine Not Detected (Not Detect); Barbiturates, Urine POSITIVE (Not Detect); Benzodiazepines Screen Urine Not Detected (Not Detect); Cannabinoid Screen Urine Not Detected (Not Detect); Cocaine Screen Urine POSITIVE (Not Detect); Fentanyl, urine POSITIVE (Not Detect); Opiate Screen Urine Not Detected (Not Detect); Phencyclidine Screen Urine Not Detected (Not Detect)
[2022-11-16 06:16] LABS: Ethanol < 10 mg/dL
[2022-11-16 08:49] VITALS: BP 120/58; PULSE 60; RESP 16; TEMP 36.4; O2SAT 98
[2022-11-16 10:36] VITALS: BP 118/62; PULSE 69; RESP 20; TEMP 36.6; O2SAT 98
--- NOTE | 2022-11-16 11:30 | PC.NURSE ---
remains w/o distress. respirs reg/even. talks well. calm, coop.
[2022-11-16 12:00] VITALS: RESP 18
--- NOTE | 2022-11-16 13:30 | PC.NURSE ---
aox4. calm, coop. eating well. +PO fluid intake. to bathroom.
--- NOTE | 2022-11-16 13:53 | MHC.RECOVSUP ---
Pt accepted at [facility] ordered for 3:30pm. Provider aware.
[2022-11-16 14:00] VITALS: RESP 16
--- NOTE | 2022-11-16 14:29 | PC.NURSE ---
attempted to d/c pt- stating wants to learn more information about transportation to resources outside - rn called jacki for more info
--- NOTE | 2022-11-16 14:32 | PC.NURSE ---
pt [facility] arrival will be approx 1530- pt aware- spoke with jacki to confirm.
--- NOTE | 2022-11-16 14:36 | PC.NURSE ---
pt resting CIWA 1. respirations even, regular. eating snack / po fluids well. no sx withdrawal.
[2022-11-16 15:13] VITALS: BP 128/66; PULSE 63; RESP 16; TEMP 36.3; O2SAT 97
== END 2022-11-16 15:40 | disposition home or self-care (01) ==
PROVIDERS: Emergency Provider Emergency Medicine Emergency Medical Services
DX: F25.0 Schizoaffective disorder, bipolar type (principal); F10.10 Alcohol abuse, uncomplicated; Y90.0 Blood alcohol level of less than 20 mg/100 ml; F14.10 Cocaine abuse, uncomplicated; Z20.822 Contact with and (suspected) exposure to COVID-19; Z20.828 Contact with and (suspected) exposure to other viral communicable diseases; Z91.148 Patient's other noncompliance with medication regimen for other reason; Z79.899 Other long term (current) drug therapy
CPT/HCPCS: 36415; 80053; 80307; 83690; 85025; 87635; 99284

== ENCOUNTER 2022-11-19 09:21 | Emergency (ER) | payer OTHER, SELFPAY ==
[2022-11-19 09:24] VITALS: BP 142/98; PULSE 97; RESP 18; TEMP 36.6; O2SAT 98; BMI 26.6
--- NOTE | 2022-11-19 10:10 | ED.ALCOHOL ---
HPI - Alcohol General Chief Complaint: ETOH/Substance Use Stated Complaint: ETOH looking for detox Time Seen by Provider: 11/19/22 10:10 Source: patient Mode of arrival: ambulatory Limitations: no limitations History of Present Illness HPI narrative: 32-year-old male with history of schizoaffective disorder, noncompliant with medications, HLD, anxiety, alcohol and crack cocaine use seen here many times for detox and substance abuse who presents to the ER for evaluation of paranoia, insomnia, after going on a binge of alcohol and crack cocaine for the last 3 days. This is his 4th visit this month for substance abuse. When he was seen here last 3 days ago he was discharged to [facility] for detox. He states he stayed there for a day and then left because he ?did not think he could do it. ? he admits he made a terrible mistake by leaving and would like to go back. He reports he has been walking around all night, paranoid, ?does not know what is real and what is not.? He has been off of his psych meds for several months. He denies any visual or auditory hallucinations. He is not suicidal or homicidal. He states he last used crack cocaine and alcohol a few hours ago. He could not quantify. He feels anxious and ?just wants to sleep. complaint: alcohol dependence and desires rehab Last drink: Hours (ago) Chronic alcohol use: Yes Previous visits for alcohol intoxication: Yes Recent trauma: No Associated symptoms: depression and other (Paranoia and insomnia) Treatments prior to arrival: none Related Data Home Medications Medication Instructions Recorded Confirmed No Known Home Meds 11/19/22 11/19/22 Allergies Allergy/AdvReac Type Severity Reaction Status Date / Time No Known Allergies Allergy Verified 11/19/22 09:24 [No Known Allergies*] Review of Systems Review of Systems: Yes all other systems are reviewed and are negative PMFSH Past Medical History Medical History Alcohol abuse Alcohol dependence Alcohol intoxication Delusional disorder Generalized anxiety disorder History of alcohol abuse Mixed dyslipidemia Schizo-affective schizophrenia Schizoaffective disorder Surgical History History of removal of neck cyst History of root canal procedure Family History Family History Father Depression FH: mental illness Mother Depression FH: mental illness Maternal Grandfather No problems noted. Maternal Grandmother No problems noted. Brother No problems noted. Sister No problems noted. 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 Housing: House Do you presently have visiting nurse or other home services: No Alcohol intake: current Alcohol intake frequency: 3 or more drinks per day Alcohol type: hard liquor Patient Tobacco Use Status: Former Tobacco user Tobacco use type: Cigarette Cigarettes Per Day: 5 Years Smoked: 3 e-Cigarette/Vaping Use: Former Use Second Hand Smoke Exposure: No Substance Use Type: Crack/Cocaine Advance Directives: No Advance Directives Information Provided: Yes service: No Current occupational status: unemployed Sexual orientation: Straight/Heterosexual Physical Exam ED Vital Signs: Vital Signs - 24 hr 11/19/22 09:24 Temperature 98 F Pulse Rate 97 Respiratory Rate 18 Blood Pressure 142/98 H Pulse Oximetry 98 Oxygen Delivery Method Room Air BMI result Body Mass Index 26.6 Appearance: Alert. Oriented X3. No acute distress. Head: normocephalic, atraumatic. Eyes: Pupils equal, round and reactive to light. ENT: Pharynx normal. No tonsillar swelling or exudate. Neck: Normal inspection. Neck supple. CVS: Normal heart rate and rhythm. Pulses normal. Respiratory: No respiratory distress. Breath sounds normal. Abdomen: Soft and nontender. +BS x4 Skin: Skin warm and dry. Normal skin color. Normal skin turgor. No rashes. Extremities: No lower extremity edema. No joint swelling. Neuro/psych: Oriented X 3. No motor deficit. No sensory deficit. CN II-XII intact. Restless, occasionally grimacing. Normal speech and cognition. Paranoid, difficult to understand at times. Does not make eye contact. Not suicidal or homicidal Course Reevaluation(s) Reevaluation #1: Physician observation started. Patient found to have recurrent rhabdomyolysis with CPK 800. This is a similar presentation after he tends to walk around the streets all night due to his paranoia and insomnia. He reports diffuse muscle aches. He has normal renal function. Will plan to encourage oral hydration and repeat a CPK later this afternoon. Care team evaluation pending. Will continue monitor. Time: 11:33 Reevaluation #2: Patient's total CK is trending downward. Will continue to push oral fluids. Patient is medically cleared. Time: 16:58 Medical Decision Making Medical Decision Making [facility] Narrative: 32-year-old male with history of schizoaffective disorder, noncompliant with medications, HLD, anxiety, alcohol and crack cocaine use seen here many times for detox and substance abuse who presents to the ER for evaluation of paranoia, insomnia, after going on a binge of alcohol and crack cocaine for the last 3 days. Recently eloped from [place]. On arrival to the ER he is slightly hypertensive 140/90. He is restless and paranoid. His night ER visit since October for substance abuse and mental health. Patient is willing to Section 35 himself. Will plan to monitor in the emergency department, check his CPK this afternoon and discharged to court in the morning a Section 35 Differential Diagnosis Differential Diagnoses: The differential diagnosis associated with the presentation includes Acute intoxication, polysubstance abuse, substance induced mood disorder, acute psychosis, schizophrenia, schizoaffective disorder, PTSD, bipolar disorder, major depression with psychotic features Admission/Observation Consideration of admission/observation: Escalation of care including admission/observation considered Rhabdomyolysis, recurrence presentation, decompensated schizoaffective disorder due to medication noncompliance considered admission Consult Healthcare Provider Management of the patient was discussed with: Behavioral Health Provider Lab Data [facility] Lab Attestation statement: I reviewed the patient's lab results. Rhabdomyolysis with normal renal function 11/19/22 10:53 11/19/22 10:53 Labs: Lab Results 11/19/22 11/19/22 11/19/22 Range/Units 10:43 10:53 10:53 WBC 10.6 (4.8-10.8) X10*3/uL RBC 5.12 (4.60-5.80) X10*6/uL Hgb 15.0 (14.0-18.0) g/dl Hct 44.5 (42.0-52.0) % MCV 86.9 (80.0-98.0) fL MCH 29.3 (27.0-33.0) pg MCHC 33.7 (31.0-36.0) g/dl RDW 13.4 (11.0-16.0) % Plt Count 273 (160-400) X10*3/uL MPV 10.5 (9.4-12.4) fL Immature Gran % (Auto) 0.6 H (0.0-0.4) % Neut % (Auto) 68.8 (45-73) % Lymph % (Auto) 22.5 (20-40) % [place] % (Auto) 6.3 (2-11) % Eos % (Auto) 1.3 (0-4) % Baso % (Auto) 0.5 (0-2) % Lymph # (Auto) 2.4 (1.2-4.9) X10*3/uL [place] # (Auto) 0.7 (0.1-1.2) X10*3/uL Eos # (Auto) 0.1 (0.0-0.4) X10*3/uL Baso # (Auto) 0.1 (0.0-0.2) X10*3/uL Abs Immat Gran (auto) 0.06 H (0.00-0.03) X10*3/uL Absolute Neuts (auto) 7.3 (2.0-8.3) x10*3/uL Absolute Nucleated RBC 0.000 (0.0-0.012) X10*3/uL Nucleated RBC % (auto) 0.0 (0.0-0.2) /100WBC Sodium 139 (135-145) mmol/L Potassium 3.7 (3.3-5.1) mmol/L Chloride 105 (96-108) mmol/L Carbon Dioxide 23 (22-29) mmol/L Anion Gap 15 (12-20) BUN 11 (9-16) mg/dL Creatinine 0.75 (0.5-1.4) mg/dL Estim Creat Clear Calc 136.8 Estimated GFR > 60 Random Glucose 100 (60-115) mg/dL Calcium 9.8 (8.4-10.2) mg/dL Total Bilirubin 0.3 (0.0-1.0) mg/dL AST 31 (5-37) U/L ALT 42 H (0-40) U/L Alkaline Phosphatase 67 (39-117) U/L Total Creatine Kinase (38-174) U/L Total Protein 7.6 (6.5-8.0) g/dL Albumin 4.7 (3.5-5.0) g/dL Salicylates (15-30) mg/dL Urine Opiates Screen Not Detected (Not Detect) Urine Fentanyl Screen Not Detected (Not Detect) Acetaminophen (<30) mcg/mL Ur Barbiturates Screen POSITIVE H (Not Detect) Ur Phencyclidine Scrn Not Detected (Not Detect) Ur Amphetamines Screen Not Detected (Not Detect) U Benzodiazepines Scrn Not Detected (Not Detect) Urine Cocaine Screen POSITIVE H (Not Detect) U Marijuana (THC) Screen Not Detected (Not Detect) Ethyl Alcohol < 10 mg/dL 11/19/22 11/19/22 11/19/22 Range/Units 10:53 10:53 16:21 WBC (4.8-10.8) X10*3/uL RBC (4.60-5.80) X10*6/uL Hgb (14.0-18.0) g/dl Hct (42.0-52.0) % MCV (80.0-98.0) fL MCH (27.0-33.0) pg MCHC (31.0-36.0) g/dl RDW (11.0-16.0) % Plt Count (160-400) X10*3/uL MPV (9.4-12.4) fL Immature Gran % (Auto) (0.0-0.4) % Neut % (Auto) (45-73) % Lymph % (Auto) (20-40) % [place] % (Auto) (2-11) % Eos % (Auto) (0-4) % Baso % (Auto) (0-2) % Lymph # (Auto) (1.2-4.9) X10*3/uL [place] # (Auto) (0.1-1.2) X10*3/uL Eos # (Auto) (0.0-0.4) X10*3/uL Baso # (Auto) (0.0-0.2) X10*3/uL Abs Immat Gran (auto) (0.00-0.03) X10*3/uL Absolute Neuts (auto) (2.0-8.3) x10*3/uL Absolute Nucleated RBC (0.0-0.012) X10*3/uL Nucleated RBC % (auto) (0.0-0.2) /100WBC Sodium (135-145) mmol/L Potassium (3.3-5.1) mmol/L Chloride (96-108) mmol/L Carbon Dioxide (22-29) mmol/L Anion Gap (12-20) BUN (9-16) mg/dL Creatinine (0.5-1.4) mg/dL Estim Creat Clear Calc Estimated GFR Random Glucose (60-115) mg/dL Calcium (8.4-10.2) mg/dL Total Bilirubin (0.0-1.0) mg/dL AST (5-37) U/L ALT (0-40) U/L Alkaline Phosphatase (39-117) U/L Total Creatine Kinase 849 H 702 H (38-174) U/L Total Protein (6.5-8.0) g/dL Albumin (3.5-5.0) g/dL Salicylates < 5.0 L (15-30) mg/dL Urine Opiates Screen (Not Detect) Urine Fentanyl Screen (Not Detect) Acetaminophen < 17 (<30) mcg/mL Ur Barbiturates Screen (Not Detect) Ur Phencyclidine Scrn (Not Detect) Ur Amphetamines Screen (Not Detect) U Benzodiazepines Scrn (Not Detect) Urine Cocaine Screen (Not Detect) U Marijuana (THC) Screen (Not Detect) Ethyl Alcohol mg/dL External Record Review External record reviewed: Outpatient record and Prior outpatient labs Prescription Management I considered prescription management with: Other (Antipsychotics) Chronic Conditions Patient?s care impacted by: Other (Schizoaffective disorder) Social Determinants Patient?s care significantly limited by Social Determinants of Health including: Inadequate housing, Alcoholism and drug addiction in family, Problems related to primary support group and Other Social Determinant of Health Medications Administered Discontinued Medications Generic Name Dose Route Start Last Admin Trade Name Freq PRN Reason Stop Dose Admin Lorazepam 2 mg 11/19/22 10:26 11/19/22 10:33 Lorazepam 1 Mg Tablet PO 11/19/22 10:27 2 mg ONCE ONE Administration Critical Care Time Critical Care Time Critical Care Time: No Discharge Plan Discharge Clinical Impression: Schizoaffective disorder, Cocaine use disorder, moderate, dependence, Alcohol use disorder, moderate, dependence, Rhabdomyolysis Patient Disposition: Still a Patient Instructions: Cocaine Abuse (ED), Schizoaffective Disorder (ED), Alcohol Dependence (ED) Additional Instructions: Present to court to Section 35 yourself for mandated treatment. Prescriptions: No Action No Known Home Meds
[2022-11-19] MEDS: LORazepam 1 MG TABLET 2 MG PO (10:33)
[2022-11-19 10:58] LABS: MANUAL DIFF FLAG NO
[2022-11-19 11:00] LABS: Basophils Absolute Auto 0.1 X10*3/uL (0.0-0.2); Basophils Percent Auto 0.5 % (0-2); Eosinophils Absolute Auto 0.1 X10*3/uL (0.0-0.4); Eosinophils Percent Auto 1.3 % (0-4); Hematocrit 44.5 % (42.0-52.0); Imm Gran Abs Auto 0.06 X10*3/uL (0.00-0.03); Imm Gran Pct Auto 0.6 % (0.0-0.4); Lymphocytes Absolute Auto 2.4 X10*3/uL (1.2-4.9); Lymphocytes Percent Auto 22.5 % (20-40); Mean Corpuscular HGB Conc 33.7 g/dl (31.0-36.0); Mean Corpuscular Hemoglobin 29.3 pg (27.0-33.0); Mean Corpuscular Volume 86.9 fL (80.0-98.0); Mean Platelet Volume 10.5 fL (9.4-12.4); Monocytes Absolute Auto 0.7 X10*3/uL (0.1-1.2); Monocytes Percent Auto 6.3 % (2-11); Neutrophils Absolute Auto 7.3 x10*3/uL (2.0-8.3); Neutrophils Percent Auto 68.8 % (45-73); Platelet Count 273 X10*3/uL (160-400); Red Blood Count 5.12 X10*6/uL (4.60-5.80); Red Cell Distribution Width 13.4 % (11.0-16.0); White Blood Count 10.6 X10*3/uL (4.8-10.8)
[2022-11-19 11:09] LABS: Amphetamine Screen Urine Not Detected (Not Detect); Barbiturates, Urine POSITIVE (Not Detect); Benzodiazepines Screen Urine Not Detected (Not Detect); Cannabinoid Screen Urine Not Detected (Not Detect); Cocaine Screen Urine POSITIVE (Not Detect); Fentanyl, urine Not Detected (Not Detect); Opiate Screen Urine Not Detected (Not Detect); Phencyclidine Screen Urine Not Detected (Not Detect)
[2022-11-19 11:22] LABS: Alanine Aminotransferase 42 U/L (0-40); Albumin Level 4.7 g/dL (3.5-5.0); Alkaline Phosphatase 67 U/L (39-117); Anion Gap 15 (12-20); Aspartate Amino Transferase 31 U/L (5-37); Bilirubin Total 0.3 mg/dL (0.0-1.0); Blood Urea Nitrogen 11 mg/dL (9-16); Calcium 9.8 mg/dL (8.4-10.2); Carbon Dioxide 23 mmol/L (22-29); Chloride 105 mmol/L (96-108); Creatinine Clr Calc Pharmacy 136.8; Estimated Glomerular Filt Rate > 60; Ethanol < 10 mg/dL; Glucose Random 100 mg/dL (60-115); Potassium 3.7 mmol/L (3.3-5.1); Sodium 139 mmol/L (135-145); Total Protein 7.6 g/dL (6.5-8.0)
[2022-11-19 11:25] LABS: Acetaminophen LAB < 17 mcg/mL (<30); Salicylate < 5.0 mg/dL (15-30)
--- NOTE | 2022-11-19 13:37 | MHC.RECOVSUP ---
Met with pt in [facility] who is here for BRADEN. Pt was sent by [facility] to [facility] 3 days ago and pt reports he left after 1 day and have been using crack and alcohol non stop since then with last use around 10am. Pt shares that leaving [facility] was a mistake and he doesn't know why he left other than feeling like he couldn't do it. Pt intends to section 35 himself in the morning. Provider aware of plan.
[2022-11-19] MEDS: traZODone HCL 100 MG TABLET 200 MG PO (18:24)
--- NOTE | 2022-11-19 19:56 | PC.NURSE ---
assumed care of patient at 1900 pt resting comfortably on stretcher in no apparent distress. will ctm
[2022-11-19 20:35] VITALS: BP 118/72; PULSE 70; RESP 16; TEMP 36.1; O2SAT 96
--- NOTE | 2022-11-20 01:26 | PC.NURSE ---
pt awake ambulating to and from bathroom, requesting cereal. given large jug of water to drink. sitting at table in common area watching tv. pt offers no current complaints at this time.
[2022-11-20 05:51] VITALS: BP 122/81; PULSE 74; RESP 17; TEMP 36.1; O2SAT 97
[2022-11-20] MEDS: LORazepam 1 MG TABLET PO (05:55)
--- NOTE | 2022-11-20 05:56 | PC.NURSE ---
pt requesting something to help with comfort pt states ativan usually helps him to relax and sleep. provider made aware and ordering medication for anxiety.
--- NOTE | 2022-11-20 09:32 | MHC.RECOVRN ---
ED Pod RN states pt to d/c and plans to [address] self. This narrative writer provided patient with bus passes to transport to [address] to persue plan.
== END 2022-11-20 12:02 | disposition home or self-care (01) ==
PROVIDERS: Physician Assistant; Emergency Provider Emergency Medicine Emergency Medical Services; PCP Internal Medicine
DX: F25.9 Schizoaffective disorder, unspecified (principal); F14.20 Cocaine dependence, uncomplicated; F10.10 Alcohol abuse, uncomplicated; M62.82 Rhabdomyolysis; Y90.0 Blood alcohol level of less than 20 mg/100 ml; Z87.891 Personal history of nicotine dependence; Z79.899 Other long term (current) drug therapy; Z71.51 Drug abuse counseling and surveillance of drug abuser
CPT/HCPCS: 36415; 80053; 80143; 80179; 80307; 82550; 85025; 99284

== ENCOUNTER 2022-11-22 23:52 | Inpatient (IN) | payer OTHER, SELFPAY ==
--- NOTE | 2022-11-23 | ECG_ITS ---
Test Reason : VALENZUELA + COCAINE Blood Pressure : / mmHG Vent. Rate : 072 BPM Atrial Rate : 072 BPM P-R Int : 140 ms QRS Dur : 080 ms QT Int : 406 ms P-R-T Axes : 033 045 040 degrees QTc Int : 444 ms Normal sinus rhythm with sinus arrhythmia Early repolarization Borderline ECG When compared with ECG of 20-OCT-2022 13:30, No significant change was found Referred By: Aditi Vazquez Electronically Signed By:KIM ESPINOSA
[2022-11-23 00:06] VITALS: BP 129/93; PULSE 90; RESP 18; TEMP 36.6; O2SAT 97; BMI 25.1
[2022-11-23 00:26] LABS: MANUAL DIFF FLAG NO
[2022-11-23 00:28] LABS: Basophils Absolute Auto 0.1 X10*3/uL (0.0-0.2); Basophils Percent Auto 0.6 % (0-2); Eosinophils Absolute Auto 0.1 X10*3/uL (0.0-0.4); Eosinophils Percent Auto 1.4 % (0-4); Hemoglobin 15.5 g/dl (14.0-18.0); Imm Gran Abs Auto 0.04 X10*3/uL (0.00-0.03); Imm Gran Pct Auto 0.5 % (0.0-0.4); Lymphocytes Absolute Auto 2.9 X10*3/uL (1.2-4.9); Lymphocytes Percent Auto 33.2 % (20-40); Mean Corpuscular HGB Conc 33.7 g/dl (31.0-36.0); Mean Corpuscular Hemoglobin 29.4 pg (27.0-33.0); Mean Corpuscular Volume 87.3 fL (80.0-98.0); Mean Platelet Volume 10.3 fL (9.4-12.4); Monocytes Absolute Auto 0.8 X10*3/uL (0.1-1.2); Monocytes Percent Auto 8.9 % (2-11); Neutrophils Absolute Auto 4.9 x10*3/uL (2.0-8.3); Neutrophils Percent Auto 55.4 % (45-73); Platelet Count 263 X10*3/uL (160-400); Red Blood Count 5.27 X10*6/uL (4.60-5.80); Red Cell Distribution Width 13.4 % (11.0-16.0); White Blood Count 8.9 X10*3/uL (4.8-10.8)
[2022-11-23 00:30] LABS: Appearance Urine Clear; Color Urine Dark Yellow; Glucose Urine UA Negative (Negative); Leukocyte Esterase Urine Trace (Negative); Nitrite Urine Negative (Negative); PH 5.5 (5.0-9.0); Specific Gravity - Urine >= 1.030 (1.005-1.025); UMIC TRIGGER UA YES; Urine Blood Negative (Negative); Urine Ketones Trace mg/dL (Negative); Urine Protein 100 (2+) mg/dL (Neg-Trace)
[2022-11-23 00:38] LABS: Bacteria Urine None Seen (None Seen); RBC Urine 0-2 /HPF (0-2); Squamous Epithelial Cell Urine 0-2 /HPF (0-2)
--- NOTE | 2022-11-23 00:38 | ED.PSYCH ---
HPI - Psych General Chief Complaint: Psychiatric Symptoms Stated Complaint: requesting section Time Seen by Provider: 11/23/22 00:17 Source: patient Mode of arrival: ambulatory Limitations: no limitations History of Present Illness HPI Narrative: Patient is a 32-year-old male presents to the emergency department requesting to be sectioned. Patient states he cannot leave this hospital as he is not section. He reports a history of schizophrenia, depression, anxiety he has not been taking his medications for many months. He endorses alcohol and crack cocaine usage. He states he has been to this emergency department multiple times over the past few weeks. He states that since his last visit he has significantly cut back on his drug and alcohol usage. Reports that he last drank at 02:00 o'clock this afternoon reporting only having had a couple of ?drinks? today. Denies use of crack cocaine today. He feels as though he is lost all ability to control himself and his behaviors. He is endorsing suicidal ideations and reports having a plan though he does not share this with me. He is reporting vague homicidal ideations, denies any specific plan or any specific person that he would like to harm. But he states that he sees strangers and he has strong thoughts of wanting to harm them. He is currently homeless, he feels as though he cannot return to the community safely at this time. He is very tearful at the time of my examination. He states that now that he has cut back on drugs and alcohol he is seeing that his depression anxiety and paranoia are rooted deeper and feels that these are the cause for his using substances. He denies any physical complaints. Related Data Home Medications Medication Instructions Recorded Confirmed benztropine 0.5 mg tablet 0.5 mg PO BID 11/23/22 11/23/22 haloperidol 5 mg tablet 5 mg PO BID 11/23/22 11/23/22 prazosin 2 mg capsule 2 mg PO BEDTIME 11/23/22 11/23/22 sertraline 50 mg tablet 50 mg PO DAILY 11/23/22 11/23/22 Allergies Allergy/AdvReac Type Severity Reaction Status Date / Time No Known Allergies Allergy Verified 11/23/22 00:06 [No Known Allergies*] Review of Systems Review of Systems: Yes all other systems are reviewed and are negative PMFSH Past Medical History Attestation statement: The following information was validated with the patient. Source: old records reviewed Medical History Alcohol abuse Alcohol dependence Alcohol intoxication Delusional disorder Generalized anxiety disorder History of alcohol abuse Mixed dyslipidemia Schizo-affective schizophrenia Schizoaffective disorder Surgical History History of removal of neck cyst History of root canal procedure Family History Family History Father Depression FH: mental illness Mother Depression FH: mental illness Maternal Grandfather No problems noted. Maternal Grandmother No problems noted. Brother No problems noted. Sister No problems noted. 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 Housing: House Do you presently have visiting nurse or other home services: No Alcohol intake: current Alcohol intake frequency: 3 or more drinks per day Alcohol type: hard liquor Patient Tobacco Use Status: Former Tobacco user Tobacco use type: Cigarette Cigarettes Per Day: 5 Years Smoked: 3 e-Cigarette/Vaping Use: Former Use Second Hand Smoke Exposure: No Substance Use Type: Crack/Cocaine Advance Directives: No Advance Directives Information Provided: No service: No Current occupational status: unemployed Sexual orientation: Straight/Heterosexual Physical Exam Vital Signs: Vital Signs: Last Vital Signs Temp 98 F 11/23/22 00:06 Pulse 90 11/23/22 00:06 Resp 18 11/23/22 00:06 BP 129/93 H 11/23/22 00:06 Pulse Ox 97 11/23/22 00:06 O2 Del Method Room Air 11/23/22 00:06 BMI result Body Mass Index 25.1 Appearance: Alert.?Oriented to person, place and time. No acute distress.?Normal affect. Eyes: Pupils equal, round and reactive to light.? ENT: Pharynx normal.?? Neck: Normal inspection.? Neck supple.?? CVS: Heart sounds normal. Normal heart rate and rhythm.? Pulses normal.?? Respiratory: No respiratory distress.? Lung sounds clear to auscultation bilaterally?? Abdomen: Soft and non-tender. Normoactive bowel sounds. ?? Skin: Skin warm and dry.? Normal skin color.? Extremities: No lower extremity edema.? Neuro: Moves all extremities spontaneously. Sensation intact bilaterally. CN II-XII intact. No focal neuro deficits. Ambulates with normal steady gait. Medical Decision Making Medical Decision Making MDM Narrative: Patient is a 32-year-old male with past medical history of schizoaffective disorder, noncompliant with medications, hyperlipidemia, anxiety, depression, alcohol crack cocaine usage presented to emergency department for evaluation of suicidal and homicidal ideations in addition to worsening depression and anxiety. His been seen in the emergency department multiple times recently, most recently 4 days ago, at that time he was not suicidal or homicidal he was requesting assistance with detox. At the time my examination he is very tearful, appears to be having clear and lucid thought process at this time. Sources alcohol consumption earlier this afternoon, denies any crack cocaine usage today. Expresses significant concern about discharge to the community as he does not feel safe, reporting that he has a threat to himself and others. Has no physical complaints and his physical examination is benign. 0241: Continue physician observation Patient was seen by the care team The recommendation is to have a follow-up in the morning to consider referring the patient to a dual diagnosis program for his schizophrenia and polysubstance use disorder. Therefore the patient will be kept in the emergency department Behavioral Health Unit until disposition can be determined or until his symptoms improve over time. Differential Diagnosis Differential Diagnoses: The differential diagnosis associated with the presentation includes Admission/Observation Consideration of admission/observation: Escalation of care including admission/observation considered (Physician observation for care team evaluation) Consult Healthcare Provider Management of the patient was discussed with: Behavioral Health Provider (Care team) Lab Data [facility] Lab Attestation statement: I reviewed the patient's lab results. CBC is without leukocytosis or anemia. CMP is overall unremarkable. Urinalysis without evidence of urinary tract infection. Toxicology screening positive for barbiturates, cocaine. Alcohol level of 45. 11/23/22 00:22 11/23/22 00:22 Labs: Lab Results 11/23/22 11/23/22 11/23/22 Range/Units 00:16 00:16 00:22 WBC (4.8-10.8) X10*3/uL RBC (4.60-5.80) X10*6/uL Hgb (14.0-18.0) g/dl Hct (42.0-52.0) % MCV (80.0-98.0) fL MCH (27.0-33.0) pg MCHC (31.0-36.0) g/dl RDW (11.0-16.0) % Plt Count (160-400) X10*3/uL MPV (9.4-12.4) fL Immature Gran % (Auto) (0.0-0.4) % Neut % (Auto) (45-73) % Lymph % (Auto) (20-40) % [place] % (Auto) (2-11) % Eos % (Auto) (0-4) % Baso % (Auto) (0-2) % Lymph # (Auto) (1.2-4.9) X10*3/uL [place] # (Auto) (0.1-1.2) X10*3/uL Eos # (Auto) (0.0-0.4) X10*3/uL Baso # (Auto) (0.0-0.2) X10*3/uL Abs Immat Gran (auto) (0.00-0.03) X10*3/uL Absolute Neuts (auto) (2.0-8.3) x10*3/uL Absolute Nucleated RBC (0.0-0.012) X10*3/uL Nucleated RBC % (auto) (0.0-0.2) /100WBC Sodium 140 (135-145) mmol/L Potassium 4.3 (3.3-5.1) mmol/L Chloride 106 (96-108) mmol/L Carbon Dioxide 24 (22-29) mmol/L Anion Gap 14 (12-20) BUN 8 L (9-16) mg/dL Creatinine 0.85 (0.5-1.4) mg/dL Estim Creat Clear Calc 120.7 Estimated GFR > 60 Random Glucose 93 (60-115) mg/dL Calcium 10.0 (8.4-10.2) mg/dL Total Bilirubin 0.7 (0.0-1.0) mg/dL AST 33 (5-37) U/L ALT 47 H (0-40) U/L Alkaline Phosphatase 61 (39-117) U/L Total Protein 8.1 H (6.5-8.0) g/dL Albumin 5.0 (3.5-5.0) g/dL Urine Color Dark Yellow Urine Appearance Clear Urine pH 5.5 (5.0-9.0) Ur Specific [place] >= 1.030 H (1.005-1.025) Urine Protein 100 (2+) H (Neg-Trace) mg/dL Urine Glucose (UA) Negative (Negative) mg/dL Urine Ketones Trace (Negative) mg/dL Urine Blood Negative (Negative) Urine Nitrite Negative (Negative) Ur Leukocyte Esterase Trace H (Negative) Urine RBC 0-2 (0-2) /HPF Urine WBC 11-20 H (0-5) /HPF Ur Squamous Epith Cells 0-2 (0-2) /HPF Urine Bacteria None Seen (None Seen) Hyaline Casts 3-5 (0-2) /LPF Urine Opiates Screen Not Detected (Not Detect) Urine Fentanyl Screen Not Detected (Not Detect) Ur Barbiturates Screen POSITIVE H (Not Detect) Ur Phencyclidine Scrn Not Detected (Not Detect) Ur Amphetamines Screen Not Detected (Not Detect) U Benzodiazepines Scrn Not Detected (Not Detect) Urine Cocaine Screen POSITIVE H (Not Detect) U Marijuana (THC) Screen Not Detected (Not Detect) Ethyl Alcohol 45 mg/dL 11/23/22 Range/Units 00:22 WBC 8.9 (4.8-10.8) X10*3/uL RBC 5.27 (4.60-5.80) X10*6/uL Hgb 15.5 (14.0-18.0) g/dl Hct 46.0 (42.0-52.0) % MCV 87.3 (80.0-98.0) fL MCH 29.4 (27.0-33.0) pg MCHC 33.7 (31.0-36.0) g/dl RDW 13.4 (11.0-16.0) % Plt Count 263 (160-400) X10*3/uL MPV 10.3 (9.4-12.4) fL Immature Gran % (Auto) 0.5 H (0.0-0.4) % Neut % (Auto) 55.4 (45-73) % Lymph % (Auto) 33.2 (20-40) % [place] % (Auto) 8.9 (2-11) % Eos % (Auto) 1.4 (0-4) % Baso % (Auto) 0.6 (0-2) % Lymph # (Auto) 2.9 (1.2-4.9) X10*3/uL [place] # (Auto) 0.8 (0.1-1.2) X10*3/uL Eos # (Auto) 0.1 (0.0-0.4) X10*3/uL Baso # (Auto) 0.1 (0.0-0.2) X10*3/uL Abs Immat Gran (auto) 0.04 H (0.00-0.03) X10*3/uL Absolute Neuts (auto) 4.9 (2.0-8.3) x10*3/uL Absolute Nucleated RBC 0.000 (0.0-0.012) X10*3/uL Nucleated RBC % (auto) 0.0 (0.0-0.2) /100WBC Sodium (135-145) mmol/L Potassium (3.3-5.1) mmol/L Chloride (96-108) mmol/L Carbon Dioxide (22-29) mmol/L Anion Gap (12-20) BUN (9-16) mg/dL Creatinine (0.5-1.4) mg/dL Estim Creat Clear Calc Estimated GFR Random Glucose (60-115) mg/dL Calcium (8.4-10.2) mg/dL Total Bilirubin (0.0-1.0) mg/dL AST (5-37) U/L ALT (0-40) U/L Alkaline Phosphatase (39-117) U/L Total Protein (6.5-8.0) g/dL Albumin (3.5-5.0) g/dL Urine Color Urine Appearance Urine pH (5.0-9.0) Ur Specific [place] (1.005-1.025) Urine Protein (Neg-Trace) mg/dL Urine Glucose (UA) (Negative) mg/dL Urine Ketones (Negative) mg/dL Urine Blood (Negative) Urine Nitrite (Negative) Ur Leukocyte Esterase (Negative) Urine RBC (0-2) /HPF Urine WBC (0-5) /HPF Ur Squamous Epith Cells (0-2) /HPF Urine Bacteria (None Seen) Hyaline Casts (0-2) /LPF Urine Opiates Screen (Not Detect) Urine Fentanyl Screen (Not Detect) Ur Barbiturates Screen (Not Detect) Ur Phencyclidine Scrn (Not Detect) Ur Amphetamines Screen (Not Detect) U Benzodiazepines Scrn (Not Detect) Urine Cocaine Screen (Not Detect) U Marijuana (THC) Screen (Not Detect) Ethyl Alcohol mg/dL External Record Review External record reviewed: Outpatient record Discharge Plan Discharge Clinical Impression: Schizoaffective disorder, Generalized anxiety disorder, Cocaine use disorder, moderate, dependence, Alcohol use disorder, moderate, dependence, Suicidal ideation Patient Disposition: Still a Patient Prescriptions: No Action benztropine 0.5 mg tablet 0.5 mg PO BID haloperidol 5 mg tablet 5 mg PO BID sertraline 50 mg tablet 50 mg PO DAILY prazosin 2 mg capsule 2 mg PO BEDTIME Interventions: [place]-Suicide Risk Severity Scale Last Done: 11/23/22 00:11
[2022-11-23 00:39] LABS: Amphetamine Screen Urine Not Detected (Not Detect); Barbiturates, Urine POSITIVE (Not Detect); Benzodiazepines Screen Urine Not Detected (Not Detect); Cannabinoid Screen Urine Not Detected (Not Detect); Cocaine Screen Urine POSITIVE (Not Detect); Fentanyl, urine Not Detected (Not Detect); Opiate Screen Urine Not Detected (Not Detect); Phencyclidine Screen Urine Not Detected (Not Detect)
[2022-11-23 00:42] LABS: Alanine Aminotransferase 47 U/L (0-40); Alkaline Phosphatase 61 U/L (39-117); Anion Gap 14 (12-20); Aspartate Amino Transferase 33 U/L (5-37); Bilirubin Total 0.7 mg/dL (0.0-1.0); Blood Urea Nitrogen 8 mg/dL (9-16); Carbon Dioxide 24 mmol/L (22-29); Chloride 106 mmol/L (96-108); Creatinine Clr Calc Pharmacy 120.7; Estimated Glomerular Filt Rate > 60; Ethanol 45 mg/dL; Glucose Random 93 mg/dL (60-115); Potassium 4.3 mmol/L (3.3-5.1); Sodium 140 mmol/L (135-145); Total Protein 8.1 g/dL (6.5-8.0)
--- NOTE | 2022-11-23 05:09 | PC.NURSE ---
Patient slept through the night, no distress observed/reported, med rec completed/pending provider's approval, patient was seen by care team, disposition is pending, re-eval in the morning, VSS, behavior non concerning, will continue to monitor.
[2022-11-23 05:12] VITALS: RESP 14
--- NOTE | 2022-11-23 07:19 | PC.NURSE ---
pt teressa[ing. Plan is to re-eval this am. No distress noted at this time.
[2022-11-23 11:07] LABS: COVID-19 Test Negative (Negative)
--- NOTE | 2022-11-23 12:47 | MHC.CARE ---
Pt seen by CARE team and is appropriate for inpatient level of care.
--- NOTE | 2022-11-23 12:57 | PC.NURSE ---
assumed care of pt at 1100, pt resting quietly in room, requesting turkey sandwich, plan for inpt admission to [facility].
--- NOTE | 2022-11-23 14:30 | PC.NURSE ---
Addendum entered by GORGE Perry 11/23/22 14:38: Recovery Coordinator attempted a second time to visit PT to provide a OT therapeutic intervention session. PT was sleeping, however he was woken up where he then expressed that he is in pain and would like to speak at another time. Original Note: Recovery Coordinator attempted to visit PT to provide a OT therapeutic intervention session. PT was sleeping at the time of visit.
--- NOTE | 2022-11-23 16:13 | PC.NURSE ---
RN-RN report given to [facility].
[2022-11-23 16:19] VITALS: BP 114/67; PULSE 62; RESP 16; TEMP 36.2; O2SAT 96
[2022-11-23 18:45] VITALS: BP 122/79; PULSE 82; RESP 16; TEMP 36.6; O2SAT 98; BMI 26.7
[2022-11-23] MEDS: HaloperidoL 5 MG TABLET PO (20:32)
[2022-11-23] MEDS: Prazosin HCL 1 MG CAPSULE 2 MG PO (20:32)
[2022-11-23] MEDS: Benztropine Mesylate 0.5 MG TABLET PO (20:32)
--- NOTE | 2022-11-23 22:31 | PC.ADMIT ---
Pt is a 32 y/o, -[place] male admitted on CV for increased depression and SI with a plan to OD on drugs.. Pt is alert and oriented X3, VSS, covid negative, Tox screen positive for Barbituates, and cocaine. Pt presents as disheveled, reports homeless and hopeless. Pt states that he self presented to be sectioned 12 because he doesn't feel safe in the community and has lost all ability to control himself. Speech is regular with normal tone and rhythm. Pt appeared restless during admission and wanted to leave. Pt has alcoholic history. He denied withdrawal symptoms. However, Pt scored 6 on a CIWA scale. Pt verbalizes sleep difficulty and states that trazodone helps with sleep. Pt endorses HI/with the thoughts of harming other people. He endorses AH, depression and Anxiety. Admission order obtained, treatment plan and safety tool completed. Promote safety and begin tx plan. Pt resting in bed.
[2022-11-24] MEDS: Benztropine Mesylate 0.5 MG TABLET PO ×2 (08:55→20:54)
[2022-11-24] MEDS: Thiamine HCL 100 MG TABLET PO (08:55)
[2022-11-24] MEDS: HaloperidoL 5 MG TABLET PO ×2 (08:55→20:54)
[2022-11-24] MEDS: Folic Acid 1 MG TABLET PO (08:55)
[2022-11-24 09:00] VITALS: BP 95/61; PULSE 68; RESP 16; TEMP 36.1; O2SAT 96
[2022-11-24] MEDS: hydrOXYzine HCL 25 MG TABLET PO (09:00)
--- NOTE | 2022-11-24 15:43 | HO.PSYADMNOT ---
HPI Date of Service: 11/24/22 Chief Complaint: depression/ psychosis Sources of Information: patient interviewed, chart reviewed and crisis/core team assessment reviewed HPI Subjective Notes: [place] Warning and Conditional Voluntary Healthcare Proxy: No Guardianship: No Medical Problems Affecting Mental Status: No Narrative: 32 yo male, reporting SI to ER team with plan, substance abuse and feeling unsafe in the community. Reports loss of control, feeling he wants to harm others. Affirms perceptual alterations, poor appetite and poor sleep. Currently non compliant with OP services and medication regime. Alcohol and substance use are daily. Pt refuses to get out of bed for intake today, stating figure it out, I am here. Past Psychiatric History: Inpatient: [facility] 2020. History of several inpatient hospitalizations. OP: [facility] Trials: Clonidine, Hydroxyzine, Latuda, Melatonin, Prazosin, Seroquel, Trazodone Medical Evaluation Reviewed: Yes [facility] Medical History Alcohol abuse Alcohol dependence Alcohol intoxication Delusional disorder Generalized anxiety disorder History of alcohol abuse Mixed dyslipidemia Schizo-affective schizophrenia Schizoaffective disorder Surgical History History of removal of neck cyst History of root canal procedure Family History: Pt would not participate in intake today Social History: Pt would not participate in intake today Substance History: alcohol, cocaine, barbiturates Trauma History: Pt would not participate in intake today Diagnostics Vital Signs (24Hr): Vital Signs - 24 hr 11/23/22 16:19 11/23/22 18:45 11/24/22 09:00 Temperature 97.2 F 97.8 F 96.9 F Pulse Rate 62 82 68 Respiratory Rate 16 16 16 Blood Pressure 114/67 122/79 95/61 Pulse Oximetry 96 98 96 Oxygen Delivery Method Room Air Room Air Room Air BMI result Body Mass Index 26.7 Labs 11/23/22 00:22 11/23/22 00:22 Labs: Laboratory Results - last 48 hr 11/23/22 11/23/22 11/23/22 00:16 00:16 00:22 WBC RBC Hgb Hct MCV MCH MCHC RDW Plt Count MPV Immature Gran % (Auto) Neut % (Auto) Lymph % (Auto) [place] % (Auto) Eos % (Auto) Baso % (Auto) Lymph # (Auto) [place] # (Auto) Eos # (Auto) Baso # (Auto) Abs Immat Gran (auto) Absolute Neuts (auto) Absolute Nucleated RBC Nucleated RBC % (auto) Sodium 140 Potassium 4.3 Chloride 106 Carbon Dioxide 24 Anion Gap 14 BUN 8 L Creatinine 0.85 Estim Creat Clear Calc 120.7 Estimated GFR > 60 Random Glucose 93 Calcium 10.0 Total Bilirubin 0.7 AST 33 ALT 47 H Alkaline Phosphatase 61 Total Protein 8.1 H Albumin 5.0 Urine Color Dark Yellow Urine Appearance Clear Urine pH 5.5 Ur Specific [place] >= 1.030 H Urine Protein 100 (2+) H Urine Glucose (UA) Negative Urine Ketones Trace Urine Blood Negative Urine Nitrite Negative Ur Leukocyte Esterase Trace H Urine RBC 0-2 Urine WBC 11-20 H Ur Squamous Epith Cells 0-2 Urine Bacteria None Seen Hyaline Casts 3-5 Urine Opiates Screen Not Detected Urine Fentanyl Screen Not Detected Ur Barbiturates Screen POSITIVE H Ur Phencyclidine Scrn Not Detected Ur Amphetamines Screen Not Detected U Benzodiazepines Scrn Not Detected Urine Cocaine Screen POSITIVE H U Marijuana (THC) Screen Not Detected Ethyl Alcohol 45 COVID-19 ([facility]) COVID-19 Clin Com 11/23/22 11/23/22 00:22 10:43 WBC 8.9 RBC 5.27 Hgb 15.5 Hct 46.0 MCV 87.3 MCH 29.4 MCHC 33.7 RDW 13.4 Plt Count 263 MPV 10.3 Immature Gran % (Auto) 0.5 H Neut % (Auto) 55.4 Lymph % (Auto) 33.2 [place] % (Auto) 8.9 Eos % (Auto) 1.4 Baso % (Auto) 0.6 Lymph # (Auto) 2.9 [place] # (Auto) 0.8 Eos # (Auto) 0.1 Baso # (Auto) 0.1 Abs Immat Gran (auto) 0.04 H Absolute Neuts (auto) 4.9 Absolute Nucleated RBC 0.000 Nucleated RBC % (auto) 0.0 Sodium Potassium Chloride Carbon Dioxide Anion Gap BUN Creatinine Estim Creat Clear Calc Estimated GFR Random Glucose Calcium Total Bilirubin AST ALT Alkaline Phosphatase Total Protein Albumin Urine Color Urine Appearance Urine pH Ur Specific [place] Urine Protein Urine Glucose (UA) Urine Ketones Urine Blood Urine Nitrite Ur Leukocyte Esterase Urine RBC Urine WBC Ur Squamous Epith Cells Urine Bacteria Hyaline Casts Urine Opiates Screen Urine Fentanyl Screen Ur Barbiturates Screen Ur Phencyclidine Scrn Ur Amphetamines Screen U Benzodiazepines Scrn Urine Cocaine Screen U Marijuana (THC) Screen Ethyl Alcohol COVID-19 ([facility]) Negative COVID-19 Clin Com See Note Meds/Allergies Meds Home Medications Medication Instructions Recorded Confirmed Type benztropine 0.5 mg tablet 0.5 mg PO BID 11/23/22 11/23/22 History haloperidol 5 mg tablet 5 mg PO BID 11/23/22 11/23/22 History prazosin 2 mg capsule 2 mg PO BEDTIME 11/23/22 11/23/22 History sertraline 50 mg tablet 50 mg PO DAILY 11/23/22 11/23/22 History Allergies Allergies Allergy/AdvReac Type Severity Reaction Status Date / Time No Known Allergies Allergy Verified 11/23/22 00:06 [No Known Allergies*] Mental Status Exam Mental Status Exam Patient Appearance: Fatigued Patient Orientation: Person, Place and Situation Level of Consciousness: Drowsy and Sedated Patient Behavior: Resistive to Care, Avoidant, Fatigued, Isolative and Poor Eye Contact Mood Description: Flat Affect Description: Flat Patient Cognition Impaired: No Ability to Follow Directions: Fair Speech Pattern: Spontaneous Speech Thought Content: positive for Circumstantial and positive for Suicidal Ideation Depressive Symptoms: Thoughts of /Suicide Judgement: Fair Assessment & Plan Assessment & Plan (1) Schizoaffective disorder: Status: Acute Code(s): F25.9 - Schizoaffective disorder, unspecified (2) Alcohol use disorder, moderate, dependence: Status: Acute Code(s): F10.20 - Alcohol dependence, uncomplicated (3) Cocaine use disorder, moderate, dependence: Status: Acute Code(s): F14.20 - Cocaine dependence, uncomplicated Plan 32 yo male, history of schizoaffective diosrder, alcohol, polysubstance use. To ER with SI with plan, HI with plan and reports of response to internal stimuli. Today, pt is in bed, refuses to meet as he reports feeling tired. Plan: CIWA detox Urine culture, b12, folate, a1c,lipids, tsh Collateral contacts Aftercare planning Patient educated on: therapeutic strategies Informed Consent: further education needed Reason for continued inpatient stay Substantial Risk for: harm to self and rapid decompensation Statement Statement: I have reviewed the history and physical and performed a pertinent examination on my patient. No changes have occurred unless specified. If the History and Physical was not performed prior to admission, the Hospitalist's service will be consulted for completing the admission physical. Time Spent With Patient Time: Total time managing care of this patient today ____ minutes.
[2022-11-24 15:54] VITALS: BP 115/58; PULSE 68; RESP 16; TEMP 35.9; O2SAT 96
[2022-11-24] MEDS: LORazepam 1 MG TABLET PO ×2 (16:17→22:02)
[2022-11-24] MEDS: traZODone HCL 100 MG TABLET 200 MG PO (20:54)
[2022-11-24] MEDS: Prazosin HCL 1 MG CAPSULE 2 MG PO (20:55)
[2022-11-25 08:50] VITALS: BP 173/83; PULSE 84; RESP 16; TEMP 36.4; O2SAT 96
[2022-11-25] MEDS: HaloperidoL 5 MG TABLET PO ×2 (08:52→20:22)
[2022-11-25] MEDS: Multivitamin TABLET 1 TAB PO (08:52)
[2022-11-25] MEDS: Thiamine HCL 100 MG TABLET PO (08:53)
[2022-11-25] MEDS: Sertraline HCL 50 MG TABLET PO (08:53)
[2022-11-25] MEDS: Folic Acid 1 MG TABLET PO (08:53)
[2022-11-25] MEDS: Benztropine Mesylate 0.5 MG TABLET PO ×2 (08:53→20:22)
--- NOTE | 2022-11-25 12:03 | HO.PSYCHPN ---
Subjective Subjective Date of Service: 11/25/22 Reason For Visit: depression/ psychosis Subjective Notes: Conditional Voluntary Interim History: Pt withdrawn, denies withdrawal symptoms. reports poor sleep and poor apetite; reports passive SI but less since on unit; no plan or intent; future oriented; wants help Medication Compliance: Yes Side effects from medications: No Attending Groups: No Review of Systems Acute medical concerns: No Medical Review of Systems: unchanged Review of Systems Review of Systems Yes all other systems are reviewed and are negative and Unobtainable due to mental status Mental Status Exam Mental Status Exam Patient Appearance: Fatigued Patient Orientation: Person, Place and Situation Level of Consciousness: Drowsy and Sedated Patient Behavior: Resistive to Care, Avoidant, Fatigued, Isolative and Poor Eye Contact Mood Description: Flat Affect Description: Flat Patient Cognition Impaired: No Ability to Follow Directions: Fair Speech Pattern: Spontaneous Speech Delusions: Not Present Thought Process: Intact Thought Content: positive for Intact Judgement: Fair Diagnostics Vital Signs (24Hr): Vital Signs - 24 hr 11/24/22 15:54 11/25/22 08:50 Temperature 96.6 F L 97.6 F Pulse Rate 68 84 Respiratory Rate 16 16 Blood Pressure 115/58 L 173/83 H Pulse Oximetry 96 96 Oxygen Delivery Method Room Air Room Air BMI result Body Mass Index 26.7 Labs 11/23/22 00:22 11/23/22 00:22 Medications Medications Current Medications Acetaminophen (Acetaminophen 325 Mg Tablet) 650 mg PO Q6H PRN PRN Reason: Headache/Pain Mild Scale (1-3) Al Hydroxide/Mg Hydroxide (Magnesium Hydrox/Alum Hydrox 30 Ml Oral.Susp) 30 ml PO Q6H PRN PRN Reason: Heartburn/Nausea Benztropine Mesylate (Benztropine Mesylate 0.5 Mg Tablet) 0.5 mg PO BID [facility] Last Admin: 11/25/22 08:53 Dose: 0.5 mg Folic Acid (Folic Acid 1 Mg Tablet) 1 mg PO DAILY [facility] Last Admin: 11/25/22 08:53 Dose: 1 mg Haloperidol (Haloperidol 5 Mg Tablet) 5 mg PO BID [facility] Last Admin: 11/25/22 08:52 Dose: 5 mg Hydroxyzine HCl (Hydroxyzine Hcl 25 Mg Tablet) 25 mg PO Q6H PRN PRN Reason: Anxiety Last Admin: 11/24/22 09:00 Dose: 25 mg Lorazepam (Lorazepam 1 Mg Tablet) 1 mg PO Q2H PRN PRN Reason: CIWA 6-10 Last Admin: 11/24/22 22:02 Dose: 1 mg Lorazepam (Lorazepam 1 Mg Tablet) 2 mg PO Q2H PRN PRN Reason: CIWA 11 and above Magnesium Hydroxide (Milk Of Magnesia 30 Ml Oral.Susp) 30 ml PO DAILY PRN PRN Reason: Constipation Multivitamins/Vitamin C (Multivitamin Tablet) 1 tab PO DAILY [facility] Last Admin: 11/25/22 08:52 Dose: 1 tab Nicotine (Nicotine 21 Mg Patch.Td24) 21 mg TRANSDERMA DAILY PRN PRN Reason: smoking cessation Nicotine Polacrilex (Nicotine Polacrilex 2 Mg Gum) 4 mg BUCCAL Q2H PRN PRN Reason: nicotine cravings Olanzapine (Olanzapine 5 Mg Tablet) 5 mg PO TID PRN PRN Reason: agitation Prazosin HCl (Prazosin Hcl 1 Mg Capsule) 2 mg PO BEDTIME [facility]; Protocol Last Admin: 11/24/22 20:55 Dose: 2 mg Sertraline HCl (Sertraline Hcl 50 Mg Tablet) 50 mg PO DAILY [facility] Last Admin: 11/25/22 08:53 Dose: 50 mg Thiamine HCl (Thiamine Hcl 100 Mg Tablet) 100 mg PO DAILY [facility] Last Admin: 11/25/22 08:53 Dose: 100 mg Trazodone HCl (Trazodone Hcl 100 Mg Tablet) 200 mg PO BEDTIME [facility] Last Admin: 11/24/22 20:54 Dose: 200 mg Allergies Allergies Allergy/AdvReac Type Severity Reaction Status Date / Time No Known Allergies Allergy Verified 11/23/22 00:06 [No Known Allergies*] Assessment & Plan Assessment & Plan (1) Schizoaffective disorder: Status: Acute Code(s): F25.9 - Schizoaffective disorder, unspecified (2) Alcohol use disorder, moderate, dependence: Status: Acute Code(s): F10.20 - Alcohol dependence, uncomplicated (3) Cocaine use disorder, moderate, dependence: Status: Acute Code(s): F14.20 - Cocaine dependence, uncomplicated Plan 32 yo male, history of schizoaffective diosrder, alcohol, polysubstance use. To ER with SI with plan, HI with plan and reports of response to internal stimuli. Today, pt is in bed, refuses to meet as he reports feeling tired. Plan: [facility] detox Urine culture, b12, folate, a1c,lipids, tsh Collateral contacts Aftercare planning 11/25/22 continue treatment plan Patient educated on: diagnosis, medication risk/benefits and substance abuse Informed Consent: further education needed Reason for continued inpatient stay Substantial Risk for: harm to self, inability to function and rapid decompensation Time Spent With Patient Time: Total time managing care of this patient today ____ minutes.
[2022-11-25 14:25] VITALS: BP 109/77; PULSE 112; RESP 18; TEMP 36.6; O2SAT 98
[2022-11-25] MEDS: LORazepam 1 MG TABLET PO ×3 (14:36→20:21)
[2022-11-25 20:19] VITALS: BP 135/80; PULSE 87; RESP 18; TEMP 36.1
[2022-11-25] MEDS: Prazosin HCL 1 MG CAPSULE 2 MG PO (20:21)
[2022-11-25] MEDS: traZODone HCL 100 MG TABLET 200 MG PO (20:22)
[2022-11-25] MEDS: Acetaminophen 325 MG TABLET 650 MG PO (23:48)
[2022-11-26] MEDS: Thiamine HCL 100 MG TABLET PO (08:57)
[2022-11-26] MEDS: LORazepam 1 MG TABLET PO ×2 (08:57→13:14)
[2022-11-26] MEDS: Benztropine Mesylate 0.5 MG TABLET PO ×2 (08:57→21:01)
[2022-11-26] MEDS: HaloperidoL 5 MG TABLET PO ×2 (08:57→21:01)
[2022-11-26] MEDS: Folic Acid 1 MG TABLET PO (08:57)
[2022-11-26] MEDS: Sertraline HCL 50 MG TABLET PO (08:57)
[2022-11-26] MEDS: Multivitamin TABLET 1 TAB PO (08:57)
[2022-11-26 09:00] VITALS: BP 106/67; PULSE 89; RESP 16; TEMP 36.3; O2SAT 97
--- NOTE | 2022-11-26 12:31 | P.PNPSI_ITS ---
Subjective Subjective Date of Service: 11/26/22 Reason For Visit: depression/ psychosis Interim History: Pt much better today; out of bed; alet, more social, attending to his ADls showered; eating. reports better sleep and appetite; reports passive SI but less since on unit; no plan or intent; future oriented; wants help Medication Compliance: Yes Side effects from medications: No Attending Groups: Yes Review of Systems Acute medical concerns: No Medical Review of Systems: unchanged Review of Systems Review of Systems Yes all other systems are reviewed and are negative and Unobtainable due to mental status Mental Status Exam Mental Status Exam Patient Appearance: Fatigued Patient Orientation: Person, Place and Situation Level of Consciousness: Awake Patient Behavior: Appropriate, Cooperative and Good Eye Contact Mood Description: Calm Affect Description: Calm Patient Cognition Impaired: No Ability to Follow Directions: Fair Speech Pattern: Clear and Spontaneous Speech Memory Description: Intact Delusions: Not Present Thought Process: Intact and Goal Oriented Thought Content: positive for Intact and positive for Goal Oriented Judgement: Fair Diagnostics Vital Signs (24Hr): Vital Signs - 24 hr 11/25/22 14:25 11/25/22 20:19 11/26/22 09:00 Temperature 97.9 F 97 F 97.4 F Pulse Rate 112 H 87 89 Respiratory Rate 18 18 16 Blood Pressure 109/77 135/80 106/67 Pulse Oximetry 98 97 Oxygen Delivery Method Room Air Room Air BMI result Body Mass Index 26.7 Labs 11/23/22 00:22 11/23/22 00:22 Medications Medications Current Medications Acetaminophen (Acetaminophen 325 Mg Tablet) 650 mg PO Q6H PRN PRN Reason: Headache/Pain Mild Scale (1-3) Last Admin: 11/25/22 23:48 Dose: 650 mg Al Hydroxide/Mg Hydroxide (Magnesium Hydrox/Alum Hydrox 30 Ml Oral.Susp) 30 ml PO Q6H PRN PRN Reason: Heartburn/Nausea Benztropine Mesylate (Benztropine Mesylate 0.5 Mg Tablet) 0.5 mg PO BID [facility] Last Admin: 11/26/22 08:57 Dose: 0.5 mg Folic Acid (Folic Acid 1 Mg Tablet) 1 mg PO DAILY [facility] Last Admin: 11/26/22 08:57 Dose: 1 mg Haloperidol (Haloperidol 5 Mg Tablet) 5 mg PO BID [facility] Last Admin: 11/26/22 08:57 Dose: 5 mg Hydroxyzine HCl (Hydroxyzine Hcl 25 Mg Tablet) 25 mg PO Q6H PRN PRN Reason: Anxiety Last Admin: 11/24/22 09:00 Dose: 25 mg Lorazepam (Lorazepam 1 Mg Tablet) 1 mg PO Q2H PRN PRN Reason: CIWA 6-10 Last Admin: 11/26/22 08:57 Dose: 1 mg Lorazepam (Lorazepam 1 Mg Tablet) 2 mg PO Q2H PRN PRN Reason: CIWA 11 and above Magnesium Hydroxide (Milk Of Magnesia 30 Ml Oral.Susp) 30 ml PO DAILY PRN PRN Reason: Constipation Multivitamins/Vitamin C (Multivitamin Tablet) 1 tab PO DAILY [facility] Last Admin: 11/26/22 08:57 Dose: 1 tab Nicotine (Nicotine 21 Mg Patch.Td24) 21 mg TRANSDERMA DAILY PRN PRN Reason: smoking cessation Nicotine Polacrilex (Nicotine Polacrilex 2 Mg Gum) 4 mg BUCCAL Q2H PRN PRN Reason: nicotine cravings Olanzapine (Olanzapine 5 Mg Tablet) 5 mg PO TID PRN PRN Reason: agitation Prazosin HCl (Prazosin Hcl 1 Mg Capsule) 2 mg PO BEDTIME [facility]; Protocol Last Admin: 11/25/22 20:21 Dose: 2 mg Sertraline HCl (Sertraline Hcl 50 Mg Tablet) 50 mg PO DAILY [facility] Last Admin: 11/26/22 08:57 Dose: 50 mg Thiamine HCl (Thiamine Hcl 100 Mg Tablet) 100 mg PO DAILY [facility] Last Admin: 11/26/22 08:57 Dose: 100 mg Trazodone HCl (Trazodone Hcl 100 Mg Tablet) 200 mg PO BEDTIME [facility] Last Admin: 11/25/22 20:22 Dose: 200 mg Allergies Allergies Allergy/AdvReac Type Severity Reaction Status Date / Time No Known Allergies Allergy Verified 11/23/22 00:06 [No Known Allergies*] Assessment & Plan Assessment & Plan (1) Schizoaffective disorder: Status: Acute Code(s): F25.9 - Schizoaffective disorder, unspecified (2) Alcohol use disorder, moderate, dependence: Status: Acute Code(s): F10.20 - Alcohol dependence, uncomplicated (3) Cocaine use disorder, moderate, dependence: Status: Acute Code(s): F14.20 - Cocaine dependence, uncomplicated Plan 32 yo male, history of schizoaffective diosrder, alcohol, polysubstance use. To ER with SI with plan, HI with plan and reports of response to internal stimuli. Plan: [facility] detox Urine culture, b12, folate, a1c,lipids, tsh Collateral contacts Aftercare planning 11/25/22 continue treatment plan 11/26/22 continue current treatment plan Informed Consent: further education needed Reason for continued inpatient stay Substantial Risk for: harm to self and inability to function Time Spent With Patient Time: Total time managing care of this patient today ____ minutes.
[2022-11-26] MEDS: LORazepam 1 MG TABLET 2 MG PO ×2 (16:50→21:00)
[2022-11-26] MEDS: hydrOXYzine HCL 25 MG TABLET PO (17:39)
[2022-11-26 20:58] VITALS: BP 143/81; PULSE 87; RESP 18; TEMP 36.6
[2022-11-26] MEDS: traZODone HCL 100 MG TABLET 200 MG PO (21:00)
[2022-11-26] MEDS: Prazosin HCL 1 MG CAPSULE 2 MG PO (21:00)
[2022-11-27 06:00] VITALS: BP 128/84; PULSE 88; RESP 18; TEMP 36.4; O2SAT 98
[2022-11-27] MEDS: Multivitamin TABLET 1 TAB PO (09:25)
[2022-11-27] MEDS: Thiamine HCL 100 MG TABLET PO (09:25)
[2022-11-27] MEDS: LORazepam 1 MG TABLET PO ×4 (09:25→20:29)
[2022-11-27] MEDS: Benztropine Mesylate 0.5 MG TABLET PO ×2 (09:25→20:26)
[2022-11-27] MEDS: HaloperidoL 5 MG TABLET PO (09:25)
[2022-11-27] MEDS: Sertraline HCL 50 MG TABLET PO (09:26)
[2022-11-27] MEDS: Folic Acid 1 MG TABLET PO (09:26)
--- NOTE | 2022-11-27 11:18 | PHA.MEDREC ---
Pharmacy Consult ? Medication Reconciliation Pharmacy has completed the medication reconciliation. Reviewed med rec done by josafat villatoro
[2022-11-27] MEDS: cloNIDine HCL 0.1 MG TABLET PO ×3 (12:33→20:00)
[2022-11-27 12:34] VITALS: BP 120/70; PULSE 76; RESP 18
--- NOTE | 2022-11-27 14:25 | PC.NURSE ---
Pt signed a 3 day notice up on , 11/30. MD SUSAN, SW aware.
[2022-11-27 14:30] VITALS: BP 120/82; PULSE 87
[2022-11-27] MEDS: hydrOXYzine HCL 25 MG TABLET PO (14:31)
[2022-11-27] MEDS: OLANZapine 5 MG TABLET PO (14:31)
--- NOTE | 2022-11-27 15:20 | HO.PSYCHPN ---
Subjective Subjective Date of Service: 11/27/22 Reason For Visit: depression/ psychosis Subjective Notes: Conditional Voluntary and 3 Day Healthcare Proxy: No Guardianship: No Medical Problems Affecting Mental Status: No Interim History: Three day notice signed. Full review of medications. Haldol/Seroquel/Sertraline doses increased to levels taken prior to admission. Pt reports detox has been managable. Voices have been on and off. States he has struggled for a long while as to whether addiction or mental health is the primary problem. He has decided that he has mental health sx, stops medications, sx intensify and he turns to substances. Over the past days, he reports feeling emotional and having to manage his paranoia, anxiety and fear. Considering IOP and returning to his apartment vs CSS. Medication Compliance: Yes Side effects from medications: No Attending Groups: Intermittent Review of Systems Acute medical concerns: No Medical Review of Systems: unchanged Mental Status Exam Mental Status Exam Patient Appearance: Appropriate Patient Orientation: Person, Place, Time and Situation Level of Consciousness: Awake Patient Behavior: Appropriate, Cooperative and Good Eye Contact Mood Description: Calm Affect Description: Calm Patient Cognition Impaired: No Ability to Follow Directions: Fair Speech Pattern: Clear and Spontaneous Speech Memory Description: Intact Delusions: Not Present Thought Process: Intact and Goal Oriented Thought Content: positive for Intact and positive for Goal Oriented Depressive Symptoms: Thoughts of /Suicide (denies) Judgement: Fair Diagnostics Vital Signs (24Hr): Vital Signs - 24 hr 11/26/22 20:58 11/27/22 06:00 11/27/22 12:34 Temperature 97.8 F 97.6 F Pulse Rate 87 88 76 Respiratory Rate 18 18 18 Blood Pressure 143/81 H 128/84 120/70 Pulse Oximetry 98 Oxygen Delivery Method Room Air 11/27/22 14:30 Temperature Pulse Rate 87 Respiratory Rate Blood Pressure 120/82 Pulse Oximetry Oxygen Delivery Method BMI result Body Mass Index 26.7 Labs 11/23/22 00:22 11/23/22 00:22 Medications Medications Current Medications Acetaminophen (Acetaminophen 325 Mg Tablet) 650 mg PO Q6H PRN PRN Reason: Headache/Pain Mild Scale (1-3) Last Admin: 11/25/22 23:48 Dose: 650 mg Al Hydroxide/Mg Hydroxide (Magnesium Hydrox/Alum Hydrox 30 Ml Oral.Susp) 30 ml PO Q6H PRN PRN Reason: Heartburn/Nausea Benztropine Mesylate (Benztropine Mesylate 0.5 Mg Tablet) 0.5 mg PO BID [facility] Last Admin: 11/27/22 09:25 Dose: 0.5 mg Clonidine HCl (Clonidine Hcl 0.1 Mg Tablet) 0.1 mg PO TID [facility]; Protocol Last Admin: 11/27/22 14:32 Dose: 0.1 mg Folic Acid (Folic Acid 1 Mg Tablet) 1 mg PO DAILY [facility] Last Admin: 11/27/22 09:26 Dose: 1 mg Haloperidol (Haloperidol 5 Mg Tablet) 10 mg PO BID [facility] Hydroxyzine HCl (Hydroxyzine Hcl 25 Mg Tablet) 25 mg PO Q6H PRN PRN Reason: Anxiety Last Admin: 11/27/22 14:31 Dose: 25 mg Lorazepam (Lorazepam 1 Mg Tablet) 1 mg PO Q2H PRN PRN Reason: CIWA 6-10 Last Admin: 11/27/22 11:31 Dose: 1 mg Lorazepam (Lorazepam 1 Mg Tablet) 2 mg PO Q2H PRN PRN Reason: CIWA 11 and above Last Admin: 11/26/22 21:00 Dose: 2 mg Magnesium Hydroxide (Milk Of Magnesia 30 Ml Oral.Susp) 30 ml PO DAILY PRN PRN Reason: Constipation Multivitamins/Vitamin C (Multivitamin Tablet) 1 tab PO DAILY [facility] Last Admin: 11/27/22 09:25 Dose: 1 tab Nicotine (Nicotine 21 Mg Patch.Td24) 21 mg TRANSDERMA DAILY PRN PRN Reason: smoking cessation Nicotine Polacrilex (Nicotine Polacrilex 2 Mg Gum) 4 mg BUCCAL Q2H PRN PRN Reason: nicotine cravings Olanzapine (Olanzapine 5 Mg Tablet) 5 mg PO TID PRN PRN Reason: agitation Last Admin: 11/27/22 14:31 Dose: 5 mg Prazosin HCl (Prazosin Hcl 1 Mg Capsule) 2 mg PO BEDTIME [facility]; Protocol Last Admin: 11/26/22 21:00 Dose: 2 mg Quetiapine Fumarate (Quetiapine Fumarate 100 Mg Tablet) 100 mg PO BEDTIME [facility] Sertraline HCl (Sertraline Hcl 50 Mg Tablet) 150 mg PO DAILY [facility] Thiamine HCl (Thiamine Hcl 100 Mg Tablet) 100 mg PO DAILY [facility] Last Admin: 11/27/22 09:25 Dose: 100 mg Trazodone HCl (Trazodone Hcl 100 Mg Tablet) 200 mg PO BEDTIME [facility] Last Admin: 11/26/22 21:00 Dose: 200 mg Allergies Allergies Allergy/AdvReac Type Severity Reaction Status Date / Time No Known Allergies Allergy Verified 11/23/22 00:06 [No Known Allergies*] Assessment & Plan Assessment & Plan (1) Schizoaffective disorder: Status: Acute Code(s): F25.9 - Schizoaffective disorder, unspecified (2) Alcohol use disorder, moderate, dependence: Status: Acute Code(s): F10.20 - Alcohol dependence, uncomplicated (3) Cocaine use disorder, moderate, dependence: Status: Acute Code(s): F14.20 - Cocaine dependence, uncomplicated Plan 32 yo male, history of schizoaffective diosrder, alcohol, polysubstance use. To ER with SI with plan, HI with plan and reports of response to internal stimuli. Plan: [facility] detox Urine culture, b12, folate, a1c,lipids, tsh Collateral contacts Aftercare planning 11/25/22 continue treatment plan 11/26/22 continue current treatment plan 11/27/22 Re-establish doses of Sertraline, Haldol, Seroquel Clonidine trial for anxiety Patient educated on: medication risk/benefits and therapeutic strategies Informed Consent: understands Reason for continued inpatient stay Substantial Risk for: rapid decompensation Time Spent With Patient Time: Total time managing care of this patient today ____ minutes.
[2022-11-27 19:25] VITALS: BP 128/64; PULSE 99; RESP 18; TEMP 36.3; O2SAT 97
[2022-11-27] MEDS: Prazosin HCL 1 MG CAPSULE 2 MG PO (20:26)
[2022-11-27] MEDS: HaloperidoL 5 MG TABLET 10 MG PO (20:26)
[2022-11-27] MEDS: QUEtiapine Fumarate 100 MG TABLET PO (20:26)
[2022-11-27] MEDS: traZODone HCL 100 MG TABLET 200 MG PO (20:26)
[2022-11-28] MEDS: cloNIDine HCL 0.1 MG TABLET PO ×3 (08:27→20:03)
[2022-11-28] MEDS: hydrOXYzine HCL 25 MG TABLET PO ×2 (08:27→17:27)
[2022-11-28] MEDS: LORazepam 1 MG TABLET PO ×3 (08:27→17:47)
[2022-11-28 08:29] VITALS: BP 100/70; PULSE 79; RESP 16; TEMP 35.7; O2SAT 98
[2022-11-28] MEDS: Sertraline HCL 50 MG TABLET 150 MG PO (09:09)
[2022-11-28] MEDS: Folic Acid 1 MG TABLET PO (09:09)
[2022-11-28] MEDS: HaloperidoL 5 MG TABLET 10 MG PO ×2 (09:09→20:00)
[2022-11-28] MEDS: Thiamine HCL 100 MG TABLET PO (09:10)
[2022-11-28] MEDS: Benztropine Mesylate 0.5 MG TABLET PO ×2 (09:10→20:04)
[2022-11-28] MEDS: Multivitamin TABLET 1 TAB PO (09:10)
[2022-11-28] MEDS: OLANZapine 5 MG TABLET PO (17:27)
[2022-11-28 18:00] VITALS: BP 135/69; PULSE 90; RESP 16; TEMP 36.4; O2SAT 100
--- NOTE | 2022-11-28 18:24 | P.PNPSI_ITS ---
Subjective Subjective Date of Service: 11/28/22 Reason For Visit: depression/ psychosis Subjective Notes: 3 Day Healthcare Proxy: No Guardianship: No Medical Problems Affecting Mental Status: No Interim History: TDN to 11/30. Pt plans to return to his apartment. No current reports of symptoms, issues of concern. I learned where my issues begin, now I need to deal with them. Medication Compliance: Yes Side effects from medications: No Attending Groups: Intermittent Review of Systems Acute medical concerns: No Medical Review of Systems: unchanged Mental Status Exam Mental Status Exam Patient Appearance: Appropriate Patient Orientation: Person, Place, Time and Situation Level of Consciousness: Awake Patient Behavior: Appropriate, Cooperative and Good Eye Contact Mood Description: Calm Affect Description: Calm Patient Cognition Impaired: No Ability to Follow Directions: Fair Speech Pattern: Clear and Spontaneous Speech Memory Description: Intact Delusions: Not Present Thought Process: Intact and Goal Oriented Thought Content: positive for Intact and positive for Goal Oriented Depressive Symptoms: Thoughts of /Suicide (denies) Judgement: Fair Diagnostics Vital Signs (24Hr): Vital Signs - 24 hr 11/27/22 19:25 11/28/22 08:29 Temperature 97.3 F 96.2 F L Pulse Rate 99 79 Respiratory Rate 18 16 Blood Pressure 128/64 100/70 Pulse Oximetry 97 98 Oxygen Delivery Method Room Air Room Air BMI result Body Mass Index 26.7 Labs 11/23/22 00:22 11/23/22 00:22 Medications Medications Current Medications Acetaminophen (Acetaminophen 325 Mg Tablet) 650 mg PO Q6H PRN PRN Reason: Headache/Pain Mild Scale (1-3) Last Admin: 11/25/22 23:48 Dose: 650 mg Al Hydroxide/Mg Hydroxide (Magnesium Hydrox/Alum Hydrox 30 Ml Oral.Susp) 30 ml PO Q6H PRN PRN Reason: Heartburn/Nausea Benztropine Mesylate (Benztropine Mesylate 0.5 Mg Tablet) 0.5 mg PO BID [facility] Last Admin: 11/28/22 09:10 Dose: 0.5 mg Clonidine HCl (Clonidine Hcl 0.1 Mg Tablet) 0.1 mg PO TID [facility]; Protocol Last Admin: 11/28/22 15:01 Dose: 0.1 mg Folic Acid (Folic Acid 1 Mg Tablet) 1 mg PO DAILY [facility] Last Admin: 11/28/22 09:09 Dose: 1 mg Haloperidol (Haloperidol 5 Mg Tablet) 10 mg PO BID [facility] Last Admin: 11/28/22 09:09 Dose: 10 mg Hydroxyzine HCl (Hydroxyzine Hcl 25 Mg Tablet) 25 mg PO Q6H PRN PRN Reason: Anxiety Last Admin: 11/28/22 17:27 Dose: 25 mg Magnesium Hydroxide (Milk Of Magnesia 30 Ml Oral.Susp) 30 ml PO DAILY PRN PRN Reason: Constipation Multivitamins/Vitamin C (Multivitamin Tablet) 1 tab PO DAILY [facility] Last Admin: 11/28/22 09:10 Dose: 1 tab Nicotine (Nicotine 21 Mg Patch.Td24) 21 mg TRANSDERMA DAILY PRN PRN Reason: smoking cessation Nicotine Polacrilex (Nicotine Polacrilex 2 Mg Gum) 4 mg BUCCAL Q2H PRN PRN Reason: nicotine cravings Olanzapine (Olanzapine 5 Mg Tablet) 5 mg PO TID PRN PRN Reason: agitation Last Admin: 11/28/22 17:27 Dose: 5 mg Prazosin HCl (Prazosin Hcl 1 Mg Capsule) 2 mg PO BEDTIME [facility]; Protocol Last Admin: 11/27/22 20:26 Dose: 2 mg Quetiapine Fumarate (Quetiapine Fumarate 100 Mg Tablet) 100 mg PO BEDTIME [facility] Last Admin: 11/27/22 20:26 Dose: 100 mg Sertraline HCl (Sertraline Hcl 50 Mg Tablet) 150 mg PO DAILY [facility] Last Admin: 11/28/22 09:09 Dose: 150 mg Thiamine HCl (Thiamine Hcl 100 Mg Tablet) 100 mg PO DAILY [facility] Last Admin: 11/28/22 09:10 Dose: 100 mg Trazodone HCl (Trazodone Hcl 100 Mg Tablet) 200 mg PO BEDTIME [facility] Last Admin: 11/27/22 20:26 Dose: 200 mg Allergies Allergies Allergy/AdvReac Type Severity Reaction Status Date / Time No Known Allergies Allergy Verified 11/23/22 00:06 [No Known Allergies*] Assessment & Plan Assessment & Plan (1) Schizoaffective disorder: Status: Acute Code(s): F25.9 - Schizoaffective disorder, unspecified (2) Alcohol use disorder, moderate, dependence: Status: Acute Code(s): F10.20 - Alcohol dependence, uncomplicated (3) Cocaine use disorder, moderate, dependence: Status: Acute Code(s): F14.20 - Cocaine dependence, uncomplicated Plan 32 yo male, history of schizoaffective diosrder, alcohol, polysubstance use. To ER with SI with plan, HI with plan and reports of response to internal stimuli. Plan: [facility] detox Urine culture, b12, folate, a1c,lipids, tsh Collateral contacts Aftercare planning 11/25/22 continue treatment plan 11/26/22 continue current treatment plan 11/27/22 Re-establish doses of Sertraline, Haldol, Seroquel Clonidine trial for anxiety 11/28/22 TDN to 11/30. No current changes in regime/plan. Patient educated on: therapeutic strategies Informed Consent: understands Reason for continued inpatient stay Substantial Risk for: rapid decompensation Time Spent With Patient Time: Total time managing care of this patient today ____ minutes.
[2022-11-28] MEDS: Prazosin HCL 1 MG CAPSULE 2 MG PO (20:01)
[2022-11-28] MEDS: traZODone HCL 100 MG TABLET 200 MG PO (20:01)
[2022-11-28] MEDS: QUEtiapine Fumarate 100 MG TABLET PO (20:02)
[2022-11-29] MEDS: Acetaminophen 325 MG TABLET 650 MG PO ×3 (03:17→16:48)
[2022-11-29 09:05] VITALS: BP 133/66; PULSE 67; RESP 16; TEMP 36.4; O2SAT 95
[2022-11-29] MEDS: cloNIDine HCL 0.1 MG TABLET PO ×3 (09:05→20:18)
[2022-11-29] MEDS: Benztropine Mesylate 0.5 MG TABLET PO ×2 (09:05→20:18)
[2022-11-29] MEDS: Folic Acid 1 MG TABLET PO (09:05)
[2022-11-29] MEDS: Sertraline HCL 50 MG TABLET 150 MG PO (09:05)
[2022-11-29] MEDS: HaloperidoL 5 MG TABLET 10 MG PO ×2 (09:06→20:18)
[2022-11-29] MEDS: Thiamine HCL 100 MG TABLET PO (09:25)
[2022-11-29] MEDS: Multivitamin TABLET 1 TAB PO (09:25)
[2022-11-29 10:15] LABS: COVID-19 Test Negative (Negative); IDNOW Serial# BCCEAD1C
--- NOTE | 2022-11-29 13:01 | P.PNPSI_ITS ---
Subjective Subjective Date of Service: 11/29/22 Reason For Visit: depression/ psychosis Subjective Notes: 3 Day Healthcare Proxy: No Guardianship: No Medical Problems Affecting Mental Status: No Interim History: I think I will retract. No, I am going to go to my sister's house, I cannot stay here forever where it is safe and comfortable. Reports he is tolerating medication changes. Reports dental/tooth pain, Amoxicillan started. Using Tylenol. Withdrawal complete. Denies sx. Preparing for discharge 11/30. Medication Compliance: Yes Side effects from medications: No Attending Groups: Intermittent Review of Systems Acute medical concerns: No Medical Review of Systems: unchanged Mental Status Exam Mental Status Exam Patient Appearance: Appropriate Patient Orientation: Person, Place, Time and Situation Level of Consciousness: Awake Patient Behavior: Appropriate, Cooperative and Good Eye Contact Mood Description: Calm Affect Description: Calm Patient Cognition Impaired: No Ability to Follow Directions: Fair Speech Pattern: Clear and Spontaneous Speech Memory Description: Intact Delusions: Not Present Thought Process: Intact and Goal Oriented Thought Content: positive for Intact and positive for Goal Oriented Depressive Symptoms: Thoughts of /Suicide (denies) Judgement: Fair Diagnostics Vital Signs (24Hr): Vital Signs - 24 hr 11/28/22 18:00 11/29/22 09:05 Temperature 97.6 F 97.5 F Pulse Rate 90 67 Respiratory Rate 16 16 Blood Pressure 135/69 133/66 Pulse Oximetry 100 95 Oxygen Delivery Method Room Air Room Air BMI result Body Mass Index 26.7 Labs 11/23/22 00:22 11/23/22 00:22 Labs: Laboratory Results - last 48 hr 11/29/22 09:49 COVID-19 ([facility]) Negative COVID-19 Clin Com See Note Medications Medications Current Medications Acetaminophen (Acetaminophen 325 Mg Tablet) 650 mg PO Q6H PRN PRN Reason: Headache/Pain Mild Scale (1-3) Last Admin: 11/29/22 09:19 Dose: 650 mg Al Hydroxide/Mg Hydroxide (Magnesium Hydrox/Alum Hydrox 30 Ml Oral.Susp) 30 ml PO Q6H PRN PRN Reason: Heartburn/Nausea Benzocaine (Benzocaine 20 % Oral Gel 9 Gm Tube) 1 appl MUCOUS MEM QID PRN; Protocol PRN Reason: tooth pain Benztropine Mesylate (Benztropine Mesylate 0.5 Mg Tablet) 0.5 mg PO BID ESTEVAN Last Admin: 11/29/22 09:05 Dose: 0.5 mg Clonidine HCl (Clonidine Hcl 0.1 Mg Tablet) 0.1 mg PO TID [facility]; Protocol Last Admin: 11/29/22 09:05 Dose: 0.1 mg Folic Acid (Folic Acid 1 Mg Tablet) 1 mg PO DAILY [facility] Last Admin: 11/29/22 09:05 Dose: 1 mg Haloperidol (Haloperidol 5 Mg Tablet) 10 mg PO BID [facility] Last Admin: 11/29/22 09:06 Dose: 10 mg Hydroxyzine HCl (Hydroxyzine Hcl 25 Mg Tablet) 25 mg PO Q6H PRN PRN Reason: Anxiety Last Admin: 11/28/22 17:27 Dose: 25 mg Magnesium Hydroxide (Milk Of Magnesia 30 Ml Oral.Susp) 30 ml PO DAILY PRN PRN Reason: Constipation Multivitamins/Vitamin C (Multivitamin Tablet) 1 tab PO DAILY [facility] Last Admin: 11/29/22 09:25 Dose: 1 tab Nicotine (Nicotine 21 Mg Patch.Td24) 21 mg TRANSDERMA DAILY PRN PRN Reason: smoking cessation Nicotine Polacrilex (Nicotine Polacrilex 2 Mg Gum) 4 mg BUCCAL Q2H PRN PRN Reason: nicotine cravings Olanzapine (Olanzapine 5 Mg Tablet) 5 mg PO TID PRN PRN Reason: agitation Last Admin: 11/28/22 17:27 Dose: 5 mg Prazosin HCl (Prazosin Hcl 1 Mg Capsule) 2 mg PO BEDTIME [facility]; Protocol Last Admin: 11/28/22 20:01 Dose: 2 mg Quetiapine Fumarate (Quetiapine Fumarate 100 Mg Tablet) 100 mg PO BEDTIME [facility] Last Admin: 11/28/22 20:02 Dose: 100 mg Sertraline HCl (Sertraline Hcl 50 Mg Tablet) 150 mg PO DAILY [facility] Last Admin: 11/29/22 09:05 Dose: 150 mg Thiamine HCl (Thiamine Hcl 100 Mg Tablet) 100 mg PO DAILY [facility] Last Admin: 11/29/22 09:25 Dose: 100 mg Trazodone HCl (Trazodone Hcl 100 Mg Tablet) 200 mg PO BEDTIME [facility] Last Admin: 11/28/22 20:01 Dose: 200 mg Allergies Allergies Allergy/AdvReac Type Severity Reaction Status Date / Time No Known Allergies Allergy Verified 11/23/22 00:06 [No Known Allergies*] Assessment & Plan Assessment & Plan (1) Schizoaffective disorder: Status: Acute Code(s): F25.9 - Schizoaffective disorder, unspecified (2) Alcohol use disorder, moderate, dependence: Status: Acute Code(s): F10.20 - Alcohol dependence, uncomplicated (3) Cocaine use disorder, moderate, dependence: Status: Acute Code(s): F14.20 - Cocaine dependence, uncomplicated Plan 32 yo male, history of schizoaffective diosrder, alcohol, polysubstance use. To ER with SI with plan, HI with plan and reports of response to internal stimuli. Plan: CIWA detox Urine culture, b12, folate, a1c,lipids, tsh Collateral contacts Aftercare planning 11/25/22 continue treatment plan 11/26/22 continue current treatment plan 11/27/22 Re-establish doses of Sertraline, Haldol, Seroquel Clonidine trial for anxiety 11/29/22 Discharge 11/30/22 on TDN. Patient educated on: medication risk/benefits and therapeutic strategies Informed Consent: understands Reason for continued inpatient stay Substantial Risk for: rapid decompensation Time Spent With Patient Time: Total time managing care of this patient today ____ minutes.
[2022-11-29] MEDS: hydrOXYzine HCL 25 MG TABLET PO (13:31)
[2022-11-29 14:05] VITALS: BP 133/72; PULSE 71
[2022-11-29] MEDS: Amoxicillin 500 MG CAPSULE PO ×2 (14:06→20:18)
[2022-11-29] MEDS: OLANZapine 5 MG TABLET PO (16:49)
[2022-11-29 20:17] VITALS: BP 120/71; PULSE 65; RESP 18; TEMP 36.2
[2022-11-29] MEDS: traZODone HCL 100 MG TABLET 200 MG PO (20:18)
[2022-11-29] MEDS: Prazosin HCL 1 MG CAPSULE 2 MG PO (20:18)
[2022-11-29] MEDS: QUEtiapine Fumarate 100 MG TABLET PO (20:18)
--- NOTE | 2022-11-29 21:14 | PC.NURSE ---
Late entry; pt reported the continuance of alcohol w/d sx to this nurse. PT reports a headache 5/10, nausea, severe anxiety, moderate agitation, mild hand tremor and moist palms. Ativan and CIWA were both discontinued. CAW made aware of pt's complaints via tiger dominguez, no further orders at this time. PT given Zyprexa 5mg for agitation with some effect.
[2022-11-30] MEDS: Acetaminophen 325 MG TABLET 650 MG PO (01:45)
[2022-11-30] MEDS: Folic Acid 1 MG TABLET PO (08:43)
[2022-11-30] MEDS: Benztropine Mesylate 0.5 MG TABLET PO (08:43)
[2022-11-30] MEDS: HaloperidoL 5 MG TABLET 10 MG PO (08:43)
[2022-11-30] MEDS: cloNIDine HCL 0.1 MG TABLET PO (08:43)
[2022-11-30] MEDS: Thiamine HCL 100 MG TABLET PO (08:43)
[2022-11-30] MEDS: Sertraline HCL 50 MG TABLET 150 MG PO (08:43)
[2022-11-30] MEDS: Multivitamin TABLET 1 TAB PO (08:43)
[2022-11-30] MEDS: Amoxicillin 500 MG CAPSULE PO (08:43)
[2022-11-30 08:45] VITALS: BP 127/61; PULSE 86; RESP 18; TEMP 36; O2SAT 98
--- NOTE | 2022-11-30 18:11 | P.DS_ITS ---
DS: Providers Provider Date of Service: 11/30/22 Date of admission: 11/23/22 17:45 Date of discharge: 11/30/22 Primary care physician: Tomeka Teresa MD Admitting clinician: Nelli Aguirre Attending physician on admission: Yonny Ford Attending physician on discharge: Yonny Ford Discharging clinician: Nelli Aguirre DS: Diagnosis Discharge Diagnosis (1) Schizoaffective disorder: Status: Acute (2) Alcohol use disorder, moderate, dependence: Status: Acute (3) Cocaine use disorder, moderate, dependence: Status: Acute DS: Medications Discharge Medications Home Medications: Previous Rx's Medication Instructions Recorded amoxicillin 500 mg capsule 500 mg PO BID #14 caps 11/30/22 benztropine 0.5 mg tablet 0.5 mg PO BID #60 tabs 11/30/22 folic acid 1 mg tablet 1 mg PO DAILY #30 tabs 11/30/22 haloperidol 5 mg tablet 10 mg PO BID #60 tabs 11/30/22 multivitamin (Daily-Sunny tablet) 1 tab PO DAILY #30 tabs 11/30/22 nicotine (polacrilex) 2 mg gum 4 mg buccal Q2H PRN nicotine 11/30/22 cravings #60 ea nicotine 21 mg/24 hr daily 21 mg transdermal DAILY PRN 11/30/22 transdermal patch smoking cessation #30 ea prazosin 2 mg capsule 2 mg PO BEDTIME #30 caps 11/30/22 quetiapine 100 mg tablet 100 mg PO BEDTIME #30 tabs 11/30/22 sertraline 50 mg tablet 150 mg PO DAILY #90 tabs 11/30/22 thiamine mononitrate (vit B1) 100 100 mg PO DAILY #30 tabs 11/30/22 mg tablet trazodone 100 mg tablet 200 mg PO BEDTIME #60 tabs 11/30/22 Mental Status Exam Mental Status Exam Patient Appearance: Appropriate Patient Orientation: Person, Place, Time and Situation Level of Consciousness: Awake Patient Behavior: Appropriate, Cooperative and Good Eye Contact Mood Description: Calm Affect Description: Calm Patient Cognition Impaired: No Ability to Follow Directions: Fair Speech Pattern: Clear and Spontaneous Speech Memory Description: Intact Delusions: Not Present Thought Process: Intact and Goal Oriented Thought Content: positive for Intact and positive for Goal Oriented Depressive Symptoms: Thoughts of /Suicide (denies) Judgement: Fair Data Data Completed and Pending Completed studies during hospitalization [Text1]: 11/29/22 09:49 COVID-19 ([facility]) Negative COVID-19 Clin Com See Note 11/25/22 14:43 Urine clean catch - Clean Catch Midstream Urine Culture - Final DS: Summary Hospital Course Hospital Course: Admission to adult psychiatry for exacerbation of schizoaffective disorder, alcohol and polysubstance use disorder. Detox was completed. Medications were reviewed and re-established as pt reported non compliance prior to admission. Pt's urge to harm others prior to admission resolved and he agreed to attend IOP with [facility]. He declined CSS at this time. Status at Discharge Functional status at discharge: independent ambulation Overall status at discharge: patient is progressing back to baseline Time Spent with Patient Time attestation: Total time managing care of this patient today ____ minutes. Time spent: Greater than 30 minutes Discharge Plan Discharge Anticipated Discharge Date/Time: 11/30/22 12:00 Patient Disposition: Home, Self-Care Discharge Diagnosis: Schizoaffective Disorder Alcohol Use Disorder Cocaine Use Disorder Referrals: [facility]: Intensive outpatient program (IOP) [Other] - 12/04/22 2:00 pm ( Initial Intake Appointment for [facility] IOP program Appointment is by tele-health ) Sofiya Garcia (psychiatry):[facility] [employer] [Other] - 12/07/22 9:00 am (Hospital Discharge Appointment with psychiatric medication provider Appointment is by tele-health ) Tomeka Teresa MD [Primary Care Provider] - (Will call you to schedule follow up. ) Discharge Medications: New amoxicillin 500 mg Capsule 500 mg PO BID Qty: 14 0RF haloperidol 5 mg Tablet 10 mg PO BID Qty: 60 1RF nicotine (polacrilex) 2 mg Gum 4 mg buccal Q2H PRN (Reason: nicotine cravings) Qty: 60 0RF quetiapine 100 mg Tablet 100 mg PO BEDTIME Qty: 30 0RF nicotine 21 mg/24 hr Patch 24 Hour 21 mg transdermal DAILY PRN (Reason: smoking cessation) Qty: 30 0RF multivitamin [Daily-Sunny] Tablet 1 tab PO DAILY Qty: 30 0RF trazodone 100 mg Tablet 200 mg PO BEDTIME Qty: 60 0RF folic acid 1 mg Tablet 1 mg PO DAILY Qty: 30 0RF sertraline 50 mg Tablet 150 mg PO DAILY Qty: 90 0RF thiamine mononitrate (vit B1) 100 mg Tablet 100 mg PO DAILY Qty: 30 0RF Continued benztropine 0.5 mg tablet 0.5 mg PO BID Qty: 60 0RF prazosin 2 mg capsule 2 mg PO BEDTIME Qty: 30 0RF Discontinued haloperidol 5 mg tablet 5 mg PO BID sertraline 50 mg tablet 50 mg PO DAILY Discharge Orders: Discharge Order (Routine); Ordered 11/30/22 Ordered By: Nelli Aguirre Diet: Advance to usual diet Activity on Discharge: As tolerated Stand Alone Forms: Patient Portal Discharge page, Community Support Care Plan Goals: Mood and Behavioral Stabilization Sobriety Health Concerns: Mood and Behavioral Stabilization Sobriety Plan of Treatment: Attend follow up appointments Take medications as directed Assessment: Pt interviewed prior to discharge and found to be fully oriented and without SI/HI. Pt has insight and demonstrates good judgment in terms of wanting to pursue treatment. Pt is not in imminent risk of harm to self or others and has a safety plan that includes presenting to the closest ER or calling 911 if feeling unsafe. Pt has been observed closely by nursing and unit staff throughout admission Pt has not engaged in any behaviors that suggest dangerousness to self or others and has demonstrated appropriate behaviors and impulse control. Discharge Date/Time: 11/30/22 11:29
== END 2022-11-30 11:29 | disposition home or self-care (01) | DRG 750 ==
LOC: HO.ED 11-23 01:26 → HO.PM5 11-23 17:49
PROVIDERS: Nurse Practitioner Family; Admitting Provider Psychiatry & Neurology Psychiatry; Emergency Provider Emergency Medicine Emergency Medical Services; PCP Internal Medicine; Visit Provider Clinical Nurse Specialist Psychiatric/Mental Health, Adult
DX: F25.9 Schizoaffective disorder, unspecified (principal); R45.851 Suicidal ideations; E78.2 Mixed hyperlipidemia; F14.20 Cocaine dependence, uncomplicated; F41.1 Generalized anxiety disorder; F10.229 Alcohol dependence with intoxication, unspecified; Y90.2 Blood alcohol level of 40-59 mg/100 ml; Z20.822 Contact with and (suspected) exposure to COVID-19; Z87.891 Personal history of nicotine dependence; Z79.899 Other long term (current) drug therapy
CPT/HCPCS: 36415; 80053; 80307; 81001; 85025; 87086; 87635; 93005; 99285; S9485

== ENCOUNTER → 2022-11-23 17:45 | Outpatient (BNV) | payer OTHER, SELFPAY | PROVIDERS: Admitting Provider Psychiatry & Neurology Psychiatry; Emergency Provider Emergency Medicine Emergency Medical Services; PCP Internal Medicine; Visit Provider Clinical Nurse Specialist Psychiatric/Mental Health, Adult | DX: F25.9 Schizoaffective disorder, unspecified (principal); F10.20 Alcohol dependence, uncomplicated; F14.20 Cocaine dependence, uncomplicated | CPT/HCPCS: 90792; 99231; 99232; 99239 ==